=== PATIENT | female | born 1935 | race American Indian/Alaskan Native ===

== ENCOUNTER 2018-02-03 14:58 | Inpatient (IN) | payer MEDICARE ==
[2018-02-03] MEDS ORDERED: Sodium Chloride 0.9% 1,000 ML IV ONE (16:41)
--- NOTE | 2018-02-03 17:07 | C.PDOC ---
History Of Present Illness <Noelle Bustillos - Last Filed: 02/03/18 18:59> <Grupo Carmen - Last Filed: 02/03/18 21:08> 82-year-old female, PMHx includes Hypertension, Diabetes and Hypercholesterolemia, presents to the emergency department with complaints of recurring abdominal pain for "a long time." Patient notes pain worsened a few days ago, associated with nausea and back pain x3 days. Patient is also complaining of some chest tightness. She denies any symptoms, change in bowel habits, chest pain, vomiting, fever, chills, dizziness, or any other associated symptoms. No other complaints at this time. (Nolele Bustillos) History Per: Patient History/Exam Limitations: no limitations Current Symptoms Are (Timing): Still Present Severity: Moderate <Noelle Bustillos - Last Filed: 02/03/18 18:59> <Grupo Carmen - Last Filed: 02/03/18 21:08> Time Seen by Provider: 02/03/18 16:29 Chief Complaint (Nursing): Chest Pain Past Medical History Reviewed: Historical Data, Nursing Documentation, Vital Signs - Medical History PMH: HTN, Hypercholesterolemia Surgical History: Cholecystectomy Family History: States: No Known Family Hx - Social History Hx Alcohol Use: No Hx Substance Use: No - Immunization History Hx Tetanus Toxoid Vaccination: No Hx Influenza Vaccination: No Hx Pneumococcal Vaccination: No <Noelle Bustillos - Last Filed: 02/03/18 18:59> Vital Signs: Last Vital Signs Temp 98.3 F 02/03/18 19:20 Pulse 64 02/03/18 19:20 Resp 16 02/03/18 19:20 BP 163/79 H 02/03/18 19:20 Pulse Ox 98 02/03/18 19:20 Review Of Systems Constitutional: Negative for: Fever, Chills Cardiovascular: Negative for: Chest Pain, Palpitations, Light Headedness Gastrointestinal: Positive for: Nausea, Abdominal Pain. Negative for: Vomiting , Diarrhea Genitourinary: Negative for: Dysuria, Hematuria Musculoskeletal: Positive for: Back Pain Neurological: Negative for: Weakness, Numbness, Headache, Dizziness <BustillosNoelle Yuliet - Last Filed: 02/03/18 18:59> Physical Exam - Physical Exam Appears: Non-toxic, No Acute Distress, Other (morbidly obese) Skin: Normal Color, Warm, Dry, No Rash Head: Atraumatic, Normacephalic Eye(s): bilateral: Normal Inspection Nose: Normal Oral Mucosa: Moist Lips: Normal Appearing Neck: Normal ROM Chest: Symmetrical Cardiovascular: Rhythm Regular, No Murmur Respiratory: Normal Breath Sounds, No Accessory Muscle Use Gastrointestinal/Abdominal: Soft, No Guarding, No Rebound, Other (obese) Back: Other (right flank tenderness) Extremity: Normal ROM, No Pedal Edema, No Deformity, No Swelling Neurological/Psych: Oriented x3, Normal Speech <Noelle Bustillos - Last Filed: 02/03/18 18:59> ED Course And Treatment ECG: Interpreted By Me, Viewed By Me ECG Rhythm: Sinus Rhythm ECG Interpretation: No Acute Changes Interpretation Of ECG: NS at 69 bpm with LAD, incomplete LBBB and ST-T abnormality not acute. No priors available to review O2 Sat by Pulse Oximetry: 96 (RA) Pulse Ox Interpretation: Normal - CT Scan/US CT abd/pel Other Rad Studies (CT/US): Read By Radiologist, Radiology Report Reviewed CT/US Interpretation: Accession No. : [id number]. Patient Name / ID : BIJAN HINES / [id number]. Exam Date : 02/03/2018 17:36:12 ( Approved ). Study Comment : Sex / Age : F / 82Y. Creator : Maryam Hughes MD. Dictator : Maryam Hughes MD. Steel Pan Form Placing Supervisor : Electric Organ Checker : Maryam Hughes MD. Approver2 : Report Date : 02/03/2018 18:04:49. My Comment : . Date of service: 02/03/2018. PROCEDURE: CT Abdomen and Pelvis without intravenous contrast. HISTORY: RIGHT FLANK PAIN. COMPARISON: Comparison is made with 10/01/2012. TECHNIQUE: Axial and reformatted coronal and sagittal CT images of the abdomen and pelvis were obtained without IV or oral contrast administration.. Contrast dose: 0. Radiation dose: Total exam DLP = 1081.54 mGy-cm. This CT exam was performed using one or more of the following dose reduction techniques: Automated exposure control, adjustment of the mA and/or kV according to patient size, and/or use of iterative reconstruction technique. FINDINGS: LOWER THORAX: Focal airspace consolidation or mass noted at the right lower lobe measures 3.5 centimeter. The differential consideration includes pneumonia or neoplasm. Further assessment and follow-up is highly recommended. LIVER: Unremarkable. No gross lesion or ductal dilatation. GALLBLADDER AND BILE DUCTS: Status post cholecystectomy. PANCREAS: Unremarkable. No gross lesion or ductal dilatation. SPLEEN: Unremarkable. ADRENALS: Unremarkable. No mass. KIDNEYS AND URETERS: Unremarkable. No hydronephrosis. No solid mass. VASCULATURE: Unremarkable. No aortic aneurysm. BOWEL: There is midline ventral hernia again noted contains short segment of transverse colon without evidence of bowel obstruction. Colonic diverticulosis are again seen without evidence of diverticulitis. No evidence of small bowel obstruction. APPENDIX: There is no evidence of appendicitis. PERITONEUM: Unremarkable. No free fluid. No free air. LYMPH NODES: Unremarkable. No enlarged lymph nodes. BLADDER: Unremarkable. REPRODUCTIVE: The patient is likely status post hysterectomy. BONES: No acute fracture. OTHER FINDINGS: There is small amount of air in the urinary bladder. Correlate clinically for recent catheterization. The urinary bladder is noted at low position suggestive of cystocele. IMPRESSION: No evidence of nephrolithiasis or hydronephrosis. Again noted is midline incisional hernia contains short segment of the large bowel without evidence of bowel obstruction or incarceration. Colonic diverticulosis without evidence of diverticulitis. Mild urinary bladder wall thickening. Low position of the bladder suggestive of cystocele. <Noelle Bustillos - Last Filed: 02/03/18 18:59> - Laboratory Results Result Diagrams: 02/03/18 18:58 02/03/18 18:58 <Grupo Carmen - Last Filed: 02/03/18 21:08> Medical Decision Making <Noelle Bustillos - Last Filed: 02/03/18 18:59> <Grupo Carmen - Last Filed: 02/03/18 21:08> Medical Decision Making: Impression: flank pain, abdominal pain radiates to chest Plan: * CT Abd/Pel * Bloodwork * IVF, Toradol * Urine Culture * UA Progress: CT reviewed shows no evidence of nephrolithiasis or hydronephrosis. Again noted is midline incisional hernia contains short segment of the large bowel without evidence of bowel obstruction or incarceration. Colonic diverticulosis without evidence of diverticulitis. Mild urinary bladder wall thickening. Low position of the bladder suggestive of cystocele. See full report Patient has difficulty IV access. RN informed Dr Alcazar. Dr Alcazar achieved access 18g EJ. Labs sent 1900 Patient signed out to DR Carmen pending labs (Noelle Bustillos) Disposition - Disposition Disposition Time: 18:58 <Noelle Bustillos - Last Filed: 02/03/18 18:59> Discussed With .: Valarie Powell Comment: accepted the pt on her service and took over the care at 9:07 PM Doctor Will See Patient In The: Hospital Counseled Patient/Family Regarding: Studies Performed, Diagnosis - POA Present On Arrival: None <Grupo Carmen - Last Filed: 02/03/18 21:08> - Disposition Disposition: HOSPITALIZED Condition: FAIR - Clinical Impression Clinical Impression: Right flank pain, Chest discomfort, CHF (congestive heart failure) - Scribe Statement The provider has reviewed the documentation as recorded by the Scribe (Demond Sood) <Noelle Bustillos - Last Filed: 02/03/18 18:59> <Grupo Carmen - Last Filed: 02/03/18 21:08> - Scribe Statement All medical record entries made by the Scribe were at my direction and personally dictated by me. I have reviewed the chart and agree that the record accurately reflects my personal performance of the history, physical exam, medical decision making, and the department course for this patient. I have also personally directed, reviewed, and agree with the discharge instructions and disposition. (Noelle Bustillos) Physician Patient Turnover Patient Signed Over To: Grupo Carmen Handoff Comments: 19:00. Pending labs <Noelle Bustillos - Last Filed: 02/03/18 18:59> Decision To Admit <Noelle Bustillos - Last Filed: 02/03/18 18:59> - Pt Status Changed To: Hospital Disposition Of: Inpatient - Admit Certification Admit to Inpatient:: After my assessment, the patient will require hospitalization for at least two midnights. This is because of the severity of symptoms shown, intensity of services needed, and/or the medical risk in this patient being treated as an outpatient. - InPatient: Physician Admission Certification: I certify that this patient requires 2 or more midnights of care for the following reason:: After my assessment, the patient will require hospitalization for at least two midnights. This is because of the severity of symptoms shown, intensity of services needed, and/or the medical risk in this patient being treated as an outpatient. - . Bed Request Type: Telemetry Admitting Physician: Valarie Powell <Grupo Carmen - Last Filed: 02/03/18 21:08> - . Patient Diagnosis: Right flank pain, Chest discomfort, CHF (congestive heart failure)
[2018-02-03] MEDS ORDERED: Sodium Chloride 0.9% 1,000 ML ONE (17:19)
--- NOTE | 2018-02-03 18:06 | CT ---
Date of service: 02/03/2018 PROCEDURE: CT Abdomen and Pelvis without intravenous contrast HISTORY: RIGHT FLANK PAIN COMPARISON: Comparison is made with 10/01/2012 TECHNIQUE: Axial and reformatted coronal and sagittal CT images of the abdomen and pelvis were obtained without IV or oral contrast administration.. Contrast dose: 0 Radiation dose: Total exam DLP = 1081.54 mGy-cm. This CT exam was performed using one or more of the following dose reduction techniques: Automated exposure control, adjustment of the mA and/or kV according to patient size, and/or use of iterative reconstruction technique. FINDINGS: LOWER THORAX: Focal airspace consolidation or mass noted at the right lower lobe measures 3.5 centimeter. The differential consideration includes pneumonia or neoplasm. Further assessment and follow-up is highly recommended. LIVER: Unremarkable. No gross lesion or ductal dilatation. GALLBLADDER AND BILE DUCTS: Status post cholecystectomy PANCREAS: Unremarkable. No gross lesion or ductal dilatation. SPLEEN: Unremarkable. ADRENALS: Unremarkable. No mass. KIDNEYS AND URETERS: Unremarkable. No hydronephrosis. No solid mass. VASCULATURE: Unremarkable. No aortic aneurysm. BOWEL: There is midline ventral hernia again noted contains short segment of transverse colon without evidence of bowel obstruction. Colonic diverticulosis are again seen without evidence of diverticulitis. No evidence of small bowel obstruction. APPENDIX: There is no evidence of appendicitis. PERITONEUM: Unremarkable. No free fluid. No free air. LYMPH NODES: Unremarkable. No enlarged lymph nodes. BLADDER: Unremarkable. REPRODUCTIVE: The patient is likely status post hysterectomy. BONES: No acute fracture. OTHER FINDINGS: There is small amount of air in the urinary bladder. Correlate clinically for recent catheterization. The urinary bladder is noted at low position suggestive of cystocele. IMPRESSION: No evidence of nephrolithiasis or hydronephrosis. Again noted is midline incisional hernia contains short segment of the large bowel without evidence of bowel obstruction or incarceration. Colonic diverticulosis without evidence of diverticulitis. Mild urinary bladder wall thickening. Low position of the bladder suggestive of cystocele.
[2018-02-03 19:01] LABS: BASO # 0.1 K/uL (0.0-0.2); BASO % 1.4 % (0.0-2.0); EOS # 0.3 K/uL (0.0-0.7); EOS % 2.9 % (0.0-4.0); HEMOGLOBIN 9.9 g/dL (11.0-16.0); LYMPH # 1.4 K/uL (1.0-4.3); LYMPH % 15.3 % (20.0-40.0); MEAN CELL VOLUME 82.3 fL (81.0-99.0); MEAN CORPUSCULAR HEMOGLOBIN 26.6 pg (27.0-31.0); MEAN CORPUSCULAR HGB CONC 32.3 g/dL (33.0-37.0); MEAN PLATELET VOLUME 11.1 fL (7.2-11.7); MONO # 0.9 K/uL (0.0-0.8); MONO % 9.7 % (0.0-10.0); NEUT # 6.6 K/uL (1.8-7.0); NEUT % 70.7 % (50.0-75.0); NRBC % 0.1 % (0.0-2.0); RBC 3.73 Mil/uL (3.80-5.20); RED CELL DISTRIBUTION WIDTH 13.8 % (11.5-14.5); WHITE BLOOD COUNT 9.3 K/uL (4.8-10.8)
[2018-02-03 19:11] LABS: INR 1.1; PROTHROMBIN TIME 12.2 SECONDS (9.7-12.2)
[2018-02-03 19:14] LABS: ALBUMIN 3.4 g/dL (3.5-5.0); ALT/SGPT 18 U/L (9-52); AST/SGOT 11 U/L (14-36); BLOOD UREA NITROGEN 37 mg/dL (7-17); CALCIUM 8.7 mg/dl (8.6-10.4); GFR AFRICAN-AMERICAN 25; GFR NON-AFRICAN AMERICAN 20; LIPASE 173 U/L (23-300)
[2018-02-03 19:49] LABS: B-TYPE NATRIURETIC PEPTIDE 1750 pg/mL (0-900)
[2018-02-03 21:17] LABS: SQUAMOUS EPITHIAL 3 /hpf (0-5); URINE BACTERIA RARE (<OCC); URINE BILIRUBIN NEGATIVE (NEGATIVE); URINE BLOOD NEGATIVE (NEGATIVE); URINE CLARITY Hazy (Clear); URINE COLOR Yellow (YELLOW); URINE GLUCOSE (UA) NORMAL (Normal); URINE LEUKOCYTE ESTERASE 3+ Leu/uL (Negative); URINE PROTEIN 2+ mg/dL (NEGATIVE); URINE UROBILINOGEN NORMAL mg/dL (0.2-1.0)
[2018-02-03 21:52] VITALS: RESP 20
[2018-02-04 01:24] LABS: CK-MB 0.39 ng/mL (0.0-3.38)
[2018-02-04 06:20] LABS: HEMOGLOBIN 9.5 g/dL (11.0-16.0); MEAN CELL VOLUME 83.6 fL (81.0-99.0); MEAN CORPUSCULAR HGB CONC 32.3 g/dL (33.0-37.0); MEAN PLATELET VOLUME 11.9 fL (7.2-11.7); RBC 3.51 Mil/uL (3.80-5.20); RED CELL DISTRIBUTION WIDTH 13.9 % (11.5-14.5); WHITE BLOOD COUNT 7.2 K/uL (4.8-10.8)
[2018-02-04 06:52] LABS: CALCIUM 8.4 mg/dl (8.6-10.4)
[2018-02-04] MEDS: (Novolog) Insulin Aspart, Recombinant 100 u/ml 10 ml vial SC SCH ×4 (07:12→21:01)
--- NOTE | 2018-02-04 14:29 | CARD ---
APPROVED REPORT Date of service: 02/03/2018 EKG Measurement Heart [id number] <Conclusion> Normal sinus rhythm Left axis deviation Incomplete left bundle branch block Minimal voltage criteria for LVH, may be normal variant ST & T wave abnormality, consider inferior ischemia ST & T wave abnormality, consider anterolateral ischemia Abnormal ECG
--- NOTE | 2018-02-04 17:14 | CP.PCM.CON ---
History of Present Illness - History of Present Illness History of Present Illness: 82-year-old female, PMHx includes Hypertension, Diabetes and Hypercholesterolemia, presents to the emergency department with complaints of recurring abdominal pain for "a long time." Patient notes pain worsened a few days ago, associated with nausea and back pain x3 days. Patient is also complaining of some chest tightness. She denies any symptoms, change in bowel habits, chest pain, vomiting, fever, chills, dizziness, or any other associated symptoms. Review of Systems - Constitutional Constitutional: As Per HPI - EENT Eyes: As Per HPI Ears: As Per HPI - Breasts Breasts: As Per HPI - Gastrointestinal Gastrointestinal: As Per HPI - Genitourinary Genitourinary: As Per HPI Past Patient History - Past Medical History & Family History Past Medical History?: Yes - Past Social History Smoking Status: Former Smoker - CARDIAC Hx Hypercholesterolemia: Yes Hx Hypertension: Yes - NEUROLOGICAL Hx Neurological Disorder: No - HEENT Hx HEENT Problems: No - RENAL Hx Chronic Kidney Disease: No - ENDOCRINE/METABOLIC Hx Diabetes Mellitus Type 2: Yes - MUSCULOSKELETAL/RHEUMATOLOGICAL Hx Falls: Yes - GASTROINTESTINAL Hx Gastrointestinal Disorders: No - GENITOURINARY/GYNECOLOGICAL Hx Genitourinary Disorders: No - PSYCHIATRIC Hx Psychophysiologic Disorder: No Hx Substance Use: No - SURGICAL HISTORY Hx Cholecystectomy: Yes - ANESTHESIA Hx Anesthesia: Yes Hx Anesthesia Reactions: No Meds Allergies/Adverse Reactions: Allergies Allergy/AdvReac Type Severity Reaction Status Date / Time No Known Allergies Allergy Verified 02/03/18 15:24 - Medications Medications: Current Medications Enalapril Maleate (Vasotec) 10 mg PO DAILY [facility] Last Admin: 02/04/18 10:43 Dose: 10 mg Famotidine (Pepcid) 40 mg PO DAILY [facility] Last Admin: 02/04/18 10:42 Dose: 40 mg Furosemide (Lasix) 40 mg IVP Q12 [facility] Last Admin: 02/04/18 10:42 Dose: 40 mg Heparin Sodium (Porcine) (Heparin) 5,000 units SC Q12 [facility] Last Admin: 02/04/18 10:43 Dose: 5,000 units Insulin Aspart (Novolog) 0 unit SC ACHS [facility] PRN Reason: Protocol Last Admin: 02/04/18 12:33 Dose: Not Given Rosuvastatin Calcium (Crestor) 10 mg PO HS [facility] Sitagliptin Phosphate (Januvia) 50 mg PO DAILY [facility] Last Admin: 02/04/18 10:43 Dose: 50 mg Physical Exam - Head Exam Head Exam: NORMOCEPHALIC - Neck Exam Neck exam: Positive for: Normal Inspection - Respiratory Exam Respiratory Exam: NORMAL BREATHING PATTERN - Cardiovascular Exam Cardiovascular Exam: REGULAR RHYTHM, Systolic Murmur - Extremities Exam Extremities exam: Positive for: normal inspection - Neurological Exam Neurological exam: Alert, Oriented x3 Results - Vital Signs Recent Vital Signs: Last Vital Signs Temp 98 F 02/04/18 15:45 Pulse 59 L 02/04/18 15:45 Resp 20 02/04/18 15:45 BP 172/72 H 02/04/18 15:45 Pulse Ox 98 02/04/18 15:45 - Labs Result Diagrams: 02/04/18 06:13 02/04/18 06:13 Labs: Laboratory Results - last 24 hr 02/03/18 02/03/18 02/03/18 18:58 18:58 18:58 WBC 9.3 RBC 3.73 L Hgb 9.9 L Hct 30.7 L MCV 82.3 MCH 26.6 L MCHC 32.3 L RDW 13.8 Plt Count 188 MPV 11.1 Neut % (Auto) 70.7 Lymph % (Auto) 15.3 L Hernando % (Auto) 9.7 Eos % (Auto) 2.9 Baso % (Auto) 1.4 Neut # (Auto) 6.6 Lymph # (Auto) 1.4 Hernando # (Auto) 0.9 H Eos # (Auto) 0.3 Baso # (Auto) 0.1 PT 12.2 INR 1.1 APTT 29 Sodium 143 Potassium 4.4 Chloride 111 H Carbon Dioxide 19 L Anion Gap 17 BUN 37 H Creatinine 2.3 H Est GFR ( Amer) 25 Est GFR (Non-Af Amer) 20 POC Glucose (mg/dL) Random Glucose 148 H Calcium 8.7 Total Bilirubin 0.2 AST 11 L ALT 18 Alkaline Phosphatase 132 H Total Creatine Kinase CK-MB (Mass) Troponin I < 0.0120 NT-Pro-B Natriuret Pep 1750 H Total Protein 6.9 Albumin 3.4 L Globulin 3.5 Albumin/Globulin Ratio 1.0 Lipase 173 TSH 3rd Generation Urine Color Urine Clarity Urine pH Ur Specific Astor Urine Protein Urine Glucose (UA) Urine Ketones Urine Blood Urine Nitrate Urine Bilirubin Urine Urobilinogen Ur Leukocyte Esterase Urine WBC (Auto) Urine RBC (Auto) Ur Squamous Epith Cells Urine Bacteria 02/03/18 02/04/18 02/04/18 20:58 00:51 06:13 WBC 7.2 RBC 3.51 L Hgb 9.5 L Hct 29.4 L MCV 83.6 MCH 27.0 MCHC 32.3 L RDW 13.9 Plt Count 163 MPV 11.9 H Neut % (Auto) Lymph % (Auto) Hernando % (Auto) Eos % (Auto) Baso % (Auto) Neut # (Auto) Lymph # (Auto) Hernando # (Auto) Eos # (Auto) Baso # (Auto) PT INR APTT Sodium Potassium Chloride Carbon Dioxide Anion Gap BUN Creatinine Est GFR ( Amer) Est GFR (Non-Af Amer) POC Glucose (mg/dL) Random Glucose Calcium Total Bilirubin AST ALT Alkaline Phosphatase Total Creatine Kinase 39 CK-MB (Mass) 0.39 Troponin I < 0.0120 NT-Pro-B Natriuret Pep Total Protein Albumin Globulin Albumin/Globulin Ratio Lipase TSH 3rd Generation Urine Color Yellow Urine Clarity Hazy Urine pH 5.0 Ur Specific Astor 1.014 Urine Protein 2+ H Urine Glucose (UA) Normal Urine Ketones Negative Urine Blood Negative Urine Nitrate Positive H Urine Bilirubin Negative Urine Urobilinogen Normal Ur Leukocyte Esterase 3+ H Urine WBC (Auto) 405 H Urine RBC (Auto) 3 Ur Squamous Epith Cells 3 Urine Bacteria Rare 02/04/18 02/04/18 02/04/18 06:13 06:17 10:58 WBC RBC Hgb Hct MCV MCH MCHC RDW Plt Count MPV Neut % (Auto) Lymph % (Auto) Hernando % (Auto) Eos % (Auto) Baso % (Auto) Neut # (Auto) Lymph # (Auto) Hernando # (Auto) Eos # (Auto) Baso # (Auto) PT INR APTT Sodium 144 Potassium 4.4 Chloride 113 H Carbon Dioxide 19 L Anion Gap 16 BUN 38 H Creatinine 2.4 H Est GFR ( Amer) 23 Est GFR (Non-Af Amer) 19 POC Glucose (mg/dL) 130 H 163 H Random Glucose 126 H Calcium 8.4 L Total Bilirubin AST ALT Alkaline Phosphatase Total Creatine Kinase CK-MB (Mass) Troponin I NT-Pro-B Natriuret Pep Total Protein Albumin Globulin Albumin/Globulin Ratio Lipase TSH 3rd Generation 4.92 H Urine Color Urine Clarity Urine pH Ur Specific Astor Urine Protein Urine Glucose (UA) Urine Ketones Urine Blood Urine Nitrate Urine Bilirubin Urine Urobilinogen Ur Leukocyte Esterase Urine WBC (Auto) Urine RBC (Auto) Ur Squamous Epith Cells Urine Bacteria 02/04/18 16:18 WBC RBC Hgb Hct MCV MCH MCHC RDW Plt Count MPV Neut % (Auto) Lymph % (Auto) Hernando % (Auto) Eos % (Auto) Baso % (Auto) Neut # (Auto) Lymph # (Auto) Hernando # (Auto) Eos # (Auto) Baso # (Auto) PT INR APTT Sodium Potassium Chloride Carbon Dioxide Anion Gap BUN Creatinine Est GFR ( Amer) Est GFR (Non-Af Amer) POC Glucose (mg/dL) 174 H Random Glucose Calcium Total Bilirubin AST ALT Alkaline Phosphatase Total Creatine Kinase CK-MB (Mass) Troponin I NT-Pro-B Natriuret Pep Total Protein Albumin Globulin Albumin/Globulin Ratio Lipase TSH 3rd Generation Urine Color Urine Clarity Urine pH Ur Specific Astor Urine Protein Urine Glucose (UA) Urine Ketones Urine Blood Urine Nitrate Urine Bilirubin Urine Urobilinogen Ur Leukocyte Esterase Urine WBC (Auto) Urine RBC (Auto) Ur Squamous Epith Cells Urine Bacteria Assessment & Plan (1) CHF (congestive heart failure) Assessment and Plan: Diuretic and control BP. discussed with team. Echocardigram to assess LV systolic function. Status: Acute Priority: High (2) Chest discomfort Assessment and Plan: Diastolic dysfunction vs ischemia? Follow ACS protocol. Status: Acute (3) Hypertensive urgency Assessment and Plan: Start PO meds with Amlodipine 10 daily and control back pain. Discussed with team. If not control ICU evaluation. Status: Acute Priority: High
[2018-02-05] MEDS: Tmp-Smz 800 mg-160 mg DS Tab PO SCH ×2 (00:53→12:53)
--- NOTE | 2018-02-05 00:54 | CP.CCUPN ---
CCU Subjective - Physician Review Subjective (Free Text): 03/07/2018 Patient seen and examined, Events reviewed 82-year-old female with PMHx Hypertension, Diabetes and Hypercholesterolemia. Who presents to the emergency department with complaints of mid epigastric sharp abdominal pain, radiating tp the back ICU consult called for elevated BP (SBP 1901-200), Patient received 40 mg IV Lasix, 10 mg IV hydralazin and 10 mg norvasc Patient AAO X3, No focal sensory or motor deficits Comfortable and in no apparent distress. Denies SOB, chest tightness, dizziness, fever/chills, or palliations Afebrile, NSR on the monitor Code status: Full code 02/05/18 00:57 Repeat BP 174/75, she remains asymptomatic, comfortable, NAD Patient will receive her regular dose of 10 mg PO hydralazine now and recheck BP in one hour Patient Clinically stable, hemodynamically improved Will continue monitoring on the telemetry with frequent BP monitoring Critical Care Time Spent (in minutes): 25 CCU Objective - Vital Signs / Intake & Output Vital Signs (Last 4 hours): Vital Signs Temp Pulse Resp BP Pulse Ox 02/05/18 00:38 68 02/05/18 00:21 97.7 F 71 20 198/73 H 98 02/05/18 00:00 98.0 F 65 20 195/78 H 95 02/04/18 21:45 71 207/79 H 02/04/18 21:36 207/74 H Intake and Output (Last 8hrs): Intake & Output 02/04/18 02/04/18 02/05/18 14:59 22:59 06:59 Intake Total 500 Balance 500 Intake: Oral 500 Other: # Voids Urine, Voided 3 - Physical Exam Head: Positive for: Atraumatic, Normocephalic Pupils: Positive for: PERRL Extroacular Muscles: Positive for: EOMI Conjunctiva: Positive for: Normal. Negative for: Injected Mouth: Positive for: Moist Mucous Membranes Nose (Internal): Positive for: Normal Inspection Neck: Positive for: Normal Range of Motion, Trachea Midline. Negative for: Meningeal Signs, MIDLINE TENDERNESS, Paraspinal Tenderness, JVD, Lymphadenopathy , Bruit, Other Respiratory/Chest: Positive for: Clear to Auscultation, Good Air Exchange. Negative for: Respiratory Distress, Accessory Muscle Use, Wheezes, Rales, Rhonchi Cardiovascular: Positive for: Regular Rate and Rhythm, Normal S1, S2, Peripheal Pulses Present. Negative for: Murmurs, Tachycardic, Bradycardic Abdomen: Positive for: Normal Bowel Sounds. Negative for: Tenderness, Distention Back: Negative for: CVA Tenderness Upper Extremity: Positive for: Normal Inspection, Capillary Refill < 2s. Negative for: Edema Lower Extremity: Positive for: Normal Inspection, Capillary Refill < 2 s. Negative for: Edema, CALF TENDERNESS Neurological: Positive for: GCS=15, CN II-XII Intact, Speech Normal, Motor Func Grossly Intact, Normal Sensory Function - Medications Active Medications: Active Medications Generic Name Dose Route Start Last Admin Trade Name Freq PRN Reason Stop Dose Admin Amlodipine Besylate 10 mg 02/05/18 10:00 Norvasc PO DAILY [facility] Enalapril Maleate 20 mg 02/05/18 10:00 Vasotec PO DAILY [facility] Famotidine 40 mg 02/04/18 10:00 02/04/18 10:42 Pepcid PO 40 mg DAILY [facility] Administration Furosemide 40 mg 02/04/18 10:00 02/04/18 21:36 Lasix IVP 40 mg Q12 [facility] Administration Heparin Sodium (Porcine) 5,000 units 02/04/18 10:00 02/04/18 21:36 Heparin SC 5,000 units Q12 [facility] Administration Hydralazine HCl 10 mg 02/05/18 00:30 Apresoline PO BID [facility] Insulin Aspart 0 unit 02/04/18 07:30 02/04/18 21:01 Novolog SC Not Given ACHS [facility] Protocol Rosuvastatin Calcium 10 mg 02/04/18 22:00 02/04/18 21:39 Crestor PO 10 mg HS [facility] Administration Sitagliptin Phosphate 50 mg 02/04/18 10:00 02/04/18 10:43 Januvia PO 50 mg DAILY [facility] Administration Trimethoprim/Sulfamethoxazole 1 tab 02/05/18 00:30 Bactrim Ds Tab PO Q12H [facility] Protocol - Patient Studies Lab Studies: Microbiology Studies 02/03/18 20:58 Urine Culture - Preliminary Urine Gram Negative [facility] Studies 02/04/18 02/04/18 02/04/18 Range/Units 20:56 16:18 10:58 WBC (4.8-10.8) K/uL RBC (3.80-5.20) Mil/uL Hgb (11.0-16.0) g/dL Hct (34.0-47.0) % MCV (81.0-99.0) fL MCH (27.0-31.0) pg MCHC (33.0-37.0) g/dL RDW (11.5-14.5) % Plt Count (130-400) K/uL MPV (7.2-11.7) fL Sodium (132-148) mmol/L Potassium (3.6-5.2) mmol/L Chloride (98-107) mmol/L Carbon Dioxide (22-30) mmol/L Anion Gap (10-20) BUN (7-17) mg/dL Creatinine (0.7-1.2) mg/dL Est GFR ( Amer) Est GFR (Non-Af Amer) POC Glucose (mg/dL) 187 H 174 H 163 H (65-110) mg/dL Random Glucose (65-105) mg/dL Calcium (8.6-10.4) mg/dl Total Creatine Kinase (30-135) U/L CK-MB (Mass) (0.0-3.38) ng/mL Troponin I (0.00-0.120) ng/mL TSH 3rd Generation (0.46-4.68) mIU/L 02/04/18 02/04/18 02/04/18 Range/Units 06:17 06:13 06:13 WBC 7.2 (4.8-10.8) K/uL RBC 3.51 L (3.80-5.20) Mil/uL Hgb 9.5 L (11.0-16.0) g/dL Hct 29.4 L (34.0-47.0) % MCV 83.6 (81.0-99.0) fL MCH 27.0 (27.0-31.0) pg MCHC 32.3 L (33.0-37.0) g/dL RDW 13.9 (11.5-14.5) % Plt Count 163 (130-400) K/uL MPV 11.9 H (7.2-11.7) fL Sodium 144 (132-148) mmol/L Potassium 4.4 (3.6-5.2) mmol/L Chloride 113 H (98-107) mmol/L Carbon Dioxide 19 L (22-30) mmol/L Anion Gap 16 (10-20) BUN 38 H (7-17) mg/dL Creatinine 2.4 H (0.7-1.2) mg/dL Est GFR ( Amer) 23 Est GFR (Non-Af Amer) 19 POC Glucose (mg/dL) 130 H (65-110) mg/dL Random Glucose 126 H (65-105) mg/dL Calcium 8.4 L (8.6-10.4) mg/dl Total Creatine Kinase (30-135) U/L CK-MB (Mass) (0.0-3.38) ng/mL Troponin I (0.00-0.120) ng/mL TSH 3rd Generation 4.92 H (0.46-4.68) mIU/L 02/04/18 Range/Units 00:51 WBC (4.8-10.8) K/uL RBC (3.80-5.20) Mil/uL Hgb (11.0-16.0) g/dL Hct (34.0-47.0) % MCV (81.0-99.0) fL MCH (27.0-31.0) pg MCHC (33.0-37.0) g/dL RDW (11.5-14.5) % Plt Count (130-400) K/uL MPV (7.2-11.7) fL Sodium (132-148) mmol/L Potassium (3.6-5.2) mmol/L Chloride (98-107) mmol/L Carbon Dioxide (22-30) mmol/L Anion Gap (10-20) BUN (7-17) mg/dL Creatinine (0.7-1.2) mg/dL Est GFR ( Amer) Est GFR (Non-Af Amer) POC Glucose (mg/dL) (65-110) mg/dL Random Glucose (65-105) mg/dL Calcium (8.6-10.4) mg/dl Total Creatine Kinase 39 (30-135) U/L CK-MB (Mass) 0.39 (0.0-3.38) ng/mL Troponin I < 0.0120 (0.00-0.120) ng/mL TSH 3rd Generation (0.46-4.68) mIU/L Laboratory Results - last 24 hr 02/04/18 02/04/18 02/04/18 00:51 06:13 06:13 WBC 7.2 RBC 3.51 L Hgb 9.5 L Hct 29.4 L MCV 83.6 MCH 27.0 MCHC 32.3 L RDW 13.9 Plt Count 163 MPV 11.9 H Sodium 144 Potassium 4.4 Chloride 113 H Carbon Dioxide 19 L Anion Gap 16 BUN 38 H Creatinine 2.4 H Est GFR ( Amer) 23 Est GFR (Non-Af Amer) 19 POC Glucose (mg/dL) Random Glucose 126 H Calcium 8.4 L Total Creatine Kinase 39 CK-MB (Mass) 0.39 Troponin I < 0.0120 TSH 3rd Generation 4.92 H 02/04/18 02/04/18 02/04/18 06:17 10:58 16:18 WBC RBC Hgb Hct MCV MCH MCHC RDW Plt Count MPV Sodium Potassium Chloride Carbon Dioxide Anion Gap BUN Creatinine Est GFR ( Amer) Est GFR (Non-Af Amer) POC Glucose (mg/dL) 130 H 163 H 174 H Random Glucose Calcium Total Creatine Kinase CK-MB (Mass) Troponin I TSH 3rd Generation 02/04/18 20:56 WBC RBC Hgb Hct MCV MCH MCHC RDW Plt Count MPV Sodium Potassium Chloride Carbon Dioxide Anion Gap BUN Creatinine Est GFR ( Amer) Est GFR (Non-Af Amer) POC Glucose (mg/dL) 187 H Random Glucose Calcium Total Creatine Kinase CK-MB (Mass) Troponin I TSH 3rd Generation Fingerstick Blood Sugar Results: 187 Review of Systems - Cardiovascular Cardiovascular: absent: As Per HPI, Acrocyanosis, Chest Pain, Chest Pain at Rest , Chest Pain with Activity, Claudication, Diaphoresis, Dyspnea, Dyspnea on Exertion, Edema, Irregular Heart Rhythm, Pain Radiating to Arm/Neck/Jaw, Leg Edema, Leg Ulcers, Lightheadedness, Orthopnea, Palpitations, Paroxysmal Nocturnal Dyspnea, Pedal Edema, Radiating Pain, Rapid Heart Rate, Slow Heart Rate, Syncope, Other, UNREMARKABLE - Respiratory Respiratory: absent: As Per HPI, Cough, Dyspnea, Hemoptysis, Dyspnea on Exertion , Wheezing, Snoring, Stridor, Pain on Inspiration, Chest Congestion, Excessive Mucous Production, Change in Mucous Color, Pain with Coughing, Other, UNREMARKABLE Critical Care Progress Note - Extremities/Vascular Does the Patient have a Central Venous Catheter?: No Does the Patient need a Central Venous Catheter?: No Does the Patient have a Marquez Catheter?: No - Nutrition Nutrition: Nutrition Category Date Time Status Consistent Carbohydrate [DIET] Diets 02/04/18 Breakfast Active Assessment/Plan (1) Hypertensive urgency Current Visit: Yes Status: Acute Priority: High (2) CHF (congestive heart failure) Current Visit: Yes Status: Acute Priority: High
--- NOTE | 2018-02-05 06:43 | CP.PCM.CON ---
<Bernardo Macias - Last Filed: 02/05/18 09:31> History of Present Illness - History of Present Illness History of Present Illness: PGY-4 GI Fellow Initial Consult Note Mrs. Chase is a 82 yo BF with h/o DM2, HTN, HLD,CKD presenting with abominal pain. On 02/03, she presenting with complaints of worsening of her chronic abdominal pain. She described mid epigastric pain, sharp, 10/10 with radiation to her back with associated nausea but denied vomiting. She states her chronic pain is more in her RLQ ever since she has hernia surgery some 12 years ago. Pain is described as crampy, intermittent lasting seconds to minutes. She states that she her BMs are formed brown occuring every other day or so, but recently she states that it has been nearly 4 days since her last bowel movement. She denies and melena, hematochezia, weight loss or dysphagia. She states that she had a CSPY 3-4 years ago that she believes was normal. Denies ever having EGD before. Upon presentation she was found to have uncontrolled BP up to 200s/90s with elevated proBNP to 1750 for which diuresis and anti-HTN were started. UA was concerning for infection with TMP/SMX initiated. During my encounter she states her abd pain is much improved and nearly back to baseline. 12 point ROS negative other than stated above MHx: As above SurgHx: Hernia, CSPY ~4 years ago, results unknown. No EGD Meds: Simvastatin, sitagliptin FamHx: Denied Fam h/o gi/liver problems SocHx: Former smoker All: NKDA Past Patient History - Past Medical History & Family History Past Medical History?: Yes - Past Social History Smoking Status: Former Smoker - CARDIAC Hx Hypercholesterolemia: Yes Hx Hypertension: Yes - NEUROLOGICAL Hx Neurological Disorder: No - HEENT Hx HEENT Problems: No - RENAL Hx Chronic Kidney Disease: No - ENDOCRINE/METABOLIC Hx Diabetes Mellitus Type 2: Yes - MUSCULOSKELETAL/RHEUMATOLOGICAL Hx Falls: Yes - GASTROINTESTINAL Hx Gastrointestinal Disorders: No - GENITOURINARY/GYNECOLOGICAL Hx Genitourinary Disorders: No - PSYCHIATRIC Hx Psychophysiologic Disorder: No Hx Substance Use: No - SURGICAL HISTORY Hx Cholecystectomy: Yes - ANESTHESIA Hx Anesthesia: Yes Hx Anesthesia Reactions: No Meds Allergies/Adverse Reactions: Allergies Allergy/AdvReac Type Severity Reaction Status Date / Time No Known Allergies Allergy Verified 02/03/18 15:24 - Medications Medications: Current Medications Amlodipine Besylate (Norvasc) 10 mg PO DAILY [facility] Enalapril Maleate (Vasotec) 20 mg PO DAILY [facility] Famotidine (Pepcid) 20 mg PO DAILY [facility] Furosemide (Lasix) 40 mg IVP Q12 [facility] Last Admin: 02/04/18 21:36 Dose: 40 mg Heparin Sodium (Porcine) (Heparin) 5,000 units SC Q12 [facility] Last Admin: 02/04/18 21:36 Dose: 5,000 units Hydralazine HCl (Apresoline) 10 mg PO BID [facility] Last Admin: 02/05/18 00:53 Dose: 10 mg Insulin Aspart (Novolog) 0 unit SC ACHS [facility] PRN Reason: Protocol Last Admin: 02/04/18 21:01 Dose: Not Given Rosuvastatin Calcium (Crestor) 10 mg PO HS [facility] Last Admin: 02/04/18 21:39 Dose: 10 mg Sitagliptin Phosphate (Januvia) 50 mg PO DAILY [facility] Last Admin: 02/04/18 10:43 Dose: 50 mg Trimethoprim/Sulfamethoxazole (Bactrim Ds Tab) 1 tab PO Q12H [facility] PRN Reason: Protocol Last Admin: 02/05/18 00:53 Dose: 1 tab Physical Exam - Constitutional Appears: Well, Non-toxic, No Acute Distress, Chronically Ill, Other (Obese) - Head Exam Head Exam: ATRAUMATIC, NORMAL INSPECTION - Eye Exam Eye Exam: EOMI. absent: Conjunctival injection, Scleral icterus - ENT Exam ENT Exam: Mucous Membranes Moist, Normal External Ear Exam - Respiratory Exam Respiratory Exam: Clear to Auscultation Bilateral, NORMAL BREATHING PATTERN. absent: Accessory Muscle Use, Chest Wall Tenderness - Cardiovascular Exam Cardiovascular Exam: REGULAR RHYTHM, RRR. absent: Bradycardia, Tachycardia - GI/Abdominal Exam GI & Abdominal Exam: Normal Bowel Sounds, Soft, Tenderness (mildly in R half of abdomen w/o guarding.). absent: Bruit, Diminished Bowel Sounds, Distended, Firm , Guarding, Hernia, Hyperactive Bowel Sounds, Hypoactive Bowel Sounds, Mass, Pulsatile Mass, Rebound Additional comments: Obese abdomen limiting exam - Skin Skin Exam: Normal Color, Warm Results - Vital Signs Recent Vital Signs: Last Vital Signs Temp 97.7 F 02/05/18 00:30 Pulse 67 02/05/18 05:00 Resp 20 02/05/18 00:51 BP 148/55 L 02/05/18 05:00 Pulse Ox 98 02/05/18 00:30 - Labs Result Diagrams: 02/04/18 06:13 02/04/18 06:13 Labs: Laboratory Results - last 24 hr 02/04/18 02/04/18 02/04/18 06:13 10:58 16:18 Sodium 144 Potassium 4.4 Chloride 113 H Carbon Dioxide 19 L Anion Gap 16 BUN 38 H Creatinine 2.4 H Est GFR ( Amer) 23 Est GFR (Non-Af Amer) 19 POC Glucose (mg/dL) 163 H 174 H Random Glucose 126 H Calcium 8.4 L TSH 3rd Generation 4.92 H 02/04/18 02/05/18 20:56 06:06 Sodium Potassium Chloride Carbon Dioxide Anion Gap BUN Creatinine Est GFR ( Amer) Est GFR (Non-Af Amer) POC Glucose (mg/dL) 187 H 175 H Random Glucose Calcium TSH 3rd Generation Assessment & Plan - Assessment and Plan (Free Text) Assessment: 82 yo F with HTN, DM2, HLD presenting with worsening abd pain found to have increase BP and Cr. GI consulted for N/V/Diarrhea. # Abd Pain: Multifactorial in nature. Acutely, believe related to acute cystitis given dirty UA and GNRs growing with subsequent improvement on TMP/ SMX. Furthermore, symtoms improved with diuresis/BP control. Lastly, she has moderate stool burden on CT with recent constipation contributing. Chronic abd pain is not a major concern for her as has been stable for >10 years. Would ensure that she is regulary moving bowels and using stool softeners or miralax to ensure regular BMs given her abdominal wall hernia. Plan: - Recommend Miralax daily PRN - Agree with treating UTI and BP as you are - No plans for endoscopic evaluation at this time Pt seen and examined with Dr. Casper <eHnry Casper - Last Filed: 02/05/18 12:33> Meds - Medications Medications: Current Medications Amlodipine Besylate (Norvasc) 10 mg PO DAILY [facility] Last Admin: 02/05/18 10:45 Dose: 10 mg Enalapril Maleate (Vasotec) 20 mg PO DAILY [facility] Last Admin: 08/01/18 10:46 Dose: 20 mg Famotidine (Pepcid) 20 mg PO DAILY [facility] Last Admin: 02/05/18 10:45 Dose: 20 mg Furosemide (Lasix) 40 mg IVP Q12 [facility] Last Admin: 02/04/18 21:36 Dose: 40 mg Heparin Sodium (Porcine) (Heparin) 5,000 units SC Q12 [facility] Last Admin: 02/05/18 11:07 Dose: 5,000 units Hydralazine HCl (Apresoline) 10 mg PO BID [facility] Last Admin: 02/05/18 11:04 Dose: 10 mg Insulin Aspart (Novolog) 0 unit SC ACHS [facility] PRN Reason: Protocol Last Admin: 02/05/18 08:39 Dose: 1 units Polyethylene Glycol (Miralax) 17 gm PO DAILY [facility] Rosuvastatin Calcium (Crestor) 10 mg PO HS [facility] Last Admin: 02/04/18 21:39 Dose: 10 mg Sitagliptin Phosphate (Januvia) 50 mg PO DAILY [facility] Last Admin: 02/05/18 10:45 Dose: 50 mg Trimethoprim/Sulfamethoxazole (Bactrim Ds Tab) 1 tab PO Q12H [facility] PRN Reason: Protocol Last Admin: 02/05/18 00:53 Dose: 1 tab Results - Vital Signs Recent Vital Signs: Last Vital Signs Temp 97.7 F 02/05/18 07:00 Pulse 74 02/05/18 08:11 Resp 20 02/05/18 07:00 BP 158/91 H 02/05/18 10:46 Pulse Ox 99 02/05/18 07:00 - Labs Result Diagrams: 02/04/18 06:13 02/04/18 06:13 Labs: Laboratory Results - last 24 hr 02/04/18 02/04/18 02/05/18 16:18 20:56 06:06 POC Glucose (mg/dL) 174 H 187 H 175 H Attending/Attestation - Attestation I have personally seen and examined this patient.: Yes I have fully participated in the care of the patient.: Yes I have reviewed all pertinent clinical information: Yes Notes (Text): 02/05/18 12:28 I have seen and examined patient with GI fellow. Agree with above documentation with the following additions. In brief, this is an 82 year old female with history of DM, HTN, CKD who presents to hospital with complaint of abdominal pain which worsened yesterday. She endorses having chronic mild abdominal pain for the past year but yesterday she developed sharp 10/10 intensity pain in the RLQ which radiated to back. There was no associated nausea, vomiting, fever/chills, weight loss, rectal bleeding. She does report recent constipation, no bowel movement over the past 4 days. Since arrival to hospital, her abdominal pain has resolved, she is currently being treated for hypertensive urgency and UTI. She had a colonoscopy nearly 3 years ago which was normal as per patient. Additional physical examination: Abdomen: no palpable hepato/spelnomegaly Psych: mood, affect appropriate Neuro: AAO x 3, CN intact DM / HTN CKD Obesity (BMI 47) Abdominal pain - resolved Hypertensive urgency Cystitis, UTI - Diet as tolerated - Maintain bowel regimen to prevent constipation - Continue with antibiotic therapy for UTI - Urology consultation requested by primary medical team, follow up recommendations - No further planned GI intervention, will sign off case. Suggest additional outpatient follow up. Please reconsult as necessary, thank you.
[2018-02-05] MEDS: (Novolog) Insulin Aspart, Recombinant 100 u/ml 10 ml vial SC SCH ×3 (08:39→17:14)
--- NOTE | 2018-02-05 10:21 | HP ---
Copied To: Valarie Powell MD Attending MD: Valarie Powell MD The patient was seen and examined on 02/04/2018. CHIEF COMPLAINT: Abdominal pain, nausea, vomiting. HISTORY OF PRESENT ILLNESS: Ms. Sonia Chase is an 82-year-old female with past medical history of hypertension, diabetes mellitus, hypercholesterolemia, came to the emergency department, was complaining of recurrent abdominal pain for a long time. The patient noticed pain worsened few days ago associated with nausea and vomiting. The patient is also complaining of some chest tightness. Denies any symptoms, change in bowel habits, chest pain, vomiting, fever, chills, dizziness, or any other associated complaints. No other complaints at this time. When I saw the patient in her room, actually her pain is getting better. No nausea or vomiting at this moment. She was eating her dinner. PAST MEDICAL HISTORY: Hypertension, hypercholesterolemia, and cholecystectomy. FAMILY HISTORY: Father and mother, noncontributory. HABITS: No smoking. No drugs. No ethanol. ALLERGIES: THE PATIENT IS NOT ALLERGIC TO ANY MEDICATIONS. HOME MEDICATIONS: Reviewed by me. REVIEW OF SYSTEMS: The patient was seen and examined at the bedside, looking comfortable. No nausea, vomiting, diarrhea. No hematuria or hematochezia at that moment. No headache, no dizziness, no chest pain, no palpitation. PHYSICAL EXAMINATION: VITAL SIGNS: Temperature 98, pulse 71, blood pressure 207/79, respiratory rate 20. HEENT: Head: Normocephalic, atraumatic. Eyes: PERRLA. Extraocular muscles intact. Conjunctivae clear. Nose patent. Mucous membranes moist. NECK: Supple. No carotid bruits. No JVD or thyromegaly. CHEST: Bilaterally symmetrical. HEART: S1, S2 positive. LUNGS: Clear to auscultation. ABDOMEN: Soft. Bowel sounds present. No organomegaly. EXTREMITIES: No edema. No cyanosis. NEUROLOGIC: The patient is awake, alert, moving all four extremities. No focal deficits. LABORATORY DATA: White blood cell is 7.2, hemoglobin 9.5, hematocrit 29.4, platelets 163. Sodium 144, potassium 4.4, BUN 30, creatinine 2.4, glucose 130, calcium 8.4. ASSESSMENT AND PLAN: Ms. Sonia Chase is an 82-year-old lady with anemia, hyperchloremia, renal insufficiency, hyperglycemia, hypocalcemia, proteinuria, urinary tract infection. Seen by the chief executive or managing director, Dr. Celestine Hawley. CAT scan of the abdomen and pelvis done, reviewed by me. History of hypertension and hypercholesterolemia. No evidence of nephrolithiasis or hydronephrosis. Again, noted a middle incisional hernia containing short segment of the large bowel without evidence of bowel obstruction or incarceration. diverticulosis without evidence of diverticulitis. Mild urinary bladder wall thickening, low position of the bladder suggestive of cystocele. The patient is getting hydralazine, Crestor, heparin, and Januvia. GI and deep venous thrombosis prophylaxis. Repeat labs. We will follow up. Valarie Powell MD [id number]
[2018-02-05] MEDS: POLYETHYLENE GLYCOL 3350 17 GM/Dose PACKET PO SCH (11:15)
--- NOTE | 2018-02-05 14:59 | CP.PCM.CON ---
Past Patient History - Past Medical History & Family History Past Medical History?: Yes - Past Social History Smoking Status: Former Smoker - CARDIAC Hx Hypercholesterolemia: Yes Hx Hypertension: Yes - NEUROLOGICAL Hx Neurological Disorder: No - HEENT Hx HEENT Problems: No - RENAL Hx Chronic Kidney Disease: No - ENDOCRINE/METABOLIC Hx Diabetes Mellitus Type 2: Yes - MUSCULOSKELETAL/RHEUMATOLOGICAL Hx Falls: Yes - GASTROINTESTINAL Hx Gastrointestinal Disorders: No - GENITOURINARY/GYNECOLOGICAL Hx Genitourinary Disorders: No - PSYCHIATRIC Hx Psychophysiologic Disorder: No Hx Substance Use: No - SURGICAL HISTORY Hx Cholecystectomy: Yes - ANESTHESIA Hx Anesthesia: Yes Hx Anesthesia Reactions: No Meds Allergies/Adverse Reactions: Allergies Allergy/AdvReac Type Severity Reaction Status Date / Time No Known Allergies Allergy Verified 02/03/18 15:24 - Medications Medications: Current Medications Amlodipine Besylate (Norvasc) 10 mg PO DAILY [facility] Last Admin: 02/05/18 10:45 Dose: 10 mg Enalapril Maleate (Vasotec) 20 mg PO DAILY [facility] Last Admin: 02/05/18 10:46 Dose: 20 mg Famotidine (Pepcid) 20 mg PO DAILY [facility] Last Admin: 02/05/18 10:45 Dose: 20 mg Furosemide (Lasix) 40 mg IVP Q12 [facility] Last Admin: 02/04/18 21:36 Dose: 40 mg Heparin Sodium (Porcine) (Heparin) 5,000 units SC Q12 [facility] Last Admin: 02/05/18 11:07 Dose: 5,000 units Hydralazine HCl (Apresoline) 10 mg PO BID [facility] Last Admin: 02/05/18 11:04 Dose: 10 mg Piperacillin Sod/Tazobactam Sod (Zosyn 2.25 Gm Iv Premix) 2.25 gm in 50 mls @ 100 mls/hr IVPB Q8H [facility] Insulin Aspart (Novolog) 0 unit SC ACHS [facility] PRN Reason: Protocol Last Admin: 02/05/18 12:35 Dose: 1 units Polyethylene Glycol (Miralax) 17 gm PO DAILY [facility] Last Admin: 02/05/18 11:15 Dose: 17 gm Rosuvastatin Calcium (Crestor) 5 mg PO HS [facility] Sitagliptin Phosphate (Januvia) 25 mg PO DAILY [facility] Results - Vital Signs Recent Vital Signs: Last Vital Signs Temp 97.7 F 02/05/18 07:00 Pulse 80 02/05/18 13:33 Resp 20 02/05/18 07:00 BP 134/72 02/05/18 13:33 Pulse Ox 99 02/05/18 07:00 - Labs Result Diagrams: 02/04/18 06:13 02/04/18 06:13 Labs: Laboratory Results - last 24 hr 02/04/18 02/04/18 02/05/18 16:18 20:56 06:06 POC Glucose (mg/dL) 174 H 187 H 175 H Hemoglobin A1c 02/05/18 02/05/18 11:09 13:55 POC Glucose (mg/dL) 179 H Hemoglobin A1c 7.9 H Assessment & Plan - Assessment and Plan (Free Text) Assessment: IMP: UTI CHEST PAIN ABD PAIN FLANK PAIN\ FULL NOTE T'F - Date & Time Date: 02/05/18 Time: 14:58
[2018-02-05] MEDS ORDERED: Piperacill/Tazo 2.25gm in Dex 2.25 GM/50 ML BAG IVPB SCH ×2 (15:00→16:00)
[2018-02-05 15:04] LABS: % IRON SATURATION 24.9 (20-55)
[2018-02-05] MEDS: Piperacill/Tazo 2.25gm in Dex 2.25 GM/50 ML BAG IVPB SCH (17:14)
--- NOTE | 2018-02-05 18:43 | CP.PCM.PN ---
Subjective - Date & Time of Evaluation Date of Evaluation: 02/05/18 Time of Evaluation: 18:40 - Subjective Subjective: Feeling better bit still have some back pain. Objective - Vital Signs/Intake and Output Vital Signs (last 24 hours): Temp Pulse Resp BP Pulse Ox 97.6 F 65 20 159/63 H 100 02/05/18 15:41 02/05/18 16:00 02/05/18 15:41 02/05/18 15:41 02/05/18 15:41 Intake and Output: 02/05/18 02/05/18 06:59 18:59 Intake Total 500 500 Balance 500 500 - Medications Medications: Current Medications Amlodipine Besylate (Norvasc) 10 mg PO DAILY [facility] Last Admin: 02/05/18 10:45 Dose: 10 mg Enalapril Maleate (Vasotec) 20 mg PO DAILY [facility] Last Admin: 02/05/18 10:46 Dose: 20 mg Famotidine (Pepcid) 20 mg PO DAILY [facility] Last Admin: 02/05/18 10:45 Dose: 20 mg Furosemide (Lasix) 40 mg IVP Q12 [facility] Last Admin: 02/05/18 10:45 Dose: 40 mg Heparin Sodium (Porcine) (Heparin) 5,000 units SC Q12 [facility] Last Admin: 02/05/18 11:07 Dose: 5,000 units Hydralazine HCl (Apresoline) 10 mg PO BID [facility] Last Admin: 02/05/18 17:14 Dose: 10 mg Piperacillin Sod/Tazobactam Sod (Zosyn 2.25 Gm Iv Premix) 2.25 gm in 50 mls @ 100 mls/hr IVPB Q8H [facility] Last Admin: 02/05/18 17:14 Dose: 100 mls/hr Insulin Aspart (Novolog) 0 unit SC ACHS [facility] PRN Reason: Protocol Last Admin: 02/05/18 17:14 Dose: 2 units Polyethylene Glycol (Miralax) 17 gm PO DAILY [facility] Last Admin: 02/05/18 11:15 Dose: 17 gm Rosuvastatin Calcium (Crestor) 5 mg PO HS [facility] Sitagliptin Phosphate (Januvia) 25 mg PO DAILY [facility] - Labs Labs: 02/04/18 06:13 02/04/18 06:13 PT 12.2 SECONDS (9.7-12.2) 02/03/18 18:58 INR 1.1 02/03/18 18:58 APTT 29 SECONDS (21-34) 02/03/18 18:58 - Head Exam Head Exam: NORMOCEPHALIC - Neck Exam Neck Exam: Normal Inspection - Cardiovascular Exam Cardiovascular Exam: REGULAR RHYTHM - Neurological Exam Neurological Exam: Alert, Oriented x3 Assessment and Plan (1) CHF (congestive heart failure) Assessment & Plan: Improved. diastolic dysfunction. Fluid restriction with gentle diuresis. Status: Acute (2) Chest discomfort Assessment & Plan: Improved, Back pain may be contributing factor. Further cardiac work-up when pain is under control. Status: Acute (3) Hypertensive urgency Assessment & Plan: BP better control with current regimen. If needed add clonidine. Keep SBP 130- 150. Status: Acute
[2018-02-06] MEDS: Piperacill/Tazo 2.25gm in Dex 2.25 GM/50 ML BAG IVPB SCH ×3 (01:00→17:03)
--- NOTE | 2018-02-06 03:26 | PCM.FALL ---
Post Fall Progress Note - Post Fall Fall Date: 02/06/18 Fall Time: 03:14 Description of Fall: Patient reports that she woke up and was in a hurry to get to the bathroom, while using her cane but with unsteadiness. Patient broke the fall by landing on her knees. Patient was met in a kneeing position and was assisted back to her chair. Patient was AAOx3, responsive and could recall the incident. Patient is aware that she is a fall risk and she is to call for assistance at all times. - Post Fall Exam Vital Sign: Vital signs post fall: BP: 158/66 HR: 83 Temp: 97.9 RR: 18 O2: 99% RA Temp Pulse Resp BP Pulse Ox 98.1 F 69 20 154/60 H 95 02/06/18 00:00 02/06/18 00:00 02/06/18 00:00 02/06/18 00:00 02/06/18 00:00 Skull Exam: Negative for: Scalp wound, Scalp hematoma, Scalp depression, Ridge in skull Eye Exam: Positive for: Pupils equal, Pupils reactive Ear Exam: Negative for: Discharge Nose Exam: Negative for: Discharge Skin Exam: Negative for: Lacerations Mouth Exam: Negative for: Tongue bitten Neck Exam: Negative for: Tenderness, Weakness Spinal Exam: Negative for: Tenderness, Weakness Chest Exam: Negative for: Difficulty breathing, Tenderness in collar bones Abdomen Exam: Negative for: Tenderness Pelvic Exam: Negative for: Tenderness Arm Exam: Negative for: Deformity, Alteration in range of movement Leg Exam: Negative for: Deformity, Alteration in range of movement Impression/Plan: Patient is hemodynamically stable post-fall with no injury. - Given a bedside commonde -Encouraged to call for assistance
--- NOTE | 2018-02-06 05:07 | PN ---
Copied To: Valarie Powell MD Attending MD: Valarie Powell MD DATE: 02/05/2018 The patient is an 82-year-old female. SUBJECTIVE: The patient was seen in the bed, looking comfortable. According to her, abdominal pain and back pain are better. No hematuria or hematochezia. No swelling of the legs. No chest pain, no palpitation. No headache or dizziness. No fever. No chills. PHYSICAL EXAMINATION: VITAL SIGNS: Temperature 97.7, pulse 67, respirations 20, blood pressure 148/55. HEENT: Head, normocephalic and atraumatic. Eyes, PERRLA. Extraocular muscles intact. Conjunctivae clear. Nose is patent. Mucosal membranes are moist. NECK: Supple. No carotid bruits or thyromegaly. CHEST: Bilaterally symmetrical. HEART: S1 and S2 positive. LUNGS: Clear to auscultation. ABDOMEN: Soft. Bowel sounds present. No organomegaly. EXTREMITIES: No edema. No cyanosis. NEUROLOGICAL: The patient is awake, alert. Moving all four extremities. No focal deficits. LABORATORY DATA: White blood cells 7.3, hemoglobin 9.5, hematocrit 37.4, platelets 153. Sodium 144, potassium 4.4, BUN 38, creatinine 2.4, glucose 126. ASSESSMENT AND PLAN: Ms. Sonia Chase is an 82-year-old lady with anemia, hyperchloremia, renal insufficiency, hyperglycemia. She has history of hypertension, diabetes mellitus type 2, hypercholesterolemia. Came in with worsening abdominal pain, found to have increased blood pressure and creatinine. GI consult was called. Discussion done with Dr. Henry Casper. Abdominal pain looks like multifactorial in nature, believably related to acute cystitis given her dirty urinalysis and growing with subsequent improvement on Bactrim. Symptoms improved with diuresis after controlling blood pressure. Recommended using MiraLax for constipation. Agree with treating urinary tract infection and blood pressure need. No plans of endoscopic evaluation at this time as per Dr. Henry Casper. Seen by Dr. Osmani Rendon for cystitis and Dr. Sprague for chest pain. Continue present treatment. Repeat labs. We will follow up. Valarie Powell MD [facility] # [id number]
[2018-02-06] MEDS: (Novolog) Insulin Aspart, Recombinant 100 u/ml 10 ml vial SC SCH ×3 (08:15→12:25)
[2018-02-06] MEDS: POLYETHYLENE GLYCOL 3350 17 GM/Dose PACKET PO SCH (10:17)
--- NOTE | 2018-02-06 10:26 | CON ---
Copied To: Crista Rendon MD Attending MD: Crista Rendon MD DATE: 02/05/2018 REQUESTED BY: Valarie Powell MD REASON FOR CONSULTATION: Urinary tract infection. HISTORY OF PRESENT ILLNESS: The patient is an 82-year-old female with urinary tract infection. The patient is otherwise in fair health. The patient was admitted with abdominal pain and chest pain. The patient reports no history of urolithiasis. She reports a possible history of urinary tract infection decades ago. The patient reports that she voids with good urinary stream and good control. No hematuria. No dysuria. No increased urinary frequency. The patient has no incontinence. The patient has nocturia two times per night. The patient also had abdominal pain and flank pain. There is no history of heart attack or coronary artery disease. The patient does have history of hypertension and diabetes mellitus. The patient has been treated with antibiotic therapy according to the urine culture. The patient reports that she is feeling better since admission. There has been no nausea or vomiting. The patient reports normal bowel movements. She reports occasional constipation. She reports that she has not had bowel movement for the past 3 days while in the hospital. PAST SURGICAL HISTORY: Includes previous cholecystectomy. The patient has a history of labor and delivery x7. She has only two surviving children. Three of her children secondary to AIDS. PHYSICAL EXAMINATION: GENERAL: The patient is a well-developed, well-nourished obese female appearing her stated age. The patient is awake and alert. ABDOMEN: Soft, nontender, and nondistended. No masses or organomegaly. BACK: No CVA tenderness. LABORATORY DATA: Reviewed. Klebsiella UTI is noted. CAT scan on admission revealed no evidence of urinary tract obstruction or urolithiasis. IMPRESSION: An 82-year-old female with hypertension, diabetes, and obesity. The patient has urinary tract infection. The patient is currently responding well to the clinical course of antibiotic therapy. RECOMMENDATIONS AND PLAN: Continue antibiotic therapy. At discharge, switch to oral antibiotic therapy. No further urological instrumentation at this time. Outpatient followup is warranted. I reviewed the findings with the patient as well. Crista Rendon MD cc: Valarie Powell MD
--- NOTE | 2018-02-06 14:02 | CP.PCM.PN ---
Subjective - Date & Time of Evaluation Date of Evaluation: 02/06/18 Time of Evaluation: 13:59 - Subjective Subjective: Had fall last night. Events noted. ambulating now. No new symptoms. Objective - Vital Signs/Intake and Output Vital Signs (last 24 hours): Temp Pulse Resp BP Pulse Ox 97.9 F 74 20 157/74 H 100 02/06/18 08:25 02/06/18 08:25 02/06/18 08:25 02/06/18 10:19 02/06/18 08:25 - Medications Medications: Current Medications Amlodipine Besylate (Norvasc) 10 mg PO DAILY [facility] Last Admin: 02/06/18 10:18 Dose: 10 mg Enalapril Maleate (Vasotec) 20 mg PO DAILY [facility] Last Admin: 02/06/18 10:19 Dose: 20 mg Famotidine (Pepcid) 20 mg PO DAILY [facility] Last Admin: 02/06/18 10:18 Dose: 20 mg Furosemide (Lasix) 40 mg IVP Q12 [facility] Last Admin: 02/06/18 10:19 Dose: 40 mg Heparin Sodium (Porcine) (Heparin) 5,000 units SC Q12 [facility] Last Admin: 02/06/18 10:18 Dose: 5,000 units Hydralazine HCl (Apresoline) 10 mg PO BID [facility] Last Admin: 02/06/18 10:18 Dose: 10 mg Piperacillin Sod/Tazobactam Sod (Zosyn 2.25 Gm Iv Premix) 2.25 gm in 50 mls @ 100 mls/hr IVPB Q8H [facility] Last Admin: 02/06/18 10:00 Dose: 100 mls/hr Insulin Aspart (Novolog) 0 unit SC ACHS [facility] PRN Reason: Protocol Last Admin: 02/06/18 12:25 Dose: 1 units Polyethylene Glycol (Miralax) 17 gm PO DAILY [facility] Last Admin: 02/06/18 10:17 Dose: 17 gm Rosuvastatin Calcium (Crestor) 5 mg PO HS [facility] Last Admin: 02/05/18 21:24 Dose: 5 mg Sitagliptin Phosphate (Januvia) 25 mg PO DAILY [facility] Last Admin: 02/06/18 10:18 Dose: 25 mg - Labs Labs: 02/04/18 06:13 02/04/18 06:13 PT 12.2 SECONDS (9.7-12.2) 07/30/18 18:58 INR 1.1 02/03/18 18:58 APTT 29 SECONDS (21-34) 02/03/18 18:58 - Neck Exam Neck Exam: Normal Inspection - Respiratory Exam Respiratory Exam: NORMAL BREATHING PATTERN - Cardiovascular Exam Cardiovascular Exam: REGULAR RHYTHM, Murmur - Extremities Exam Extremities Exam: Normal Inspection - Neurological Exam Neurological Exam: Alert, Oriented x3 Assessment and Plan (1) CHF (congestive heart failure) Assessment & Plan: Improved, D/C lasix/ start HCTZ. Fluid restriction. Status: Acute (2) Chest discomfort Assessment & Plan: Improved. Status: Acute (3) Hypertensive urgency Assessment & Plan: BP better controlled now, If no other issues patti D/C home and follow-up as out patient. Status: Acute
[2018-02-06 14:11] LABS: BASO # 0.1 K/uL (0.0-0.2); BASO % 0.9 % (0.0-2.0); EOS # 0.4 K/uL (0.0-0.7); EOS % 4.4 % (0.0-4.0); HEMOGLOBIN 10.4 g/dL (11.0-16.0); LYMPH # 1.3 K/uL (1.0-4.3); LYMPH % 15.7 % (20.0-40.0); MEAN CELL VOLUME 83.3 fL (81.0-99.0); MEAN CORPUSCULAR HEMOGLOBIN 26.4 pg (27.0-31.0); MEAN CORPUSCULAR HGB CONC 31.7 g/dL (33.0-37.0); MEAN PLATELET VOLUME 11.7 fL (7.2-11.7); MONO # 0.5 K/uL (0.0-0.8); MONO % 5.9 % (0.0-10.0); NEUT # 5.8 K/uL (1.8-7.0); NEUT % 73.1 % (50.0-75.0); NRBC % 0.1 % (0.0-2.0); RBC 3.94 Mil/uL (3.80-5.20); RED CELL DISTRIBUTION WIDTH 14.3 % (11.5-14.5)
[2018-02-06 15:11] LABS: CALCIUM 8.2 mg/dl (8.6-10.4)
[2018-02-06 16:21] VITALS: BP 121/48; PULSE 68; TEMP 97.6; O2SAT 96
--- NOTE | 2018-02-06 16:36 | PCM.HF ---
Heart Failure Core Measure - Heart Failure Ejection Fraction: 40 % or Greater [place] Inhibitor Prescribed: No Contraindication/Reason for not providing: ARF Beta-Daren Prescribed: None Contraindication/Reason for not providing: D/C secondary to bradycardia Angiotensin II Receptor Daren Prescribed: No Contraindication/Reason for not providing: arf AnticoagulationTherapy for Atrial Fibrillation/Atrialflutter: No Contraindication/Reason for not providing: no hx of afib Aldosterone Antagonist Prescribed: No Contraindication/Reason for not providing: EF>45 Hydralazine Nitrate Prescribed: No Contraindication/Reason for not providing: ON CLONIDINE Implantable Cardioverter Defibrillator Therapy: No Contraindication/Reason for not providing: EF>45 Cardiac Resynchronization Therapy Prescribed: No Contraindication/Reason for not providing: EF>45 - Follow up Will be discharged to: Home Follow Up Date (must be within 7 days from discharge): 02/11/18 Follow Up Time: 09:00
--- NOTE | 2018-02-06 17:48 | CP.PCM.PN ---
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 collazo today, cleared from cardiology stand point for discharge home today and f/u out patient on Saturday ( requested pt to do blood work on Saturday and bring copy to Dr. COLLAZO OFFICE FOR F/U VIS T) lab reviewed and discussed with Dr. Collazo recommends to continue Norvasc and clonidine and hctz D/w Dr. Garcia stable for discharge if cleared by cardiology Discharge plan discussed with patient who understands and agrees with plan Objective - Vital Signs/Intake and Output Vital Signs (last 24 hours): Temp Pulse Resp BP Pulse Ox 97.6 F 68 20 121/48 L 96 02/06/18 16:00 02/06/18 16:00 02/06/18 16:00 02/06/18 16:00 02/06/18 16:00 Intake and Output: 02/06/18 02/06/18 06:59 18:59 Intake Total 800 Balance 800 - Medications Medications: Current Medications Amlodipine Besylate (Norvasc) 10 mg PO DAILY [facility] Last Admin: 02/06/18 10:18 Dose: 10 mg Enalapril Maleate (Vasotec) 20 mg PO DAILY [facility] Last Admin: 02/06/18 10:19 Dose: 20 mg Famotidine (Pepcid) 20 mg PO DAILY [facility] Last Admin: 02/06/18 10:18 Dose: 20 mg Furosemide (Lasix) 40 mg IVP Q12 [facility] Last Admin: 02/06/18 10:19 Dose: 40 mg Heparin Sodium (Porcine) (Heparin) 5,000 units SC Q12 [facility] Last Admin: 02/06/18 10:18 Dose: 5,000 units Hydralazine HCl (Apresoline) 10 mg PO BID [facility] Last Admin: 02/06/18 10:18 Dose: 10 mg Piperacillin Sod/Tazobactam Sod (Zosyn 2.25 Gm Iv Premix) 2.25 gm in 50 mls @ 100 mls/hr IVPB Q8H [facility] Last Admin: 02/06/18 17:03 Dose: Not Given Insulin Aspart (Novolog) 0 unit SC ACHS [facility] PRN Reason: Protocol Last Admin: 02/06/18 12:25 Dose: 1 units Polyethylene Glycol (Miralax) 17 gm PO DAILY [facility] Last Admin: 02/06/18 10:17 Dose: 17 gm Rosuvastatin Calcium (Crestor) 5 mg PO HS [facility] Last Admin: 02/05/18 21:24 Dose: 5 mg Sitagliptin Phosphate (Januvia) 25 mg PO DAILY [facility] Last Admin: 02/06/18 10:18 Dose: 25 mg - Labs Labs: 02/06/18 14:01 02/06/18 14:01 PT 12.2 SECONDS (9.7-12.2) 02/03/18 18:58 INR 1.1 02/03/18 18:58 APTT 29 SECONDS (21-34) 02/03/18 18:58
--- NOTE | 2018-02-06 22:51 | CARD ---
APPROVED REPORT Date of service: 02/05/2018 EXAM: Two-dimensional and M-mode echocardiogram with Doppler and color Doppler. Other Information Quality : GoodRhythm : INDICATION Congestive Heart Failure RISK FACTORS Hypertension 2D DIMENSIONS IVSd1.2 (0.7-1.1cm)Aortic Root (2D)2.8 (2.0-3.7cm) LVDd4.9 (3.9-5.9cm)PWd1.4 (0.7-1.1cm) LVDs2.3 (2.5-4.0cm)FS (%) 52.1 % LVEF (%)75.0 (>50%) M-Mode DIMENSIONS RVDd2.05 (2.1-3.2cm)Left Atrium (MM)4.61 (2.5-4.0cm) IVSd1.18 (0.7-1.1cm)Aortic Root2.84 (2.2-3.7cm) LVDd5.14 (4.0-5.6cm)Aortic Cusp Exc.1.69 (1.5-2.0cm) PWd1.25 (0.7-1.1cm)FS (%) 41 % LVDs3.02 (2.0-3.8cm)LVEF (%)72 (>50%) Mitral Valve MV E Sjuzrtpv26.8cm/sMV A Ultraavq077.6cm/sE/A ratio0.6 TDI E/Lateral E'0.0E/Medial E'0.0 Tricuspid Valve TR Peak [id number]/sTR Peak Gr.[id number] LEFT VENTRICLE The left ventricle is normal size. There is mild concentric left ventricular hypertrophy. Left ventricle systolic function is normal. The Ejection Fraction is >70%. There is normal LV segmental wall motion. Tissue Doppler imaging reveals abnormal left ventricular diastolic dysfunction. RIGHT VENTRICLE The right ventricle is normal size. There is normal right ventricular wall thickness. The right ventricular systolic function is normal. AORTIC VALVE The aortic valve is mildly thickened but opens well. No aortic regurgitation is present. There is no aortic valvular stenosis. There is no aortic valvular vegetation. MITRAL VALVE The mitral valve is normal in structure. There is no evidence of mitral valve prolapse. There is no mitral valve stenosis. Mitral regurgitation is mild. TRICUSPID VALVE The tricuspid valve is normal in structure. There is mild tricuspid regurgitation. Right ventricular systolic pressure is estimated at less than 30 mmHg. There is no pulmonary hypertension. PULMONIC VALVE The pulmonic valve is not well visualized. There is trace to mild pulmonic valvular regurgitation. GREAT VESSELS The aortic root is normal in size. PERICARDIAL EFFUSION There is no significant pericardial effusion. <Conclusion> Left ventricle systolic function is normal. The Ejection Fraction is >70%. Hypertensive heart disease. Diastolic dysfunction. No aortic regurgitation is present. Mitral regurgitation is mild. There is mild tricuspid regurgitation. There is no pulmonary hypertension. There is trace to mild pulmonic valvular regurgitation.
--- NOTE | 2018-02-07 23:19 | DS ---
date 02/06/18 Copied To: Valarie Powell MD Attending MD: Valarie Powell MD CHIEF COMPLAINT: Abdominal pain, nausea, vomiting. HISTORY OF PRESENT ILLNESS: Ms. Sonia Chase is an 82-year-old lady with past medical history of hypertension, diabetes mellitus, hypercholesterolemia, came to the emergency room complaining of recurrent abdominal pain for a long time. The patient noticed the pain worsened two days ago, associated with nausea and vomiting. The patient is also complaining of some chest tightness. Denies any symptoms. No change in the bowel. We admitted the patient and did CAT scan of abdomen and pelvis. Seen by Dr. Chandan Sprague, electric motor rebuilder; Dr. Crista Rendon, rule out cystitis; seen by Dr. Henry Casper due to abdominal pain. The patient improved, wanted to go home, and discharged home. Follow up with urologist, electric motor rebuilder, and primary care physician. PAST MEDICAL HISTORY: Hypertension, hypercholesterolemia, cholecystectomy. FAMILY HISTORY: Father and mother noncontributory. HABITS: No smoking. No drugs. No ethanol. ALLERGIES: THE PATIENT IS NOT ALLERGIC TO ANY MEDICATION. HOME MEDICATIONS: Reviewed by me. REVIEW OF SYSTEMS: The patient was seen and examined at bedside, looking comfortable. No nausea, vomiting, or diarrhea. No hematuria or hematochezia. No swelling of the leg. No chest pain. No palpitation. No headache. No dizziness. PHYSICAL EXAMINATION: VITAL SIGNS: Temperature 97.9, pulse 74, respirations 20, blood pressure 157/74, pulse oximetry 100. HEENT: Head normocephalic, atraumatic. Eyes, PERRLA. Extraocular muscles intact. Conjunctivae clear. Nose patent. NECK: Supple. No carotid bruits. No JVD or thyromegaly. CHEST: Bilaterally symmetrical. HEART: S1 and S2 positive. LUNGS: Clear to auscultation. ABDOMEN: Soft. Bowel sounds present. No organomegaly. EXTREMITIES: No edema. No cyanosis. NEUROLOGICAL: The patient is awake and alert. Moving all four extremities. No focal deficits. MEDICATIONS: Amlodipine, enalapril, Pepcid, Lasix, heparin, hydralazine, Zosyn, insulin, MiraLax, Crestor, Januvia. LABORATORY DATA: White blood cells 7.3, hemoglobin 9.5, hematocrit 29.4, platelets 163. Sodium 144, potassium 4.4, BUN 30, creatinine 2.4, glucose 126. ASSESSMENT AND PLAN: Ms. Sonia Chase is an 82-year-old lady with anemia, hyperchloremia, renal insufficiency, hyperglycemia, congestive heart failure, chest discomfort, and hypertensive urgency. The patient was given Lasix, fluid restriction, blood pressure got better. Roll Plugger cleared the patient for discharge. Dr. Crista Rendon also saw the patient for cystitis. Dr. Henry Casper saw the patient for abdominal pain. The patient was cleared by all consultants for discharge. Discharged by Cata Velarde, she wrote the prescription. Follow up with electric motor rebuilder, urologist, and primary care physician. The patient understood the discharge mechanism. Valarie Powell MD [facility]
--- NOTE | 2018-02-12 16:37 | PQF ---
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 Please document the type and acuity (in cludes probable or suspected) Such as: Type: -- Systolic -- Diastolic -- Combined -- Other, please specify Acuity: -- Acute -- Chronic -- Acute on chronic -- Other, please specify Also please document the underlying cause of the CHF (includes probable or suspected) The patient's Clinical Indicators include: 82 year old female patient with past Medical history of HTN, CHF , DM Hyperchplesterolemia came to the ER complaining of Abdominla pain for a long time. Calixto patient also complains of some chest tightness. Pro BNP on admission --1750 H Treated with Lasix IV 40 mg Query created by: Melita Read on 02/10/2018 1:06 PM Electronically signed by: Valarie Powell MD 02/12/2018 4:34 PM
--- NOTE | 2018-02-17 08:53 | PQF ---
PROVIDER RESPONSE TEXT: Acute UTI REVIEWER QUERY TEXT: Clarification of Clinical Diagnostic Findings Please clarify documentation or clinical relevance for the clinical / diagnostic findings or whether those are insignificant or unable to be further specified. --Acute UTI in the setting of Right Flank Pain ,abdominal pain and nausea with Positive U/A and posi tive Urine CS. --Other Expanation -- Unable to Determine The patient's Clinical Indicators include: Clinical Findings: Right Flank ain, Abdominal pain, asso. with nausea . U/A : U/A: Nitrites, LE= 3+, Wbc= 405, Bacteria : Rare Urine CS: Gm Negative Rods Treatment : U/A, Urine CS Risk Factor : Infection Query created by: Amie Sifuentes on 02/04/2018 5:57 PM Electronically signed by: Valarie Pwoell MD 02/17/2018 8:50 AM
== END 2018-02-06 17:50 | disposition home or self-care (01) | DRG 690 ==
LOC: C.ER 14:58 → C.9E 21:06 → C.5S 22:18
PROVIDERS: ADMIT Internal Medicine; ATTEND Internal Medicine
DX: N30.00 Acute cystitis without hematuria (principal); I13.0 Hypertensive heart and chronic kidney disease with heart failure and stage 1 through stage 4 chronic kidney disease, or unspecified chronic kidney disease; Z68.42 Body mass index [BMI] 45.0-49.9, adult; I16.0 Hypertensive urgency; D64.9 Anemia, unspecified; E11.22 Type 2 diabetes mellitus with diabetic chronic kidney disease; E11.65 Type 2 diabetes mellitus with hyperglycemia; E83.51 Hypocalcemia; E78.00 Pure hypercholesterolemia, unspecified; E66.9 Obesity, unspecified; I50.9 Heart failure, unspecified; K43.2 Incisional hernia without obstruction or gangrene; N18.9 Chronic kidney disease, unspecified; Z87.891 Personal history of nicotine dependence; Z91.81 History of falling; W18.30XA Fall on same level, unspecified, initial encounter

== ENCOUNTER 2018-04-21 18:57 | Emergency (ER) | payer MEDICARE ==
[2018-04-21 19:41] VITALS: TEMP 98.4
--- NOTE | 2018-04-21 19:53 | C.PDOC ---
History Of Present Illness Ms. Chase is a 83 year old female PMH CHF, HTN, HLD, DM presents with 1 day of stabbing right back pain radiating to the epigastrium. Denies activity out of the norm. Tried 2 Tylenol Extra Strength with no relief. Worse on positional changes. 8/10 lasting for seconds at a time, but return after <2 min reprieve. Admits to constant nausea, no vomiting. Last ate a sandwich at 3-4pm today. Started taking an OTC stool softener; now reporting 2 episodes of watery diarrhea after 3 days without BM. Normally ambulates with walker, unable to get up out of bed today without pain. <Daniela Darnell - Last Filed: 04/21/18 20:13> <Daniela Darnell - Last Filed: 04/21/18 20:13> <Grupo Carmen - Last Filed: 04/22/18 00:21> Time Seen by Provider: 04/21/18 19:52 Chief Complaint (Nursing): Abdominal Pain Past Medical History Vital Signs: Last Vital Signs Temp 98.4 F 04/21/18 19:31 Pulse 72 04/21/18 19:31 Resp 16 04/21/18 19:31 BP 137/74 04/21/18 19:31 Pulse Ox 98 04/21/18 19:53 Family History: States: Diabetes Denies: [place], CAD <Daniela Darnell - Last Filed: 04/21/18 20:13> Vital Signs: Last Vital Signs Temp 98.4 F 04/21/18 19:31 Pulse 72 04/21/18 19:31 Resp 16 04/21/18 19:31 BP 137/74 04/21/18 19:31 Pulse Ox 98 04/21/18 19:31 - Medical History PMH: Arthritis, HTN, Hypercholesterolemia Denies: Chronic Kidney Disease Surgical History: Cholecystectomy (over 10 yrs. ago) - Social History Hx Alcohol Use: No Hx Substance Use: No - Immunization History Hx Tetanus Toxoid Vaccination: No Hx Influenza Vaccination: No Hx Pneumococcal Vaccination: No <Grupo Carmen - Last Filed: 04/22/18 00:21> Review Of Systems Except As Marked, All Systems Reviewed And Found Negative. Constitutional: Positive for: Chills, Weakness, Malaise. Negative for: Fever, Sweats, Weight loss Eyes: Negative for: Vision Change, Conjunctivae Inflammation ENT: Negative for: Ear Pain, Ear Discharge, Nose Pain, Nose Discharge Cardiovascular: Negative for: Chest Pain, Palpitations, Orthopnea, Paroxysmal Noc. Dyspnea, Light Headedness Respiratory: Negative for: Cough, Shortness of Breath, Hemoptysis, SOB with Excertion, Pleuritic Pain, Wheezing Gastrointestinal: Positive for: Nausea, Abdominal Pain, Diarrhea. Negative for: Vomiting, Constipation, Melena, Hematochezia, Hematemesis Genitourinary: Negative for: Dysuria, Frequency, Incontinence, Hematuria Musculoskeletal: Negative for: Neck Pain, Shoulder Pain, Arm Pain, Back Pain Neurological: Negative for: Weakness, Numbness, Confusion, Seizures, Altered Mental Status, Headache, Dizziness Psych: Negative for: Anxiety, Depression <Daniela Darnell Y - Last Filed: 04/21/18 20:13> Physical Exam - Physical Exam Appears: Non-toxic, No Acute Distress Skin: Warm, Dry Head: Atraumatic, Normacephalic Eye(s): bilateral: Normal Inspection, PERRL, EOMI Oral Mucosa: Moist Throat: Normal Neck: Normal Cardiovascular: Rhythm Regular, Rhythm Irregular, Edema (bilateral LE pitting edema), No JVD Respiratory: Normal Breath Sounds, No Rales, No Rhonchi, No Wheezing Gastrointestinal/Abdominal: Bowel Sounds, Soft, Tenderness, No Distention, Guarding, No Rebound, No Ascites (TTP greatest in RUQ) Back: CVA Tenderness (bilateral) Extremity: Pedal Edema, No Calf Tenderness, No Capillary Refill Pulses: Left Radial: Normal, Right Radial: Normal, Left Dorsalis Pedis: Normal, Right Dorsalis Pedis: Normal DTR: Bicep (R): 2+, Bicep (L): 2+, Knee (R): 2+, Knee (L): 2+ Neurological/Psych: Oriented x3, Normal Speech, Normal Cognition, Normal Cranial Nerves, Normal Motor, Normal Sensation Pain Response: Withdraws With Pain <Daniela Darnell Y - Last Filed: 04/21/18 20:13> - Physical Exam Cardiovascular: Rhythm Regular, Edema Gastrointestinal/Abdominal: Soft, Tenderness, No Guarding Back: CVA Tenderness Extremity: Pedal Edema Extremity: Bilateral: Atraumatic, Normal ROM Pulses: Left Dorsalis Pedis: Normal, Right Dorsalis Pedis: Normal Gait: With Assistance <Grupo Carmen - Last Filed: 04/22/18 00:21> ED Course And Treatment - Laboratory Results Result Diagrams: 04/21/18 21:04 04/21/18 21:04 ECG: Interpreted By Me, Viewed By Me O2 Sat by Pulse Oximetry: 98 Pulse Ox Interpretation: Normal - Radiology CXR: Interpreted by Me, Viewed By Me CXR Interpretation: Yes: Cardiomegaly, Other (mild vasc congestion). No: Infiltrates, Fracture Reevaluation Time: 00:16 Reassessment Condition: Improved <Lily Carmenchris - Last Filed: 04/22/18 00:21> Medical Decision Making Medical Decision Making: CBC, CMP, lipase, BNP, coags CXR UA Zofran and Protonix given <Daniela Darnell - Last Filed: 04/21/18 20:13> Disposition <Daniela Darnell - Last Filed: 04/21/18 20:13> Counseled Patient/Family Regarding: Studies Performed, Diagnosis, Need For Followup, Rx Given - Disposition Disposition Time: 19:52 <Grupo Carmen - Last Filed: 04/22/18 00:21> - Disposition Referrals: Indigo Lima MD [Staff Provider] - Disposition: HOME/ ROUTINE Condition: FAIR Additional Instructions: Please return if symptoms recur, and follow up with dr lima regarding the ct findings Prescriptions: Metronidazole [Flagyl] 500 mg PO TID #21 tablet Polyethylene Glycol 3350 [Miralax] 17 gm PO DAILY #270 ml traMADol [Ultram] 50 mg PO TID PRN #15 tab PRN Reason: Pain, Severe (8-10) Instructions: Low Back Pain (DC), Acute Abdomen (Belly Pain), Adult (DC), Chronic Kidney Disease (DC) Forms: [employer] ([place]orran) - Clinical Impression Clinical Impression: Abdominal pain, Back pain, Renal insufficiency - PA / BODY DESIGNER / Resident Statement / has reviewed & agrees with the documentation as recorded. / has examined the patient and agrees with the treatment plan. <Daniela Darnell - Last Filed: 04/21/18 20:13>
[2018-04-21 21:08] LABS: BASO # 0.1 K/uL (0.0-0.2); EOS # 0.2 K/uL (0.0-0.7); EOS % 1.2 % (0.0-4.0); HEMOGLOBIN 9.9 g/dL (11.0-16.0); LYMPH # 1.4 K/uL (1.0-4.3); LYMPH % 10.8 % (20.0-40.0); MEAN CELL VOLUME 82.2 fL (81.0-99.0); MEAN CORPUSCULAR HEMOGLOBIN 26.1 pg (27.0-31.0); MEAN CORPUSCULAR HGB CONC 31.7 g/dL (33.0-37.0); MEAN PLATELET VOLUME 10.6 fL (7.2-11.7); MONO # 0.9 K/uL (0.0-0.8); MONO % 7.3 % (0.0-10.0); NEUT # 10.1 K/uL (1.8-7.0); NEUT % 79.7 % (50.0-75.0); RBC 3.81 Mil/uL (3.80-5.20); RED CELL DISTRIBUTION WIDTH 14.5 % (11.5-14.5); WHITE BLOOD COUNT 12.7 K/uL (4.8-10.8)
[2018-04-21 21:23] LABS: INR 1.2; PROTHROMBIN TIME 12.7 SECONDS (9.7-12.2)
[2018-04-21 21:27] LABS: ALB/GLOB RATIO 0.8 (1.0-2.1); ALBUMIN 3.6 g/dL (3.5-5.0); ALT/SGPT < 6 U/L (9-52); AST/SGOT 22 U/L (14-36); BLOOD UREA NITROGEN 59 mg/dL (7-17); CALCIUM 8.9 mg/dl (8.6-10.4); GFR NON-AFRICAN AMERICAN 15; LIPASE 164 U/L (23-300)
[2018-04-21] MEDS ORDERED: Pantoprazole 40 mg EC Tab PO STA (21:32)
[2018-04-21] MEDS ORDERED: Oxycodone/Acetaminophen 5/325 mg Tab PO STA (21:37)
[2018-04-21] MEDS ORDERED: Pantoprazole 40 mg EC Tab PO ONE (21:37)
[2018-04-21 21:38] LABS: B-TYPE NATRIURETIC PEPTIDE 991 pg/mL (0-900)
[2018-04-21] MEDS ORDERED: Oxycodone/Acetaminophen 5/325 mg Tab ONE (21:41)
[2018-04-22 00:12] VITALS: BP 132/59; PULSE 69; RESP 18
[2018-04-22 00:19] VITALS: O2SAT 98
--- NOTE | 2018-04-22 09:46 | RAD ---
Date of service: 04/21/2018 PROCEDURE: CHEST RADIOGRAPH, 1 VIEW HISTORY: Abdominal pain COMPARISON: None available. FINDINGS: LUNGS: Mild venous congestion. Patchy opacities in the right infrahilar region and left lung base. PLEURA: No pneumothorax or pleural fluid seen. CARDIOVASCULAR: Cardiomegaly. Calcification at the aortic knob. OSSEOUS STRUCTURES: No significant abnormalities. VISUALIZED UPPER ABDOMEN: Normal. OTHER FINDINGS: None. IMPRESSION: Mild venous congestion. Patchy opacities in the right infrahilar region and left lung base.
--- NOTE | 2018-04-22 11:51 | CT ---
Date of service: 04/21/2018 PROCEDURE: CT Abdomen and Pelvis without intravenous contrast HISTORY: ruq pain, back pain COMPARISON: 02/03/2018 TECHNIQUE: Without contrast.. Contrast dose: 0 Radiation dose: Total exam DLP = 1044.76 mGy-cm. This CT exam was performed using one or more of the following dose reduction techniques: Automated exposure control, adjustment of the mA and/or kV according to patient size, and/or use of iterative reconstruction technique. FINDINGS: LOWER THORAX: Right lower lobe opacity, partially consolidated and partially ground-glass density. This is unchanged in size grossly from 02/03/2018. It measures approximately 3.3 cm in greatest dimension. Suspicious for neoplasm. Rule out infection. Consider percutaneous biopsy. LIVER: Normal size, contour and attenuation. No mass. Punctate calcification in anterior right lobe consistent with calcified granuloma. No biliary dilatation. Smooth contour. GALLBLADDER AND BILE DUCTS: Status post cholecystectomy. PANCREAS: Unremarkable. No gross lesion or ductal dilatation. SPLEEN: Unremarkable. ADRENALS: Unremarkable. No mass. KIDNEYS AND URETERS: Unremarkable. No hydronephrosis. No solid mass. VASCULATURE: Unremarkable. No aortic aneurysm. BOWEL: Unremarkable. No obstruction. No gross mural thickening. APPENDIX: Unremarkable. Normal appendix. PERITONEUM: No ascites. Umbilical hernia containing a nonobstructed loop of transverse colon. Infraumbilical ventral hernia containing only mesenteric fat. No inguinal hernia. LYMPH NODES: Unremarkable. No enlarged lymph nodes. BLADDER: Poorly distended. Small amount of air within the urinary bladder. Correlate with any history of recent catheterization. REPRODUCTIVE: Status post hysterectomy BONES: Stable mild compression deformity of L4 vertebra. OTHER FINDINGS: None. IMPRESSION: Stable irregular right lower lobe mass suspicious for neoplasm. Consider further evaluation with CT examination of the chest. Two ventral hernias 1 of which contains nonobstructed transverse colon and the other only mesenteric fat. Additional minor findings as above. The preliminary findings for this examination were reported by [facility] at 10:51 p.m. on 04/21/2018.. There is concurrence of this report with the preliminary findings.
== END 2018-04-22 00:41 | disposition home or self-care (01) ==
LOC: C.ER 18:57
DX: M54.9 Dorsalgia, unspecified (principal); R10.11 Right upper quadrant pain; N28.9 Disorder of kidney and ureter, unspecified; E78.00 Pure hypercholesterolemia, unspecified; I50.9 Heart failure, unspecified; E78.5 Hyperlipidemia, unspecified; I10 Essential (primary) hypertension
CPT/HCPCS: 71045; 74176; 80053; 83690; 83880; 85025; 85610; 85730; 96374; 99285; J2270

== ENCOUNTER 2018-05-05 22:47 | Inpatient (IN) | payer MEDICARE ==
--- NOTE | 2018-05-06 00:04 | C.PDOC ---
History Of Present Illness 83 year old female presents to the ER with a complaint of right lower back pain located at the intercostal spaces that is positionally reproducible and digitally reproducible. Denies fall or trauma. Patient also reports having some abdominal bloating, she took a laxative without a satisfactory bowel movement. <David Alcazar - Last Filed: 05/06/18 00:38> History Per: Patient History/Exam Limitations: no limitations Onset/Duration Of Symptoms: Hrs Current Symptoms Are (Timing): Still Present Previous Symptoms: None Associated Symptoms: None Exacerbating Factor(s): Movement Recent travel outside of the [place]: No <David Alcazar - Last Filed: 05/06/18 00:38> <Grupo Carmen - Last Filed: 05/06/18 16:48> Time Seen by Provider: 05/05/18 23:12 Chief Complaint (Nursing): Back Pain Past Medical History Reviewed: Historical Data, Nursing Documentation, Vital Signs Vital Signs: Last Vital Signs Temp 98.4 F 05/05/18 22:52 Pulse 78 05/05/18 22:52 Resp 18 05/05/18 22:52 BP Pulse Ox 98 05/05/18 22:52 - Medical History PMH: Arthritis, HTN, Hypercholesterolemia Denies: Chronic Kidney Disease Surgical History: Cholecystectomy (over 10 yrs. ago) Family History: States: Diabetes - Social History Hx Alcohol Use: No Hx Substance Use: No - Immunization History Hx Tetanus Toxoid Vaccination: No Hx Influenza Vaccination: No Hx Pneumococcal Vaccination: No <David Alcazar - Last Filed: 05/06/18 00:38> Vital Signs: Last Vital Signs Temp 98.4 F 05/05/18 22:52 Pulse 72 05/06/18 03:16 Resp 18 05/06/18 03:16 BP 178/62 H 05/06/18 03:16 Pulse Ox 97 05/06/18 02:42 <Grupo Carmen - Last Filed: 05/06/18 16:48> Review Of Systems Constitutional: Negative for: Fever, Chills Cardiovascular: Negative for: Chest Pain, Palpitations Respiratory: Negative for: Cough, Shortness of Breath Gastrointestinal: Positive for: Other (Abdominal bloating). Negative for: Nausea, Vomiting Musculoskeletal: Positive for: Back Pain Neurological: Negative for: Weakness, Numbness <David Alcazar Last Filed: 05/06/18 00:38> Physical Exam - Physical Exam Appears: Non-toxic, No Acute Distress, Other (Morbidly obese) Skin: Normal Color, Warm, Dry Head: Atraumatic, Normacephalic Eye(s): bilateral: Normal Inspection Oral Mucosa: Moist Neck: Normal, Supple Chest: Symmetrical, No Tenderness Cardiovascular: Rhythm Regular Respiratory: Normal Breath Sounds, No Rales, No Rhonchi, No Wheezing Gastrointestinal/Abdominal: Soft, No Tenderness, No Distention, Other (Obese, globus) Back: No Vertebral Tenderness, No Paraspinal Tenderness, Other (Right lower back tenderness at intercostal spaces, no rash) Extremity: Normal ROM (x4) Neurological/Psych: Oriented x3, Normal Speech <OttonielTuanJonah Last Filed: 05/06/18 00:38> ED Course And Treatment ECG: Interpreted By Me, Viewed By Me ECG Rhythm: Sinus Rhythm, L BBB ECG Interpretation: No Changes From Prior (02/03/18) Interpretation Of ECG: T wave inversions in v4-v6 Rate From EC O2 Sat by Pulse Oximetry: 98 (Room air) Pulse Ox Interpretation: Normal Progress Note: EKG, blood work, urinalysis, and obstructive series ordered. Toradol administered. <OttonielJonah Last Filed: 05/06/18 00:38> - Laboratory Results Result Diagrams: 05/06/18 02:12 05/06/18 00:24 <Grupo Carmen - Last Filed: 05/06/18 16:48> Disposition Doctor Will See Patient In The: Office Counseled Patient/Family Regarding: Studies Performed, Diagnosis - Disposition Disposition Time: 23:00 <David Alcazar Barb Last Filed: 05/06/18 00:38> Discussed With : Toby Rich Comment: accepted the pt on his service and took over the care at 3:35 AM Counseled Patient/Family Regarding: Studies Performed, Diagnosis <Grupo Carmen - Last Filed: 05/06/18 16:48> - Disposition Disposition: HOSPITALIZED Condition: GOOD - Clinical Impression Clinical Impression: Abdominal pain, Ileus, Renal insufficiency - Scribe Statement The provider has reviewed the documentation as recorded by the Scribconstantin Olivo All medical record entries made by the Scribe were at my direction and personally dictated by me. I have reviewed the chart and agree that the record accurately reflects my personal performance of the history, physical exam, medical decision making, and the department course for this patient. I have also personally directed, reviewed, and agree with the discharge instructions and disposition. <David Alcazar E - Last Filed: 05/06/18 00:38> Physician Patient Turnover Patient Signed Over To: Grupo Carmen Handoff Comments: f/u workup and dispo accordingly. ddx: costochondritis R posterior ribs, constipation <David Alcazar - Last Filed: 05/06/18 00:38>
[2018-05-06 00:58] LABS: ALB/GLOB RATIO 0.9 (1.0-2.1); ALBUMIN 3.8 g/dL (3.5-5.0); ALT/SGPT < 6 U/L (9-52); AST/SGOT 19 U/L (14-36); BLOOD UREA NITROGEN 43 mg/dL (7-17); GFR NON-AFRICAN AMERICAN 15; LIPASE 249 U/L (23-300)
[2018-05-06] MEDS ORDERED: Oxycodone/Acetaminophen 5/325 mg Tab PO STA (02:14)
[2018-05-06 02:16] LABS: BASO # 0.2 K/uL (0.0-0.2); BASO % 1.2 % (0.0-2.0); EOS # 0.3 K/uL (0.0-0.7); EOS % 2.1 % (0.0-4.0); HEMOGLOBIN 10.4 g/dL (11.0-16.0); LYMPH % 15.1 % (20.0-40.0); MEAN CELL VOLUME 83.2 fL (81.0-99.0); MEAN CORPUSCULAR HGB CONC 31.3 g/dL (33.0-37.0); MEAN PLATELET VOLUME 10.5 fL (7.2-11.7); MONO # 1.1 K/uL (0.0-0.8); MONO % 8.1 % (0.0-10.0); NEUT # 9.8 K/uL (1.8-7.0); NEUT % 73.5 % (50.0-75.0); RBC 4.01 Mil/uL (3.80-5.20); RED CELL DISTRIBUTION WIDTH 14.7 % (11.5-14.5); WHITE BLOOD COUNT 13.3 K/uL (4.8-10.8)
[2018-05-06] MEDS ORDERED: Oxycodone/Acetaminophen 5/325 mg Tab ONE (02:19)
[2018-05-06] MEDS ORDERED: Ciprofloxacin 400mg/200ml D5W 400 MG/200 ML BAG IVPB STA (03:37)
[2018-05-06] MEDS ORDERED: Sodium Chloride 0.9% 1,000 ML ONE (03:38)
[2018-05-06] MEDS ORDERED: Sodium Chloride 0.9% 1,000 ML IV ONE (03:39)
[2018-05-06] MEDS ORDERED: Ciprofloxacin 400mg/200ml D5W 400 MG/200 ML BAG IVPB ONE (03:51)
[2018-05-06] MEDS: Ciprofloxacin 400mg/200ml D5W 400 MG/200 ML BAG IVPB SCH ×2 (04:50→16:52)
[2018-05-06] MEDS: metroNIDAZOLE IV 500 mg/100 ml 500 MG/100 ML BAG IVPB SCH ×4 (05:30→20:26)
--- NOTE | 2018-05-06 06:12 | CP.PCM.CON ---
<Maribel Thapa - Last Filed: 05/06/18 08:01> History of Present Illness - History of Present Illness History of Present Illness: Surgery progress note for Dr. Sandoval consulted for: ileus Pt is an 83f with PMH of HTN, HLD, DM, CKD and PSH of cholecystectomy and hysterectomy who presented ot the ER with recurrent right back and epigastric pain. Pt says her symptoms started 3 months ago, abdominal pain is intermittent, lasting a few minutes to many hours, but increasing in frequency and intensity. Patient describes abdominal discomfort as a pressure/heaviness, and back pain is a sharp spasm. Patient also complains of constipation started at the same time as the pain and has required stool softeners. last BM was 3 days ago, normal in color and consistency. Patient reports intermittent nausea but denies any vomiting, fevers, chills, diarrhea, melena, dysuria or any association with eating. Pt has a reducible abdominal hernia that has been stable for years, denies any pain from the hernia. PMH: HTN, HLD, DM, CKD PSH: cholecystectomy and hysterectomy ALL: NKDA Social: former smoker, denes ETOH or drugs Review of Systems - Review of Systems All systems: reviewed and no additional remarkable complaints except (as per HPI) Past Patient History - Infectious Disease Hx of Infectious Diseases: None - Past Medical History & Family History Past Medical History?: Yes - Past Social History Smoking Status: Former Smoker - CARDIAC Hx Cardiac Disorders: Yes Hx Hypercholesterolemia: Yes Hx Hypertension: Yes - PULMONARY Hx Respiratory Disorders: No - NEUROLOGICAL Hx Neurological Disorder: No - HEENT Hx HEENT Problems: No - RENAL Hx Chronic Kidney Disease: No - ENDOCRINE/METABOLIC Hx Endocrine Disorders: Yes Hx Diabetes Mellitus Type 2: Yes - HEMATOLOGICAL/ONCOLOGICAL Hx Blood Disorders: No - MUSCULOSKELETAL/RHEUMATOLOGICAL Hx Falls: Yes - GASTROINTESTINAL Hx Gastrointestinal Disorders: No - GENITOURINARY/GYNECOLOGICAL Hx Genitourinary Disorders: No - PSYCHIATRIC Hx Substance Use: No - SURGICAL HISTORY Hx Surgeries: Yes Hx Cholecystectomy: Yes (over 10 yrs. ago) - ANESTHESIA Hx Anesthesia: Yes Hx Anesthesia Reactions: No Meds Allergies/Adverse Reactions: Allergies Allergy/AdvReac Type Severity Reaction Status Date / Time No Known Allergies Allergy Verified 04/21/18 19:41 - Medications Medications: Current Medications Heparin Sodium (Porcine) (Heparin) 5,000 units SC Q8 REPLACED BY [facility] Home Med (Simvastatin [Simvastatin]) 40 mg PO DAILY REPLACED BY [facility] Metronidazole (Flagyl) 500 mg in 100 mls @ 100 mls/hr IVPB STAT [facility]; Protocol Sodium Chloride (Sodium Chloride 0.9%) 1,000 mls @ 100 mls/hr IV .Q10H ONE Stop: 05/06/18 13:38 Last Admin: 05/06/18 03:42 Dose: 100 mls/hr Dextrose/Sodium Chloride (Dextrose 5%/0.45% Ns 1000 Ml) 1,000 mls @ 70 mls/hr IV .[id number] [facility] Ciprofloxacin (Cipro 400mg/200ml Dsw) 400 mg in 200 mls @ 133 mls/hr IVPB Q12H [facility]; Protocol Metronidazole (Flagyl) 500 mg in 100 mls @ 100 mls/hr IVPB Q8H [facility]; Protocol Insulin Aspart (Novolog) 0 unit SC ACHS [facility]; Protocol Morphine Sulfate (Morphine) 1 mg IVP Q4 PRN PRN Reason: Pain, moderate (4-7) Physical Exam - Constitutional Appears: Well, Non-toxic, No Acute Distress - Head Exam Head Exam: ATRAUMATIC, NORMOCEPHALIC - Eye Exam Eye Exam: Normal appearance. absent: Conjunctival injection, Scleral icterus - ENT Exam ENT Exam: Mucous Membranes Moist, Normal Oropharynx - Respiratory Exam Respiratory Exam: NORMAL BREATHING PATTERN. absent: Accessory Muscle Use, Respiratory Distress - Cardiovascular Exam Cardiovascular Exam: RRR - GI/Abdominal Exam GI & Abdominal Exam: Hernia (large bowel contaning reducible ventral hernia, non-tender, no overlying skin changes), Soft, Tenderness (epigastrium). absent: Distended, Guarding, Rebound - Extremities Exam Extremities exam: Positive for: pedal pulses present. Negative for: calf tenderness, pedal edema - Back Exam Back exam: absent: CVA tenderness (L), CVA tenderness (R) Additional comments: right lateral thoracic ribs with point tenderness to palpation - Neurological Exam Neurological exam: Alert, Oriented x3 - Psychiatric Exam Psychiatric exam: Normal Affect, Normal Mood - Skin Skin Exam: Dry, Normal Color, Warm Results - Vital Signs Recent Vital Signs: Last Vital Signs Temp 98.7 F 05/06/18 04:14 Pulse 86 05/06/18 04:14 Resp 20 05/06/18 04:14 BP 181/62 H 05/06/18 04:14 Pulse Ox 97 05/06/18 04:14 - Labs Result Diagrams: 05/06/18 02:12 05/06/18 00:24 Labs: Laboratory Results - last 24 hr 05/05/18 05/06/18 05/06/18 22:58 00:24 02:12 WBC 13.3 H RBC 4.01 Hgb 10.4 L Hct 33.3 L MCV 83.2 MCH 26.0 L MCHC 31.3 L RDW 14.7 H Plt Count 245 MPV 10.5 Neut % (Auto) 73.5 Lymph % (Auto) 15.1 L Mil[place] % (Auto) 8.1 Eos % (Auto) 2.1 Baso % (Auto) 1.2 Neut # (Auto) 9.8 H Lymph # (Auto) 2.0 Milam # (Auto) 1.1 H Eos # (Auto) 0.3 Baso # (Auto) 0.2 Sodium 137 Potassium 5.0 Chloride 106 Carbon Dioxide 15 L Anion Gap 21 H BUN 43 H Creatinine 2.9 H Est GFR ( Amer) 19 Est GFR (Non-Af Amer) 15 POC Glucose (mg/dL) 212 H Random Glucose 226 H Calcium 9.0 Total Bilirubin 0.7 AST 19 ALT < 6 L Alkaline Phosphatase 197 H D Total Protein 8.3 Albumin 3.8 Globulin 4.5 H Albumin/Globulin Ratio 0.9 L Lipase 249 05/06/18 04:21 WBC RBC Hgb Hct MCV MCH MCHC RDW Plt Count MPV Neut % (Auto) Lymph % (Auto) Milam % (Auto) Eos % (Auto) Baso % (Auto) Neut # (Auto) Lymph # (Auto) Mil[place] # (Auto) Eos # (Auto) Baso # (Auto) Sodium Potassium Chloride Carbon Dioxide Anion Gap BUN Creatinine Est GFR ( Amer) Est GFR (Non-Af Amer) POC Glucose (mg/dL) 154 H Random Glucose Calcium Total Bilirubin AST ALT Alkaline Phosphatase Total Protein Albumin Globulin Albumin/Globulin Ratio Lipase - Imaging and Cardiology CT scan - abdomen Status: Image reviewed by me, Report reviewed by me Assessment & Plan - Assessment and Plan (Free Text) Assessment: 83F with epigastric abdominal pain, constipation, and reducible ventral hernia containing colon Plan: No surgical intervention indicated at this time: patient has constipation and reducible hernia, which may be contributing to symptoms but does not need emergent surgery. Ok to DC with outpatient follow up with Dr. Sandoval for elective hernia repair. Will need medical clearance F/U GI recs--May recommend colonoscopy if patient has not had one recently to evaluate for source of new onset constipation enemas and stool softeners for constipation Advance diet per GI recs encourage ambulation Discussed with Dr. Sandoval who agrees with above Maribel Thapa PGY2 <Rick Sandoval B - Last Filed: 05/11/18 17:41> Meds - Medications Medications: Current Medications Docusate Sodium (Colace) 100 mg PO TID REPLACED BY [facility] Last Admin: 05/11/18 14:26 Dose: 100 mg Hydralazine HCl (Apresoline) 25 mg PO Q8 REPLACED BY [facility] Last Admin: 05/11/18 14:26 Dose: 25 mg Dextrose/Sodium Chloride (Dextrose 5%/0.45% Ns 1000 Ml) 1,000 mls @ 40 mls/hr IV .Q24H REPLACED BY [facility] Last Admin: 05/11/18 17:22 Dose: Not Given Insulin Aspart (Novolog) 0 unit SC ACHS REPLACED BY [facility]; Protocol Last Admin: 05/11/18 12:34 Dose: 3 units Magnesium Hydroxide (Milk Of Magnesia) 30 ml PO DAILY REPLACED BY [facility] Last Admin: 05/11/18 10:51 Dose: 30 ml Morphine Sulfate (Morphine) 1 mg IVP Q4 PRN PRN Reason: Pain, moderate (4-7) Last Admin: 05/10/18 13:49 Dose: 1 mg Ondansetron HCl (Zofran Inj) 4 mg IVP Q6H PRN PRN Reason: nausea and vomiting Last Admin: 05/10/18 18:47 Dose: 4 mg Ondansetron HCl (Zofran Inj) 4 mg IVP DAILY@ONCE PRN PRN Reason: nausea Pantoprazole Sodium (Protonix Ec Tab) 20 mg PO DAILY REPLACED BY [facility] Last Admin: 05/11/18 10:51 Dose: 20 mg Rosuvastatin Calcium (Crestor) 10 mg PO HS REPLACED BY [facility] Last Admin: 05/10/18 21:43 Dose: 10 mg Results - Vital Signs Recent Vital Signs: Last Vital Signs Temp 98.9 F 05/11/18 16:16 Pulse 71 05/11/18 16:16 Resp 20 05/11/18 16:16 BP 180/64 H 05/11/18 16:16 Pulse Ox 100 05/11/18 16:16 - Labs Result Diagrams: 05/11/18 07:51 05/11/18 07:51 Labs: Laboratory Results - last 24 hr 05/10/18 05/10/18 05/11/18 16:36 21:33 02:23 WBC RBC Hgb Hct MCV MCH MCHC RDW Plt Count MPV Neut % (Auto) Lymph % (Auto) Milam % (Auto) Eos % (Auto) Baso % (Auto) Neut # (Auto) Lymph # (Auto) Milam # (Auto) Eos # (Auto) Baso # (Auto) Sodium Potassium Chloride Carbon Dioxide Anion Gap BUN Creatinine Est GFR ( Amer) Est GFR (Non-Af Amer) POC Glucose (mg/dL) 157 H 181 H 160 H Random Glucose Calcium 05/11/18 05/11/18 05/11/18 07:31 07:51 07:51 WBC 9.0 RBC 3.40 L Hgb 9.0 L Hct 28.0 L MCV 82.2 MCH 26.6 L MCHC 32.4 L RDW 14.3 Plt Count 215 MPV 10.3 Neut % (Auto) 65.9 Lymph % (Auto) 15.8 L Mil[place] % (Auto) 11.9 H Eos % (Auto) 5.3 H Baso % (Auto) 1.1 Neut # (Auto) 5.9 Lymph # (Auto) 1.4 Milam # (Auto) 1.1 H Eos # (Auto) 0.5 Baso # (Auto) 0.1 Sodium 132 Potassium 4.1 Chloride 104 Carbon Dioxide 19 L Anion Gap 14 BUN 24 H Creatinine 2.9 H Est GFR ( Amer) 19 Est GFR (Non-Af Amer) 15 POC Glucose (mg/dL) 144 H Random Glucose 155 H Calcium 8.3 L 05/11/18 05/11/18 11:51 16:29 WBC RBC Hgb Hct MCV MCH MCHC RDW Plt Count MPV Neut % (Auto) Lymph % (Auto) [place] % (Auto) Eos % (Auto) Baso % (Auto) Neut # (Auto) Lymph # (Auto) Mil[place] # (Auto) Eos # (Auto) Baso # (Auto) Sodium Potassium Chloride Carbon Dioxide Anion Gap BUN Creatinine Est GFR ( Amer) Est GFR (Non-Af Amer) POC Glucose (mg/dL) 288 H 216 H Random Glucose Calcium Attending/Attestation - Attestation I have personally seen and examined this patient.: Yes I have fully participated in the care of the patient.: Yes I have reviewed all pertinent clinical information: Yes Notes (Text): Pt was seen and examined at bedside Agree with above note and assessment Pt with upper abdominal pain and nausea Abdomen: Soft,tender in epigastric area, Incisional hernia present ,ND Labs and radiology reviewed Ass: UTI, Ileus due to Incisional hernia Plan: NPO, IVF, IV antibiotics GI consult C.w current mx Plan d.w pt in detail. Risk and Benefit explained in detail
[2018-05-06] MEDS: (Novolog) Insulin Aspart, Recombinant 100 u/ml 10 ml vial SC SCH ×4 (08:00→21:17)
[2018-05-06] MEDS ORDERED: Mineral Oil Enema 135 ml PR ONE (08:02)
--- NOTE | 2018-05-06 09:59 | CP.PCM.CON ---
History of Present Illness - History of Present Illness History of Present Illness: 83 yo AA female admitted with right sided back pain and left lower abdominal pain that have increased over past few days. Has been getting more constipated and reports no real stool in spite of stool softeners for three days. Has ventr al hernia but denies bleeding, N/V. No fever or chills. WBC-13k. CT done but not officially read shows no obstruction or mass to my review. Review of Systems - Cardiovascular Cardiovascular: absent: Chest Pain, Dyspnea - Respiratory Respiratory: absent: Cough, Hemoptysis - Gastrointestinal Gastrointestinal: As Per HPI, Bloating, Change in Bowel Habits, Constipation, Cramping. absent: Coffee Ground Emesis, Melena, Nausea, Vomiting Past Patient History - Infectious Disease Hx of Infectious Diseases: None - Past Medical History & Family History Past Medical History?: Yes - Past Social History Smoking Status: Former Smoker Alcohol: None Drugs: Denies - CARDIAC Hx Cardiac Disorders: Yes Hx Hypercholesterolemia: Yes Hx Hypertension: Yes - PULMONARY Hx Respiratory Disorders: No - NEUROLOGICAL Hx Neurological Disorder: No - HEENT Hx HEENT Problems: No - RENAL Hx Chronic Kidney Disease: No - ENDOCRINE/METABOLIC Hx Endocrine Disorders: Yes Hx Diabetes Mellitus Type 2: Yes - HEMATOLOGICAL/ONCOLOGICAL Hx Blood Disorders: No Hx Cirrhosis: No Hx Hepatitis A: No Hx Hepatitis B: No Hx Hepatitis C: No Hx Human Immunodeficiency Virus (HIV): No - MUSCULOSKELETAL/RHEUMATOLOGICAL Hx Falls: Yes - GASTROINTESTINAL Hx Gastrointestinal Disorders: No Hx Clostridium Difficile: No Hx Colitis: No Hx Constipation: Yes Hx Crohn's Disease: No Hx Diarrhea: No Hx Diverticulitis: No Hx Esophageal Varices: No Hx Fatty Liver Disease: No Hx Gall Bladder Disease: No Hx Gastritis: No Hx Gastroesophageal Reflux: No Hx Hemorrhoids: Yes Hx Ileostomy: No Hx Irritable Bowel: No Hx Liver Failure: No Hx Nausea: No Hx Pancreatitis: No HX Swallowing Problems: No Hx Ulcer: No Hx Vomiting: No - GENITOURINARY/GYNECOLOGICAL Hx Genitourinary Disorders: No - PSYCHIATRIC Hx Substance Use: No - SURGICAL HISTORY Hx Surgeries: Yes Hx Cholecystectomy: Yes (over 10 yrs. ago) - ANESTHESIA Hx Anesthesia: Yes Hx Anesthesia Reactions: No Meds Allergies/Adverse Reactions: Allergies Allergy/AdvReac Type Severity Reaction Status Date / Time No Known Allergies Allergy Verified 04/21/18 19:41 - Medications Medications: Current Medications Docusate Sodium (Colace) 100 mg PO TID [facility] Heparin Sodium (Porcine) (Heparin) 5,000 units SC Q8 [facility] Last Admin: 05/06/18 06:29 Dose: 5,000 units Metronidazole (Flagyl) 500 mg in 100 mls @ 100 mls/hr IVPB STAT [facility]; Protocol Sodium Chloride (Sodium Chloride 0.9%) 1,000 mls @ 100 mls/hr IV .Q10H ONE Stop: 05/06/18 13:38 Last Admin: 05/06/18 03:42 Dose: 100 mls/hr Dextrose/Sodium Chloride (Dextrose 5%/0.45% Ns 1000 Ml) 1,000 mls @ 70 mls/hr IV .[id number] [facility] Ciprofloxacin (Cipro 400mg/200ml Dsw) 400 mg in 200 mls @ 133 mls/hr IVPB Q12H [facility]; Protocol Last Admin: 05/06/18 04:50 Dose: Not Given Metronidazole (Flagyl) 500 mg in 100 mls @ 100 mls/hr IVPB Q8H [facility]; Protocol Last Admin: 05/06/18 05:30 Dose: 100 mls/hr Influenza Virus Vaccine (Fluzone Quad [id number]) 60 mcg IM .ONCE ONE Stop: 05/08/18 10:01 Insulin Aspart (Novolog) 0 unit SC ACHS [facility]; Protocol Last Admin: 05/06/18 08:00 Dose: 1 units Morphine Sulfate (Morphine) 1 mg IVP Q4 PRN PRN Reason: Pain, moderate (4-7) Rosuvastatin Calcium (Crestor) 10 mg PO HS [facility] Physical Exam - Constitutional Appears: No Acute Distress - Head Exam Head Exam: ATRAUMATIC, NORMOCEPHALIC - Eye Exam Eye Exam: EOMI, PERRL - Respiratory Exam Respiratory Exam: NORMAL BREATHING PATTERN - Cardiovascular Exam Cardiovascular Exam: REGULAR RHYTHM, +S1 - GI/Abdominal Exam GI & Abdominal Exam: Distended, Normal Bowel Sounds, Soft. absent: Tenderness Additional comments: midline hernia, reducible and non-tender. - Rectal Exam Rectal Exam: NORMAL INSPECTION - Extremities Exam Extremities exam: Positive for: normal inspection - Neurological Exam Neurological exam: Alert, Oriented x3 - Psychiatric Exam Psychiatric exam: Normal Affect, Normal Mood - Skin Skin Exam: Dry, Warm Results - Vital Signs Recent Vital Signs: Last Vital Signs Temp 98.4 F 10/30/18 07:50 Pulse 62 05/06/18 07:50 Resp 20 05/06/18 07:50 BP 170/73 H 05/06/18 07:50 Pulse Ox 97 05/06/18 07:50 - Labs Result Diagrams: 05/06/18 02:12 05/06/18 00:24 Labs: Laboratory Results - last 24 hr 05/05/18 05/06/18 05/06/18 22:58 00:24 02:12 WBC 13.3 H RBC 4.01 Hgb 10.4 L Hct 33.3 L MCV 83.2 MCH 26.0 L MCHC 31.3 L RDW 14.7 H Plt Count 245 MPV 10.5 Neut % (Auto) 73.5 Lymph % (Auto) 15.1 L [place] % (Auto) 8.1 Eos % (Auto) 2.1 Baso % (Auto) 1.2 Neut # (Auto) 9.8 H Lymph # (Auto) 2.0 [place] # (Auto) 1.1 H Eos # (Auto) 0.3 Baso # (Auto) 0.2 Sodium 137 Potassium 5.0 Chloride 106 Carbon Dioxide 15 L Anion Gap 21 H BUN 43 H Creatinine 2.9 H Est GFR ( Amer) 19 Est GFR (Non-Af Amer) 15 POC Glucose (mg/dL) 212 H Random Glucose 226 H Calcium 9.0 Total Bilirubin 0.7 AST 19 ALT < 6 L Alkaline Phosphatase 197 H D Total Protein 8.3 Albumin 3.8 Globulin 4.5 H Albumin/Globulin Ratio 0.9 L Lipase 249 05/06/18 05/06/18 04:21 07:08 WBC RBC Hgb Hct MCV MCH MCHC RDW Plt Count MPV Neut % (Auto) Lymph % (Auto) [place] % (Auto) Eos % (Auto) Baso % (Auto) Neut # (Auto) Lymph # (Auto) [place] # (Auto) Eos # (Auto) Baso # (Auto) Sodium Potassium Chloride Carbon Dioxide Anion Gap BUN Creatinine Est GFR ( Amer) Est GFR (Non-Af Amer) POC Glucose (mg/dL) 154 H 154 H Random Glucose Calcium Total Bilirubin AST ALT Alkaline Phosphatase Total Protein Albumin Globulin Albumin/Globulin Ratio Lipase - Imaging and Cardiology CT scan - abdomen Status: Image reviewed by me Assessment & Plan (1) Change in bowel habit Assessment and Plan: Patient with abdominal pain associated with worsening constipation and marked stool seen in colon on CT Scan. R/O obstruction, divertics, stricture, polyp, o occult cancer. Prep as tolerated for colonoscopy to be done in am Status: Acute (2) Constipation Assessment and Plan: as above Status: Acute (3) Abdominal pain of multiple sites Assessment and Plan: as above Status: Acute (4) Ventral hernia Status: Chronic
[2018-05-06 10:18] LABS: SQUAMOUS EPITHIAL 10 /hpf (0-5); URINE BACTERIA MANY (<OCC); URINE BILIRUBIN NEGATIVE (NEGATIVE); URINE BLOOD 1+ (NEGATIVE); URINE CLARITY Hazy (Clear); URINE COLOR Yellow (YELLOW); URINE GLUCOSE (UA) NORMAL (Normal); URINE LEUKOCYTE ESTERASE 3+ Leu/uL (Negative); URINE PROTEIN 2+ mg/dL (NEGATIVE); URINE UROBILINOGEN NORMAL mg/dL (0.2-1.0); WBC CLUMPS FEW /hpf
[2018-05-06] MEDS: Dextrose 5%/0.45% NS 1,000 ML IV SCH (13:35)
--- NOTE | 2018-05-06 15:17 | CT ---
PROCEDURE: CT Abdomen and Pelvis without Oral or IV contrast. HISTORY: abd pain COMPARISON: CT abdomen and pelvis without contrast performed 04/21/18 TECHNIQUE: Contiguous axial images of the abdomen and pelvis. No oral or IV contrast administered. Coronal and Sagittal reformats generated and reviewed. Radiation dose: Total exam DLP = 1108.17 mGy-cm. This CT exam was performed using one or more of the following dose reduction techniques: Automated exposure control, adjustment of the mA and/or kV according to patient size, and/or use of iterative reconstruction technique. FINDINGS: There is limited evaluation of the solid organs without the administration of IV contrast. Examination also limited by habitus, patient obliquity, and motion. LOWER THORAX: Re-identified right lower lobe opacity partially consolidated and partially ground-glass measuring approximately 3.3 cm in maximum dimension; suspicious for malignant neoplasm. LIVER: Unremarkable unenhanced appearance. GALLBLADDER AND BILE DUCTS: Cholecystectomy. PANCREAS: Fatty atrophy. SPLEEN: Unremarkable unenhanced appearance. ADRENALS: Unremarkable unenhanced appearance. KIDNEYS AND URETERS: Bilaterally atrophic. No hydronephrosis or obstructing renal calculus. BLADDER: Air seen within the urinary bladder. REPRODUCTIVE: Uterus is absent consistent with hysterectomy. APPENDIX: The appendix is not identified. No secondary signs of acute appendicitis. BOWEL: The stomach is nondistended. Lack of oral contrast limits evaluation for bowel pathology. The bowel loops appear within normal limits of caliber without evidence of intestinal obstruction. PERITONEUM: No significant free fluid. No definite free air. LYMPH NODES: No bulky lymphadenopathy identified. VASCULATURE: No aortic aneurysm. Dense atherosclerotic calcifications of the aorta. BONES: Extensive multilevel degenerative changes of the spine. Scoliosis. OTHER FINDINGS: Bowel containing umbilical hernia without evidence of obstruction. IMPRESSION: Limited study as above. Re-identified right lower lobe opacity partially consolidated and partially ground-glass measuring approximately 3.3 cm in maximum dimension; suspicious for malignant neoplasm. Bowel containing umbilical hernia without evidence of obstruction. Air seen within the urinary bladder. Correlate clinically for recent instrumentation as well as with urinalysis. Additional findings as above. Preliminary impression was provided by [facility]. The case was placed in PA review and discussed with Dr. Christianson on 05/06/18 at 3:10 p.m.
[2018-05-06] MEDS ORDERED: Bisacodyl 5mg EC Tab PO ONE (17:00)
[2018-05-06] MEDS ORDERED: Peg-Electrolyte Oral Soln 4L (Golytely) PO ONE (19:00)
[2018-05-07] MEDS: Dextrose 5%/0.45% NS 1,000 ML IV SCH ×3 (02:35→18:10)
[2018-05-07] MEDS: Ciprofloxacin 400mg/200ml D5W 400 MG/200 ML BAG IVPB SCH (03:15)
[2018-05-07] MEDS: metroNIDAZOLE IV 500 mg/100 ml 500 MG/100 ML BAG IVPB SCH ×5 (04:57→20:29)
[2018-05-07 07:14] LABS: BASO # 0.1 K/uL (0.0-0.2); BASO % 0.9 % (0.0-2.0); EOS # 0.3 K/uL (0.0-0.7); EOS % 2.5 % (0.0-4.0); HEMOGLOBIN 9.5 g/dL (11.0-16.0); LYMPH # 0.7 K/uL (1.0-4.3); LYMPH % 5.6 % (20.0-40.0); MEAN CELL VOLUME 81.8 fL (81.0-99.0); MEAN CORPUSCULAR HEMOGLOBIN 26.3 pg (27.0-31.0); MEAN CORPUSCULAR HGB CONC 32.2 g/dL (33.0-37.0); MEAN PLATELET VOLUME 10.6 fL (7.2-11.7); MONO # 0.9 K/uL (0.0-0.8); MONO % 7.5 % (0.0-10.0); NEUT # 10.1 K/uL (1.8-7.0); NEUT % 83.5 % (50.0-75.0); PLATELET COUNT 213 K/uL (130-400); RED CELL DISTRIBUTION WIDTH 14.3 % (11.5-14.5); WHITE BLOOD COUNT 12.1 K/uL (4.8-10.8)
[2018-05-07] MEDS: (Novolog) Insulin Aspart, Recombinant 100 u/ml 10 ml vial SC SCH ×4 (07:30→22:14)
[2018-05-07 07:44] LABS: ALB/GLOB RATIO 0.8 (1.0-2.1); CALCIUM 8.5 mg/dl (8.6-10.4)
--- NOTE | 2018-05-07 08:29 | HP ---
CHIEF COMPLAINT: Abdominal pain. HISTORY OF PRESENT ILLNESS: This is an 83-year-old -[place] female with history of type 2 diabetes, CKD, hypertension, hyperlipidemia, who was seen by her PMD. She is compliant with her diet, medication and followup. She has past surgical history of cholecystectomy and hysterectomy and she came in because of pain in the right back and epigastric area. According to the patient, her symptoms started 3 months ago. Abdominal pain is intermittent, lasting for a few minutes to many hours and increasing in frequency and intensity. She got to the point that she decided to come to the emergency room. According to the patient, discomfort is as a pressure, heaviness and back pain, is in the form of a spasm. The patient also complains of constipation, started at the same time of the pain and has required stool softener. Her last bowel movement was 3 days ago, normal in color and consistency. The patient has intermittent nausea, but she denies any vomiting, fever, chills, diarrhea, melena, dysuria, or any other dietary changes. According to the patient, she has multiple hernias on the anterior abdominal wall, which she knows about. She denies any speaking with GI that she knows. She denies any history of polyuria, polydipsia, or polyphagia. She denies any history of hematuria or pyuria. PAST MEDICAL HISTORY: Diabetes, hypertension, hyperlipemia, and CKD. PAST SURGICAL HISTORY: Cholecystectomy and hysterectomy. ALLERGIES: UNKNOWN ALLERGIES. SOCIAL HISTORY: Nonsmoker and non-ETOH user. CURRENT MEDICATIONS: Zocor, HydroDIURIL and Januvia. PHYSICAL EXAMINATION: GENERAL: The patient is an elderly female, in no acute distress. VITAL SIGNS: Blood pressure 197/66, pulse 79, respiratory rate 20, and temperature 98.4. SKIN: Senile turgor. No bruises. No purpura. No petechiae. HEENT: Atraumatic and normocephalic. Positive pallor. Negative jaundice. Extraocular movements are intact. NECK: Supple. No JVD. No lymph node. No thyromegaly. CHEST WALL: Bilateral symmetrical expansion. LUNGS: Clear. No rales. No rhonchi. CARDIOVASCULAR SYSTEM: S1 and S2 regular. There is S3 positive. ABDOMEN: There are multiple hernias on anterior abdominal wall. Nontender. Bowel sounds . RECTAL: No masses. No bleed. EXTREMITIES: +2 non-pitting edema. Peripheral pulses intact. CENTRAL NERVOUS SYSTEM: Awake, alert, and oriented x3. Cranial nerves II through XII are normal. Power 5/5 x4. Plantars are downgoing. ASSESSMENT: 1. Urinary tract infection. 2. Chronic kidney disease, not on hemodialysis. 3. Poorly controlled hypertension. 4. Paralytic ileus versus small bowel obstruction from hernias. 5. Anemia. PLAN: Monitor the patient. Orders as per order sheet. The patient will be followed up closely. Toby Rich MD
[2018-05-07] MEDS ORDERED: Propofol 10 mg/ml Inj (20 ML) ONE (08:39)
[2018-05-07] MEDS ORDERED: Lactated Ringer's 500 ML IV SCH (09:00)
--- NOTE | 2018-05-07 09:24 | CP.PCM.PN ---
Subjective - Date & Time of Evaluation Date of Evaluation: 05/07/18 Time of Evaluation: 09:23 - Subjective Subjective: Colonoscopy: No masses or obstruction. Scattered small diverticuli in the left colon Non bleeding internal hemorrhoids Rec/ Advance diet. Monitor for bleeding No further GI work up planned at present. Work up source of anemia ?iron deficient, B12, ACD, etc. Objective - Vital Signs/Intake and Output Vital Signs (last 24 hours): Temp Pulse Resp BP Pulse Ox 97.9 F 73 20 137/70 100 05/07/18 08:40 05/07/18 08:40 05/07/18 08:40 05/07/18 08:40 05/07/18 08:40 Intake and Output: 05/07/18 05/07/18 06:59 18:59 Intake Total 4560 120 Output Total 600 Balance 3960 120 - Medications Medications: Current Medications Docusate Sodium (Colace) 100 mg PO TID [facility] Last Admin: 05/06/18 18:26 Dose: 100 mg Heparin Sodium (Porcine) (Heparin) 5,000 units SC Q8 [facility] Last Admin: 05/06/18 13:40 Dose: 5,000 units Hydralazine HCl (Apresoline) 25 mg PO Q8 [facility] Last Admin: 05/07/18 07:52 Dose: 25 mg Metronidazole (Flagyl) 500 mg in 100 mls @ 100 mls/hr IVPB STAT [facility]; Protocol Dextrose/Sodium Chloride (Dextrose 5%/0.45% Ns 1000 Ml) 1,000 mls @ 70 mls/hr IV .[id number] [facility] Last Admin: 05/07/18 03:55 Dose: Not Given Ciprofloxacin (Cipro 400mg/200ml Dsw) 400 mg in 200 mls @ 133 mls/hr IVPB Q12H [facility]; Protocol Last Admin: 05/07/18 03:15 Dose: 133 mls/hr Metronidazole (Flagyl) 500 mg in 100 mls @ 100 mls/hr IVPB Q8H [facility]; Protocol Last Admin: 05/07/18 04:57 Dose: 100 mls/hr Lactated Ringer's (Lactated Ringer's 500ml) 500 mls @ 75 mls/hr IV .[id number] [facility] Influenza Virus Vaccine (Fluzone Quad [id number]) 60 mcg IM .ONCE ONE Stop: 05/08/18 10:01 Insulin Aspart (Novolog) 0 unit SC ACHS [facility]; Protocol Last Admin: 05/06/18 21:17 Dose: Not Given Morphine Sulfate (Morphine) 1 mg IVP Q4 PRN PRN Reason: Pain, moderate (4-7) Rosuvastatin Calcium (Crestor) 10 mg PO HS [facility] Last Admin: 05/06/18 22:19 Dose: 10 mg - Labs Labs: 05/07/18 07:10 05/07/18 07:10 Assessment and Plan (1) Change in bowel habit Status: Acute (2) Constipation Status: Acute (3) Abdominal pain of multiple sites Status: Acute (4) Ventral hernia Status: Chronic
[2018-05-07 09:25] LABS: ANISOCYTOSIS SLIGHT; BASOPHIL 4 % (0-2); EOSINOPHIL 2 % (0-4); HYPOCHROMIC SLIGHT; LYMPHOCYTE 4 % (20-40); MONOCYTE 5 % (0-10); NEUTROPHIL 85 % (50-75); PLATELET ESTIMATE NORMAL (NORMAL); POIKILOCYTOSIS SLIGHT; TOTAL CELLS COUNTED 100
[2018-05-07 09:26] LABS: LARGE PLATELETS PRESENT
--- NOTE | 2018-05-07 11:27 | CARD ---
APPROVED REPORT Date of service: 05/06/2018 EKG Measurement Heart [id number] <Conclusion> Normal sinus rhythm Left axis deviation Left ventricular hypertrophy with QRS widening T wave abnormality, consider anterolateral ischemia Abnormal ECG
[2018-05-07 11:58] LABS: IRON 31 ug/dL (37-170)
[2018-05-07 12:09] LABS: % IRON SATURATION 16 (20-55); TOTAL IRON BINDING CAPACITY 200 ug/dL (250-450)
[2018-05-07] MEDS ORDERED: HYDROmorphone 1 mg/ml ISec IVP STA (12:23)
--- NOTE | 2018-05-07 12:38 | RAD ---
Date of service: 05/07/2018 HISTORY: Ventral hernia COMPARISON: The FINDINGS: BOWEL: Normal. No obstruction. No free air. BONES: Multilevel degenerative spondylosis of the lower thoracic and lumbar spine with scoliotic deformities. OTHER FINDINGS: None. IMPRESSION: No evidence of acute mechanical bowel obstruction. No gross free intraperitoneal air
[2018-05-07 13:22] LABS: FOLATE 4.7 ng/mL
--- NOTE | 2018-05-07 16:25 | CP.PCM.CON ---
History of Present Illness - History of Present Illness History of Present Illness: Patient is a 83-year-old female with PMHx of DM2, CKD, HTN, HLD who came to the ED with pain in her back and epigastric area. Patient complains of back pain and abdominal pain. Pulmonology was consulted due to 3.3 cm mass suspicious for malignant neoplasm in right lower lobe seen on abdominal CT. Patient admits to cough without any sputum production that has been ongoing for 3 days, but denies any blood in sputum, shortness of breath, fevers, or chills. She states that she also feels weak as she had not eaten since Saturday. Abdomen CT 05/06 - Right lower lobe opacity partially consolidated and partially ground-glass measuring approximately 3.3 cm in maximum dimension; suspicious for malignant neoplasm. See report for full findings. Plan : order chest CT PMHx: DM2, HTN. HLD, CKD PSHx: cholecystectomy, hysterectomy Allergies: NKDA Social Hx: nonsmoker and non-alcohol user Review of Systems - Review of Systems All systems: reviewed and no additional remarkable complaints except (back pain) Past Patient History - Infectious Disease Hx of Infectious Diseases: None - Past Medical History & Family History Past Medical History?: Yes - Past Social History Smoking Status: Former Smoker Alcohol: None Drugs: Denies - CARDIAC Hx Cardiac Disorders: Yes Hx Hypercholesterolemia: Yes Hx Hypertension: Yes - PULMONARY Hx Respiratory Disorders: No - NEUROLOGICAL Hx Neurological Disorder: No - HEENT Hx HEENT Problems: No - RENAL Hx Chronic Kidney Disease: No - ENDOCRINE/METABOLIC Hx Diabetes Mellitus Type 2: Yes - HEMATOLOGICAL/ONCOLOGICAL Hx Blood Disorders: No Hx Cirrhosis: No Hx Hepatitis A: No Hx Hepatitis B: No Hx Hepatitis C: No Hx Human Immunodeficiency Virus (HIV): No - MUSCULOSKELETAL/RHEUMATOLOGICAL Hx Falls: Yes - GASTROINTESTINAL Hx Gastrointestinal Disorders: No Hx Clostridium Difficile: No Hx Colitis: No Hx Constipation: Yes Hx Crohn's Disease: No Hx Diarrhea: No Hx Diverticulitis: No Hx Esophageal Varices: No Hx Fatty Liver Disease: No Hx Gall Bladder Disease: No Hx Gastritis: No Hx Gastroesophageal Reflux: No Hx Hemorrhoids: Yes Hx Ileostomy: No Hx Irritable Bowel: No Hx Liver Failure: No Hx Nausea: No Hx Pancreatitis: No HX Swallowing Problems: No Hx Ulcer: No Hx Vomiting: No - GENITOURINARY/GYNECOLOGICAL Hx Genitourinary Disorders: No - PSYCHIATRIC Hx Substance Use: No - SURGICAL HISTORY Hx Surgeries: Yes Hx Cholecystectomy: Yes (over 10 yrs. ago) - ANESTHESIA Hx Anesthesia: Yes Hx Anesthesia Reactions: No Meds Allergies/Adverse Reactions: Allergies Allergy/AdvReac Type Severity Reaction Status Date / Time No Known Allergies Allergy Verified 04/21/18 19:41 - Medications Medications: Current Medications Docusate Sodium (Colace) 100 mg PO TID [facility] Last Admin: 05/07/18 14:32 Dose: 100 mg Heparin Sodium (Porcine) (Heparin) 5,000 units SC Q8 [facility] Last Admin: 05/06/18 13:40 Dose: 5,000 units Hydralazine HCl (Apresoline) 25 mg PO Q8 [facility] Last Admin: 05/07/18 14:32 Dose: 25 mg Dextrose/Sodium Chloride (Dextrose 5%/0.45% Ns 1000 Ml) 1,000 mls @ 70 mls/hr IV .[id number] [facility] Last Admin: 05/07/18 03:55 Dose: Not Given Metronidazole (Flagyl) 500 mg in 100 mls @ 100 mls/hr IVPB Q8H [facility]; Protocol Last Admin: 05/07/18 12:30 Dose: 100 mls/hr Ciprofloxacin (Cipro 400mg/200ml Dsw) 400 mg in 200 mls @ 133 mls/hr IVPB Q24H [facility]; Protocol Influenza Virus Vaccine (Fluzone Quad [id number]) 60 mcg IM .ONCE ONE Stop: 05/08/18 10:01 Insulin Aspart (Novolog) 0 unit SC ACHS [facility]; Protocol Last Admin: 05/07/18 12:05 Dose: Not Given Morphine Sulfate (Morphine) 1 mg IVP Q4 PRN PRN Reason: Pain, moderate (4-7) Last Admin: 05/07/18 10:42 Dose: 1 mg Rosuvastatin Calcium (Crestor) 10 mg PO HS [facility] Last Admin: 05/06/18 22:19 Dose: 10 mg Physical Exam - Head Exam Head Exam: ATRAUMATIC, NORMOCEPHALIC - ENT Exam ENT Exam: Mucous Membranes Moist - Neck Exam Neck exam: Positive for: Normal Inspection - Respiratory Exam Respiratory Exam: Decreased Breath Sounds - Cardiovascular Exam Cardiovascular Exam: REGULAR RHYTHM - GI/Abdominal Exam GI & Abdominal Exam: Normal Bowel Sounds, Soft Results - Vital Signs Recent Vital Signs: Last Vital Signs Temp 97.7 F 05/07/18 09:39 Pulse 67 05/07/18 12:53 Resp 16 05/07/18 09:39 BP 175/63 H 05/07/18 12:53 Pulse Ox 100 05/07/18 09:39 - Labs Result Diagrams: 05/07/18 07:10 05/07/18 07:10 Labs: Laboratory Results - last 24 hr 05/06/18 05/07/18 05/07/18 21:03 07:09 07:10 WBC 12.1 H RBC 3.60 L Hgb 9.5 L Hct 29.4 L MCV 81.8 MCH 26.3 L MCHC 32.2 L RDW 14.3 Plt Count 213 MPV 10.6 Neut % (Auto) 83.5 H Lymph % (Auto) 5.6 L [place] % (Auto) 7.5 Eos % (Auto) 2.5 Baso % (Auto) 0.9 Neut # (Auto) 10.1 H Lymph # (Auto) 0.7 L [place] # (Auto) 0.9 H Eos # (Auto) 0.3 Baso # (Auto) 0.1 Neutrophils % (Manual) 85 H Lymphocytes % (Manual) 4 L Monocytes % (Manual) 5 Eosinophils % (Manual) 2 Basophils % (Manual) 4 H Platelet Estimate Normal Large Platelets Present Hypochromasia (manual) Slight Poikilocytosis (manual Slight Anisocytosis (manual) Slight Macrocytosis (manual) Slight Sodium Potassium Chloride Carbon Dioxide Anion Gap BUN Creatinine Est GFR ( Amer) Est GFR (Non-Af Amer) POC Glucose (mg/dL) 181 H 187 H Random Glucose Calcium Iron TIBC % Saturation Ferritin Total Bilirubin AST ALT Alkaline Phosphatase Total Protein Albumin Globulin Albumin/Globulin Ratio Vitamin B12 Folate 05/07/18 05/07/18 05/07/18 07:10 11:32 11:32 WBC RBC Hgb Hct MCV MCH MCHC RDW Plt Count MPV Neut % (Auto) Lymph % (Auto) [place] % (Auto) Eos % (Auto) Baso % (Auto) Neut # (Auto) Lymph # (Auto) [place] # (Auto) Eos # (Auto) Baso # (Auto) Neutrophils % (Manual) Lymphocytes % (Manual) Monocytes % (Manual) Eosinophils % (Manual) Basophils % (Manual) Platelet Estimate Large Platelets Hypochromasia (manual) Poikilocytosis (manual Anisocytosis (manual) Macrocytosis (manual) Sodium 132 Potassium 4.0 Chloride 106 Carbon Dioxide 17 L Anion Gap 13 BUN 29 H Creatinine 2.2 H Est GFR ( Amer) 26 Est GFR (Non-Af Amer) 21 POC Glucose (mg/dL) Random Glucose 187 H Calcium 8.5 L Iron 31 L TIBC 200 L % Saturation 16 L Ferritin 229.0 Total Bilirubin 0.4 AST 14 D ALT 14 Alkaline Phosphatase 137 H D Total Protein 6.9 Albumin 3.0 L D Globulin 3.9 Albumin/Globulin Ratio 0.8 L Vitamin B12 664 Folate 4.7 05/07/18 12:02 WBC RBC Hgb Hct MCV MCH MCHC RDW Plt Count MPV Neut % (Auto) Lymph % (Auto) [place] % (Auto) Eos % (Auto) Baso % (Auto) Neut # (Auto) Lymph # (Auto) [place] # (Auto) Eos # (Auto) Baso # (Auto) Neutrophils % (Manual) Lymphocytes % (Manual) Monocytes % (Manual) Eosinophils % (Manual) Basophils % (Manual) Platelet Estimate Large Platelets Hypochromasia (manual) Poikilocytosis (manual Anisocytosis (manual) Macrocytosis (manual) Sodium Potassium Chloride Carbon Dioxide Anion Gap BUN Creatinine Est GFR ( Amer) Est GFR (Non-Af Amer) POC Glucose (mg/dL) 160 H Random Glucose Calcium Iron TIBC % Saturation Ferritin Total Bilirubin AST ALT Alkaline Phosphatase Total Protein Albumin Globulin Albumin/Globulin Ratio Vitamin B12 Folate Assessment & Plan (1) Mass of right lung Status: Acute Comment: CAT scan of the chest. Possible biopsy. Continue present treatment
--- NOTE | 2018-05-07 18:19 | CT ---
Date of service: 05/07/2018 PROCEDURE: CT Chest without contrast HISTORY: lung mass COMPARISON: Multiple CT scans of the chest and abdomen and pelvis dating back to 10/01/2012 TECHNIQUE: Contiguous axial images were obtained through the chest without intravenous contrast enhancement. Sagittal and coronal reconstructions were performed. Radiation dose: Total exam DLP = 872.5 mGy-cm. This CT exam was performed using one or more of the following dose reduction techniques: Automated exposure control, adjustment of the mA and/or kV according to patient size, and/or use of iterative reconstruction technique. FINDINGS: LUNGS: 3.3 cm right lower lobe part solid part ground-glass mass. Bibasilar scarring. No other nodule or mass or consolidation. Visualized airway clear MEDIASTINUM: Unremarkable thoracic aorta. No aneurysm. Normal sized heart. Coronary arterial and valvular calcifications. Main pulmonary artery unremarkable. No vascular congestion. No lymphadenopathy. Aortic atherosclerotic calcification and mural plaque present. PLEURA: No pleural fluid. No pneumothorax. BONES: No fracture. Spinal degenerative changes. No destructive lesion. UPPER ABDOMEN: Small hiatal hernia. Prior cholecystectomy with surgical clips in place. OTHER FINDINGS: None. IMPRESSION: 3.3 cm part solid part ground-glass right lower lobe mass. This has been present since September of 2012, but has increased in size since then. Neoplasm must be considered until proven otherwise. Histopathologic correlation can be obtained as clinically warranted. No lymphadenopathy or other pulmonary nodule, mass or consolidation.
--- NOTE | 2018-05-07 18:34 | CP.PCM.PN ---
<Orin York - Last Filed: 05/07/18 18:42> Subjective - Date & Time of Evaluation Date of Evaluation: 05/07/18 Time of Evaluation: 10:45 - Subjective Subjective: Patient examined at bedside. No acute events overnight. Patient reports that s/p colonoscopy she is is severe pain, back/abdominal, L>R. Patient denies chest pain, SOB, hematochezia, nausea Objective - Vital Signs/Intake and Output Vital Signs (last 24 hours): Temp Pulse Resp BP Pulse Ox 97.4 F L 58 L 20 180/65 H 95 05/07/18 17:04 05/07/18 17:04 05/07/18 17:04 05/07/18 17:04 05/07/18 17:04 Intake and Output: 05/07/18 05/07/18 06:59 18:59 Intake Total 4560 1070 Output Total 600 Balance 3960 1070 - Medications Medications: Current Medications Docusate Sodium (Colace) 100 mg PO TID [facility] Last Admin: 05/07/18 17:26 Dose: Not Given Heparin Sodium (Porcine) (Heparin) 5,000 units SC Q8 [facility] Last Admin: 05/06/18 13:40 Dose: 5,000 units Hydralazine HCl (Apresoline) 25 mg PO Q8 [facility] Last Admin: 05/07/18 14:32 Dose: 25 mg Dextrose/Sodium Chloride (Dextrose 5%/0.45% Ns 1000 Ml) 1,000 mls @ 70 mls/hr IV .[id number] [facility] Last Admin: 05/07/18 03:55 Dose: Not Given Metronidazole (Flagyl) 500 mg in 100 mls @ 100 mls/hr IVPB Q8H [facility]; Protocol Last Admin: 05/07/18 12:30 Dose: 100 mls/hr Ciprofloxacin (Cipro 400mg/200ml Dsw) 400 mg in 200 mls @ 133 mls/hr IVPB Q24H [facility]; Protocol Influenza Virus Vaccine (Fluzone Quad [id number]) 60 mcg IM .ONCE ONE Stop: 05/08/18 10:01 Insulin Aspart (Novolog) 0 unit SC ACHS [facility]; Protocol Last Admin: 05/07/18 16:29 Dose: 2 units Morphine Sulfate (Morphine) 1 mg IVP Q4 PRN PRN Reason: Pain, moderate (4-7) Last Admin: 05/07/18 10:42 Dose: 1 mg Rosuvastatin Calcium (Crestor) 10 mg PO HS [facility] Last Admin: 05/06/18 22:19 Dose: 10 mg - Labs Labs: 05/07/18 07:10 05/07/18 07:10 - Constitutional Appears: Non-toxic, No Acute Distress - Head Exam Head Exam: ATRAUMATIC, NORMAL INSPECTION, NORMOCEPHALIC - Eye Exam Eye Exam: EOMI, Normal appearance - ENT Exam ENT Exam: Mucous Membranes Moist, Normal Exam - Neck Exam Neck Exam: Normal Inspection - Respiratory Exam Respiratory Exam: Clear to Ausculation Bilateral, NORMAL BREATHING PATTERN - Cardiovascular Exam Cardiovascular Exam: REGULAR RHYTHM - GI/Abdominal Exam GI & Abdominal Exam: Soft, Tenderness (tender to palpation LUQ, left flank), Normal Bowel Sounds - Extremities Exam Extremities Exam: Normal Inspection, Pedal Edema. absent: Calf Tenderness - Back Exam Back Exam: NORMAL INSPECTION, tenderness (left flank) - Neurological Exam Neurological Exam: Alert, Awake - Psychiatric Exam Psychiatric exam: Normal Affect, Normal Mood - Skin Skin Exam: Dry, Intact, Normal Color, Warm Assessment and Plan - Assessment and Plan (Free Text) Assessment: 83 year old female admitted for evaluation of abdominal pain/ventral hernia Plan: -s/p colonoscopy -IVF -IV abx -pain medication PRN -medical management per primary -will continue to follow -plan for ventral hernia repair surgery 05/09 or 05/12 -patient needs medical pre-op medical clearance Discussed with Dr. Lori York, PGY-1 <Rick Sandoval B - Last Filed: 05/11/18 17:43> Objective - Vital Signs/Intake and Output Vital Signs (last 24 hours): Temp Pulse Resp BP Pulse Ox 98.9 F 71 20 180/64 H 100 05/11/18 16:16 05/11/18 16:16 05/11/18 16:16 05/11/18 16:16 05/11/18 16:16 Intake and Output: 05/11/18 05/11/18 06:59 18:59 Intake Total Output Total Balance - Medications Medications: Current Medications Docusate Sodium (Colace) 100 mg PO TID [facility] Last Admin: 05/11/18 14:26 Dose: 100 mg Hydralazine HCl (Apresoline) 25 mg PO Q8 [facility] Last Admin: 05/11/18 14:26 Dose: 25 mg Dextrose/Sodium Chloride (Dextrose 5%/0.45% Ns 1000 Ml) 1,000 mls @ 40 mls/hr IV .Q24H [facility] Last Admin: 05/11/18 17:22 Dose: Not Given Insulin Aspart (Novolog) 0 unit SC ACHS [facility]; Protocol Last Admin: 05/11/18 12:34 Dose: 3 units Magnesium Hydroxide (Milk Of Magnesia) 30 ml PO DAILY [facility] Last Admin: 05/11/18 10:51 Dose: 30 ml Morphine Sulfate (Morphine) 1 mg IVP Q4 PRN PRN Reason: Pain, moderate (4-7) Last Admin: 05/10/18 13:49 Dose: 1 mg Ondansetron HCl (Zofran Inj) 4 mg IVP Q6H PRN PRN Reason: nausea and vomiting Last Admin: 05/10/18 18:47 Dose: 4 mg Ondansetron HCl (Zofran Inj) 4 mg IVP DAILY@ONCE PRN PRN Reason: nausea Pantoprazole Sodium (Protonix Ec Tab) 20 mg PO DAILY [facility] Last Admin: 05/11/18 10:51 Dose: 20 mg Rosuvastatin Calcium (Crestor) 10 mg PO HS [facility] Last Admin: 05/10/18 21:43 Dose: 10 mg - Labs Labs: 05/11/18 07:51 05/11/18 07:51 Attending/Attestation - Attestation I have personally seen and examined this patient.: Yes I have fully participated in the care of the patient.: Yes I have reviewed all pertinent clinical information, including history, physical exam and plan: Yes Notes (Text): Pt was seen and examined at bedside Agree with above note and assessment Pt is improving clinically S/P Colonoscopy today Medical clearance for possible Incisional hernia Plan dmarino Rich in detail Plan norris pt in detail.
--- NOTE | 2018-05-07 21:34 | CP.PCM.PN ---
Subjective - Subjective Subjective: dictated Objective - Vital Signs/Intake and Output Vital Signs (last 24 hours): Temp Pulse Resp BP Pulse Ox 97.4 F L 58 L 20 180/65 H 95 05/07/18 17:04 05/07/18 17:04 05/07/18 17:04 05/07/18 17:04 05/07/18 17:04 Intake and Output: 05/07/18 05/08/18 18:59 06:59 Intake Total 1070 Balance 1070 - Medications Medications: Current Medications Docusate Sodium (Colace) 100 mg PO TID [facility] Last Admin: 05/07/18 17:26 Dose: Not Given Heparin Sodium (Porcine) (Heparin) 5,000 units SC Q8 [facility] Last Admin: 05/07/18 21:12 Dose: 5,000 units Hydralazine HCl (Apresoline) 50 mg PO Q8 [facility] Dextrose/Sodium Chloride (Dextrose 5%/0.45% Ns 1000 Ml) 1,000 mls @ 70 mls/hr IV .[id number] [facility] Last Admin: 05/07/18 18:10 Dose: Not Given Metronidazole (Flagyl) 500 mg in 100 mls @ 100 mls/hr IVPB Q8H [facility]; Protocol Last Admin: 05/07/18 20:29 Dose: 100 mls/hr Ciprofloxacin (Cipro 400mg/200ml Dsw) 400 mg in 200 mls @ 133 mls/hr IVPB Q24H [facility]; Protocol Influenza Virus Vaccine (Fluzone Quad [id number]) 60 mcg IM .ONCE ONE Stop: 05/08/18 10:01 Insulin Aspart (Novolog) 0 unit SC ACHS [facility]; Protocol Last Admin: 05/07/18 16:29 Dose: 2 units Morphine Sulfate (Morphine) 1 mg IVP Q4 PRN PRN Reason: Pain, moderate (4-7) Last Admin: 05/07/18 10:42 Dose: 1 mg Rosuvastatin Calcium (Crestor) 10 mg PO HS [facility] Last Admin: 05/07/18 21:12 Dose: 10 mg - Labs Labs: 05/07/18 07:10 05/07/18 07:10
--- NOTE | 2018-05-07 21:34 | CP.PCM.HP ---
Past Patient History - Infectious Disease Hx of Infectious Diseases: None - Past Medical History & Family History Past Medical History?: Yes - Past Social History Smoking Status: Former Smoker Alcohol: None Drugs: Denies - CARDIAC Hx Cardiac Disorders: Yes Hx Hypercholesterolemia: Yes Hx Hypertension: Yes - PULMONARY Hx Respiratory Disorders: No - NEUROLOGICAL Hx Neurological Disorder: No - HEENT Hx HEENT Problems: No - RENAL Hx Chronic Kidney Disease: No - ENDOCRINE/METABOLIC Hx Diabetes Mellitus Type 2: Yes - HEMATOLOGICAL/ONCOLOGICAL Hx Blood Disorders: No Hx Cirrhosis: No Hx Hepatitis A: No Hx Hepatitis B: No Hx Hepatitis C: No Hx Human Immunodeficiency Virus (HIV): No - MUSCULOSKELETAL/RHEUMATOLOGICAL Hx Falls: Yes - GASTROINTESTINAL Hx Gastrointestinal Disorders: No Hx Clostridium Difficile: No Hx Colitis: No Hx Constipation: Yes Hx Crohn's Disease: No Hx Diarrhea: No Hx Diverticulitis: No Hx Esophageal Varices: No Hx Fatty Liver Disease: No Hx Gall Bladder Disease: No Hx Gastritis: No Hx Gastroesophageal Reflux: No Hx Hemorrhoids: Yes Hx Ileostomy: No Hx Irritable Bowel: No Hx Liver Failure: No Hx Nausea: No Hx Pancreatitis: No HX Swallowing Problems: No Hx Ulcer: No Hx Vomiting: No - GENITOURINARY/GYNECOLOGICAL Hx Genitourinary Disorders: No - PSYCHIATRIC Hx Substance Use: No - SURGICAL HISTORY Hx Surgeries: Yes Hx Cholecystectomy: Yes (over 10 yrs. ago) - ANESTHESIA Hx Anesthesia: Yes Hx Anesthesia Reactions: No Meds Allergies/Adverse Reactions: Allergies Allergy/AdvReac Type Severity Reaction Status Date / Time No Known Allergies Allergy Verified 04/21/18 19:41 Results - Vital Signs Recent Vital Signs: Last Vital Signs Temp 97.4 F L 05/07/18 17:04 Pulse 58 L 05/07/18 17:04 Resp 20 05/07/18 17:04 BP 180/65 H 05/07/18 17:04 Pulse Ox 95 05/07/18 17:04 - Labs Result Diagrams: 05/07/18 07:10 05/07/18 07:10 Labs: Laboratory Results - last 24 hr 05/07/18 05/07/18 05/07/18 07:09 07:10 07:10 WBC 12.1 H RBC 3.60 L Hgb 9.5 L Hct 29.4 L MCV 81.8 MCH 26.3 L MCHC 32.2 L RDW 14.3 Plt Count 213 MPV 10.6 Neut % (Auto) 83.5 H Lymph % (Auto) 5.6 L [place] % (Auto) 7.5 Eos % (Auto) 2.5 Baso % (Auto) 0.9 Neut # (Auto) 10.1 H Lymph # (Auto) 0.7 L [place] # (Auto) 0.9 H Eos # (Auto) 0.3 Baso # (Auto) 0.1 Neutrophils % (Manual) 85 H Lymphocytes % (Manual) 4 L Monocytes % (Manual) 5 Eosinophils % (Manual) 2 Basophils % (Manual) 4 H Platelet Estimate Normal Large Platelets Present Hypochromasia (manual) Slight Poikilocytosis (manual Slight Anisocytosis (manual) Slight Macrocytosis (manual) Slight Sodium 132 Potassium 4.0 Chloride 106 Carbon Dioxide 17 L Anion Gap 13 BUN 29 H Creatinine 2.2 H Est GFR ( Amer) 26 Est GFR (Non-Af Amer) 21 POC Glucose (mg/dL) 187 H Random Glucose 187 H Calcium 8.5 L Iron TIBC % Saturation Ferritin Total Bilirubin 0.4 AST 14 D ALT 14 Alkaline Phosphatase 137 H D Total Protein 6.9 Albumin 3.0 L D Globulin 3.9 Albumin/Globulin Ratio 0.8 L Vitamin B12 Folate 05/07/18 05/07/18 05/07/18 11:32 11:32 12:02 WBC RBC Hgb Hct MCV MCH MCHC RDW Plt Count MPV Neut % (Auto) Lymph % (Auto) [place] % (Auto) Eos % (Auto) Baso % (Auto) Neut # (Auto) Lymph # (Auto) [place] # (Auto) Eos # (Auto) Baso # (Auto) Neutrophils % (Manual) Lymphocytes % (Manual) Monocytes % (Manual) Eosinophils % (Manual) Basophils % (Manual) Platelet Estimate Large Platelets Hypochromasia (manual) Poikilocytosis (manual Anisocytosis (manual) Macrocytosis (manual) Sodium Potassium Chloride Carbon Dioxide Anion Gap BUN Creatinine Est GFR ( Amer) Est GFR (Non-Af Amer) POC Glucose (mg/dL) 160 H Random Glucose Calcium Iron 31 L TIBC 200 L % Saturation 16 L Ferritin 229.0 Total Bilirubin AST ALT Alkaline Phosphatase Total Protein Albumin Globulin Albumin/Globulin Ratio Vitamin B12 664 Folate 4.7 05/07/18 05/07/18 16:22 21:11 WBC RBC Hgb Hct MCV MCH MCHC RDW Plt Count MPV Neut % (Auto) Lymph % (Auto) [place] % (Auto) Eos % (Auto) Baso % (Auto) Neut # (Auto) Lymph # (Auto) [place] # (Auto) Eos # (Auto) Baso # (Auto) Neutrophils % (Manual) Lymphocytes % (Manual) Monocytes % (Manual) Eosinophils % (Manual) Basophils % (Manual) Platelet Estimate Large Platelets Hypochromasia (manual) Poikilocytosis (manual Anisocytosis (manual) Macrocytosis (manual) Sodium Potassium Chloride Carbon Dioxide Anion Gap BUN Creatinine Est GFR ( Amer) Est GFR (Non-Af Amer) POC Glucose (mg/dL) 233 H 251 H Random Glucose Calcium Iron TIBC % Saturation Ferritin Total Bilirubin AST ALT Alkaline Phosphatase Total Protein Albumin Globulin Albumin/Globulin Ratio Vitamin B12 Folate
--- NOTE | 2018-05-07 23:22 | CP.PCM.CON ---
History of Present Illness - History of Present Illness History of Present Illness: Patient is a 83-year-old female with PMHx of DM2, CKD, HTN, HLD who came to the ED with pain in her back and epigastric area. Patient complains of back pain and abdominal pain. Pulmonology was consulted due to 3.3 cm mass suspicious for malignant neoplasm in right lower lobe seen on abdominal CT. Patient admits to cough without any sputum production that has been ongoing for 3 days, but denies any blood in sputum, shortness of breath, fevers, or chills. She states that she also feels weak as she had not eaten since Saturday. Abdomen CT 05/06 - Right lower lobe opacity partially consolidated and partially ground-glass measuring approximately 3.3 cm in maximum dimension; suspicious for malignant neoplasm. See report for full findings. Plan : order chest CT PMHx: DM2, HTN. HLD, CKD PSHx: cholecystectomy, hysterectomy Allergies: NKDA Social Hx: nonsmoker and non-alcohol user Review of Systems - Review of Systems All systems: reviewed and no additional remarkable complaints except (back pain) Physical Exam - Head Exam Head Exam: ATRAUMATIC, NORMOCEPHALIC - ENT Exam ENT Exam: Mucous Membranes Moist - Neck Exam Neck exam: Positive for: Normal Inspection - Respiratory Exam Respiratory Exam: Decreased Breath Sounds - Cardiovascular Exam Cardiovascular Exam: REGULAR RHYTHM - GI/Abdominal Exam GI & Abdominal Exam: Normal Bowel Sounds, Soft Assessment & Plan (1) Mass of right lung Status: Acute Comment: CAT scan of the chest. Possible biopsy. Continue present treatment Pre Op cardiac work up Check stress test and ECHO Past Patient History - Infectious Disease Hx of Infectious Diseases: None - Past Medical History & Family History Past Medical History?: Yes - Past Social History Smoking Status: Former Smoker Alcohol: None Drugs: Denies - CARDIAC Hx Cardiac Disorders: Yes Hx Hypercholesterolemia: Yes Hx Hypertension: Yes - PULMONARY Hx Respiratory Disorders: No - NEUROLOGICAL Hx Neurological Disorder: No - HEENT Hx HEENT Problems: No - RENAL Hx Chronic Kidney Disease: No - ENDOCRINE/METABOLIC Hx Diabetes Mellitus Type 2: Yes - HEMATOLOGICAL/ONCOLOGICAL Hx Blood Disorders: No Hx Cirrhosis: No Hx Hepatitis A: No Hx Hepatitis B: No Hx Hepatitis C: No Hx Human Immunodeficiency Virus (HIV): No - MUSCULOSKELETAL/RHEUMATOLOGICAL Hx Falls: Yes - GASTROINTESTINAL Hx Gastrointestinal Disorders: No Hx Clostridium Difficile: No Hx Colitis: No Hx Constipation: Yes Hx Crohn's Disease: No Hx Diarrhea: No Hx Diverticulitis: No Hx Esophageal Varices: No Hx Fatty Liver Disease: No Hx Gall Bladder Disease: No Hx Gastritis: No Hx Gastroesophageal Reflux: No Hx Hemorrhoids: Yes Hx Ileostomy: No Hx Irritable Bowel: No Hx Liver Failure: No Hx Nausea: No Hx Pancreatitis: No HX Swallowing Problems: No Hx Ulcer: No Hx Vomiting: No - GENITOURINARY/GYNECOLOGICAL Hx Genitourinary Disorders: No - PSYCHIATRIC Hx Substance Use: No - SURGICAL HISTORY Hx Surgeries: Yes Hx Cholecystectomy: Yes (over 10 yrs. ago) - ANESTHESIA Hx Anesthesia: Yes Hx Anesthesia Reactions: No Meds Allergies/Adverse Reactions: Allergies Allergy/AdvReac Type Severity Reaction Status Date / Time No Known Allergies Allergy Verified 04/21/18 19:41 - Medications Medications: Current Medications Docusate Sodium (Colace) 100 mg PO TID [facility] Last Admin: 05/07/18 17:26 Dose: Not Given Heparin Sodium (Porcine) (Heparin) 5,000 units SC Q8 [facility] Last Admin: 05/07/18 21:12 Dose: 5,000 units Hydralazine HCl (Apresoline) 50 mg PO Q8 [facility] Last Admin: 05/07/18 22:23 Dose: 50 mg Dextrose/Sodium Chloride (Dextrose 5%/0.45% Ns 1000 Ml) 1,000 mls @ 70 mls/hr IV .[id number] [facility] Last Admin: 05/07/18 18:10 Dose: Not Given Metronidazole (Flagyl) 500 mg in 100 mls @ 100 mls/hr IVPB Q8H [facility]; Protocol Last Admin: 05/07/18 20:29 Dose: 100 mls/hr Ciprofloxacin (Cipro 400mg/200ml Dsw) 400 mg in 200 mls @ 133 mls/hr IVPB Q24H [facility]; Protocol Influenza Virus Vaccine (Fluzone Quad [id number]) 60 mcg IM .ONCE ONE Stop: 05/08/18 10:01 Insulin Aspart (Novolog) 0 unit SC ACHS [facility]; Protocol Last Admin: 05/07/18 22:14 Dose: Not Given Morphine Sulfate (Morphine) 1 mg IVP Q4 PRN PRN Reason: Pain, moderate (4-7) Last Admin: 05/07/18 10:42 Dose: 1 mg Ondansetron HCl (Zofran Inj) 4 mg IVP Q6H PRN PRN Reason: nausea and vomiting Last Admin: 05/07/18 22:19 Dose: 4 mg Rosuvastatin Calcium (Crestor) 10 mg PO HS [facility] Last Admin: 05/07/18 21:12 Dose: 10 mg Results - Vital Signs Recent Vital Signs: Last Vital Signs Temp 97.4 F L 05/07/18 17:04 Pulse 58 L 05/07/18 17:04 Resp 20 05/07/18 17:04 BP 180/65 H 05/07/18 17:04 Pulse Ox 95 05/07/18 17:04 - Labs Result Diagrams: 05/07/18 07:10 05/07/18 07:10 Labs: Laboratory Results - last 24 hr 05/07/18 05/07/18 05/07/18 07:09 07:10 07:10 WBC 12.1 H RBC 3.60 L Hgb 9.5 L Hct 29.4 L MCV 81.8 MCH 26.3 L MCHC 32.2 L RDW 14.3 Plt Count 213 MPV 10.6 Neut % (Auto) 83.5 H Lymph % (Auto) 5.6 L [place] % (Auto) 7.5 Eos % (Auto) 2.5 Baso % (Auto) 0.9 Neut # (Auto) 10.1 H Lymph # (Auto) 0.7 L [place] # (Auto) 0.9 H Eos # (Auto) 0.3 Baso # (Auto) 0.1 Neutrophils % (Manual) 85 H Lymphocytes % (Manual) 4 L Monocytes % (Manual) 5 Eosinophils % (Manual) 2 Basophils % (Manual) 4 H Platelet Estimate Normal Large Platelets Present Hypochromasia (manual) Slight Poikilocytosis (manual Slight Anisocytosis (manual) Slight Macrocytosis (manual) Slight Sodium 132 Potassium 4.0 Chloride 106 Carbon Dioxide 17 L Anion Gap 13 BUN 29 H Creatinine 2.2 H Est GFR ( Amer) 26 Est GFR (Non-Af Amer) 21 POC Glucose (mg/dL) 187 H Random Glucose 187 H Calcium 8.5 L Iron TIBC % Saturation Ferritin Total Bilirubin 0.4 AST 14 D ALT 14 Alkaline Phosphatase 137 H D Total Protein 6.9 Albumin 3.0 L D Globulin 3.9 Albumin/Globulin Ratio 0.8 L Vitamin B12 Folate 05/07/18 05/07/18 05/07/18 11:32 11:32 12:02 WBC RBC Hgb Hct MCV MCH MCHC RDW Plt Count MPV Neut % (Auto) Lymph % (Auto) [place] % (Auto) Eos % (Auto) Baso % (Auto) Neut # (Auto) Lymph # (Auto) [place] # (Auto) Eos # (Auto) Baso # (Auto) Neutrophils % (Manual) Lymphocytes % (Manual) Monocytes % (Manual) Eosinophils % (Manual) Basophils % (Manual) Platelet Estimate Large Platelets Hypochromasia (manual) Poikilocytosis (manual Anisocytosis (manual) Macrocytosis (manual) Sodium Potassium Chloride Carbon Dioxide Anion Gap BUN Creatinine Est GFR ( Amer) Est GFR (Non-Af Amer) POC Glucose (mg/dL) 160 H Random Glucose Calcium Iron 31 L TIBC 200 L % Saturation 16 L Ferritin 229.0 Total Bilirubin AST ALT Alkaline Phosphatase Total Protein Albumin Globulin Albumin/Globulin Ratio Vitamin B12 664 Folate 4.7 05/07/18 05/07/18 16:22 21:11 WBC RBC Hgb Hct MCV MCH MCHC RDW Plt Count MPV Neut % (Auto) Lymph % (Auto) [place] % (Auto) Eos % (Auto) Baso % (Auto) Neut # (Auto) Lymph # (Auto) [place] # (Auto) Eos # (Auto) Baso # (Auto) Neutrophils % (Manual) Lymphocytes % (Manual) Monocytes % (Manual) Eosinophils % (Manual) Basophils % (Manual) Platelet Estimate Large Platelets Hypochromasia (manual) Poikilocytosis (manual Anisocytosis (manual) Macrocytosis (manual) Sodium Potassium Chloride Carbon Dioxide Anion Gap BUN Creatinine Est GFR ( Amer) Est GFR (Non-Af Amer) POC Glucose (mg/dL) 233 H 251 H Random Glucose Calcium Iron TIBC % Saturation Ferritin Total Bilirubin AST ALT Alkaline Phosphatase Total Protein Albumin Globulin Albumin/Globulin Ratio Vitamin B12 Folate
--- NOTE | 2018-05-08 02:41 | PN ---
DATE: 05/07/2018 SUBJECTIVE: The patient, Sonia Chase, is status post colonoscopy. The patient is moving bowels. She is afebrile. Blood pressure is high. BUN and creatinine remain stable. PHYSICAL EXAMINATION: VITAL SIGNS: Blood pressure 180/65, pulse 58, respiratory rate 20, and temperature 99.4. LUNGS: Clear. No rales or rhonchi. CARDIOVASCULAR SYSTEM: S1, S2 plus S4 positive. ABDOMEN: Soft. ASSESSMENT: 1. Intestinal obstruction, resolved. Status post colonoscopy. 2. Chronic kidney disease. 3. Hypertension. 4. Urinary tract infection. PLAN: Pending cultures. Continue antibiotics. Blood pressure control. Monitor patient. Toby Rich MD
[2018-05-08] MEDS: Ciprofloxacin 400mg/200ml D5W 400 MG/200 ML BAG IVPB SCH (03:21)
[2018-05-08] MEDS: Dextrose 5%/0.45% NS 1,000 ML IV SCH ×3 (04:34→21:55)
[2018-05-08] MEDS: metroNIDAZOLE IV 500 mg/100 ml 500 MG/100 ML BAG IVPB SCH ×3 (04:37→19:14)
[2018-05-08 07:33] LABS: BASO # 0.1 K/uL (0.0-0.2); BASO % 0.7 % (0.0-2.0); EOS # 0.4 K/uL (0.0-0.7); HEMOGLOBIN 9.4 g/dL (11.0-16.0); LYMPH # 1.1 K/uL (1.0-4.3); LYMPH % 8.9 % (20.0-40.0); MEAN CELL VOLUME 81.3 fL (81.0-99.0); MEAN CORPUSCULAR HEMOGLOBIN 26.1 pg (27.0-31.0); MEAN CORPUSCULAR HGB CONC 32.1 g/dL (33.0-37.0); MEAN PLATELET VOLUME 10.5 fL (7.2-11.7); MONO # 0.9 K/uL (0.0-0.8); MONO % 7.4 % (0.0-10.0); NEUT # 9.7 K/uL (1.8-7.0); NRBC % 0.1 % (0.0-2.0); PLATELET COUNT 218 K/uL (130-400); WHITE BLOOD COUNT 12.1 K/uL (4.8-10.8)
[2018-05-08] MEDS: (Novolog) Insulin Aspart, Recombinant 100 u/ml 10 ml vial SC SCH ×4 (08:25→21:56)
[2018-05-08 08:39] LABS: ALB/GLOB RATIO 0.8 (1.0-2.1); CALCIUM 8.4 mg/dl (8.6-10.4)
[2018-05-08 08:49] LABS: BANDS 1 % (0-2); EOSINOPHIL 4 % (0-4); LYMPHOCYTE 8 % (20-40); MONOCYTE 7 % (0-10); NEUTROPHIL 80 % (50-75); PLATELET ESTIMATE NORMAL (NORMAL); TOTAL CELLS COUNTED 100
[2018-05-08 08:50] LABS: HYPOCHROMIC SLIGHT; POIKILOCYTOSIS SLIGHT
[2018-05-08] MEDS ORDERED: Influenza Vaccine 60 MCG/0.5 ML SYR (3 yr & up) IM ONE (10:00)
--- NOTE | 2018-05-08 10:13 | CP.PCM.PN ---
<Jolynn Reese - Last Filed: 05/08/18 10:10> Subjective - Date & Time of Evaluation Date of Evaluation: 05/08/18 Time of Evaluation: 07:00 - Subjective Subjective: Surgery: Dr. Sandoval Pt seen and examined. No acute overnight events. Pt states she feels better this morning. She denies abdominal pain at this time and states she's tolerating her diet. Denies N/V, F/C. Objective - Vital Signs/Intake and Output Vital Signs (last 24 hours): Temp Pulse Resp BP Pulse Ox 98 F 75 20 149/68 97 05/08/18 07:00 05/08/18 07:00 05/08/18 07:00 05/08/18 07:00 05/08/18 07:00 Intake and Output: 05/08/18 05/08/18 06:59 18:59 Intake Total 850 Output Total 1000 Balance -150 - Medications Medications: Current Medications Docusate Sodium (Colace) 100 mg PO TID [facility] Last Admin: 05/07/18 17:26 Dose: Not Given Heparin Sodium (Porcine) (Heparin) 5,000 units SC Q8 [facility] Last Admin: 05/08/18 05:42 Dose: 5,000 units Hydralazine HCl (Apresoline) 50 mg PO Q8 [facility] Last Admin: 05/08/18 05:47 Dose: 50 mg Dextrose/Sodium Chloride (Dextrose 5%/0.45% Ns 1000 Ml) 1,000 mls @ 70 mls/hr IV .[id number] [facility] Last Admin: 05/08/18 09:06 Dose: Not Given Metronidazole (Flagyl) 500 mg in 100 mls @ 100 mls/hr IVPB Q8H [facility]; Protocol Last Admin: 05/08/18 04:37 Dose: 100 mls/hr Ciprofloxacin (Cipro 400mg/200ml Dsw) 400 mg in 200 mls @ 133 mls/hr IVPB Q24H [facility]; Protocol Last Admin: 05/08/18 03:21 Dose: 133 mls/hr Insulin Aspart (Novolog) 0 unit SC ACHS [facility]; Protocol Last Admin: 05/08/18 08:25 Dose: 1 units Morphine Sulfate (Morphine) 1 mg IVP Q4 PRN PRN Reason: Pain, moderate (4-7) Last Admin: 05/07/18 10:42 Dose: 1 mg Ondansetron HCl (Zofran Inj) 4 mg IVP Q6H PRN PRN Reason: nausea and vomiting Last Admin: 05/08/18 05:46 Dose: 4 mg Pantoprazole Sodium (Protonix Inj) 40 mg IVP DAILY [facility] Rosuvastatin Calcium (Crestor) 10 mg PO HS [facility] Last Admin: 05/07/18 21:12 Dose: 10 mg - Labs Labs: 05/08/18 07:28 05/08/18 07:28 - Constitutional Appears: Well, No Acute Distress - Head Exam Head Exam: ATRAUMATIC, NORMOCEPHALIC - Eye Exam Eye Exam: Normal appearance - ENT Exam ENT Exam: Mucous Membranes Moist - Respiratory Exam Respiratory Exam: NORMAL BREATHING PATTERN - Cardiovascular Exam Cardiovascular Exam: RRR - GI/Abdominal Exam GI & Abdominal Exam: Soft, Tenderness (to deep palpation over hernia). absent: Distended, Guarding, Rebound - Neurological Exam Neurological Exam: Alert, Awake, Oriented x3 - Skin Skin Exam: Dry, Warm Assessment and Plan - Assessment and Plan (Free Text) Assessment: 83F with ventral hernia Plan: - plan for OR for hernia repair pending discussion with pulm regarding RLL lung mass as seen on CT - further work up with biopsy needed, however can be done post-op - cont current management in the meantime - d/w Dr. Lori Reese <Rick Sandoval B - Last Filed: 05/11/18 17:44> Objective - Vital Signs/Intake and Output Vital Signs (last 24 hours): Temp Pulse Resp BP Pulse Ox 98.9 F 71 20 180/64 H 100 05/11/18 16:16 05/11/18 16:16 05/11/18 16:16 05/11/18 16:16 05/11/18 16:16 Intake and Output: 05/11/18 05/11/18 06:59 18:59 Intake Total Output Total Balance - Medications Medications: Current Medications Docusate Sodium (Colace) 100 mg PO TID [facility] Last Admin: 05/11/18 14:26 Dose: 100 mg Hydralazine HCl (Apresoline) 25 mg PO Q8 [facility] Last Admin: 05/11/18 14:26 Dose: 25 mg Dextrose/Sodium Chloride (Dextrose 5%/0.45% Ns 1000 Ml) 1,000 mls @ 40 mls/hr IV .Q24H [facility] Last Admin: 05/11/18 17:22 Dose: Not Given Insulin Aspart (Novolog) 0 unit SC ACHS [facility]; Protocol Last Admin: 05/11/18 12:34 Dose: 3 units Magnesium Hydroxide (Milk Of Magnesia) 30 ml PO DAILY [facility] Last Admin: 05/11/18 10:51 Dose: 30 ml Morphine Sulfate (Morphine) 1 mg IVP Q4 PRN PRN Reason: Pain, moderate (4-7) Last Admin: 05/10/18 13:49 Dose: 1 mg Ondansetron HCl (Zofran Inj) 4 mg IVP Q6H PRN PRN Reason: nausea and vomiting Last Admin: 05/10/18 18:47 Dose: 4 mg Ondansetron HCl (Zofran Inj) 4 mg IVP DAILY@ONCE PRN PRN Reason: nausea Pantoprazole Sodium (Protonix Ec Tab) 20 mg PO DAILY [facility] Last Admin: 05/11/18 10:51 Dose: 20 mg Rosuvastatin Calcium (Crestor) 10 mg PO HS [facility] Last Admin: 05/10/18 21:43 Dose: 10 mg - Labs Labs: 05/11/18 07:51 05/11/18 07:51 Attending/Attestation - Attestation I have personally seen and examined this patient.: Yes I have fully participated in the care of the patient.: Yes I have reviewed all pertinent clinical information, including history, physical exam and plan: Yes Notes (Text): Pt was seen and examined at bedside Agree with above note and assessment Pt is stable clinically Echo and Stress test tomorrow c.w current mx Possible OR on Saturday Plan d.w pt in detail.
--- NOTE | 2018-05-08 10:19 | CP.PCM.PN ---
Subjective - Date & Time of Evaluation Date of Evaluation: 05/08/18 Time of Evaluation: 10:16 - Subjective Subjective: No pain, N/V or bleeding Iron studies show low saturation but elevated ferritin.. B12, folate WNL Objective - Vital Signs/Intake and Output Vital Signs (last 24 hours): Temp Pulse Resp BP Pulse Ox 98 F 75 20 149/68 97 05/08/18 07:00 05/08/18 07:00 05/08/18 07:00 05/08/18 07:00 05/08/18 07:00 Intake and Output: 05/08/18 05/08/18 06:59 18:59 Intake Total 850 Output Total 1000 Balance -150 - Medications Medications: Current Medications Docusate Sodium (Colace) 100 mg PO TID [facility] Last Admin: 05/07/18 17:26 Dose: Not Given Heparin Sodium (Porcine) (Heparin) 5,000 units SC Q8 [facility] Last Admin: 05/08/18 05:42 Dose: 5,000 units Hydralazine HCl (Apresoline) 50 mg PO Q8 [facility] Last Admin: 05/08/18 05:47 Dose: 50 mg Dextrose/Sodium Chloride (Dextrose 5%/0.45% Ns 1000 Ml) 1,000 mls @ 70 mls/hr IV .[id number] [facility] Last Admin: 05/08/18 09:06 Dose: Not Given Metronidazole (Flagyl) 500 mg in 100 mls @ 100 mls/hr IVPB Q8H [facility]; Protocol Last Admin: 05/08/18 04:37 Dose: 100 mls/hr Ciprofloxacin (Cipro 400mg/200ml Dsw) 400 mg in 200 mls @ 133 mls/hr IVPB Q24H [facility]; Protocol Last Admin: 05/08/18 03:21 Dose: 133 mls/hr Insulin Aspart (Novolog) 0 unit SC ACHS [facility]; Protocol Last Admin: 05/08/18 08:25 Dose: 1 units Morphine Sulfate (Morphine) 1 mg IVP Q4 PRN PRN Reason: Pain, moderate (4-7) Last Admin: 05/07/18 10:42 Dose: 1 mg Ondansetron HCl (Zofran Inj) 4 mg IVP Q6H PRN PRN Reason: nausea and vomiting Last Admin: 05/08/18 05:46 Dose: 4 mg Pantoprazole Sodium (Protonix Inj) 40 mg IVP DAILY [facility] Rosuvastatin Calcium (Crestor) 10 mg PO HS [facility] Last Admin: 05/07/18 21:12 Dose: 10 mg - Labs Labs: 05/08/18 07:28 05/08/18 07:28 - Constitutional Appears: No Acute Distress - Head Exam Head Exam: ATRAUMATIC, NORMOCEPHALIC - Respiratory Exam Respiratory Exam: NORMAL BREATHING PATTERN - Cardiovascular Exam Cardiovascular Exam: REGULAR RHYTHM, +S1 - GI/Abdominal Exam GI & Abdominal Exam: Soft, Normal Bowel Sounds. absent: Distended, Tenderness, Mass, Rebound Assessment and Plan (1) Change in bowel habit Assessment & Plan: No mass or obstruciton. Diverticular disease seen but not severe. Continue high fiber and Colace as needed. Ambulation Iron studies suggestive of early iron deficiency. No further work up at this time Out patient follow up as needed. Recall as needed Thank you. Status: Acute (2) Constipation Status: Acute (3) Abdominal pain of multiple sites Status: Acute (4) Ventral hernia Status: Chronic
--- NOTE | 2018-05-08 11:41 | PCM.IRP ---
History of Present Illness - History of Present Illness History of Present Illness: IR consulted for right lung mass biopsy. CT reviewed and there is a area of ground glass opacity with more focal area of consolidation. Air bronchograms are present. This may represent a pneumonia. Recommend repeat CT scan following antibiotic treatment. Will proceed with biopsy as an outpatient if consolidation persists. Objective - Vital Signs/Intake and Output Vital Signs (last 24 hours): Vital Signs - 24 hr 05/07/18 05/07/18 05/08/18 12:53 17:04 00:00 Temperature 97.4 F L 97.8 F Pulse Rate 67 58 L 75 Respiratory 20 20 Rate Blood Pressure 175/63 H 180/65 H 180/70 H O2 Sat by Pulse 95 98 Oximetry 05/08/18 05/08/18 05:45 07:00 Temperature 97.8 F 98 F Pulse Rate 73 75 Respiratory 20 20 Rate Blood Pressure 153/66 H 149/68 O2 Sat by Pulse 98 97 Oximetry Intake and Output (last 12 hours): Intake & Output 05/07/18 05/08/18 05/08/18 18:59 06:59 18:59 Intake Total 1070 850 Output Total 1000 Balance 1070 -150 Intake: IV 220 Intake, IV Amount 590 700 Left External Jugular 590 700 Oral 260 150 Output: Urine 600 Urine, Voided 600 Emesis 400 Other: # Voids Urine, Voided 2 2 # Bowel Movements 0 0 - Medications Medications: Current Medications Docusate Sodium (Colace) 100 mg PO TID [facility] Last Admin: 05/08/18 11:28 Dose: Not Given Heparin Sodium (Porcine) (Heparin) 5,000 units SC Q8 [facility] Last Admin: 05/08/18 05:42 Dose: 5,000 units Hydralazine HCl (Apresoline) 50 mg PO Q8 [facility] Last Admin: 05/08/18 05:47 Dose: 50 mg Dextrose/Sodium Chloride (Dextrose 5%/0.45% Ns 1000 Ml) 1,000 mls @ 70 mls/hr IV .[id number] [facility] Last Admin: 05/08/18 09:06 Dose: Not Given Metronidazole (Flagyl) 500 mg in 100 mls @ 100 mls/hr IVPB Q8H [facility]; Protocol Last Admin: 05/08/18 04:37 Dose: 100 mls/hr Ciprofloxacin (Cipro 400mg/200ml Dsw) 400 mg in 200 mls @ 133 mls/hr IVPB Q24H [facility]; Protocol Last Admin: 05/08/18 03:21 Dose: 133 mls/hr Insulin Aspart (Novolog) 0 unit SC ACHS [facility]; Protocol Last Admin: 05/08/18 08:25 Dose: 1 units Morphine Sulfate (Morphine) 1 mg IVP Q4 PRN PRN Reason: Pain, moderate (4-7) Last Admin: 05/07/18 10:42 Dose: 1 mg Ondansetron HCl (Zofran Inj) 4 mg IVP Q6H PRN PRN Reason: nausea and vomiting Last Admin: 05/08/18 05:46 Dose: 4 mg Pantoprazole Sodium (Protonix Inj) 40 mg IVP DAILY [facility] Last Admin: 05/08/18 11:00 Dose: Not Given Rosuvastatin Calcium (Crestor) 10 mg PO HS [facility] Last Admin: 05/07/18 21:12 Dose: 10 mg - Labs Labs (last 24 hours): Laboratory Results - last 24 hr 05/07/18 05/07/18 05/07/18 11:32 11:32 12:02 WBC RBC Hgb Hct MCV MCH MCHC RDW Plt Count MPV Neut % (Auto) Lymph % (Auto) Snyder % (Auto) Eos % (Auto) Baso % (Auto) Neut # (Auto) Lymph # (Auto) Snyder # (Auto) Eos # (Auto) Baso # (Auto) Neutrophils % (Manual) Band Neutrophils % Lymphocytes % (Manual) Monocytes % (Manual) Eosinophils % (Manual) Platelet Estimate Hypochromasia (manual) Poikilocytosis (manual Sodium Potassium Chloride Carbon Dioxide Anion Gap BUN Creatinine Est GFR ( Amer) Est GFR (Non-Af Amer) POC Glucose (mg/dL) 160 H Random Glucose Calcium Phosphorus Magnesium Iron 31 L TIBC 200 L % Saturation 16 L Ferritin 229.0 Total Bilirubin AST ALT Alkaline Phosphatase Total Protein Albumin Globulin Albumin/Globulin Ratio Vitamin B12 664 Folate 4.7 05/07/18 05/07/18 05/08/18 16:22 21:11 07:25 WBC RBC Hgb Hct MCV MCH MCHC RDW Plt Count MPV Neut % (Auto) Lymph % (Auto) Snyder % (Auto) Eos % (Auto) Baso % (Auto) Neut # (Auto) Lymph # (Auto) Snyder # (Auto) Eos # (Auto) Baso # (Auto) Neutrophils % (Manual) Band Neutrophils % Lymphocytes % (Manual) Monocytes % (Manual) Eosinophils % (Manual) Platelet Estimate Hypochromasia (manual) Poikilocytosis (manual Sodium Potassium Chloride Carbon Dioxide Anion Gap BUN Creatinine Est GFR ( Amer) Est GFR (Non-Af Amer) POC Glucose (mg/dL) 233 H 251 H 164 H Random Glucose Calcium Phosphorus Magnesium Iron TIBC % Saturation Ferritin Total Bilirubin AST ALT Alkaline Phosphatase Total Protein Albumin Globulin Albumin/Globulin Ratio Vitamin B12 Folate 05/08/18 05/08/18 07:28 07:28 WBC 12.1 H RBC 3.60 L Hgb 9.4 L Hct 29.3 L MCV 81.3 MCH 26.1 L MCHC 32.1 L RDW 14.0 Plt Count 218 MPV 10.5 Neut % (Auto) 80.0 H Lymph % (Auto) 8.9 L Snyder % (Auto) 7.4 Eos % (Auto) 3.0 Baso % (Auto) 0.7 Neut # (Auto) 9.7 H Lymph # (Auto) 1.1 Snyder # (Auto) 0.9 H Eos # (Auto) 0.4 Baso # (Auto) 0.1 Neutrophils % (Manual) 80 H Band Neutrophils % 1 Lymphocytes % (Manual) 8 L Monocytes % (Manual) 7 Eosinophils % (Manual) 4 Platelet Estimate Normal Hypochromasia (manual) Slight Poikilocytosis (manual Slight Sodium 132 Potassium 3.6 Chloride 106 Carbon Dioxide 19 L Anion Gap 11 BUN 24 H Creatinine 2.3 H Est GFR ( Amer) 24 Est GFR (Non-Af Amer) 20 POC Glucose (mg/dL) Random Glucose 171 H Calcium 8.4 L Phosphorus 3.2 Magnesium 1.6 Iron TIBC % Saturation Ferritin Total Bilirubin 0.3 AST 10 L D ALT 14 Alkaline Phosphatase 122 Total Protein 6.7 Albumin 3.0 L Globulin 3.8 Albumin/Globulin Ratio 0.8 L Vitamin B12 Folate
--- NOTE | 2018-05-08 16:27 | CP.PCM.PN ---
Subjective - Date & Time of Evaluation Date of Evaluation: 05/08/18 Time of Evaluation: 09:20 - Subjective Subjective: Patient seen and examined at bedside. Patient states that her pain has improved a lot from yesterday, but she is feeling like "it is coming back." Patient denies any shortness of breath, cough, blood in sputum, fevers, or chills. Patient informed of her CT chest results, and plan of getting a biopsy of the mass was discussed, which patient agreed to. Objective - Vital Signs/Intake and Output Vital Signs (last 24 hours): Temp Pulse Resp BP Pulse Ox 98.2 F 77 20 138/68 99 05/08/18 16:00 05/08/18 16:00 05/08/18 16:00 05/08/18 16:00 05/08/18 16:00 Intake and Output: 05/08/18 05/08/18 06:59 18:59 Intake Total 850 710 Output Total 1000 Balance -150 710 - Medications Medications: Current Medications Docusate Sodium (Colace) 100 mg PO TID [facility] Last Admin: 05/08/18 13:53 Dose: 100 mg Heparin Sodium (Porcine) (Heparin) 5,000 units SC Q8 [facility] Last Admin: 05/08/18 13:53 Dose: 5,000 units Hydralazine HCl (Apresoline) 50 mg PO Q8 [facility] Last Admin: 05/08/18 13:53 Dose: 50 mg Dextrose/Sodium Chloride (Dextrose 5%/0.45% Ns 1000 Ml) 1,000 mls @ 70 mls/hr IV .[id number] [facility] Last Admin: 05/08/18 09:06 Dose: Not Given Metronidazole (Flagyl) 500 mg in 100 mls @ 100 mls/hr IVPB Q8H [facility]; Protocol Last Admin: 05/08/18 12:25 Dose: 100 mls/hr Ciprofloxacin (Cipro 400mg/200ml Dsw) 400 mg in 200 mls @ 133 mls/hr IVPB Q24H [facility]; Protocol Last Admin: 05/08/18 03:21 Dose: 133 mls/hr Insulin Aspart (Novolog) 0 unit SC ACHS [facility]; Protocol Last Admin: 05/08/18 12:37 Dose: Not Given Morphine Sulfate (Morphine) 1 mg IVP Q4 PRN PRN Reason: Pain, moderate (4-7) Last Admin: 05/07/18 10:42 Dose: 1 mg Ondansetron HCl (Zofran Inj) 4 mg IVP Q6H PRN PRN Reason: nausea and vomiting Last Admin: 05/08/18 05:46 Dose: 4 mg Pantoprazole Sodium (Protonix Inj) 40 mg IVP DAILY [facility] Last Admin: 05/08/18 12:24 Dose: 40 mg Rosuvastatin Calcium (Crestor) 10 mg PO HS [facility] Last Admin: 05/07/18 21:12 Dose: 10 mg - Labs Labs: 05/08/18 07:28 05/08/18 07:28 - Head Exam Head Exam: ATRAUMATIC, NORMOCEPHALIC - ENT Exam ENT Exam: Mucous Membranes Moist - Neck Exam Neck Exam: Normal Inspection - Respiratory Exam Respiratory Exam: Clear to Ausculation Bilateral - Cardiovascular Exam Cardiovascular Exam: REGULAR RHYTHM - GI/Abdominal Exam GI & Abdominal Exam: Soft Assessment and Plan (1) Mass of right lung Assessment & Plan: case discussed with interventional radiology and we'll consider biopsy as outpatient Course of antibiotics Status: Acute
--- NOTE | 2018-05-08 22:05 | CP.PCM.PN ---
Subjective - Date & Time of Evaluation Date of Evaluation: 05/08/18 Time of Evaluation: 11:20 - Subjective Subjective: Patient seen and evaluated Denies chest pain and dyspnea PMHx: DM2, HTN. HLD, CKD PSHx: cholecystectomy, hysterectomy Allergies: NKDA Social Hx: nonsmoker and non-alcohol user Review of Systems - Review of Systems All systems: reviewed and no additional remarkable complaints except (back pain) Physical Exam - Head Exam Head Exam: ATRAUMATIC, NORMOCEPHALIC - ENT Exam ENT Exam: Mucous Membranes Moist - Neck Exam Neck exam: Positive for: Normal Inspection - Respiratory Exam Respiratory Exam: Decreased Breath Sounds - Cardiovascular Exam Cardiovascular Exam: REGULAR RHYTHM - GI/Abdominal Exam GI & Abdominal Exam: Normal Bowel Sounds, Soft Assessment & Plan (1) Mass of right lung Status: Acute Comment: CAT scan of the chest. Possible biopsy. Continue present treatment Pre Op cardiac work up Check stress test and ECHO Objective - Vital Signs/Intake and Output Vital Signs (last 24 hours): Temp Pulse Resp BP Pulse Ox 98.2 F 77 20 138/68 99 05/08/18 16:00 05/08/18 16:00 05/08/18 16:00 05/08/18 16:00 05/08/18 16:00 Intake and Output: 05/08/18 05/09/18 18:59 06:59 Intake Total 710 Balance 710 - Medications Medications: Current Medications Docusate Sodium (Colace) 100 mg PO TID [facility] Last Admin: 05/08/18 17:35 Dose: 100 mg Heparin Sodium (Porcine) (Heparin) 5,000 units SC Q8 [facility] Last Admin: 05/08/18 21:23 Dose: Not Given Hydralazine HCl (Apresoline) 50 mg PO Q8 [facility] Last Admin: 05/08/18 21:22 Dose: 50 mg Dextrose/Sodium Chloride (Dextrose 5%/0.45% Ns 1000 Ml) 1,000 mls @ 70 mls/hr IV .[id number] [facility] Last Admin: 05/08/18 21:55 Dose: Not Given Metronidazole (Flagyl) 500 mg in 100 mls @ 100 mls/hr IVPB Q8H [facility]; Protocol Last Admin: 05/08/18 19:14 Dose: 100 mls/hr Ciprofloxacin (Cipro 400mg/200ml Dsw) 400 mg in 200 mls @ 133 mls/hr IVPB Q24H [facility]; Protocol Last Admin: 05/08/18 03:21 Dose: 133 mls/hr Insulin Aspart (Novolog) 0 unit SC ACHS [facility]; Protocol Last Admin: 05/08/18 21:56 Dose: Not Given Morphine Sulfate (Morphine) 1 mg IVP Q4 PRN PRN Reason: Pain, moderate (4-7) Last Admin: 05/08/18 21:23 Dose: 1 mg Ondansetron HCl (Zofran Inj) 4 mg IVP Q6H PRN PRN Reason: nausea and vomiting Last Admin: 05/08/18 05:46 Dose: 4 mg Pantoprazole Sodium (Protonix Inj) 40 mg IVP DAILY [facility] Last Admin: 05/08/18 12:24 Dose: 40 mg Rosuvastatin Calcium (Crestor) 10 mg PO HS [facility] Last Admin: 05/08/18 21:22 Dose: 10 mg - Labs Labs: 05/08/18 07:28 05/08/18 07:28
--- NOTE | 2018-05-08 22:11 | CP.PCM.PN ---
Subjective - Subjective Subjective: dictated Objective - Vital Signs/Intake and Output Vital Signs (last 24 hours): Temp Pulse Resp BP Pulse Ox 98.2 F 77 20 138/68 99 05/08/18 16:00 05/08/18 16:00 05/08/18 16:00 05/08/18 16:00 05/08/18 16:00 Intake and Output: 05/08/18 05/09/18 18:59 06:59 Intake Total 710 Balance 710 - Medications Medications: Current Medications Docusate Sodium (Colace) 100 mg PO TID [facility] Last Admin: 05/08/18 17:35 Dose: 100 mg Heparin Sodium (Porcine) (Heparin) 5,000 units SC Q8 [facility] Last Admin: 05/08/18 21:23 Dose: Not Given Hydralazine HCl (Apresoline) 50 mg PO Q8 [facility] Last Admin: 05/08/18 21:22 Dose: 50 mg Dextrose/Sodium Chloride (Dextrose 5%/0.45% Ns 1000 Ml) 1,000 mls @ 70 mls/hr IV .[id number] [facility] Last Admin: 05/08/18 21:55 Dose: Not Given Metronidazole (Flagyl) 500 mg in 100 mls @ 100 mls/hr IVPB Q8H [facility]; Protocol Last Admin: 05/08/18 19:14 Dose: 100 mls/hr Ciprofloxacin (Cipro 400mg/200ml Dsw) 400 mg in 200 mls @ 133 mls/hr IVPB Q24H [facility]; Protocol Last Admin: 05/08/18 03:21 Dose: 133 mls/hr Insulin Aspart (Novolog) 0 unit SC ACHS [facility]; Protocol Last Admin: 05/08/18 21:56 Dose: Not Given Morphine Sulfate (Morphine) 1 mg IVP Q4 PRN PRN Reason: Pain, moderate (4-7) Last Admin: 05/08/18 21:23 Dose: 1 mg Ondansetron HCl (Zofran Inj) 4 mg IVP Q6H PRN PRN Reason: nausea and vomiting Last Admin: 05/08/18 05:46 Dose: 4 mg Pantoprazole Sodium (Protonix Inj) 40 mg IVP DAILY [facility] Last Admin: 05/08/18 12:24 Dose: 40 mg Rosuvastatin Calcium (Crestor) 10 mg PO HS [facility] Last Admin: 05/08/18 21:22 Dose: 10 mg - Labs Labs: 05/08/18 07:28 05/08/18 07:28
--- NOTE | 2018-05-09 01:22 | PN ---
DATE: 05/08/2018 SUBJECTIVE: The patient, Salvatore, is for biopsy of the lung mass. In the meantime, the patient's abdominal pain and swelling have been resolved. The patient is feeling better. She is not short of breath. No nausea or vomiting. Seen by Cardiology. PHYSICAL EXAMINATION: VITAL SIGNS: Blood pressure 138/68, pulse 77, respiratory rate 20, and temperature 98.2. LUNGS: Clear. CARDIOVASCULAR SYSTEM: S1 and S2 are regular. ABDOMEN: Soft. Nontender. Bowel sounds are positive. ASSESSMENT: 1. Status post intestinal obstruction, resolved. 2. Urinary tract infection, on antibiotics. 3. Lung mass, pending biopsy. 4. Hypertension. 5. Chronic kidney disease. PLAN: Biopsy of the mass. Monitor the patient. Toby Rich MD
[2018-05-09] MEDS: metroNIDAZOLE IV 500 mg/100 ml 500 MG/100 ML BAG IVPB SCH (03:04)
[2018-05-09] MEDS: Ciprofloxacin 400mg/200ml D5W 400 MG/200 ML BAG IVPB SCH (04:21)
[2018-05-09 06:52] LABS: BASO # 0.1 K/uL (0.0-0.2); BASO % 1.2 % (0.0-2.0); EOS # 0.5 K/uL (0.0-0.7); EOS % 4.6 % (0.0-4.0); HEMOGLOBIN 8.7 g/dL (11.0-16.0); LYMPH # 1.3 K/uL (1.0-4.3); LYMPH % 13.1 % (20.0-40.0); MEAN CELL VOLUME 81.2 fL (81.0-99.0); MEAN CORPUSCULAR HEMOGLOBIN 26.4 pg (27.0-31.0); MEAN CORPUSCULAR HGB CONC 32.5 g/dL (33.0-37.0); MEAN PLATELET VOLUME 10.6 fL (7.2-11.7); MONO % 10.1 % (0.0-10.0); NEUT # 7.1 K/uL (1.8-7.0); NRBC % 0.1 % (0.0-2.0); RBC 3.3 Mil/uL (3.80-5.20); RED CELL DISTRIBUTION WIDTH 14.2 % (11.5-14.5)
[2018-05-09 07:01] LABS: ALB/GLOB RATIO 0.8 (1.0-2.1); ALBUMIN 2.7 g/dL (3.5-5.0); CALCIUM 7.8 mg/dl (8.6-10.4)
[2018-05-09] MEDS ORDERED: Caffeine Citrated **INJ** 20 MG/ML IV ONE (08:03)
[2018-05-09] MEDS: (Novolog) Insulin Aspart, Recombinant 100 u/ml 10 ml vial SC SCH ×4 (08:05→21:17)
--- NOTE | 2018-05-09 12:04 | CP.PCM.PN ---
<Jolynn Reese - Last Filed: 05/09/18 12:14> Subjective - Date & Time of Evaluation Date of Evaluation: 05/09/18 Time of Evaluation: 11:57 - Subjective Subjective: Surgery: Dr. Sandoval Pt seen and examined. No acute overnight events. States she feels ok and denies abdominal pain at this time. Pt is tolerating her diet, denies fevers/chills. Objective - Vital Signs/Intake and Output Vital Signs (last 24 hours): Temp Pulse Resp BP Pulse Ox 98.2 F 80 20 113/55 L 98 05/09/18 00:06 05/09/18 00:06 05/09/18 00:06 05/09/18 00:06 05/09/18 00:06 Intake and Output: 05/09/18 05/09/18 06:59 18:59 Intake Total 7810 Balance 7810 - Medications Medications: Current Medications Docusate Sodium (Colace) 100 mg PO TID [facility] Last Admin: 05/09/18 10:30 Dose: 100 mg Heparin Sodium (Porcine) (Heparin) 5,000 units SC Q8 [facility] Last Admin: 05/09/18 06:26 Dose: 5,000 units Hydralazine HCl (Apresoline) 50 mg PO Q8 [facility] Last Admin: 05/09/18 06:12 Dose: 50 mg Dextrose/Sodium Chloride (Dextrose 5%/0.45% Ns 1000 Ml) 1,000 mls @ 70 mls/hr IV .[id number] [facility] Last Admin: 05/08/18 21:55 Dose: Not Given Ciprofloxacin (Cipro 400mg/200ml Dsw) 400 mg in 200 mls @ 133 mls/hr IVPB Q24H [facility]; Protocol Last Admin: 05/09/18 04:21 Dose: 133 mls/hr Insulin Aspart (Novolog) 0 unit SC ACHS [facility]; Protocol Last Admin: 05/08/18 21:56 Dose: Not Given Morphine Sulfate (Morphine) 1 mg IVP Q4 PRN PRN Reason: Pain, moderate (4-7) Last Admin: 05/08/18 21:23 Dose: 1 mg Ondansetron HCl (Zofran Inj) 4 mg IVP Q6H PRN PRN Reason: nausea and vomiting Last Admin: 05/08/18 05:46 Dose: 4 mg Ondansetron HCl (Zofran Inj) 4 mg IVP DAILY@ONCE PRN PRN Reason: nausea Pantoprazole Sodium (Protonix Inj) 40 mg IVP DAILY [facility] Last Admin: 05/09/18 10:30 Dose: 40 mg Rosuvastatin Calcium (Crestor) 10 mg PO HS [facility] Last Admin: 05/08/18 21:22 Dose: 10 mg - Labs Labs: 05/09/18 06:30 05/09/18 06:30 - Constitutional Appears: Well, No Acute Distress - Head Exam Head Exam: ATRAUMATIC, NORMOCEPHALIC - Eye Exam Eye Exam: Normal appearance - ENT Exam ENT Exam: Mucous Membranes Moist - Respiratory Exam Respiratory Exam: NORMAL BREATHING PATTERN - Cardiovascular Exam Cardiovascular Exam: RRR - GI/Abdominal Exam GI & Abdominal Exam: Soft. absent: Distended, Guarding, Tenderness, Rebound - Neurological Exam Neurological Exam: Alert, Awake, Oriented x3 - Skin Skin Exam: Dry, Warm Assessment and Plan - Assessment and Plan (Free Text) Assessment: 83F with ventral hernia Plan: - f/u cardio recs post stress test - plan for OR saturday for ventral hernia repair - optimize for OR - d/w Dr. Lori Reese <Rick Sandoval - Last Filed: 05/11/18 17:45> Objective - Vital Signs/Intake and Output Vital Signs (last 24 hours): Temp Pulse Resp BP Pulse Ox 98.9 F 71 20 180/64 H 100 05/11/18 16:16 05/11/18 16:16 05/11/18 16:16 05/11/18 16:16 05/11/18 16:16 Intake and Output: 05/11/18 05/11/18 06:59 18:59 Intake Total Output Total Balance - Medications Medications: Current Medications Docusate Sodium (Colace) 100 mg PO TID [facility] Last Admin: 05/11/18 14:26 Dose: 100 mg Hydralazine HCl (Apresoline) 25 mg PO Q8 [facility] Last Admin: 05/11/18 14:26 Dose: 25 mg Dextrose/Sodium Chloride (Dextrose 5%/0.45% Ns 1000 Ml) 1,000 mls @ 40 mls/hr IV .Q24H [facility] Last Admin: 05/11/18 17:22 Dose: Not Given Insulin Aspart (Novolog) 0 unit SC ACHS [facility]; Protocol Last Admin: 05/11/18 12:34 Dose: 3 units Magnesium Hydroxide (Milk Of Magnesia) 30 ml PO DAILY [facility] Last Admin: 05/11/18 10:51 Dose: 30 ml Morphine Sulfate (Morphine) 1 mg IVP Q4 PRN PRN Reason: Pain, moderate (4-7) Last Admin: 05/10/18 13:49 Dose: 1 mg Ondansetron HCl (Zofran Inj) 4 mg IVP Q6H PRN PRN Reason: nausea and vomiting Last Admin: 05/10/18 18:47 Dose: 4 mg Ondansetron HCl (Zofran Inj) 4 mg IVP DAILY@ONCE PRN PRN Reason: nausea Pantoprazole Sodium (Protonix Ec Tab) 20 mg PO DAILY [facility] Last Admin: 05/11/18 10:51 Dose: 20 mg Rosuvastatin Calcium (Crestor) 10 mg PO HS [facility] Last Admin: 05/10/18 21:43 Dose: 10 mg - Labs Labs: 05/11/18 07:51 05/11/18 07:51 Attending/Attestation - Attestation I have personally seen and examined this patient.: Yes I have fully participated in the care of the patient.: Yes I have reviewed all pertinent clinical information, including history, physical exam and plan: Yes Notes (Text): Pt was seen and examined at bedside Agree with above note and assessment Pt is scheduled for echo and stress test IV antibiotics Awaiting cardiology clearance c.w current mx Plan d.w pt in detail. Risk and Benefit explained in detail
[2018-05-09] MEDS: Dextrose 5%/0.45% NS 1,000 ML IV SCH ×2 (13:18→18:14)
--- NOTE | 2018-05-09 20:02 | CP.PCM.PN ---
Subjective - Subjective Subjective: dictated Objective - Vital Signs/Intake and Output Vital Signs (last 24 hours): Temp Pulse Resp BP Pulse Ox 97.5 F L 77 20 100/52 L 100 05/09/18 15:15 05/09/18 15:15 05/09/18 15:15 05/09/18 15:15 05/09/18 15:15 Intake and Output: 05/09/18 05/10/18 18:59 06:59 Intake Total 500 Balance 500 - Medications Medications: Current Medications Docusate Sodium (Colace) 100 mg PO TID [facility] Last Admin: 05/09/18 18:06 Dose: 100 mg Heparin Sodium (Porcine) (Heparin) 5,000 units SC Q8 [facility] Last Admin: 05/09/18 14:43 Dose: 5,000 units Hydralazine HCl (Apresoline) 25 mg PO Q8 [facility] Ciprofloxacin (Cipro 400mg/200ml Dsw) 400 mg in 200 mls @ 133 mls/hr IVPB Q24H [facility]; Protocol Last Admin: 05/09/18 04:21 Dose: 133 mls/hr Dextrose/Sodium Chloride (Dextrose 5%/0.45% Ns 1000 Ml) 1,000 mls @ 40 mls/hr IV .Q24H [facility] Last Admin: 05/09/18 18:14 Dose: 40 mls/hr Insulin Aspart (Novolog) 0 unit SC ACHS [facility]; Protocol Last Admin: 05/09/18 17:07 Dose: 2 units Morphine Sulfate (Morphine) 1 mg IVP Q4 PRN PRN Reason: Pain, moderate (4-7) Last Admin: 05/08/18 21:23 Dose: 1 mg Ondansetron HCl (Zofran Inj) 4 mg IVP Q6H PRN PRN Reason: nausea and vomiting Last Admin: 05/08/18 05:46 Dose: 4 mg Ondansetron HCl (Zofran Inj) 4 mg IVP DAILY@ONCE PRN PRN Reason: nausea Pantoprazole Sodium (Protonix Ec Tab) 20 mg PO DAILY [facility] Rosuvastatin Calcium (Crestor) 10 mg PO HS [facility] Last Admin: 05/08/18 21:22 Dose: 10 mg - Labs Labs: 05/09/18 06:30 05/09/18 06:30
--- NOTE | 2018-05-09 20:34 | CP.PCM.PN ---
Subjective - Date & Time of Evaluation Date of Evaluation: 05/09/18 Time of Evaluation: 18:00 - Subjective Subjective: Patient seen and evaluated Denies chest pain and dyspnea PMHx: DM2, HTN. HLD, CKD PSHx: cholecystectomy, hysterectomy Allergies: NKDA Social Hx: nonsmoker and non-alcohol user Review of Systems - Review of Systems All systems: reviewed and no additional remarkable complaints except (back pain) Physical Exam - Head Exam Head Exam: ATRAUMATIC, NORMOCEPHALIC - ENT Exam ENT Exam: Mucous Membranes Moist - Neck Exam Neck exam: Positive for: Normal Inspection - Respiratory Exam Respiratory Exam: Decreased Breath Sounds - Cardiovascular Exam Cardiovascular Exam: REGULAR RHYTHM - GI/Abdominal Exam GI & Abdominal Exam: Normal Bowel Sounds, Soft Assessment & Plan (1) Mass of right lung Status: Acute Comment: CAT scan of the chest. Possible biopsy. Continue present treatment Pre Op cardiac work up ECHO: Normal EF, No critical valve issues Stress test: Negative for stress induced ischemia How ever due to multiple comorbid conditions like age (83), DM2, HTN, Obesity, Hyperlipidemia and CKD this patient assessed as moderate to high risk for Cardiovascular events for abdominal surgery under general anaesthesia. If the benefit outweighs the risk please proceed with the surgery. Avoid fluid over load. Will follow Thank you Objective - Vital Signs/Intake and Output Vital Signs (last 24 hours): Temp Pulse Resp BP Pulse Ox 97.5 F L 77 20 100/52 L 100 05/09/18 15:15 05/09/18 15:15 05/09/18 15:15 05/09/18 15:15 05/09/18 15:15 Intake and Output: 05/09/18 05/10/18 18:59 06:59 Intake Total 500 Balance 500 - Medications Medications: Current Medications Docusate Sodium (Colace) 100 mg PO TID [facility] Last Admin: 05/09/18 18:06 Dose: 100 mg Heparin Sodium (Porcine) (Heparin) 5,000 units SC Q8 [facility] Last Admin: 05/09/18 14:43 Dose: 5,000 units Hydralazine HCl (Apresoline) 25 mg PO Q8 [facility] Ciprofloxacin (Cipro 400mg/200ml Dsw) 400 mg in 200 mls @ 133 mls/hr IVPB Q24H [facility]; Protocol Last Admin: 05/09/18 04:21 Dose: 133 mls/hr Dextrose/Sodium Chloride (Dextrose 5%/0.45% Ns 1000 Ml) 1,000 mls @ 40 mls/hr IV .Q24H [facility] Last Admin: 05/09/18 18:14 Dose: 40 mls/hr Insulin Aspart (Novolog) 0 unit SC [facility]; Protocol Last Admin: 05/09/18 17:07 Dose: 2 units Morphine Sulfate (Morphine) 1 mg IVP Q4 PRN PRN Reason: Pain, moderate (4-7) Last Admin: 05/08/18 21:23 Dose: 1 mg Ondansetron HCl (Zofran Inj) 4 mg IVP Q6H PRN PRN Reason: nausea and vomiting Last Admin: 05/08/18 05:46 Dose: 4 mg Ondansetron HCl (Zofran Inj) 4 mg IVP DAILY@ONCE PRN PRN Reason: nausea Pantoprazole Sodium (Protonix Ec Tab) 20 mg PO DAILY [facility] Rosuvastatin Calcium (Crestor) 10 mg PO [facility] Last Admin: 05/08/18 21:22 Dose: 10 mg - Labs Labs: 05/09/18 06:30 05/09/18 06:30
--- NOTE | 2018-05-09 21:15 | CARD ---
APPROVED REPORT Date of service: 05/09/2018 Protocol: PHARMACOLOGICAL STRESS Test Type: LEXISCAN Test Indications: PRE OP Medications: LIST SCAN, ONDANSETRON 4MG GIVEN FOR NAUSEA Medical History: PRE OP Target HR: 136 bpm Resting ECG: abnormal Resting Heart Rate: 75 bpm Resting Blood Pressure: 120/60mmHg submaximum (85%): 116 bpm TEST SUMMARY [id number]. INFUSIONDOSE 100:[id number]/.0. [id number]. PROCEDURE Pharmacologic stress testing was performed using 0.4mg per 5ml of regadenoson given intravenously over 7-10 seconds. Reversal agent aminophyline [id number] mg, given intravenously for Nausea. POST EXERCISE Reason for Termination: Protocol Completed Target HR: No Max HR: 78 bpm 78% of Maximum Predicted HR: 136 bpm Exercise duration: 00:30 min:sec, 0 Stage Exercise capacity: 1.0METs Max Blood Pressure: 172/60mmHg Blood Pressure response to exercise: normal resting BP - appropriate response Heart Rate response to exercise: appropriate Chest Pain: No, none Angina index: 0 Arrhythmia: No, none ST Change: No, none Deviation: 0 mm INTERPRETATION Stress EKG Conclusion: NUCLEAR IMAGES TO [facility] EXAM: Myocardial Perfusion REST/STRESS Imaging Protocol The imaging protocol used to acquire images was Rest Tc-99m/stress Tc-99m 2 days Rest Spect myocardial perfusion imaging was performed in supine position 45 minutes following the injection of 32.9 mCi of Tc-99 Myoview. Gated Stress Spect was performed 45 minutes after intravenous 32.6 mCi Tc-99 Myoview injection. The images were gated to evaluate regional wall motion and calculate ventricular ejection fraction.Images were reconstructed using backfilter projection method in short horizontal and verticle long axis. Spect slices were generated. RESTING DATA EDV88.57qeNI1.50L/min1/3 Pk. Filling Rate1.39EDV/sec LV Time to Pk. Filling Jvpo484.09msec ESV20.00mlMyocardial Xlzi358.00gLV Time to Pk. Ejection Fvvb803.25msec Pk. Fill Rate2.29EDV/secAv. Heart Rate67.00bpm EF77.00%Pk. Emptying Rate4.48ESV/sec STRESS DATA EDV95.94luUP8.20L/min ESV24.00mlMyocardial Cqdo851.00g Pk. Fill Rate2.69EDV/sec EF75.00%Pk. Emptying Rate4.65ESV/sec 1/3 Pk. Filling Rate1.69EDV/secRegional WT score at stress:0.00 LV Time to Pk. Filling Rate:246.56msecRegional WM score at stress:0.00 LV Time to Pk. Ejection Rate:125.83msecSummed WT score at stress:7.00 Av. Heart Rate72.00bpmSummed WM score at stress:0.00 LV Perf. Quant 17 Seg. SSS4.00 17 Seg. SRS0.00 17 Seg. SDS4.00 Stress Defect Extent (% LAD)0.00Rest Defect Extent (% LAD)0.00Rev. Defect Extent (% LAD)0.00 Stress Defect Extent (% LCX)16.30Rest Defect Extent (% LCX)0.00Rev. Defect Extent (% LCX)16.30 Stress Defect Extent (% RCA)0.00Rest Defect Extent (% RCA)0.00Rev. Defect Extent (% RCA)0.00 Stress Defect Extent (% POLLO)2.80Rest Defect Extent (% POLLO)0.00Rev. Defect Extent (% POLLO)2.80 Other Information Quality:Good IMPRESSION Normal Myocardial Perfusion exercise stress study Left Ventricle LV Function:Left ventricle systolic function is normal. The Ejection Fraction is >55%. Conclusion 1. No stress induced ischemia. Normal EF. Breast attenuation artifact
--- NOTE | 2018-05-10 02:29 | PN ---
DATE: 05/09/2018 SUBJECTIVE: The patient is feeling better. She is for lung biopsy. She is afebrile. Blood pressure is down. She is feeling better. She is feeling stronger. Her urinary symptoms are improving. She is on antibiotics. Cultures are pending. PHYSICAL EXAMINATION: VITAL SIGNS: Blood pressure is 100/52, pulse 77, respiratory rate 20, temperature 97.5. LUNGS: Clear. CARDIOVASCULAR SYSTEM: S1 and S2 are regular. ABDOMEN: Positive multiple hernia. ASSESSMENT: 1. Urinary tract infection, rule out septicemia. 2. Lung mass, rule out lung cancer. 3. Hypertension. 4. Chronic kidney disease. PLAN: Continue antibiotics. Lung biopsy. Pulmonary followup. Toby Rich MD
[2018-05-10] MEDS: Ciprofloxacin 400mg/200ml D5W 400 MG/200 ML BAG IVPB SCH (05:09)
[2018-05-10] MEDS: (Novolog) Insulin Aspart, Recombinant 100 u/ml 10 ml vial SC SCH ×4 (08:30→22:00)
[2018-05-10] MEDS: Pantoprazole 20 mg EC Tab PO SCH (10:30)
--- NOTE | 2018-05-10 14:48 | CP.PCM.PN ---
Subjective - Date & Time of Evaluation Date of Evaluation: 05/10/18 Time of Evaluation: 13:00 - Subjective Subjective: patient seen and examined Complaining of back pain Denies cough, denies shortss of breath Being treated with antibiotics for Possible lung infiltrate possible surgery for ventral hernia repair on Saturday Lung biopsy as outpatient Objective - Vital Signs/Intake and Output Vital Signs (last 24 hours): Temp Pulse Resp BP Pulse Ox 98.8 F 73 20 144/56 L 100 05/10/18 07:00 05/10/18 07:00 05/10/18 07:00 05/10/18 07:00 05/10/18 07:00 Intake and Output: 05/10/18 05/10/18 06:59 18:59 Intake Total 520 Balance 520 - Medications Medications: Current Medications Docusate Sodium (Colace) 100 mg PO TID [facility] Last Admin: 05/10/18 13:48 Dose: 100 mg Heparin Sodium (Porcine) (Heparin) 5,000 units SC Q8 [facility] Last Admin: 05/10/18 13:49 Dose: 5,000 units Hydralazine HCl (Apresoline) 25 mg PO Q8 [facility] Last Admin: 05/10/18 13:48 Dose: 25 mg Dextrose/Sodium Chloride (Dextrose 5%/0.45% Ns 1000 Ml) 1,000 mls @ 40 mls/hr IV .Q24H [facility] Last Admin: 05/09/18 18:14 Dose: 40 mls/hr Insulin Aspart (Novolog) 0 unit SC ACHS [facility]; Protocol Last Admin: 05/10/18 12:15 Dose: 2 units Morphine Sulfate (Morphine) 1 mg IVP Q4 PRN PRN Reason: Pain, moderate (4-7) Last Admin: 05/10/18 13:49 Dose: 1 mg Ondansetron HCl (Zofran Inj) 4 mg IVP Q6H PRN PRN Reason: nausea and vomiting Last Admin: 05/10/18 12:26 Dose: 4 mg Ondansetron HCl (Zofran Inj) 4 mg IVP DAILY@ONCE PRN PRN Reason: nausea Pantoprazole Sodium (Protonix Ec Tab) 20 mg PO DAILY [facility] Last Admin: 05/10/18 10:30 Dose: 20 mg Rosuvastatin Calcium (Crestor) 10 mg PO HS [facility] Last Admin: 05/09/18 21:31 Dose: 10 mg - Labs Labs: 05/09/18 06:30 05/09/18 06:30 Assessment and Plan (1) Mass of right lung Status: Acute
[2018-05-10] MEDS: Dextrose 5%/0.45% NS 1,000 ML IV SCH (17:04)
[2018-05-10] MEDS: Magnesium Hydroxide Susp 30 ml UD PO SCH (17:29)
--- NOTE | 2018-05-10 22:22 | CP.PCM.PN ---
Subjective - Date & Time of Evaluation Date of Evaluation: 05/10/18 Time of Evaluation: 16:20 - Subjective Subjective: Patient seen and evaluated Denies chest pain and dyspnea PMHx: DM2, HTN. HLD, CKD PSHx: cholecystectomy, hysterectomy Allergies: NKDA Social Hx: nonsmoker and non-alcohol user Review of Systems - Review of Systems All systems: reviewed and no additional remarkable complaints except (back pain) Physical Exam - Head Exam Head Exam: ATRAUMATIC, NORMOCEPHALIC - ENT Exam ENT Exam: Mucous Membranes Moist - Neck Exam Neck exam: Positive for: Normal Inspection - Respiratory Exam Respiratory Exam: Decreased Breath Sounds - Cardiovascular Exam Cardiovascular Exam: REGULAR RHYTHM - GI/Abdominal Exam GI & Abdominal Exam: Normal Bowel Sounds, Soft Assessment & Plan (1) Mass of right lung Status: Acute Comment: CAT scan of the chest. Possible biopsy. Continue present treatment Pre Op cardiac work up ECHO: Normal EF, No critical valve issues Stress test: Negative for stress induced ischemia How ever due to multiple comorbid conditions like age (83), DM2, HTN, Obesity, Hyperlipidemia and CKD this patient assessed as moderate to high risk for Cardiovascular events for abdominal surgery under general anaesthesia. If the benefit outweighs the risk please proceed with the surgery. Avoid fluid over load. Will follow Thank you Objective - Vital Signs/Intake and Output Vital Signs (last 24 hours): Temp Pulse Resp BP Pulse Ox 97.7 F 68 20 166/73 H 99 05/10/18 16:14 05/10/18 16:14 05/10/18 16:14 05/10/18 16:14 05/10/18 16:14 Intake and Output: 05/10/18 05/11/18 18:59 05:59 Intake Total 680 520 Output Total 100 Balance 580 520 - Medications Medications: Current Medications Docusate Sodium (Colace) 100 mg PO TID [facility] Last Admin: 05/10/18 17:29 Dose: 100 mg Hydralazine HCl (Apresoline) 25 mg PO Q8 [facility] Last Admin: 05/10/18 21:43 Dose: 25 mg Dextrose/Sodium Chloride (Dextrose 5%/0.45% Ns 1000 Ml) 1,000 mls @ 40 mls/hr IV .Q24H [facility] Last Admin: 05/10/18 17:04 Dose: Not Given Insulin Aspart (Novolog) [address] [facility]; Protocol Last Admin: 05/10/18 17:30 Dose: 1 units Magnesium Hydroxide (Milk Of Magnesia) 30 ml PO DAILY [facility] Last Admin: 05/10/18 17:29 Dose: 30 ml Morphine Sulfate (Morphine) 1 mg IVP Q4 PRN PRN Reason: Pain, moderate (4-7) Last Admin: 05/10/18 13:49 Dose: 1 mg Ondansetron HCl (Zofran Inj) 4 mg IVP Q6H PRN PRN Reason: nausea and vomiting Last Admin: 05/10/18 18:47 Dose: 4 mg Ondansetron HCl (Zofran Inj) 4 mg IVP DAILY@ONCE PRN PRN Reason: nausea Pantoprazole Sodium (Protonix Ec Tab) 20 mg PO DAILY [facility] Last Admin: 05/10/18 10:30 Dose: 20 mg Rosuvastatin Calcium (Crestor) 10 mg PO HS [facility] Last Admin: 05/10/18 21:43 Dose: 10 mg - Labs Labs: 05/09/18 06:30 05/09/18 06:30
[2018-05-11] MEDS: (Novolog) Insulin Aspart, Recombinant 100 u/ml 10 ml vial SC SCH ×4 (07:49→22:07)
[2018-05-11 08:00] LABS: BASO # 0.1 K/uL (0.0-0.2); BASO % 1.1 % (0.0-2.0); EOS # 0.5 K/uL (0.0-0.7); EOS % 5.3 % (0.0-4.0); LYMPH # 1.4 K/uL (1.0-4.3); LYMPH % 15.8 % (20.0-40.0); MEAN CELL VOLUME 82.2 fL (81.0-99.0); MEAN CORPUSCULAR HEMOGLOBIN 26.6 pg (27.0-31.0); MEAN CORPUSCULAR HGB CONC 32.4 g/dL (33.0-37.0); MEAN PLATELET VOLUME 10.3 fL (7.2-11.7); MONO # 1.1 K/uL (0.0-0.8); MONO % 11.9 % (0.0-10.0); NEUT # 5.9 K/uL (1.8-7.0); NEUT % 65.9 % (50.0-75.0); RBC 3.4 Mil/uL (3.80-5.20); RED CELL DISTRIBUTION WIDTH 14.3 % (11.5-14.5)
[2018-05-11 08:24] LABS: CALCIUM 8.3 mg/dl (8.6-10.4)
--- NOTE | 2018-05-11 08:57 | CP.PCM.PN ---
<Ashley Crawford - Last Filed: 05/11/18 09:06> Subjective - Date & Time of Evaluation Date of Evaluation: 05/11/18 Time of Evaluation: 07:00 - Subjective Subjective: GENERAL SURGERY PROGRESS NOTE FOR DR. SANDOVAL Patient seen and examined at bedside. She reports that she hasn't had a BM since Saturday. She is on Colace and Milk of Magnesia was added yesterday. She is passing flatus. Per nursing notes, patient vomited twice yesterday. Patient denies abdominal pain. Objective - Vital Signs/Intake and Output Vital Signs (last 24 hours): Temp Pulse Resp BP Pulse Ox 97.6 F 72 20 145/63 98 05/11/18 00:12 05/11/18 06:00 05/11/18 06:00 05/11/18 06:00 05/11/18 06:00 Intake and Output: 05/11/18 05/11/18 06:59 18:59 Intake Total Output Total Balance - Medications Medications: Current Medications Docusate Sodium (Colace) 100 mg PO TID [facility] Last Admin: 05/10/18 17:29 Dose: 100 mg Hydralazine HCl (Apresoline) 25 mg PO Q8 [facility] Last Admin: 05/11/18 06:02 Dose: 25 mg Dextrose/Sodium Chloride (Dextrose 5%/0.45% Ns 1000 Ml) 1,000 mls @ 40 mls/hr IV .Q24H [facility] Last Admin: 05/10/18 17:04 Dose: Not Given Insulin Aspart (Novolog) 0 unit SC ACHS [facility]; Protocol Last Admin: 05/11/18 07:49 Dose: Not Given Magnesium Hydroxide (Milk Of Magnesia) 30 ml PO DAILY [facility] Last Admin: 05/10/18 17:29 Dose: 30 ml Morphine Sulfate (Morphine) 1 mg IVP Q4 PRN PRN Reason: Pain, moderate (4-7) Last Admin: 05/10/18 13:49 Dose: 1 mg Ondansetron HCl (Zofran Inj) 4 mg IVP Q6H PRN PRN Reason: nausea and vomiting Last Admin: 05/10/18 18:47 Dose: 4 mg Ondansetron HCl (Zofran Inj) 4 mg IVP DAILY@ONCE PRN PRN Reason: nausea Pantoprazole Sodium (Protonix Ec Tab) 20 mg PO DAILY [facility] Last Admin: 05/10/18 10:30 Dose: 20 mg Rosuvastatin Calcium (Crestor) 10 mg PO HS [facility] Last Admin: 05/10/18 21:43 Dose: 10 mg - Labs Labs: 05/11/18 07:51 05/11/18 07:51 - Constitutional Appears: Non-toxic, No Acute Distress - Head Exam Head Exam: ATRAUMATIC, NORMAL INSPECTION - Eye Exam Eye Exam: EOMI, Normal appearance - Respiratory Exam Respiratory Exam: NORMAL BREATHING PATTERN. absent: Respiratory Distress - Cardiovascular Exam Cardiovascular Exam: +S1, +S2 - GI/Abdominal Exam GI & Abdominal Exam: Soft, Hernia. absent: Distended, Firm, Guarding, Rigid, Tenderness, Rebound - Neurological Exam Neurological Exam: Alert, Awake, Oriented x3 - Psychiatric Exam Psychiatric exam: Normal Affect, Normal Mood Assessment and Plan - Assessment and Plan (Free Text) Assessment: 83yo F with ventral hernia - ECHO & stress test were normal - Per cardiology: due to multiple comorbid conditions like age (83), DM2, HTN, Obesity, Hyperlipidemia and CKD, patient has moderate to high risk for Cardiovascular events for abdominal surgery. If the benefit outweighs the risk please proceed with the surgery. Avoid fluid overload. - Plan for OR tomorrow for ventral hernia repair - NPO past midnight - Discussed plan with Dr. Lori Crawford PGY-4 <Rick Sandoval - Last Filed: 05/11/18 17:48> Objective - Vital Signs/Intake and Output Vital Signs (last 24 hours): Temp Pulse Resp BP Pulse Ox 98.9 F 71 20 180/64 H 100 05/11/18 16:16 05/11/18 16:16 05/11/18 16:16 05/11/18 16:16 05/11/18 16:16 Intake and Output: 05/11/18 05/11/18 06:59 18:59 Intake Total Output Total Balance - Medications Medications: Current Medications Docusate Sodium (Colace) 100 mg PO TID [facility] Last Admin: 05/11/18 14:26 Dose: 100 mg Hydralazine HCl (Apresoline) 25 mg PO Q8 [facility] Last Admin: 05/11/18 14:26 Dose: 25 mg Dextrose/Sodium Chloride (Dextrose 5%/0.45% Ns 1000 Ml) 1,000 mls @ 40 mls/hr IV .Q24H [facility] Last Admin: 05/11/18 17:22 Dose: Not Given Insulin Aspart (Novolog) 0 unit SC ACHS [facility]; Protocol Last Admin: 05/11/18 12:34 Dose: 3 units Magnesium Hydroxide (Milk Of Magnesia) 30 ml PO DAILY [facility] Last Admin: 05/11/18 10:51 Dose: 30 ml Morphine Sulfate (Morphine) 1 mg IVP Q4 PRN PRN Reason: Pain, moderate (4-7) Last Admin: 05/10/18 13:49 Dose: 1 mg Ondansetron HCl (Zofran Inj) 4 mg IVP Q6H PRN PRN Reason: nausea and vomiting Last Admin: 05/10/18 18:47 Dose: 4 mg Ondansetron HCl (Zofran Inj) 4 mg IVP DAILY@ONCE PRN PRN Reason: nausea Pantoprazole Sodium (Protonix Ec Tab) 20 mg PO DAILY [facility] Last Admin: 05/11/18 10:51 Dose: 20 mg Rosuvastatin Calcium (Crestor) 10 mg PO HS [facility] Last Admin: 05/10/18 21:43 Dose: 10 mg - Labs Labs: 05/11/18 07:51 05/11/18 07:51 Attending/Attestation - Attestation I have fully participated in the care of the patient.: Yes I have reviewed all pertinent clinical information, including history, physical exam and plan: Yes Notes (Text): Pt is cleared by disbursing officer Fleet enema Consent NPO, IVF OR for Lap/Robotics Incisional hernia repair with mesh Plan d.w pt in detail.
[2018-05-11] MEDS: Pantoprazole 20 mg EC Tab PO SCH (10:51)
[2018-05-11] MEDS: Magnesium Hydroxide Susp 30 ml UD PO SCH (10:51)
--- NOTE | 2018-05-11 11:31 | CP.PCM.PN ---
Subjective - Date & Time of Evaluation Date of Evaluation: 05/11/18 Time of Evaluation: 11:29 - Subjective Subjective: Pulmonary Follow up, Covering Dr Huynh The patient was Seen/interviewed and examined by me at the bedside, Medical records reviewed and Management issues were discussed and formulated with the house staff. Events reviewed Awake, oriented Comfortable, in no acute distress Denies shortness of breath or cough or chest pain No BM but passing flatus Pt NPO past midnight for ventral hernia repair tomorrow Afebrile Abdomen CT 05/06 - Right lower lobe opacity partially consolidated and partially ground-glass measuring approximately 3.3 cm in maximum dimension; suspicious for malignant neoplasm. See report for full findings. Objective - Vital Signs/Intake and Output Vital Signs (last 24 hours): Temp Pulse Resp BP Pulse Ox 98.3 F 75 20 145/53 L 99 05/11/18 08:00 05/11/18 08:00 05/11/18 08:00 05/11/18 08:00 05/11/18 08:00 Intake and Output: 05/11/18 05/11/18 06:59 18:59 Intake Total Output Total Balance - Medications Medications: Current Medications Docusate Sodium (Colace) 100 mg PO TID [facility] Last Admin: 05/11/18 10:51 Dose: 100 mg Hydralazine HCl (Apresoline) 25 mg PO Q8 [facility] Last Admin: 05/11/18 06:02 Dose: 25 mg Dextrose/Sodium Chloride (Dextrose 5%/0.45% Ns 1000 Ml) 1,000 mls @ 40 mls/hr IV .Q24H [facility] Last Admin: 05/10/18 17:04 Dose: Not Given Insulin Aspart (Novolog) 0 unit SC ACHS [facility]; Protocol Last Admin: 05/11/18 07:49 Dose: Not Given Magnesium Hydroxide (Milk Of Magnesia) 30 ml PO DAILY [facility] Last Admin: 05/11/18 10:51 Dose: 30 ml Morphine Sulfate (Morphine) 1 mg IVP Q4 PRN PRN Reason: Pain, moderate (4-7) Last Admin: 05/10/18 13:49 Dose: 1 mg Ondansetron HCl (Zofran Inj) 4 mg IVP Q6H PRN PRN Reason: nausea and vomiting Last Admin: 05/10/18 18:47 Dose: 4 mg Ondansetron HCl (Zofran Inj) 4 mg IVP DAILY@ONCE PRN PRN Reason: nausea Pantoprazole Sodium (Protonix Ec Tab) 20 mg PO DAILY [facility] Last Admin: 05/11/18 10:51 Dose: 20 mg Rosuvastatin Calcium (Crestor) 10 mg PO HS [facility] Last Admin: 05/10/18 21:43 Dose: 10 mg - Labs Labs: 05/11/18 07:51 05/11/18 07:51 Assessment and Plan - Assessment and Plan (Free Text) Assessment: Assessment & Plan: Mass of right lung Renal insufficiency Ventral hernia Being treated with antibiotics for Possible lung infiltrate Patient is hemodynamically stable, no cardiopulmonary complains Scheduled for surgery for ventral hernia repair tomorrow Lung biopsy as outpatient DVT prophylaxis Perioperative incentive spirometry, early mobilization, and pain control.
--- NOTE | 2018-05-11 11:40 | CP.PCM.PN ---
Subjective - Date & Time of Evaluation Date of Evaluation: 05/11/18 Time of Evaluation: 11:37 - Subjective Subjective: Covering Dr Magana CC: vomiting Post prandial nausea/vomiting yesterday. Feels better today, tolerated lunch Some gagging sensation when eating Large ventral hernia, surgery planned for tomorrow Objective - Vital Signs/Intake and Output Vital Signs (last 24 hours): Temp Pulse Resp BP Pulse Ox 98.3 F 75 20 145/53 L 99 05/11/18 08:00 05/11/18 08:00 05/11/18 08:00 05/11/18 08:00 05/11/18 08:00 Intake and Output: 05/11/18 05/11/18 06:59 18:59 Intake Total Output Total Balance - Medications Medications: Current Medications Docusate Sodium (Colace) 100 mg PO TID [facility] Last Admin: 05/11/18 10:51 Dose: 100 mg Hydralazine HCl (Apresoline) 25 mg PO Q8 [facility] Last Admin: 05/11/18 06:02 Dose: 25 mg Dextrose/Sodium Chloride (Dextrose 5%/0.45% Ns 1000 Ml) 1,000 mls @ 40 mls/hr IV .Q24H [facility] Last Admin: 05/10/18 17:04 Dose: Not Given Insulin Aspart (Novolog) 0 unit SC [facility]; Protocol Last Admin: 05/11/18 07:49 Dose: Not Given Magnesium Hydroxide (Milk Of Magnesia) 30 ml PO DAILY [facility] Last Admin: 05/11/18 10:51 Dose: 30 ml Morphine Sulfate (Morphine) 1 mg IVP Q4 PRN PRN Reason: Pain, moderate (4-7) Last Admin: 05/10/18 13:49 Dose: 1 mg Ondansetron HCl (Zofran Inj) 4 mg IVP Q6H PRN PRN Reason: nausea and vomiting Last Admin: 05/10/18 18:47 Dose: 4 mg Ondansetron HCl (Zofran Inj) 4 mg IVP DAILY@ONCE PRN PRN Reason: nausea Pantoprazole Sodium (Protonix Ec Tab) 20 mg PO DAILY [facility] Last Admin: 05/11/18 10:51 Dose: 20 mg Rosuvastatin Calcium (Crestor) 10 mg PO HS [facility] Last Admin: 05/10/18 21:43 Dose: 10 mg - Labs Labs: 05/11/18 07:51 05/11/18 07:51 - Constitutional Appears: Well, No Acute Distress - Respiratory Exam Respiratory Exam: NORMAL BREATHING PATTERN - Cardiovascular Exam Cardiovascular Exam: REGULAR RHYTHM - GI/Abdominal Exam GI & Abdominal Exam: Soft, Tenderness ([place] nontender ventral hernia), Mass Assessment and Plan (1) Renal insufficiency Status: Acute (2) Ventral hernia Assessment & Plan: surgery planned tomorrow Status: Chronic (3) Vomiting Assessment & Plan: zofran PRN Monitor Status: Acute
[2018-05-11] MEDS ORDERED: POLYETHYLENE GLYCOL 3350 17 GM/Dose PACKET PO ONE (13:38)
[2018-05-11] MEDS: Dextrose 5%/0.45% NS 1,000 ML IV SCH (17:22)
--- NOTE | 2018-05-11 20:46 | CP.PCM.PN ---
Subjective - Date & Time of Evaluation Date of Evaluation: 05/11/18 Time of Evaluation: 16:10 - Subjective Subjective: Patient with no cardiac events Objective - Vital Signs/Intake and Output Vital Signs (last 24 hours): Temp Pulse Resp BP Pulse Ox 98.9 F 71 20 180/64 H 100 05/11/18 16:16 05/11/18 16:16 05/11/18 16:16 05/11/18 16:16 05/11/18 16:16 - Medications Medications: Current Medications Docusate Sodium (Colace) 100 mg PO TID [facility] Last Admin: 05/11/18 18:12 Dose: 100 mg Hydralazine HCl (Apresoline) 25 mg PO Q8 [facility] Last Admin: 05/11/18 14:26 Dose: 25 mg Dextrose/Sodium Chloride (Dextrose 5%/0.45% Ns 1000 Ml) 1,000 mls @ 40 mls/hr IV .Q24H [facility] Last Admin: 05/11/18 17:22 Dose: Not Given Insulin Aspart (Novolog) 0 unit SC [facility]; Protocol Last Admin: 05/11/18 18:12 Dose: 2 units Magnesium Hydroxide (Milk Of Magnesia) 30 ml PO DAILY [facility] Last Admin: 05/11/18 10:51 Dose: 30 ml Morphine Sulfate (Morphine) 1 mg IVP Q4 PRN PRN Reason: Pain, moderate (4-7) Last Admin: 05/10/18 13:49 Dose: 1 mg Ondansetron HCl (Zofran Inj) 4 mg IVP Q6H PRN PRN Reason: nausea and vomiting Last Admin: 05/10/18 18:47 Dose: 4 mg Ondansetron HCl (Zofran Inj) 4 mg IVP DAILY@ONCE PRN PRN Reason: nausea Pantoprazole Sodium (Protonix Ec Tab) 20 mg PO DAILY [facility] Last Admin: 05/11/18 10:51 Dose: 20 mg Rosuvastatin Calcium (Crestor) 10 mg PO HS [facility] Last Admin: 05/10/18 21:43 Dose: 10 mg - Labs Labs: 05/11/18 07:51 05/11/18 07:51
--- NOTE | 2018-05-11 21:17 | CP.PCM.PN ---
Subjective - Date & Time of Evaluation Date of Evaluation: 05/10/18 - Subjective Subjective: less abdominal pain, or saturday, no fever Objective - Vital Signs/Intake and Output Vital Signs (last 24 hours): Temp Pulse Resp BP Pulse Ox 98.9 F 71 20 180/64 H 100 05/11/18 16:16 05/11/18 16:16 05/11/18 16:16 05/11/18 16:16 05/11/18 16:16 - Medications Medications: Current Medications Docusate Sodium (Colace) 100 mg PO TID [facility] Last Admin: 05/11/18 18:12 Dose: 100 mg Gabapentin (Neurontin) 100 mg PO TID [facility] Hydralazine HCl (Apresoline) 25 mg PO Q8 [facility] Last Admin: 05/11/18 14:26 Dose: 25 mg Dextrose/Sodium Chloride (Dextrose 5%/0.45% Ns 1000 Ml) 1,000 mls @ 40 mls/hr IV .Q24H [facility] Last Admin: 05/11/18 17:22 Dose: Not Given Insulin Aspart (Novolog) 0 unit SC ACHS [facility]; Protocol Last Admin: 05/11/18 18:12 Dose: 2 units Magnesium Hydroxide (Milk Of Magnesia) 30 ml PO DAILY [facility] Last Admin: 05/11/18 10:51 Dose: 30 ml Morphine Sulfate (Morphine) 1 mg IVP Q4 PRN PRN Reason: Pain, moderate (4-7) Last Admin: 05/10/18 13:49 Dose: 1 mg Ondansetron HCl (Zofran Inj) 4 mg IVP Q6H PRN PRN Reason: nausea and vomiting Last Admin: 05/10/18 18:47 Dose: 4 mg Ondansetron HCl (Zofran Inj) 4 mg IVP DAILY@ONCE PRN PRN Reason: nausea Pantoprazole Sodium (Protonix Ec Tab) 20 mg PO DAILY [facility] Last Admin: 05/11/18 10:51 Dose: 20 mg Rosuvastatin Calcium (Crestor) 10 mg PO HS [facility] Last Admin: 05/10/18 21:43 Dose: 10 mg Sitagliptin Phosphate (Januvia) 25 mg PO DAILY [facility] - Labs Labs: 05/11/18 07:51 05/11/18 07:51 - Constitutional Appears: Non-toxic, No Acute Distress, Chronically Ill - Head Exam Head Exam: ATRAUMATIC, NORMAL INSPECTION, NORMOCEPHALIC - Eye Exam Eye Exam: EOMI, Normal appearance, PERRL Pupil Exam: NORMAL ACCOMODATION - ENT Exam ENT Exam: Mucous Membranes Moist, Normal Exam, Normal Oropharynx - Neck Exam Neck Exam: Normal Inspection - Respiratory Exam Respiratory Exam: Clear to Ausculation Bilateral, NORMAL BREATHING PATTERN - Cardiovascular Exam Cardiovascular Exam: Gallop, REGULAR RHYTHM, +S1, +S2 - GI/Abdominal Exam GI & Abdominal Exam: Distended, Soft, Normal Bowel Sounds - Rectal Exam Rectal Exam: NORMAL INSPECTION - Neurological Exam Neurological Exam: Alert, Awake, CN II-XII Intact Neuro motor strength exam: Left Upper Extremity: 5, Right Upper Extremity: 5, Left Lower Extremity: 5, Right Lower Extremity: 5 - Psychiatric Exam Psychiatric exam: Normal Mood - Skin Skin Exam: Dry, Intact Assessment and Plan (1) Abdominal pain of multiple sites Status: Acute (2) Renal insufficiency Status: Chronic (3) CHF (congestive heart failure) Status: Chronic (4) Hypertensive urgency Status: Acute
--- NOTE | 2018-05-11 21:17 | CP.PCM.PN ---
Subjective - Subjective Subjective: dictated Objective - Vital Signs/Intake and Output Vital Signs (last 24 hours): Temp Pulse Resp BP Pulse Ox 98.9 F 71 20 180/64 H 100 05/11/18 16:16 05/11/18 16:16 05/11/18 16:16 05/11/18 16:16 05/11/18 16:16 - Medications Medications: Current Medications Docusate Sodium (Colace) 100 mg PO TID [facility] Last Admin: 05/11/18 18:12 Dose: 100 mg Gabapentin (Neurontin) 100 mg PO TID [facility] Hydralazine HCl (Apresoline) 25 mg PO Q8 [facility] Last Admin: 05/11/18 14:26 Dose: 25 mg Dextrose/Sodium Chloride (Dextrose 5%/0.45% Ns 1000 Ml) 1,000 mls @ 40 mls/hr IV .Q24H [facility] Last Admin: 05/11/18 17:22 Dose: Not Given Insulin Aspart (Novolog) 0 unit SC ACHS [facility]; Protocol Last Admin: 05/11/18 18:12 Dose: 2 units Magnesium Hydroxide (Milk Of Magnesia) 30 ml PO DAILY [facility] Last Admin: 05/11/18 10:51 Dose: 30 ml Morphine Sulfate (Morphine) 1 mg IVP Q4 PRN PRN Reason: Pain, moderate (4-7) Last Admin: 05/10/18 13:49 Dose: 1 mg Ondansetron HCl (Zofran Inj) 4 mg IVP Q6H PRN PRN Reason: nausea and vomiting Last Admin: 05/10/18 18:47 Dose: 4 mg Ondansetron HCl (Zofran Inj) 4 mg IVP DAILY@ONCE PRN PRN Reason: nausea Pantoprazole Sodium (Protonix Ec Tab) 20 mg PO DAILY [facility] Last Admin: 05/11/18 10:51 Dose: 20 mg Rosuvastatin Calcium (Crestor) 10 mg PO HS [facility] Last Admin: 05/10/18 21:43 Dose: 10 mg Sitagliptin Phosphate (Januvia) 25 mg PO DAILY [facility] - Labs Labs: 05/11/18 07:51 05/11/18 07:51 Assessment and Plan (1) Abdominal pain of multiple sites Status: Acute (2) Renal insufficiency Status: Chronic (3) CHF (congestive heart failure) Status: Chronic (4) Hypertensive urgency Status: Acute
--- NOTE | 2018-05-12 02:11 | PN ---
DATE: 05/11/2018 SUBJECTIVE: The patient, Sonia Chase, is for OR. She is medically stable for OR. No fever. No chills. No nausea or vomiting. PHYSICAL EXAMINATION: VITAL SIGNS: Blood pressure 102/64, pulse 71, respiratory rate 20, and temperature 98.9. LUNGS: Bilaterally clear. CARDIOVASCULAR SYSTEM: S1 and S2 plus S4 positive. ABDOMEN: Soft with multiple hernias. ASSESSMENT: 1. Incisional hernias. 2. Chronic kidney disease. 3. Diabetes. 4. Hypertension. PLAN: OR in the a.m. Monitor the patient. Toby Rich MD
[2018-05-12 07:36] LABS: HEMOGLOBIN 8.9 g/dL (11.0-16.0); MEAN CELL VOLUME 81.9 fL (81.0-99.0); MEAN CORPUSCULAR HGB CONC 31.7 g/dL (33.0-37.0); MEAN PLATELET VOLUME 10.6 fL (7.2-11.7); RBC 3.42 Mil/uL (3.80-5.20); RED CELL DISTRIBUTION WIDTH 14.6 % (11.5-14.5); WHITE BLOOD COUNT 11.9 K/uL (4.8-10.8)
[2018-05-12 07:49] LABS: INR 1.1; PROTHROMBIN TIME 12.2 SECONDS (9.7-12.2)
[2018-05-12] MEDS: (Novolog) Insulin Aspart, Recombinant 100 u/ml 10 ml vial SC SCH ×4 (08:22→21:59)
[2018-05-12 08:47] LABS: ALB/GLOB RATIO 0.8 (1.0-2.1); ALBUMIN 2.7 g/dL (3.5-5.0); CALCIUM 8.2 mg/dl (8.6-10.4)
[2018-05-12] MEDS: Magnesium Hydroxide Susp 30 ml UD PO SCH (09:38)
[2018-05-12] MEDS: Pantoprazole 20 mg EC Tab PO SCH (09:38)
--- NOTE | 2018-05-12 11:14 | CP.PCM.PN ---
Subjective - Date & Time of Evaluation Date of Evaluation: 05/12/18 Time of Evaluation: 11:11 - Subjective Subjective: Events of weekend noted and discussed with Dr Mathur No N/V. Plan for hernia repair. Objective - Vital Signs/Intake and Output Vital Signs (last 24 hours): Temp Pulse Resp BP Pulse Ox 98.7 F 81 20 166/63 H 98 05/12/18 08:06 05/12/18 08:06 05/12/18 08:06 05/12/18 08:06 05/12/18 08:06 Intake and Output: 05/12/18 05/12/18 06:59 18:59 Intake Total 890 Output Total 1050 Balance -160 - Medications Medications: Current Medications Docusate Sodium (Colace) 100 mg PO TID [facility] Last Admin: 05/12/18 09:37 Dose: Not Given Gabapentin (Neurontin) 100 mg PO TID [facility] Last Admin: 05/12/18 09:38 Dose: Not Given Hydralazine HCl (Apresoline) 25 mg PO Q8 [facility] Last Admin: 05/12/18 06:30 Dose: 25 mg Dextrose/Sodium Chloride (Dextrose 5%/0.45% Ns 1000 Ml) 1,000 mls @ 40 mls/hr IV .Q24H [facility] Last Admin: 05/11/18 17:22 Dose: Not Given [facility] (Novolog) [facility]; Protocol Last Admin: 05/12/18 08:22 Dose: Not Given Magnesium Hydroxide (Milk Of Magnesia) 30 ml PO DAILY [facility] Last Admin: 05/12/18 09:38 Dose: Not Given Ondansetron HCl (Zofran Inj) 4 mg IVP Q6H PRN PRN Reason: nausea and vomiting Last Admin: 05/10/18 18:47 Dose: 4 mg Ondansetron HCl (Zofran Inj) 4 mg IVP DAILY@ONCE PRN PRN Reason: nausea Pantoprazole Sodium (Protonix Ec Tab) 20 mg PO DAILY [facility] Last Admin: 05/12/18 09:38 Dose: Not Given Rosuvastatin Calcium (Crestor) 10 mg PO HS [facility] Last Admin: 05/11/18 22:06 Dose: 10 mg Sitagliptin Phosphate (Januvia) 25 mg PO DAILY [facility] - Labs Labs: 05/12/18 07:28 05/12/18 07:28 PT 12.2 SECONDS (9.7-12.2) 05/12/18 07:28 INR 1.1 05/12/18 07:28 APTT 27 SECONDS (21-34) 05/12/18 07:28 - Constitutional Appears: No Acute Distress - Head Exam Head Exam: ATRAUMATIC, NORMOCEPHALIC - Eye Exam Eye Exam: EOMI Pupil Exam: NORMAL ACCOMODATION - Respiratory Exam Respiratory Exam: NORMAL BREATHING PATTERN - Cardiovascular Exam Cardiovascular Exam: REGULAR RHYTHM - GI/Abdominal Exam GI & Abdominal Exam: Soft, Hernia, Normal Bowel Sounds. absent: Tenderness, Rebound Assessment and Plan (1) Change in bowel habit Status: Resolved (2) Constipation Status: Chronic (3) Abdominal pain of multiple sites Status: Acute (4) Ventral hernia Status: Chronic (5) Nausea & vomiting Assessment & Plan: Nausea and Vomiting noted appears to be self limited. ?related to hernia and intermittent obstrution. Surgical management planned. Continue supportive care. Status: Acute
[2018-05-12] MEDS ORDERED: ceFAZolin IV 1 gm in Dextrose 2 GM/100 ML BAG IVPB ONE (14:03)
[2018-05-12] MEDS ORDERED: Midazolam 2 MG/2 ML VIAL ONE (14:15)
[2018-05-12] MEDS ORDERED: Propofol 10 mg/ml Inj (20 ML) ONE (14:15)
[2018-05-12] MEDS: Bupivacaine 0.25% 20 ML INJ IJ ONE ×2 (15:03→15:46)
[2018-05-12] MEDS: Lidocaine/Epinephrine 1% 1:100000 10 ML IJ ONE ×2 (15:03→15:13)
[2018-05-12] MEDS ORDERED: Neostigmine Methylsulfate 3mg/3ml Syringe IV ONE (16:10)
[2018-05-12] MEDS ORDERED: HYDROmorphone 0.5 mg/0.5 ml ISec IVP PRN (16:43)
[2018-05-12] MEDS ORDERED: Sodium Chloride 0.9% 1,000 ML IV SCH (16:45)
--- NOTE | 2018-05-12 16:48 | PCM.SURG1 ---
Surgeon's Initial Post Op Note - Surgeon's Notes Surgeon: Dr. Sandoval It Quality Analyst: Dr. Gregory PGY3 Type of Anesthesia: General Endo Anesthesia Administered By: Dr. Serrato Pre-Operative Diagnosis: Ventral Hernia Operative Findings: See operative dictation Post-Operative Diagnosis: Ventral hernia Operation Performed: Ventral Hernia repair and extensive adhesiolysis, Tap block Specimen/Specimens Removed: Hernia Fat Estimated Blood Loss: EBL {In ML}: 5 Blood Products Given: N/A Drains Used: No Drains Post-Op Condition: Good Date of Surgery/Procedure: 05/12/18 Time of Surgery/Procedure: 16:48
--- NOTE | 2018-05-12 17:00 | CP.PCM.PN ---
Subjective - Date & Time of Evaluation Date of Evaluation: 05/12/18 Time of Evaluation: 08:00 - Subjective Subjective: Patient seen and examined at bedside, lying down comfortably. Afebrile and in no acute distress. Complains of occasional cough with clear phlegm. Denies shortness of breath, cough, fever. Surgery today for ventral hernia repair. Lung biopsy to follow as outpatient. Objective - Vital Signs/Intake and Output Vital Signs (last 24 hours): Temp Pulse Resp BP Pulse Ox 98.9 F 81 20 155/69 H 98 05/12/18 12:46 05/12/18 12:46 05/12/18 12:46 05/12/18 12:46 05/12/18 12:46 Intake and Output: 05/12/18 05/12/18 06:59 18:59 Intake Total 890 1200 Output Total 1050 200 Balance -160 1000 - Medications Medications: Current Medications Acetaminophen (Tylenol 325mg Tab) 650 mg PO Q6 PRN PRN Reason: Pain, moderate (4-7) Docusate Sodium (Colace) 100 mg PO TID [facility] Last Admin: 05/12/18 13:29 Dose: Not Given Gabapentin (Neurontin) 100 mg PO TID [facility] Last Admin: 05/12/18 09:38 Dose: Not Given Hydralazine HCl (Apresoline) 25 mg PO Q8 [facility] Last Admin: 05/12/18 13:29 Dose: Not Given Hydromorphone HCl (Dilaudid) 0.5 mg IVP Q4H PRN PRN Reason: Pain, moderate (4-7) Hydromorphone HCl (Dilaudid) 0.5 mg IVP Q5M PRN PRN Reason: Pain, moderate (4-7) Dextrose/Sodium Chloride (Dextrose 5%/0.45% Ns 1000 Ml) 1,000 mls @ 40 mls/hr IV .Q24H [facility] Last Admin: 05/11/18 17:22 Dose: Not Given Sodium Chloride (Sodium Chloride 0.9%) 1,000 mls @ 75 mls/hr IV .[id number] [facility] Insulin Aspart (Novolog) 0 unit SC ACHS [facility]; Protocol Last Admin: 05/12/18 13:02 Dose: Not Given Magnesium Hydroxide (Milk Of Magnesia) 30 ml PO DAILY [facility] Last Admin: 05/12/18 09:38 Dose: Not Given Ondansetron HCl (Zofran Inj) 4 mg IVP Q6H PRN PRN Reason: nausea and vomiting Last Admin: 05/10/18 18:47 Dose: 4 mg Ondansetron HCl (Zofran Inj) 4 mg IVP DAILY@ONCE PRN PRN Reason: nausea Ondansetron HCl (Zofran Inj) 4 mg IVP ONCE PRN PRN Reason: Nausea/Vomiting Stop: 05/12/18 18:46 Pantoprazole Sodium (Protonix Ec Tab) 20 mg PO DAILY [facility] Last Admin: 05/12/18 09:38 Dose: Not Given Rosuvastatin Calcium (Crestor) 10 mg PO HS [facility] Last Admin: 05/11/18 22:06 Dose: 10 mg Sitagliptin Phosphate (Januvia) 25 mg PO DAILY [facility] Last Admin: 05/12/18 13:02 Dose: Not Given - Labs Labs: 05/12/18 07:28 05/12/18 07:28 PT 12.2 SECONDS (9.7-12.2) 05/12/18 07:28 INR 1.1 05/12/18 07:28 APTT 27 SECONDS (21-34) 05/12/18 07:28 Assessment and Plan (1) Mass of right lung Status: Acute
[2018-05-12] MEDS: HYDROmorphone 0.5 mg/0.5 ml ISec IVP PRN ×2 (17:05→17:35)
--- NOTE | 2018-05-12 18:13 | PQF ---
PROVIDER RESPONSE TEXT: Ckd 5 REVIEWER QUERY TEXT: Kidney Disease, Chronic CKD Stage Chronic Kidney Disease (CKD) is documented in the Medical Record. Please specify the disease stage ( includes probable or suspected) Such as: -- Chronic kidney disease Stage 1 -- Chronic kidney disease Stage 2 -- Chronic kidney disease Stage 3 -- Chronic kidney disease Stage 4 -- Chronic kidney disease Stage 5 -- Chronic kidney disease Stage 5, requiring dialysis -- End Stage Renal Disease -- Other, please specify Stages are defined by the [employer] as follows: CKD Stage I GFR >= 90 ml / min per 1.73 m2 and persistent albuminuria CKD Stage 2 GFR between 60 and 89 with persistent albuminuria CKD Stage 3 GFR between 30 and 59 CKD Stage 4 GFR between 15 and 29 CKD Stage 5 GFR between <15 or End Stage Renal Disease The patient's Clinical Indicators include: Patient with diagnosis of CKD unspecified. Please consider document the stage of CKD GFR Afric-Amer: 19 GFR [id number]: 15 Query created by: Chava Ruiz on 05/12/2018 12:18 PM Electronically signed by: Toby Rich MD 05/12/2018 6:10 PM
[2018-05-12] MEDS: Dextrose 5%/0.45% NS 1,000 ML IV SCH (19:10)
--- NOTE | 2018-05-12 22:53 | CP.PCM.PN ---
Subjective - Date & Time of Evaluation Date of Evaluation: 05/12/18 Time of Evaluation: 16:20 - Subjective Subjective: Patient seen and evaluated No cardiac events noted Objective - Vital Signs/Intake and Output Vital Signs (last 24 hours): Temp Pulse Resp BP Pulse Ox 97.5 F L 71 20 162/71 H 100 05/12/18 21:56 05/12/18 21:56 05/12/18 21:56 05/12/18 21:56 05/12/18 21:56 Intake and Output: 05/12/18 05/13/18 18:59 06:59 Intake Total 1350 Output Total 200 Balance 1150 - Medications Medications: Current Medications Acetaminophen (Tylenol 325mg Tab) 650 mg PO Q6 PRN PRN Reason: Pain, moderate (4-7) Docusate Sodium (Colace) 100 mg PO TID [facility] Last Admin: 05/12/18 19:11 Dose: 100 mg Gabapentin (Neurontin) 100 mg PO TID [facility] Last Admin: 05/12/18 19:11 Dose: 100 mg Hydralazine HCl (Apresoline) 50 mg PO Q8 [facility] Last Admin: 05/12/18 21:58 Dose: 50 mg Hydromorphone HCl (Dilaudid) 0.5 mg IVP Q4H PRN PRN Reason: Pain, moderate (4-7) Hydromorphone HCl (Dilaudid) 0.5 mg IVP Q5M PRN PRN Reason: Pain, moderate (4-7) Last Admin: 05/12/18 17:35 Dose: 0.5 mg Dextrose/Sodium Chloride (Dextrose 5%/0.45% Ns 1000 Ml) 1,000 mls @ 40 mls/hr IV .Q24H [facility] Last Admin: 05/12/18 19:10 Dose: Not Given Sodium Chloride (Sodium Chloride 0.9%) 1,000 mls @ 75 mls/hr IV .[id number] [facility] Last Admin: 05/12/18 18:00 Dose: 0 mls Insulin Aspart (Novolog) 0 unit SC ACHS [facility]; Protocol Last Admin: 05/12/18 21:59 Dose: Not Given Magnesium Hydroxide (Milk Of Magnesia) 30 ml PO DAILY [facility] Last Admin: 05/12/18 09:38 Dose: Not Given Ondansetron HCl (Zofran Inj) 4 mg IVP Q6H PRN PRN Reason: nausea and vomiting Last Admin: 05/12/18 19:58 Dose: 4 mg Ondansetron HCl (Zofran Inj) 4 mg IVP DAILY@ONCE PRN PRN Reason: nausea Pantoprazole Sodium (Protonix Ec Tab) 20 mg PO DAILY [facility] Last Admin: 05/12/18 09:38 Dose: Not Given Rosuvastatin Calcium (Crestor) 10 mg PO HS [facility] Last Admin: 05/12/18 21:58 Dose: 10 mg Sitagliptin Phosphate (Januvia) 25 mg PO DAILY [facility] Last Admin: 05/12/18 13:02 Dose: Not Given - Labs Labs: 05/12/18 07:28 05/12/18 07:28 PT 12.2 SECONDS (9.7-12.2) 05/12/18 07:28 INR 1.1 05/12/18 07:28 APTT 27 SECONDS (21-34) 05/12/18 07:28
--- NOTE | 2018-05-12 23:51 | CP.PCM.PN ---
Subjective - Subjective Subjective: dictated Objective - Vital Signs/Intake and Output Vital Signs (last 24 hours): Temp Pulse Resp BP Pulse Ox 97.5 F L 71 20 162/71 H 100 05/12/18 21:56 05/12/18 21:56 05/12/18 21:56 05/12/18 21:56 05/12/18 21:56 Intake and Output: 05/12/18 05/13/18 18:59 06:59 Intake Total 1350 Output Total 200 Balance 1150 - Medications Medications: Current Medications Acetaminophen (Tylenol 325mg Tab) 650 mg PO Q6 PRN PRN Reason: Pain, moderate (4-7) Docusate Sodium (Colace) 100 mg PO TID [facility] Last Admin: 05/12/18 19:11 Dose: 100 mg Gabapentin (Neurontin) 100 mg PO TID [facility] Last Admin: 05/12/18 19:11 Dose: 100 mg Hydralazine HCl (Apresoline) 50 mg PO Q8 [facility] Last Admin: 05/12/18 21:58 Dose: 50 mg Hydromorphone HCl (Dilaudid) 0.5 mg IVP Q4H PRN PRN Reason: Pain, moderate (4-7) Hydromorphone HCl (Dilaudid) 0.5 mg IVP Q5M PRN PRN Reason: Pain, moderate (4-7) Last Admin: 05/12/18 17:35 Dose: 0.5 mg Dextrose/Sodium Chloride (Dextrose 5%/0.45% Ns 1000 Ml) 1,000 mls @ 40 mls/hr IV .Q24H [facility] Last Admin: 05/12/18 19:10 Dose: Not Given Sodium Chloride (Sodium Chloride 0.9%) 1,000 mls @ 75 mls/hr IV .[id number] [facility] Last Admin: 05/12/18 18:00 Dose: 0 mls Insulin Aspart (Novolog) 0 unit SC [facility]; Protocol Last Admin: 05/12/18 21:59 Dose: Not Given Magnesium Hydroxide (Milk Of Magnesia) 30 ml PO DAILY [facility] Last Admin: 05/12/18 09:38 Dose: Not Given Ondansetron HCl (Zofran Inj) 4 mg IVP Q6H PRN PRN Reason: nausea and vomiting Last Admin: 05/12/18 19:58 Dose: 4 mg Ondansetron HCl (Zofran Inj) 4 mg IVP DAILY@ONCE PRN PRN Reason: nausea Pantoprazole Sodium (Protonix Ec Tab) 20 mg PO DAILY [facility] Last Admin: 05/12/18 09:38 Dose: Not Given Rosuvastatin Calcium (Crestor) 10 mg PO HS [facility] Last Admin: 05/12/18 21:58 Dose: 10 mg Sitagliptin Phosphate (Januvia) 25 mg PO DAILY [facility] Last Admin: 05/12/18 13:02 Dose: Not Given - Labs Labs: 05/12/18 07:28 05/12/18 07:28 PT 12.2 SECONDS (9.7-12.2) 05/12/18 07:28 INR 1.1 05/12/18 07:28 APTT 27 SECONDS (21-34) 05/12/18 07:28 Assessment and Plan (1) Abdominal pain of multiple sites Status: Acute (2) Renal insufficiency Status: Chronic (3) CHF (congestive heart failure) Status: Chronic (4) Hypertensive urgency Status: Acute
--- NOTE | 2018-05-13 05:26 | PN ---
DATE: 05/12/2018 SUBJECTIVE: The patient underwent OR, and postoperatively she is in the recovery unit. She has postop pain. Case discussed with general surgeon. No fever. No chills. No chest pain. No shortness of breath. PHYSICAL EXAMINATION: VITAL SIGNS: Blood pressure 162/71, pulse 71, respiratory rate 20, and temperature 97.5. LUNGS: Clear. No rales, no rhonchi. CARDIOVASCULAR SYSTEM: S1 and S2, regular. ABDOMEN: Postop bowel sounds . ASSESSMENT: 1. Large ventral hernia. 2. Congestive heart failure. 3. Chronic kidney disease. 4. Hypertension. 5. Urinary tract infection. 6. . PLAN: Continue current medication. Postop clear, telemetry floor. Monitor the patient. Toby Rich MD
[2018-05-13 07:21] LABS: BASO # 0.1 K/uL (0.0-0.2); BASO % 0.8 % (0.0-2.0); EOS # 0.3 K/uL (0.0-0.7); EOS % 2.1 % (0.0-4.0); HEMOGLOBIN 9.2 g/dL (11.0-16.0); LYMPH # 1.4 K/uL (1.0-4.3); LYMPH % 10.1 % (20.0-40.0); MEAN CELL VOLUME 82.1 fL (81.0-99.0); MEAN CORPUSCULAR HEMOGLOBIN 26.1 pg (27.0-31.0); MEAN CORPUSCULAR HGB CONC 31.8 g/dL (33.0-37.0); MEAN PLATELET VOLUME 10.2 fL (7.2-11.7); MONO # 1.3 K/uL (0.0-0.8); MONO % 9.6 % (0.0-10.0); NEUT # 10.6 K/uL (1.8-7.0); NEUT % 77.4 % (50.0-75.0); NRBC % 0.1 % (0.0-2.0); RBC 3.53 Mil/uL (3.80-5.20); RED CELL DISTRIBUTION WIDTH 14.4 % (11.5-14.5); WHITE BLOOD COUNT 13.7 K/uL (4.8-10.8)
[2018-05-13 08:08] LABS: CALCIUM 8.4 mg/dl (8.6-10.4)
[2018-05-13] MEDS: (Novolog) Insulin Aspart, Recombinant 100 u/ml 10 ml vial SC SCH ×4 (08:15→22:02)
--- NOTE | 2018-05-13 10:17 | CP.PCM.PN ---
Subjective - Date & Time of Evaluation Date of Evaluation: 05/13/18 Time of Evaluation: 10:15 - Subjective Subjective: Incisional pain, no bowel movement or vomiting Objective - Vital Signs/Intake and Output Vital Signs (last 24 hours): Temp Pulse Resp BP Pulse Ox 98.4 F 77 20 116/59 L 96 05/13/18 08:27 05/13/18 08:27 05/13/18 08:27 05/13/18 08:27 05/13/18 08:27 Intake and Output: 05/13/18 05/13/18 06:59 18:59 Intake Total 600 Balance 600 - Medications Medications: Current Medications Acetaminophen (Tylenol 325mg Tab) 650 mg PO Q6 PRN PRN Reason: Pain, moderate (4-7) Docusate Sodium (Colace) 100 mg PO TID [facility] Last Admin: 05/12/18 19:11 Dose: 100 mg Gabapentin (Neurontin) 100 mg PO TID [facility] Last Admin: 05/12/18 19:11 Dose: 100 mg Hydralazine HCl (Apresoline) 50 mg PO Q8 [facility] Last Admin: 05/13/18 05:24 Dose: 50 mg Hydromorphone HCl (Dilaudid) 0.5 mg IVP Q4H PRN PRN Reason: Pain, moderate (4-7) Hydromorphone HCl (Dilaudid) 0.5 mg IVP Q5M PRN PRN Reason: Pain, moderate (4-7) Last Admin: 05/12/18 17:35 Dose: 0.5 mg Dextrose/Sodium Chloride (Dextrose 5%/0.45% Ns 1000 Ml) 1,000 mls @ 40 mls/hr IV .Q24H [facility] Last Admin: 05/12/18 19:10 Dose: Not Given Sodium Chloride (Sodium Chloride 0.9%) 1,000 mls @ 75 mls/hr IV .[id number] [facility] Last Admin: 05/12/18 18:00 Dose: 0 mls Insulin Aspart (Novolog) 0 unit SC ACHS [facility]; Protocol Last Admin: 05/13/18 08:15 Dose: Not Given Magnesium Hydroxide (Milk Of Magnesia) 30 ml PO DAILY [facility] Last Admin: 05/12/18 09:38 Dose: Not Given Ondansetron HCl (Zofran Inj) 4 mg IVP Q6H PRN PRN Reason: nausea and vomiting Last Admin: 05/12/18 19:58 Dose: 4 mg Ondansetron HCl (Zofran Inj) 4 mg IVP DAILY@ONCE PRN PRN Reason: nausea Pantoprazole Sodium (Protonix Ec Tab) 20 mg PO DAILY [facility] Last Admin: 05/12/18 09:38 Dose: Not Given Rosuvastatin Calcium (Crestor) 10 mg PO HS [facility] Last Admin: 05/12/18 21:58 Dose: 10 mg Sitagliptin Phosphate (Januvia) 25 mg PO DAILY [facility] Last Admin: 05/12/18 13:02 Dose: Not Given Sodium Phosphate (Fleet Enema) 135 ml [place] ONCE ONE Stop: 05/13/18 09:39 - Labs Labs: 05/13/18 07:12 05/13/18 07:12 PT 12.2 SECONDS (9.7-12.2) 05/12/18 07:28 INR 1.1 05/12/18 07:28 APTT 27 SECONDS (21-34) 05/12/18 07:28 - Constitutional Appears: No Acute Distress - Head Exam Head Exam: ATRAUMATIC, NORMOCEPHALIC - Respiratory Exam Respiratory Exam: NORMAL BREATHING PATTERN - Cardiovascular Exam Cardiovascular Exam: REGULAR RHYTHM - GI/Abdominal Exam GI & Abdominal Exam: Soft, Tenderness, Diminished Bowel Sounds Additional comments: dressing intact and tender around surgical sites - Extremities Exam Extremities Exam: Normal Inspection Assessment and Plan (1) Change in bowel habit Status: Resolved (2) Constipation Status: Chronic (3) Abdominal pain of multiple sites Status: Acute (4) Ventral hernia Assessment & Plan: POD #1 for repair of ventral hernia. Post op ileus noted. Post op care per surgical team. Status: Chronic (5) Nausea & vomiting Status: Resolved
--- NOTE | 2018-05-13 10:34 | CP.PCM.PN ---
<Jarett Gregory - Last Filed: 05/13/18 10:31> Subjective - Date & Time of Evaluation Date of Evaluation: 05/13/18 Time of Evaluation: 10:31 - Subjective Subjective: General Surgery Progress Note for Dr. Sandoval This 83F was seen and examined this AM at bedside. No acute events happened overnight. She reports lawanda epain but overall she reports that she is feeling alot better. She still complains about being. She denies any chest pain or SOB. Objective - Vital Signs/Intake and Output Vital Signs (last 24 hours): Temp Pulse Resp BP Pulse Ox 98.4 F 77 20 116/59 L 96 05/13/18 08:27 05/13/18 08:27 05/13/18 08:27 05/13/18 08:27 05/13/18 08:27 Intake and Output: 05/13/18 05/13/18 06:59 18:59 Intake Total 600 Balance 600 - Medications Medications: Current Medications Acetaminophen (Tylenol 325mg Tab) 650 mg PO Q6 PRN PRN Reason: Pain, moderate (4-7) Docusate Sodium (Colace) 100 mg PO TID [facility] Last Admin: 05/12/18 19:11 Dose: 100 mg Gabapentin (Neurontin) 100 mg PO TID [facility] Last Admin: 05/12/18 19:11 Dose: 100 mg Hydralazine HCl (Apresoline) 50 mg PO Q8 [facility] Last Admin: 05/13/18 05:24 Dose: 50 mg Hydromorphone HCl (Dilaudid) 0.5 mg IVP Q4H PRN PRN Reason: Pain, moderate (4-7) Hydromorphone HCl (Dilaudid) 0.5 mg IVP Q5M PRN PRN Reason: Pain, moderate (4-7) Last Admin: 05/12/18 17:35 Dose: 0.5 mg Dextrose/Sodium Chloride (Dextrose 5%/0.45% Ns 1000 Ml) 1,000 mls @ 40 mls/hr IV .Q24H [facility] Last Admin: 05/12/18 19:10 Dose: Not Given Sodium Chloride (Sodium Chloride 0.9%) 1,000 mls @ 75 mls/hr IV .[id number] [facility] Last Admin: 05/12/18 18:00 Dose: 0 mls Insulin Aspart (Novolog) 0 unit SC ACHS [facility]; Protocol Last Admin: 05/13/18 08:15 Dose: Not Given Magnesium Hydroxide (Milk Of Magnesia) 30 ml PO DAILY [facility] Last Admin: 05/12/18 09:38 Dose: Not Given Ondansetron HCl (Zofran Inj) 4 mg IVP Q6H PRN PRN Reason: nausea and vomiting Last Admin: 05/12/18 19:58 Dose: 4 mg Ondansetron HCl (Zofran Inj) 4 mg IVP DAILY@ONCE PRN PRN Reason: nausea Pantoprazole Sodium (Protonix Ec Tab) 20 mg PO DAILY [facility] Last Admin: 05/12/18 09:38 Dose: Not Given Rosuvastatin Calcium (Crestor) 10 mg PO [facility] Last Admin: 05/12/18 21:58 Dose: 10 mg Sitagliptin Phosphate (Januvia) 25 mg PO DAILY [facility] Last Admin: 05/12/18 13:02 Dose: Not Given Sodium Phosphate (Fleet Enema) 135 ml [place] ONCE ONE Stop: 05/13/18 10:31 - Labs Labs: 05/13/18 07:12 05/13/18 07:12 PT 12.2 SECONDS (9.7-12.2) 05/12/18 07:28 INR 1.1 05/12/18 07:28 APTT 27 SECONDS (21-34) 05/12/18 07:28 - Constitutional Appears: Non-toxic, No Acute Distress - Head Exam Head Exam: ATRAUMATIC, NORMOCEPHALIC - Eye Exam Eye Exam: EOMI - ENT Exam ENT Exam: Mucous Membranes Moist - Respiratory Exam Respiratory Exam: NORMAL BREATHING PATTERN - Cardiovascular Exam Cardiovascular Exam: +S1, +S2 - GI/Abdominal Exam GI & Abdominal Exam: Soft. absent: Rigid, Tenderness Additional comments: Dressings clean dry and intact non tender - Neurological Exam Neurological Exam: Alert, Awake - Psychiatric Exam Psychiatric exam: Normal Affect, Normal Mood - Skin Skin Exam: Dry, Intact Assessment and Plan - Assessment and Plan (Free Text) Assessment: 83F with incarcerated ventral hernia POD#1 s/p robotic ventral hernia repair with mesh Plan: Regular Diet PO pain control DVT PPX with HSQ Physical therapy eval Incentive spirometer D/C Jimmy D/W Dr. Lori Gregory PGY3 <Rick Sandoval B - Last Filed: 05/17/18 15:23> Objective - Vital Signs/Intake and Output Vital Signs (last 24 hours): Temp Pulse Resp BP Pulse Ox 98.2 F 60 20 152/78 H 100 05/17/18 07:15 05/17/18 07:15 05/17/18 07:15 05/17/18 10:26 05/17/18 07:15 Intake and Output: 05/17/18 05/17/18 06:59 18:59 Intake Total 2200 Output Total 300 100 Balance 1900 -100 - Medications Medications: Current Medications Ergocalciferol (Drisdol 50,000 Intl Units Cap) 1 cap PO Q7D [facility] Last Admin: 05/17/18 13:59 Dose: 1 cap Gabapentin (Neurontin) 100 mg PO TID [facility] Last Admin: 05/17/18 13:56 Dose: 100 mg Guaifenesin (Robitussin) 200 mg PO Q4H PRN PRN Reason: Cough and congestion Heparin Sodium (Porcine) (Heparin) 5,000 units SC Q8 [facility] Last Admin: 05/17/18 13:59 Dose: 5,000 units Hydralazine HCl (Apresoline) 50 mg PO Q8 [facility] Last Admin: 05/17/18 06:25 Dose: 50 mg Ferric Sodium Gluconate Complex 125 mg/ Sodium Chloride 110 mls @ 110 mls/hr IVPB DAILY [facility] Stop: 05/23/18 12:01 Last Admin: 05/17/18 13:00 Dose: 110 mls/hr Sodium Chloride (Sodium Chloride 0.9%) 1,000 mls @ 30 mls/hr IV .Q24H [facility] Insulin Aspart (Novolog) 0 unit SC ACHS [facility]; Protocol Last Admin: 05/17/18 12:58 Dose: 1 units Lactulose (Enulose) 20 gm PO BID PRN PRN Reason: Constipation Metoprolol Tartrate (Lopressor) 25 mg PO BID [facility] Last Admin: 05/17/18 10:26 Dose: 25 mg Ondansetron HCl (Zofran Inj) 4 mg IVP Q6H PRN PRN Reason: nausea and vomiting Last Admin: 05/15/18 00:02 Dose: 4 mg Ondansetron HCl (Zofran Inj) 4 mg IVP DAILY@ONCE PRN PRN Reason: nausea Pantoprazole Sodium (Protonix Ec Tab) 20 mg PO DAILY [facility] Last Admin: 05/17/18 10:26 Dose: 20 mg Rosuvastatin Calcium (Crestor) 10 mg PO HS [facility] Last Admin: 05/16/18 23:02 Dose: 10 mg Senna/Docusate Sodium (Senokot S 50 Mg-8.6 Mg) 1 tab PO DAILY [facility] Last Admin: 05/17/18 10:25 Dose: 1 tab Sitagliptin Phosphate (Januvia) 25 mg PO DAILY [facility] Last Admin: 05/17/18 10:25 Dose: 25 mg Sodium Bicarbonate (Sodium Bicarbonate Tab) 1,300 mg PO TID [facility] Last Admin: 05/17/18 10:27 Dose: 1,300 mg Vitamin B Complex/Vit C/Folic Acid (Nephro-Naman) 1 tab PO 0800 [facility] Last Admin: 05/17/18 10:25 Dose: 1 tab - Labs Labs: 05/16/18 12:14 05/16/18 12:14 PT 12.2 SECONDS (9.7-12.2) 05/12/18 07:28 INR 1.1 05/12/18 07:28 APTT 27 SECONDS (21-34) 05/12/18 07:28 Attending/Attestation - Attestation I have personally seen and examined this patient.: Yes I have fully participated in the care of the patient.: Yes I have reviewed all pertinent clinical information, including history, physical exam and plan: Yes Notes (Text): Pt was seen and examined at bedside Agree with above note and assessment Pt is improving clinically DVT prophylaxis OOB to Chair c.w IV antibiotics Start liquid diet Plan d.w pt in detail Risk and benefit explained in detail.
[2018-05-13] MEDS: Pantoprazole 20 mg EC Tab PO SCH (11:04)
[2018-05-13] MEDS: Magnesium Hydroxide Susp 30 ml UD PO SCH (11:05)
[2018-05-13] MEDS: Oxycodone/Acetaminophen 5/325 mg Tab PO PRN (12:05)
--- NOTE | 2018-05-13 15:51 | CP.PCM.PN ---
Subjective - Date & Time of Evaluation Date of Evaluation: 05/13/18 Time of Evaluation: 10:20 - Subjective Subjective: Patient seen and examined, daughter at bedside. Patient states that she is feeling much better today, and her pain has decreased from yesterday. Patient s/p hernia repair yesterday. Patient afebrile and not in acute distress. Denies shortness of breath, wheezing, abdominal pain, fevers, or chills. Admits to mild cough with small clear phlegm production. Objective - Vital Signs/Intake and Output Vital Signs (last 24 hours): Temp Pulse Resp BP Pulse Ox 98.4 F 72 20 132/64 96 05/13/18 08:27 05/13/18 13:49 05/13/18 08:27 05/13/18 13:49 05/13/18 08:27 Intake and Output: 05/13/18 05/13/18 06:59 18:59 Intake Total 600 Balance 600 - Medications Medications: Current Medications Docusate Sodium (Colace) 100 mg PO TID [facility] Last Admin: 05/13/18 13:50 Dose: 100 mg Gabapentin (Neurontin) 100 mg PO TID [facility] Last Admin: 05/13/18 13:50 Dose: 100 mg Heparin Sodium (Porcine) (Heparin) 5,000 units SC Q8 [facility] Last Admin: 05/13/18 13:53 Dose: 5,000 units Hydralazine HCl (Apresoline) 50 mg PO Q8 [facility] Last Admin: 05/13/18 13:50 Dose: 50 mg Hydromorphone HCl (Dilaudid) 0.5 mg IVP Q5M PRN PRN Reason: Pain, moderate (4-7) Last Admin: 05/12/18 17:35 Dose: 0.5 mg Dextrose/Sodium Chloride (Dextrose 5%/0.45% Ns 1000 Ml) 1,000 mls @ 40 mls/hr IV .Q24H [facility] Last Admin: 05/12/18 19:10 Dose: Not Given Sodium Chloride (Sodium Chloride 0.9%) 1,000 mls @ 75 mls/hr IV .[id number] [facility] Last Admin: 05/12/18 18:00 Dose: 0 mls Insulin Aspart (Novolog) 0 unit SC ACHS [facility]; Protocol Last Admin: 05/13/18 12:07 Dose: 2 units Magnesium Hydroxide (Milk Of Magnesia) 30 ml PO DAILY [facility] Last Admin: 05/13/18 11:05 Dose: 30 ml Ondansetron HCl (Zofran Inj) 4 mg IVP Q6H PRN PRN Reason: nausea and vomiting Last Admin: 05/12/18 19:58 Dose: 4 mg Ondansetron HCl (Zofran Inj) 4 mg IVP DAILY@ONCE PRN PRN Reason: nausea Oxycodone/Acetaminophen (Percocet 5/325 Mg Tab) 1 tab PO Q4H PRN PRN Reason: Pain, moderate (4-7) Stop: 05/16/18 10:40 Last Admin: 05/13/18 12:05 Dose: 1 tab Pantoprazole Sodium (Protonix Ec Tab) 20 mg PO DAILY [facility] Last Admin: 05/13/18 11:04 Dose: 20 mg Rosuvastatin Calcium (Crestor) 10 mg PO HS [facility] Last Admin: 05/12/18 21:58 Dose: 10 mg Sitagliptin Phosphate (Januvia) 25 mg PO DAILY [facility] Last Admin: 05/13/18 11:05 Dose: 25 mg - Labs Labs: 05/13/18 07:12 05/13/18 07:12 PT 12.2 SECONDS (9.7-12.2) 05/12/18 07:28 INR 1.1 05/12/18 07:28 APTT 27 SECONDS (21-34) 05/12/18 07:28 Assessment and Plan (1) Mass of right lung Status: Acute
--- NOTE | 2018-05-13 18:33 | OP ---
PROCEDURE DATE: 05/12/2018 PREOPERATIVE DIAGNOSES: 1. Incarcerated incisional hernia. 2. Possible extensive postoperative adhesion. 3. Morbid obesity. PROCEDURES DONE: 1. Laparoscopic extensive lysis of adhesion and enterolysis. 2. Robotic incisional hernia repair with mesh. 3. Laparoscopic bilateral TAP block placement. SURGEON: Rick Sandoval MD ASSISTANTS: UZAIR Paul and Jarett Gregory DO, PGY-3 resident. ANESTHESIA: General endotracheal tube anesthesia. ESTIMATED BLOOD LOSS: Around 10 mL. DRAINS: None. PATHOLOGY: The hernia sac and content was sent for the pathology. COMPLICATIONS: None. INTRAOPERATIVE FINDINGS: The patient had incarcerated incisional hernia containing omentum, and the patient also had extensive postoperative adhesion in the upper part of the abdomen, and extensive lysis of adhesion was done. Approximately 30 to 40 minute extra time was spent for the enterolysis and lysis of adhesion. DESCRIPTION OF PROCEDURE: On intraoperative steps, this is an 83-year-old female who was diagnosed with incarcerated incisional hernia, and the patient was consented for laparoscopic-assisted robotic incisional hernia repair with mesh, brought to the OR and placed supine on the operating table after induction of the anesthesia. The abdomen was prepped and draped in the usual sterile fashion. The right upper quadrant incision was made using the Visiport technique. Peritoneal cavity was entered. Another three 8-mm port was placed in the left upper quadrant, left lower quadrant and left flank. Robot was brought in. Camera arm as well as arm one and two were docked. At first, laparoscopic enterolysis as well as lysis of adhesion was done before docking the robot and after that again lysis of adhesion as well as enterolysis was done with the robotic instrument. The specimen was sent off the table for the pathology. The defect was closed with a #1 Prolene V-Loc suture in two layers and a 9 cm circular mesh was implanted. After proper implantation of the mesh, the laparoscopic bilateral TAP block was given. A 30:30 mL of Marcaine was injected in the transverse abdominal muscle plane block bilaterally. Before implantation of the mesh, the robot was undocked and after TAP block pneumo was deflated. All the port sites were closed in two layers, subcu with 2-0 Vicryl, skin with 4-0 Monocryl, and dry sterile dressing was applied. The specimen was sent off the table for the pathology. Count of instrument and gauze was correct. There was no apparent complication. The patient was extubated in the OR and sent to the postanesthesia care unit in stable condition. Rick Sandoval MD MTDD
[2018-05-13] MEDS: Dextrose 5%/0.45% NS 1,000 ML IV SCH (19:47)
[2018-05-13] MEDS ORDERED: Sodium Chloride 0.9% 1,000 ML IV ONE (20:49)
[2018-05-13 21:59] VITALS: RESP 20
[2018-05-13] MEDS: Sodium Chloride 0.9% 1,000 ML IV SCH (22:06)
[2018-05-14] MEDS ORDERED: Sodium Chloride 0.9% 500 ML IV ONE (05:51)
--- NOTE | 2018-05-14 06:26 | CP.PCM.PN ---
Subjective - Date & Time of Evaluation Date of Evaluation: 05/13/18 - Subjective Subjective: dictated Objective - Vital Signs/Intake and Output Vital Signs (last 24 hours): Temp Pulse Resp BP Pulse Ox 98.0 F 70 20 168/80 H 97 05/14/18 04:00 05/14/18 04:02 05/14/18 04:00 05/14/18 04:00 05/14/18 04:00 Intake and Output: 05/13/18 05/14/18 18:59 06:59 Intake Total 1820 Output Total 175 Balance 1645 - Medications Medications: Current Medications Docusate Sodium (Colace) 100 mg PO TID [facility] Last Admin: 05/13/18 17:59 Dose: 100 mg Gabapentin (Neurontin) 100 mg PO TID [facility] Last Admin: 05/13/18 17:59 Dose: 100 mg Heparin Sodium (Porcine) (Heparin) 5,000 units SC Q8 [facility] Last Admin: 05/14/18 05:19 Dose: 5,000 units Hydralazine HCl (Apresoline) 50 mg PO Q8 [facility] Last Admin: 05/14/18 05:18 Dose: 50 mg Hydromorphone HCl (Dilaudid) 0.5 mg IVP Q5M PRN PRN Reason: Pain, moderate (4-7) Last Admin: 05/12/18 17:35 Dose: 0.5 mg Sodium Chloride (Sodium Chloride 0.9%) 1,000 mls @ 100 mls/hr IV .Q10H [facility] Last Admin: 05/13/18 22:06 Dose: 100 mls/hr Insulin Aspart (Novolog) 0 unit SC [facility]; Protocol Last Admin: 05/13/18 22:02 Dose: Not Given Magnesium Hydroxide (Milk Of Magnesia) 30 ml PO DAILY [facility] Last Admin: 05/13/18 11:05 Dose: 30 ml Ondansetron HCl (Zofran Inj) 4 mg IVP Q6H PRN PRN Reason: nausea and vomiting Last Admin: 05/12/18 19:58 Dose: 4 mg Ondansetron HCl (Zofran Inj) 4 mg IVP DAILY@ONCE PRN PRN Reason: nausea Oxycodone/Acetaminophen (Percocet 5/325 Mg Tab) 1 tab PO Q4H PRN PRN Reason: Pain, moderate (4-7) Stop: 05/16/18 10:40 Last Admin: 05/13/18 12:05 Dose: 1 tab Pantoprazole Sodium (Protonix Ec Tab) 20 mg PO DAILY [facility] Last Admin: 05/13/18 11:04 Dose: 20 mg Rosuvastatin Calcium (Crestor) 10 mg PO HS [facility] Last Admin: 05/13/18 22:00 Dose: 10 mg Sitagliptin Phosphate (Januvia) 25 mg PO DAILY [facility] Last Admin: 05/13/18 11:05 Dose: 25 mg - Labs Labs: 05/13/18 07:12 05/13/18 07:12 PT 12.2 SECONDS (9.7-12.2) 05/12/18 07:28 INR 1.1 05/12/18 07:28 APTT 27 SECONDS (21-34) 05/12/18 07:28 Assessment and Plan (1) Abdominal pain of multiple sites Status: Acute (2) Renal insufficiency Status: Chronic (3) CHF (congestive heart failure) Status: Chronic (4) Hypertensive urgency Status: Acute
[2018-05-14] MEDS: (Novolog) Insulin Aspart, Recombinant 100 u/ml 10 ml vial SC SCH ×4 (07:23→22:11)
[2018-05-14] MEDS: Sodium Chloride 0.9% 1,000 ML IV SCH ×3 (08:49→18:00)
[2018-05-14] MEDS: Magnesium Hydroxide Susp 30 ml UD PO SCH (09:25)
[2018-05-14] MEDS: Pantoprazole 20 mg EC Tab PO SCH (09:25)
--- NOTE | 2018-05-14 10:04 | CP.PCM.PN ---
Subjective - Date & Time of Evaluation Date of Evaluation: 05/14/18 Time of Evaluation: 10:01 - Subjective Subjective: Patient currently having bowel movement, tolerating diet and decreased incisional pain Objective - Vital Signs/Intake and Output Vital Signs (last 24 hours): Temp Pulse Resp BP Pulse Ox 97.9 F 78 20 128/68 99 05/14/18 08:24 05/14/18 08:24 05/14/18 08:24 05/14/18 08:24 05/14/18 08:24 Intake and Output: 05/14/18 05/14/18 06:59 18:59 Intake Total 3240 Output Total 375 Balance 2865 - Medications Medications: Current Medications Docusate Sodium (Colace) 100 mg PO TID [facility] Last Admin: 05/14/18 09:25 Dose: 100 mg Gabapentin (Neurontin) 100 mg PO TID [facility] Last Admin: 05/14/18 09:25 Dose: 100 mg Heparin Sodium (Porcine) (Heparin) 5,000 units SC Q8 [facility] Last Admin: 05/14/18 05:19 Dose: 5,000 units Hydralazine HCl (Apresoline) 50 mg PO Q8 [facility] Last Admin: 05/14/18 05:18 Dose: 50 mg Hydromorphone HCl (Dilaudid) 0.5 mg IVP Q5M PRN PRN Reason: Pain, moderate (4-7) Last Admin: 05/12/18 17:35 Dose: 0.5 mg Sodium Chloride (Sodium Chloride 0.9%) 1,000 mls @ 100 mls/hr IV .Q10H [facility] Last Admin: 05/13/18 22:06 Dose: 100 mls/hr [facility]ulin [facility] ([facility]olog) [facility]; [facility] Last Admin: 05/14/18 07:23 Dose: Not Given Magnesium Hydroxide (Milk Of Magnesia) 30 ml PO DAILY [facility] Last Admin: 05/14/18 09:25 Dose: 30 ml Ondansetron HCl (Zofran Inj) 4 mg IVP Q6H PRN PRN Reason: nausea and vomiting Last Admin: 05/12/18 19:58 Dose: 4 mg Ondansetron HCl (Zofran Inj) 4 mg IVP DAILY@ONCE PRN PRN Reason: nausea Oxycodone/Acetaminophen (Percocet 5/325 Mg Tab) 1 tab PO Q4H PRN PRN Reason: Pain, moderate (4-7) Stop: 05/16/18 10:40 Last Admin: 05/13/18 12:05 Dose: 1 tab Pantoprazole Sodium (Protonix Ec Tab) 20 mg PO DAILY [facility] Last Admin: 05/14/18 09:25 Dose: 20 mg Rosuvastatin Calcium (Crestor) 10 mg PO HS [facility] Last Admin: 05/13/18 22:00 Dose: 10 mg Sitagliptin Phosphate (Januvia) 25 mg PO DAILY [facility] Last Admin: 05/14/18 09:25 Dose: 25 mg - Labs Labs: 05/13/18 07:12 05/13/18 07:12 PT 12.2 SECONDS (9.7-12.2) 05/12/18 07:28 INR 1.1 05/12/18 07:28 APTT 27 SECONDS (21-34) 05/12/18 07:28 - Constitutional Appears: No Acute Distress - Head Exam Head Exam: ATRAUMATIC, NORMOCEPHALIC - Respiratory Exam Respiratory Exam: NORMAL BREATHING PATTERN - Cardiovascular Exam Cardiovascular Exam: REGULAR RHYTHM - GI/Abdominal Exam GI & Abdominal Exam: Soft, Tenderness, Hypoactive Bowel Sounds. absent: Mass, Rebound Additional comments: incision clean and dry - Extremities Exam Extremities Exam: Normal Inspection Assessment and Plan (1) Change in bowel habit Status: Resolved (2) Constipation Status: Chronic (3) Abdominal pain of multiple sites Status: Acute (4) Ventral hernia Assessment & Plan: Post op Day #2. Doing well. Advance diet Post op care per surgical team. No further GI work up at this time. Recall as needed. Out patient follow up prn. Thank you. Status: Chronic (5) Nausea & vomiting Status: Resolved
--- NOTE | 2018-05-14 11:21 | CP.PCM.PN ---
Subjective - Date & Time of Evaluation Date of Evaluation: 05/13/18 Time of Evaluation: 20:30 - Subjective Subjective: Patient seen and evaluated feels better Physical examination - Constitutional Appears: Non-toxic, No Acute Distress - Head Exam Head Exam: ATRAUMATIC, NORMOCEPHALIC - Eye Exam Eye Exam: EOMI - ENT Exam ENT Exam: Mucous Membranes Moist - Respiratory Exam Respiratory Exam: NORMAL BREATHING PATTERN - Cardiovascular Exam Cardiovascular Exam: +S1, +S2 - GI/Abdominal Exam GI & Abdominal Exam: Soft. absent: Rigid, Tenderness Additional comments: Dressings clean dry and intact non tender - Neurological Exam Neurological Exam: Alert, Awake - Psychiatric Exam Psychiatric exam: Normal Affect, Normal Mood - Skin Skin Exam: Dry, Intact Assessment and Plan - Assessment and Plan (Free Text) Assessment: 83F with incarcerated ventral hernia POD#1 s/p robotic ventral hernia repair with mesh No cardiac events noted Hemodynamically stable Plan: Regular Diet PO pain control DVT PPX with HSQ Physical therapy eval Incentive spirometer Objective - Vital Signs/Intake and Output Vital Signs (last 24 hours): Temp Pulse Resp BP Pulse Ox 97.9 F 78 20 128/68 99 05/14/18 08:24 05/14/18 08:24 05/14/18 08:24 05/14/18 08:24 05/14/18 08:24 Intake and Output: 05/14/18 05/14/18 06:59 18:59 Intake Total 3240 Output Total 375 Balance 2865 - Medications Medications: Current Medications Docusate Sodium (Colace) 100 mg PO TID [facility] Last Admin: 05/14/18 09:25 Dose: 100 mg Gabapentin (Neurontin) 100 mg PO TID [facility] Last Admin: 05/14/18 09:25 Dose: 100 mg Heparin Sodium (Porcine) (Heparin) 5,000 units SC Q8 [facility] Last Admin: 05/14/18 05:19 Dose: 5,000 units Hydralazine HCl (Apresoline) 50 mg PO Q8 [facility] Last Admin: 05/14/18 05:18 Dose: 50 mg Hydromorphone HCl (Dilaudid) 0.5 mg IVP Q5M PRN PRN Reason: Pain, moderate (4-7) Last Admin: 05/12/18 17:35 Dose: 0.5 mg Sodium Chloride (Sodium Chloride 0.9%) 1,000 mls @ 100 mls/hr IV .Q10H [facility] Last Admin: 05/13/18 22:06 Dose: 100 mls/hr Insulin Aspart (Novolog) 0 unit SC ACHS [facility]; Protocol Last Admin: 05/14/18 07:23 Dose: Not Given Magnesium Hydroxide (Milk Of Magnesia) 30 ml PO DAILY [facility] Last Admin: 05/14/18 09:25 Dose: 30 ml Ondansetron HCl (Zofran Inj) 4 mg IVP Q6H PRN PRN Reason: nausea and vomiting Last Admin: 05/12/18 19:58 Dose: 4 mg Ondansetron HCl (Zofran Inj) 4 mg IVP DAILY@ONCE PRN PRN Reason: nausea Oxycodone/Acetaminophen (Percocet 5/325 Mg Tab) 1 tab PO Q4H PRN PRN Reason: Pain, moderate (4-7) Stop: 05/16/18 10:40 Last Admin: 05/13/18 12:05 Dose: 1 tab Pantoprazole Sodium (Protonix Ec Tab) 20 mg PO DAILY [facility] Last Admin: 05/14/18 09:25 Dose: 20 mg Rosuvastatin Calcium (Crestor) 10 mg PO HS [facility] Last Admin: 05/13/18 22:00 Dose: 10 mg Sitagliptin Phosphate (Januvia) 25 mg PO DAILY [facility] Last Admin: 05/14/18 09:25 Dose: 25 mg - Labs Labs: 05/13/18 07:12 05/13/18 07:12 PT 12.2 SECONDS (9.7-12.2) 05/12/18 07:28 INR 1.1 05/12/18 07:28 APTT 27 SECONDS (21-34) 05/12/18 07:28
--- NOTE | 2018-05-14 12:10 | PN ---
DATE: 05/14/2018 SUBJECTIVE: The patient is postop day #1. She is awake, alert. She has postop pain. No shortness of breath. No chest pain. Being seen by Cardiology. PHYSICAL EXAMINATION: VITAL SIGNS: Blood pressure 168/80, pulse 74, respiratory rate 20, temperature 98. LUNGS: Bilateral scattered rales. CVS: S1, S2 plus S4 positive. ABDOMEN: Soft, nontender. Bowel sounds are positive. ASSESSMENT: 1. Large ventral hernia status post repair. 2. Chronic kidney disease, not on hemodialysis. 3. Uncontrolled hypertension. 4. Type 2 diabetes, on medications. PLAN: Postop care. Monitor the patient. Physical therapy. Rehab. Toby Rich MD
[2018-05-14] MEDS: Oxycodone/Acetaminophen 5/325 mg Tab PO PRN ×2 (12:31→16:31)
--- NOTE | 2018-05-14 16:36 | CP.PCM.PN ---
<Ashley Crawford - Last Filed: 05/14/18 16:38> Subjective - Date & Time of Evaluation Date of Evaluation: 05/14/18 Time of Evaluation: 09:35 - Subjective Subjective: GENERAL SURGERY PROGRESS NOTE FOR DR. ROTHMAN Patient seen and examined at bedside. Overnight, pt had Marquez placed for decreased urine output. Given 1L bolus and IV fluids increased to NS@100. She states that she felt a little dizzy and has decreased appetite. She had some nausea but no vomiting. She had a BM yesterday. Objective - Vital Signs/Intake and Output Vital Signs (last 24 hours): Temp Pulse Resp BP Pulse Ox 98.0 F 78 20 148/77 99 05/14/18 15:22 05/14/18 15:22 05/14/18 15:22 05/14/18 15:22 05/14/18 15:22 Intake and Output: 05/14/18 05/14/18 06:59 18:59 Intake Total 3240 1200 Output Total 375 200 Balance 2865 1000 - Medications Medications: Current Medications Docusate Sodium (Colace) 100 mg PO TID [facility] Last Admin: 05/14/18 13:36 Dose: 100 mg Gabapentin (Neurontin) 100 mg PO TID [facility] Last Admin: 05/14/18 13:36 Dose: 100 mg Heparin Sodium (Porcine) (Heparin) 5,000 units SC Q8 [facility] Last Admin: 05/14/18 13:36 Dose: 5,000 units Hydralazine HCl (Apresoline) 50 mg PO Q8 [facility] Last Admin: 05/14/18 13:36 Dose: 50 mg Hydromorphone HCl (Dilaudid) 0.5 mg IVP Q5M PRN PRN Reason: Pain, moderate (4-7) Last Admin: 05/12/18 17:35 Dose: 0.5 mg Sodium Chloride (Sodium Chloride 0.9%) 1,000 mls @ 100 mls/hr IV .Q10H [facility] Last Admin: 05/14/18 08:49 Dose: Not Given Insulin Aspart (Novolog) 0 unit SC [facility]; Protocol Last Admin: 05/14/18 12:30 Dose: 1 units Magnesium Hydroxide (Milk Of Magnesia) 30 ml PO DAILY [facility] Last Admin: 05/14/18 09:25 Dose: 30 ml Ondansetron HCl (Zofran Inj) 4 mg IVP Q6H PRN PRN Reason: nausea and vomiting Last Admin: 05/12/18 19:58 Dose: 4 mg Ondansetron HCl (Zofran Inj) 4 mg IVP DAILY@ONCE PRN PRN Reason: nausea Oxycodone/Acetaminophen (Percocet 5/325 Mg Tab) 1 tab PO Q4H PRN PRN Reason: Pain, moderate (4-7) Stop: 05/16/18 10:40 Last Admin: 05/14/18 12:31 Dose: 1 tab Pantoprazole Sodium (Protonix Ec Tab) 20 mg PO DAILY [facility] Last Admin: 05/14/18 09:25 Dose: 20 mg Rosuvastatin Calcium (Crestor) 10 mg PO HS [facility] Last Admin: 05/13/18 22:00 Dose: 10 mg Sitagliptin Phosphate (Januvia) 25 mg PO DAILY [facility] Last Admin: 05/14/18 09:25 Dose: 25 mg - Labs Labs: 05/13/18 07:12 05/13/18 07:12 PT 12.2 SECONDS (9.7-12.2) 05/12/18 07:28 INR 1.1 05/12/18 07:28 APTT 27 SECONDS (21-34) 05/12/18 07:28 Assessment and Plan - Assessment and Plan (Free Text) Assessment: 83yo F with PMHx of CKD, HTN, DM who had robotic ventral hernia repair POD#2 - Urine output improved s/p bolus & IVF @100 but still decreased (25cc/hr over past shift). Pt w/ hx of CKD, recommend renal consult - PT re-ordered post op - Encourage ambulation and IS - No further surgical intervention necessary - Avoid heavy lifting for 4 weeks - Leave dressings on for 5 days post op. After that, may remove top dressings. Leave white steri strips in place, they will fall off on their own over time. - May shower after dressings removed but do not take a bath - Follow up with Dr. Rothman in his office in 1-2 weeks. Call to make ap pointment - Discussed plan with Dr. Lori Crawford PGY-4 <Rick Rothman - Last Filed: 05/17/18 15:24> Objective - Vital Signs/Intake and Output Vital Signs (last 24 hours): Temp Pulse Resp BP Pulse Ox 98.2 F 60 20 152/78 H 100 05/17/18 07:15 05/17/18 07:15 05/17/18 07:15 05/17/18 10:26 05/17/18 07:15 Intake and Output: 05/17/18 05/17/18 06:59 18:59 Intake Total 2200 Output Total 300 100 Balance 1900 -100 - Medications Medications: Current Medications Ergocalciferol (Drisdol 50,000 Intl Units Cap) 1 cap PO Q7D [facility] Last Admin: 05/17/18 13:59 Dose: 1 cap Gabapentin (Neurontin) 100 mg PO TID [facility] Last Admin: 05/17/18 13:56 Dose: 100 mg Guaifenesin (Robitussin) 200 mg PO Q4H PRN PRN Reason: Cough and congestion Heparin Sodium (Porcine) (Heparin) 5,000 units SC Q8 [facility] Last Admin: 05/17/18 13:59 Dose: 5,000 units Hydralazine HCl (Apresoline) 50 mg PO Q8 [facility] Last Admin: 05/17/18 06:25 Dose: 50 mg Ferric Sodium Gluconate Complex 125 mg/ Sodium Chloride 110 mls @ 110 mls/hr IVPB DAILY [facility] Stop: 05/23/18 12:01 Last Admin: 05/17/18 13:00 Dose: 110 mls/hr Sodium Chloride (Sodium Chloride 0.9%) 1,000 mls @ 30 mls/hr IV .Q24H [facility] Insulin Aspart (Novolog) 0 unit SC ACHS [facility]; Protocol Last Admin: 05/17/18 12:58 Dose: 1 units Lactulose (Enulose) 20 gm PO BID PRN PRN Reason: Constipation Metoprolol Tartrate (Lopressor) 25 mg PO BID [facility] Last Admin: 05/17/18 10:26 Dose: 25 mg Ondansetron HCl (Zofran Inj) 4 mg IVP Q6H PRN PRN Reason: nausea and vomiting Last Admin: 05/15/18 00:02 Dose: 4 mg Ondansetron HCl (Zofran Inj) 4 mg IVP DAILY@ONCE PRN PRN Reason: nausea Pantoprazole Sodium (Protonix Ec Tab) 20 mg PO DAILY [facility] Last Admin: 05/17/18 10:26 Dose: 20 mg Rosuvastatin Calcium (Crestor) 10 mg PO HS [facility] Last Admin: 05/16/18 23:02 Dose: 10 mg Senna/Docusate Sodium (Senokot S 50 Mg-8.6 Mg) 1 tab PO DAILY [facility] Last Admin: 05/17/18 10:25 Dose: 1 tab Sitagliptin Phosphate (Januvia) 25 mg PO DAILY [facility] Last Admin: 05/17/18 10:25 Dose: 25 mg Sodium Bicarbonate (Sodium Bicarbonate Tab) 1,300 mg PO TID [facility] Last Admin: 05/17/18 10:27 Dose: 1,300 mg Vitamin B Complex/Vit C/Folic Acid (Nephro-Naman) 1 tab PO 0800 [facility] Last Admin: 05/17/18 10:25 Dose: 1 tab - Labs Labs: 05/16/18 12:14 05/16/18 12:14 PT 12.2 SECONDS (9.7-12.2) 05/12/18 07:28 INR 1.1 05/12/18 07:28 APTT 27 SECONDS (21-34) 05/12/18 07:28 Attending/Attestation - Attestation I have personally seen and examined this patient.: Yes I have fully participated in the care of the patient.: Yes I have reviewed all pertinent clinical information, including history, physical exam and plan: Yes Notes (Text): Pt was seen and examined at bedside Agree with above note and assessment Pt is stable clinically Advanced diet as tolerated cmarino hernandez mx DC Plan Plan d.w pt in detail Risk and benefit explained in detail.
[2018-05-14 16:55] LABS: BASO # 0.1 K/uL (0.0-0.2); BASO % 0.9 % (0.0-2.0); EOS # 0.3 K/uL (0.0-0.7); EOS % 2.1 % (0.0-4.0); LYMPH # 0.9 K/uL (1.0-4.3); LYMPH % 6.5 % (20.0-40.0); MEAN CELL VOLUME 81.4 fL (81.0-99.0); MEAN CORPUSCULAR HEMOGLOBIN 25.7 pg (27.0-31.0); MEAN CORPUSCULAR HGB CONC 31.6 g/dL (33.0-37.0); MEAN PLATELET VOLUME 10.7 fL (7.2-11.7); MONO # 1.3 K/uL (0.0-0.8); MONO % 9.4 % (0.0-10.0); NEUT # 11.4 K/uL (1.8-7.0); NEUT % 81.1 % (50.0-75.0); NRBC % 0.1 % (0.0-2.0); PLATELET COUNT 204 K/uL (130-400); RBC 3.51 Mil/uL (3.80-5.20); RED CELL DISTRIBUTION WIDTH 14.5 % (11.5-14.5)
[2018-05-14 18:40] LABS: HYPOCHROMIC SLIGHT; LARGE PLATELETS PRESENT; LYMPHOCYTE 6 % (20-40); MICROCYTOSIS SLIGHT; MONOCYTE 3 % (0-10); NEUTROPHIL 91 % (50-75); PLATELET ESTIMATE NORMAL (NORMAL); TOTAL CELLS COUNTED 100
--- NOTE | 2018-05-14 21:16 | CP.PCM.PN ---
Subjective - Subjective Subjective: dictated Objective - Vital Signs/Intake and Output Vital Signs (last 24 hours): Temp Pulse Resp BP Pulse Ox 98.0 F 78 20 148/77 99 05/14/18 15:22 05/14/18 15:22 05/14/18 15:22 05/14/18 15:22 05/14/18 15:22 Intake and Output: 05/14/18 05/15/18 18:59 06:59 Intake Total 1200 Output Total 200 Balance 1000 - Medications Medications: Current Medications Docusate Sodium (Colace) 100 mg PO TID [facility] Last Admin: 05/14/18 18:13 Dose: 100 mg Gabapentin (Neurontin) 100 mg PO TID [facility] Last Admin: 05/14/18 18:13 Dose: 100 mg Heparin Sodium (Porcine) (Heparin) 5,000 units SC Q8 [facility] Last Admin: 05/14/18 13:36 Dose: 5,000 units Hydralazine HCl (Apresoline) 50 mg PO Q8 [facility] Last Admin: 05/14/18 13:36 Dose: 50 mg Sodium Chloride (Sodium Chloride 0.9%) 1,000 mls @ 100 mls/hr IV .Q10H [facility] Last Admin: 05/14/18 16:34 Dose: 100 mls/hr Insulin Aspart (Novolog) 0 unit SC ACHS [facility]; Protocol Last Admin: 05/14/18 18:14 Dose: 1 units Magnesium Hydroxide (Milk Of Magnesia) 30 ml PO DAILY [facility] Last Admin: 05/14/18 09:25 Dose: 30 ml Ondansetron HCl (Zofran Inj) 4 mg IVP Q6H PRN PRN Reason: nausea and vomiting Last Admin: 05/12/18 19:58 Dose: 4 mg Ondansetron HCl (Zofran Inj) 4 mg IVP DAILY@ONCE PRN PRN Reason: nausea Oxycodone/Acetaminophen (Percocet 5/325 Mg Tab) 1 tab PO Q4H PRN PRN Reason: Pain, moderate (4-7) Stop: 05/16/18 10:40 Last Admin: 05/14/18 16:31 Dose: 1 tab Pantoprazole Sodium (Protonix Ec Tab) 20 mg PO DAILY [facility] Last Admin: 05/14/18 09:25 Dose: 20 mg Rosuvastatin Calcium (Crestor) 10 mg PO HS [facility] Last Admin: 05/13/18 22:00 Dose: 10 mg Sitagliptin Phosphate (Januvia) 25 mg PO DAILY [facility] Last Admin: 05/14/18 09:25 Dose: 25 mg - Labs Labs: 05/14/18 16:50 05/14/18 16:50 PT 12.2 SECONDS (9.7-12.2) 05/12/18 07:28 INR 1.1 05/12/18 07:28 APTT 27 SECONDS (21-34) 05/12/18 07:28 Assessment and Plan (1) Abdominal pain of multiple sites Status: Acute (2) Renal insufficiency Status: Chronic (3) CHF (congestive heart failure) Status: Chronic (4) Hypertensive urgency Status: Acute
--- NOTE | 2018-05-14 23:57 | CP.PCM.PN ---
Subjective - Date & Time of Evaluation Date of Evaluation: 05/14/18 Time of Evaluation: 16:20 - Subjective Subjective: Patient seen and examined at bedside. Denies chest pain and dyspnea Physical Examination HEEN: NC/AT CVA: S1 and S2 regular RS: CTA b/l Abd: BS + EXT: No edema Assessment and Plan - Assessment and Plan (Free Text) Assessment: 83yo F with PMHx of CKD, HTN, DM who had robotic ventral hernia repair POD#2 - Urine output improved s/p bolus & IVF @100 but still decreased (25cc/hr over past shift). Pt w/ hx of CKD, recommend renal consult - PT re-ordered post op - Encourage ambulation and IS - No further surgical intervention necessary - Avoid heavy lifting for 4 weeks - Leave dressings on for 5 days post op. After that, may remove top dressings. Leave white steri strips in place, they will fall off on their own over time. - May shower after dressings removed but do not take a bath - Vital Signs/Intake and Output Vital Signs (last 24 hours): Temp Pulse Resp BP Pulse Ox 98.0 F 78 20 148/77 99 05/14/18 15:22 05/14/18 15:22 05/14/18 15:22 05/14/18 15:22 05/14/18 15:22 Intake and Output: 05/14/18 05/14/18 06:59 18:59 Intake Total 3240 1200 Output Total 375 200 Balance 2865 1000 - Medications Medications: Current Medications Docusate Sodium (Colace) 100 mg PO TID [facility] Last Admin: 05/14/18 13:36 Dose: 100 mg Gabapentin (Neurontin) 100 mg PO TID [facility] Last Admin: 05/14/18 13:36 Dose: 100 mg Heparin Sodium (Porcine) (Heparin) 5,000 units SC Q8 [facility] Last Admin: 05/14/18 13:36 Dose: 5,000 units Hydralazine HCl (Apresoline) 50 mg PO Q8 [facility] Last Admin: 05/14/18 13:36 Dose: 50 mg Hydromorphone HCl (Dilaudid) 0.5 mg IVP Q5M PRN PRN Reason: Pain, moderate (4-7) Last Admin: 05/12/18 17:35 Dose: 0.5 mg Sodium Chloride (Sodium Chloride 0.9%) 1,000 mls @ 100 mls/hr IV .Q10H [facility] Last Admin: 05/14/18 08:49 Dose: Not Given Insulin Aspart (Novolog) 0 unit SC ACHS [facility]; Protocol Last Admin: 05/14/18 12:30 Dose: 1 units Magnesium Hydroxide (Milk Of Magnesia) 30 ml PO DAILY [facility] Last Admin: 05/14/18 09:25 Dose: 30 ml Ondansetron HCl (Zofran Inj) 4 mg IVP Q6H PRN PRN Reason: nausea and vomiting Last Admin: 05/12/18 19:58 Dose: 4 mg Ondansetron HCl (Zofran Inj) 4 mg IVP DAILY@ONCE PRN PRN Reason: nausea Oxycodone/Acetaminophen (Percocet 5/325 Mg Tab) 1 tab PO Q4H PRN PRN Reason: Pain, moderate (4-7) Stop: 05/16/18 10:40 Last Admin: 05/14/18 12:31 Dose: 1 tab Pantoprazole Sodium (Protonix Ec Tab) 20 mg PO DAILY [facility] Last Admin: 05/14/18 09:25 Dose: 20 mg Rosuvastatin Calcium (Crestor) 10 mg PO HS [facility] Last Admin: 05/13/18 22:00 Dose: 10 mg Sitagliptin Phosphate (Januvia) 25 mg PO DAILY [facility] Last Admin: 05/14/18 09:25 Dose: 25 mg - Labs Labs: 05/13/18 07:12 05/13/18 07:12 PT 12.2 SECONDS (9.7-12.2) 05/12/18 07:28 INR 1.1 05/12/18 07:28 APTT 27 SECONDS (21-34) 05/12/18 07:28 Objective - Vital Signs/Intake and Output Vital Signs (last 24 hours): Temp Pulse Resp BP Pulse Ox 98.5 F 85 20 172/75 H 100 05/14/18 22:09 05/14/18 22:09 05/14/18 22:09 05/14/18 22:09 05/14/18 22:09 Intake and Output: 05/14/18 05/15/18 18:59 06:59 Intake Total 1200 Output Total 200 Balance 1000 - Medications Medications: Current Medications Docusate Sodium (Colace) 100 mg PO TID [facility] Last Admin: 05/14/18 18:13 Dose: 100 mg Gabapentin (Neurontin) 100 mg PO TID [facility] Last Admin: 05/14/18 18:13 Dose: 100 mg Heparin Sodium (Porcine) (Heparin) 5,000 units SC Q8 [facility] Last Admin: 05/14/18 22:11 Dose: 5,000 units Hydralazine HCl (Apresoline) 50 mg PO Q8 [facility] Last Admin: 05/14/18 22:10 Dose: 50 mg Sodium Chloride (Sodium Chloride 0.9%) 1,000 mls @ 100 mls/hr IV .Q10H [facility] Last Admin: 05/14/18 18:00 Dose: Not Given Insulin Aspart (Novolog) 0 unit SC ACHS [facility]; Protocol Last Admin: 05/14/18 22:11 Dose: Not Given Magnesium Hydroxide (Milk Of Magnesia) 30 ml PO DAILY [facility] Last Admin: 05/14/18 09:25 Dose: 30 ml Ondansetron HCl (Zofran Inj) 4 mg IVP Q6H PRN PRN Reason: nausea and vomiting Last Admin: 05/12/18 19:58 Dose: 4 mg Ondansetron HCl (Zofran Inj) 4 mg IVP DAILY@ONCE PRN PRN Reason: nausea Oxycodone/Acetaminophen (Percocet 5/325 Mg Tab) 1 tab PO Q4H PRN PRN Reason: Pain, moderate (4-7) Stop: 05/16/18 10:40 Last Admin: 05/14/18 16:31 Dose: 1 tab Pantoprazole Sodium (Protonix Ec Tab) 20 mg PO DAILY [facility] Last Admin: 05/14/18 09:25 Dose: 20 mg Rosuvastatin Calcium (Crestor) 10 mg PO HS [facility] Last Admin: 05/14/18 22:10 Dose: 10 mg Sitagliptin Phosphate (Januvia) 25 mg PO DAILY [facility] Last Admin: 05/14/18 09:25 Dose: 25 mg - Labs Labs: 05/14/18 16:50 05/14/18 16:50 PT 12.2 SECONDS (9.7-12.2) 05/12/18 07:28 INR 1.1 05/12/18 07:28 APTT 27 SECONDS (21-34) 05/12/18 07:28
[2018-05-15] MEDS: Sodium Chloride 0.9% 1,000 ML IV SCH ×2 (02:09→15:30)
--- NOTE | 2018-05-15 03:13 | PN ---
DATE: 05/14/2018 SUBJECTIVE: The patient, Salvatore, has slightly decreased urine output. The patient is afebrile. No shortness of breath. No chest pain. She is eating partially. No fever. No chills. Status post surgery. PHYSICAL EXAMINATION: VITAL SIGNS: Blood pressure 172/75, pulse 85, respiratory rate 20, and temperature 98.5. LUNGS: Clear. No rales. No rhonchi. CARDIOVASCULAR SYSTEM: S1 and S2, plus S4 positive. ABDOMEN: Postop bowel sounds are normal, active, and present. ASSESSMENT: 1. Ventral hernia, status post repair. 2. Urinary tract infection. 3. Type 2 diabetes. 4. Chronic kidney disease. 5. Hypertension. PLAN: We will monitor the patient's urine output. We will continue IV fluids as 100 mL/hr. We will repeat the labs, and if needed, nephrology consult. In the meantime, monitor the patient. Toby Rich MD
[2018-05-15] MEDS: (Novolog) Insulin Aspart, Recombinant 100 u/ml 10 ml vial SC SCH ×4 (07:45→22:33)
[2018-05-15 08:17] LABS: BASO # 0.1 K/uL (0.0-0.2); BASO % 0.8 % (0.0-2.0); EOS # 0.3 K/uL (0.0-0.7); EOS % 2.7 % (0.0-4.0); HEMOGLOBIN 8.8 g/dL (11.0-16.0); LYMPH # 1.1 K/uL (1.0-4.3); LYMPH % 8.5 % (20.0-40.0); MEAN CELL VOLUME 82.5 fL (81.0-99.0); MEAN CORPUSCULAR HEMOGLOBIN 26.4 pg (27.0-31.0); MEAN PLATELET VOLUME 10.5 fL (7.2-11.7); MONO # 1.1 K/uL (0.0-0.8); MONO % 8.4 % (0.0-10.0); NEUT # 10.1 K/uL (1.8-7.0); NEUT % 79.6 % (50.0-75.0); PLATELET COUNT 190 K/uL (130-400); RBC 3.33 Mil/uL (3.80-5.20); RED CELL DISTRIBUTION WIDTH 14.4 % (11.5-14.5); WHITE BLOOD COUNT 12.7 K/uL (4.8-10.8)
[2018-05-15 08:45] LABS: CALCIUM 8.3 mg/dl (8.6-10.4)
[2018-05-15] MEDS: Pantoprazole 20 mg EC Tab PO SCH (09:07)
[2018-05-15] MEDS: Oxycodone/Acetaminophen 5/325 mg Tab PO PRN (09:07)
[2018-05-15] MEDS: Magnesium Hydroxide Susp 30 ml UD PO SCH (10:00)
[2018-05-15 11:17] LABS: EOSINOPHIL 1 % (0-4); LYMPHOCYTE 8 % (20-40); MONOCYTE 3 % (0-10); NEUTROPHIL 88 % (50-75); TOTAL CELLS COUNTED 100
[2018-05-15 11:18] LABS: HYPOCHROMIC SLIGHT; PLATELET ESTIMATE NORMAL (NORMAL); POLYCHROMIC SLIGHT
--- NOTE | 2018-05-15 17:07 | CP.PCM.CON ---
History of Present Illness - History of Present Illness History of Present Illness: Nephrology Consultation Note: Assessment: Stable decreased UOP ? due to HEYDI/pre-renal versus card catheter related issues Diabetic chronic Kidney Disease (E11.22) Hypertensive Chronic Kidney Disease (I12.9) Chronic Kidney Disease (N18.4) Stage 4 with ? mg proteinuria (R80.9) with b/l atrophic kidneys likely due to DM/HTN/age related nephrosclerosis Anemia (D64.9) morbid obesity, mild hyperkalemia and metabolic acidosis hyponatremia with RLL mass ventral hernia s/p repair Plan No acute need for renal replacement therapy at this time. Hypertension control with meds as ordered. Maintain hemodynamics stable. Avoid hypotension. Patient not on ACEI/ARB due to advanced CKD and K on higher side. continue with hydralazine. added lopressor. Monitor Input/Output, daily weights and renal function with basic metabolic panel will give IV iron and start nephrovite daily. defer use of LOUISE considering RLL lung mass. PRBC as needed started sodium bicarb 1300 mg bid continue with IVF asked RN to flush and/or reposition card. if UOP remains low with stable cr, then will probably better d/c card to r/o card related mechanical issues consider to avoid magnesium based laxatives as can lead to hypermagnesemia in CKD. also to avoid Fleet enema pulmonary following for RLL mass Check urine analysis, spot protein/creatinine, albumin/creatinine ratio, uric acid, urine Na/Cr/Osmol Check for 25-OH vitamin D, iPTH, phosphorus level. Dose meds/antibiotics for reduced GFR. Avoid fleets enema/magnesium based laxatives. Avoid nephrotoxins/NSAIDs/ iodinated contrast (unless needed emergently) Glycemic control Further work up/management as per primary team Thanks for allowing me to participate in care of your patient. Will follow patient with you. Please call if any Qs. had d/w team Dr Saturnino Askew Office: [phone] Chief Complaint; abdomen surgery Reason for consult: CKD and decreased UOP HPI: Pt is a 83 F with hx of diabetes Mellitus ( years), hypertension (years) CKD 4 with baseline cr 2.4 morbid obesity anemia and RLL mass presented with complaints of abdomen pain and underwent ventral hernia repair Denies OTC/herbal meds or NSAIDs No recent iodinated contrast exposure. No obvious episodes of low BP. renal consult for CKD management. also noted to have decreased UOP> has card. pt aware about ckd x 1 year ROS: Cardiovascular: No chest pain. Pulmonary: No shortness of breath Gastrointestinal: denies abdominal pain No nausea. No vomiting. Genitourinary: No pain while urinating. Denies blood in urine. All other negative except as mentioned in HPI Physical Examination: General Appearance: Comfortable, in no acute respiratory distress, co-operative . obese Vitals reviewed and noted as below Head; Atraumatic, normocephalic ENT: no ulcers no thrush. Tongue is midline. Oropharynx: no rash or ulcers. EYES: Pupils are equal, round and reactive to light accommodation. Eye muscles and extraocular movement intact. Sclera is anicteric. Neck; supple no lymphadenopathy, no thyromegaly or bruit Lungs: Normal respiratory rate/effort. Breath sounds bilateral equal and clear Heart: Normal rate. s1s2 normal. No rub or gallop. Extremities: 1+ edema. No varicose veins Neurological: Patient is alert, awake and oriented to person, place and time. No focal deficit. Strength bilateral appropriate and equal Skin: Warm and dry. Normal turgor. No rash. Palpitation: Normal elasticity for age Abdomen: Abdomen is soft. Bowel sounds +. There is no abdominal tenderness, no guarding/rigidity no organomegaly. has binder + exam limited Psych: normal insight and normal affect/mood MSK: no joint tenderness or swelling. Digits and nails normal, no deformity : kidney or bladder not palpable Labs/imaging reviewed. Past medical history, past surgical history, family history, social history, allergy reviewed and noted as below Family hx: no hx of CKD. Rest non-contributory Past Patient History - Infectious Disease Hx of Infectious Diseases: None - Past Medical History & Family History Past Medical History?: Yes - Past Social History Smoking Status: Former Smoker Alcohol: None Drugs: Denies - CARDIAC Hx Cardiac Disorders: Yes Hx Hypercholesterolemia: Yes Hx Hypertension: Yes - PULMONARY Hx Respiratory Disorders: No - NEUROLOGICAL Hx Neurological Disorder: No - HEENT Hx HEENT Problems: No - RENAL Hx Chronic Kidney Disease: No - ENDOCRINE/METABOLIC Hx Diabetes Mellitus Type 2: Yes - HEMATOLOGICAL/ONCOLOGICAL Hx Blood Disorders: No Hx Cirrhosis: No Hx Hepatitis A: No Hx Hepatitis B: No Hx Hepatitis C: No Hx Human Immunodeficiency Virus (HIV): No - MUSCULOSKELETAL/RHEUMATOLOGICAL Hx Falls: Yes - GASTROINTESTINAL Hx Gastrointestinal Disorders: No Hx Clostridium Difficile: No Hx Colitis: No Hx Constipation: Yes Hx Crohn's Disease: No Hx Diarrhea: No Hx Diverticulitis: No Hx Esophageal Varices: No Hx Fatty Liver Disease: No Hx Gall Bladder Disease: No Hx Gastritis: No Hx Gastroesophageal Reflux: No Hx Hemorrhoids: Yes Hx Ileostomy: No Hx Irritable Bowel: No Hx Liver Failure: No Hx Nausea: No Hx Pancreatitis: No HX Swallowing Problems: No Hx Ulcer: No Hx Vomiting: No - GENITOURINARY/GYNECOLOGICAL Hx Genitourinary Disorders: No - PSYCHIATRIC Hx Substance Use: No - SURGICAL HISTORY Hx Surgeries: Yes Hx Cholecystectomy: Yes (over 10 yrs. ago) - ANESTHESIA Hx Anesthesia: Yes Hx Anesthesia Reactions: No Meds Allergies/Adverse Reactions: Allergies Allergy/AdvReac Type Severity Reaction Status Date / Time No Known Allergies Allergy Verified 04/21/18 19:41 - Medications Medications: Current Medications Docusate Sodium (Colace) 100 mg PO TID [facility] Last Admin: 05/15/18 14:09 Dose: 100 mg Ferric Sodium Gluconate Complex (Ferrlecit) 125 mg IVPB DAILY [facility] Stop: 05/23/18 16:16 Gabapentin (Neurontin) 100 mg PO TID [facility] Last Admin: 05/15/18 14:08 Dose: 100 mg Heparin Sodium (Porcine) (Heparin) 5,000 units SC Q8 [facility] Last Admin: 05/15/18 14:09 Dose: 5,000 units Hydralazine HCl (Apresoline) 50 mg PO Q8 [facility] Last Admin: 05/15/18 14:08 Dose: 50 mg Sodium Chloride (Sodium Chloride 0.9%) 1,000 mls @ 100 mls/hr IV .Q10H [facility] Last Admin: 05/15/18 15:30 Dose: 100 mls/hr Insulin Aspart (Novolog) 0 unit SC [facility]; Protocol Last Admin: 05/15/18 12:00 Dose: Not Given Magnesium Hydroxide (Milk Of Magnesia) 30 ml PO DAILY [facility] Last Admin: 05/15/18 10:00 Dose: 30 ml Ondansetron HCl (Zofran Inj) 4 mg IVP Q6H PRN PRN Reason: nausea and vomiting Last Admin: 05/15/18 00:02 Dose: 4 mg Ondansetron HCl (Zofran Inj) 4 mg IVP DAILY@ONCE PRN PRN Reason: nausea Oxycodone/Acetaminophen (Percocet 5/325 Mg Tab) 1 tab PO Q4H PRN PRN Reason: Pain, moderate (4-7) Stop: 05/16/18 10:40 Last Admin: 05/15/18 09:07 Dose: 1 tab Pantoprazole Sodium (Protonix Ec Tab) 20 mg PO DAILY [facility] Last Admin: 05/15/18 09:07 Dose: 20 mg Rosuvastatin Calcium (Crestor) 10 mg PO HS [facility] Last Admin: 05/14/18 22:10 Dose: 10 mg Sitagliptin Phosphate (Januvia) 25 mg PO DAILY [facility] Last Admin: 05/15/18 09:07 Dose: 25 mg Sodium Bicarbonate (Sodium Bicarbonate Tab) 1,300 mg PO BID [facility] Results - Vital Signs Recent Vital Signs: Last Vital Signs Temp 97.8 F 05/15/18 12:00 Pulse 84 05/15/18 12:00 Resp 20 05/15/18 12:00 BP 149/70 05/15/18 12:00 Pulse Ox 99 05/15/18 12:00 - Labs Result Diagrams: 05/15/18 08:06 05/15/18 08:06 Labs: Laboratory Results - last 24 hr 05/14/18 05/14/18 05/14/18 16:50 16:50 16:58 WBC 14.0 H RBC 3.51 L Hgb 9.0 L Hct 28.5 L MCV 81.4 MCH 25.7 L MCHC 31.6 L RDW 14.5 Plt Count 204 MPV 10.7 Neut % (Auto) 81.1 H Lymph % (Auto) 6.5 L [place] % (Auto) 9.4 Eos % (Auto) 2.1 Baso % (Auto) 0.9 Neut # (Auto) 11.4 H Lymph # (Auto) 0.9 L [place] # (Auto) 1.3 H Eos # (Auto) 0.3 Baso # (Auto) 0.1 Neutrophils % (Manual) 91 H Lymphocytes % (Manual) 6 L Monocytes % (Manual) 3 Eosinophils % (Manual) Platelet Estimate Normal Large Platelets Present Polychromasia Hypochromasia (manual) Slight Microcytosis (manual) Slight Sodium 128 L Potassium 5.2 Chloride 101 Carbon Dioxide 17 L Anion Gap 15 BUN 26 H Creatinine 2.5 H Est GFR ( Amer) 22 Est GFR (Non-Af Amer) 18 POC Glucose (mg/dL) 169 H Random Glucose 181 H Calcium 8.0 L 05/14/18 05/15/18 05/15/18 21:38 06:41 08:06 WBC 12.7 H RBC 3.33 L Hgb 8.8 L Hct 27.5 L MCV 82.5 MCH 26.4 L MCHC 32.0 L RDW 14.4 Plt Count 190 MPV 10.5 Neut % (Auto) 79.6 H Lymph % (Auto) 8.5 L [place] % (Auto) 8.4 Eos % (Auto) 2.7 Baso % (Auto) 0.8 Neut # (Auto) 10.1 H Lymph # (Auto) 1.1 [place] # (Auto) 1.1 H Eos # (Auto) 0.3 Baso # (Auto) 0.1 Neutrophils % (Manual) 88 H Lymphocytes % (Manual) 8 L Monocytes % (Manual) 3 Eosinophils % (Manual) 1 Platelet Estimate Normal Large Platelets Polychromasia Slight Hypochromasia (manual) Slight Microcytosis (manual) Sodium Potassium Chloride Carbon Dioxide Anion Gap BUN Creatinine Est GFR ( Amer) Est GFR (Non-Af Amer) POC Glucose (mg/dL) 135 H 123 H Random Glucose Calcium 05/15/18 05/15/18 05/15/18 08:06 11:28 16:50 WBC RBC Hgb Hct MCV MCH MCHC RDW Plt Count MPV Neut % (Auto) Lymph % (Auto) [place] % (Auto) Eos % (Auto) Baso % (Auto) Neut # (Auto) Lymph # (Auto) [place] # (Auto) Eos # (Auto) Baso # (Auto) Neutrophils % (Manual) Lymphocytes % (Manual) Monocytes % (Manual) Eosinophils % (Manual) Platelet Estimate Large Platelets Polychromasia Hypochromasia (manual) Microcytosis (manual) Sodium 130 L Potassium 5.3 H Chloride 104 Carbon Dioxide 18 L Anion Gap 12 BUN 26 H Creatinine 2.4 H Est GFR ( Amer) 23 Est GFR (Non-Af Amer) 19 POC Glucose (mg/dL) 163 H 167 H Random Glucose 141 H Calcium 8.3 L
--- NOTE | 2018-05-15 17:32 | CP.PCM.PN ---
Subjective - Date & Time of Evaluation Date of Evaluation: 05/15/18 Time of Evaluation: 09:45 - Subjective Subjective: Patient seen and examined at bedside, sitting comfortably. Afebrile and in no acute distress. S/p hernia repair. States SOB is improving; has occasional cough with white phlegm. Denies chest pain, wheezing, fever. PT will assist with walking around. Objective - Vital Signs/Intake and Output Vital Signs (last 24 hours): Temp Pulse Resp BP Pulse Ox 98.0 F 74 20 165/71 H 98 05/15/18 15:14 05/15/18 15:14 05/15/18 15:14 05/15/18 15:14 05/15/18 15:14 Intake and Output: 05/15/18 05/15/18 06:59 18:59 Intake Total 1750 Output Total 400 Balance 1350 - Medications Medications: Current Medications Docusate Sodium (Colace) 100 mg PO TID [facility] Last Admin: 05/15/18 14:09 Dose: 100 mg Ferric Sodium Gluconate Complex (Ferrlecit) 125 mg IVPB DAILY [facility] Stop: 05/23/18 16:16 Gabapentin (Neurontin) 100 mg PO TID [facility] Last Admin: 05/15/18 14:08 Dose: 100 mg Heparin Sodium (Porcine) (Heparin) 5,000 units SC Q8 [facility] Last Admin: 05/15/18 14:09 Dose: 5,000 units Hydralazine HCl (Apresoline) 50 mg PO Q8 [facility] Last Admin: 05/15/18 14:08 Dose: 50 mg Sodium Chloride (Sodium Chloride 0.9%) 1,000 mls @ 100 mls/hr IV .Q10H [facility] Last Admin: 05/15/18 15:30 Dose: 100 mls/hr Insulin Aspart (Novolog) 0 unit SC ACHS [facility]; Protocol Last Admin: 05/15/18 12:00 Dose: Not Given Magnesium Hydroxide (Milk Of Magnesia) 30 ml PO DAILY [facility] Last Admin: 05/15/18 10:00 Dose: 30 ml Metoprolol Tartrate (Lopressor) 25 mg PO BID [facility] Ondansetron HCl (Zofran Inj) 4 mg IVP Q6H PRN PRN Reason: nausea and vomiting Last Admin: 05/15/18 00:02 Dose: 4 mg Ondansetron HCl (Zofran Inj) 4 mg IVP DAILY@ONCE PRN PRN Reason: nausea Oxycodone/Acetaminophen (Percocet 5/325 Mg Tab) 1 tab PO Q4H PRN PRN Reason: Pain, moderate (4-7) Stop: 05/16/18 10:40 Last Admin: 05/15/18 09:07 Dose: 1 tab Pantoprazole Sodium (Protonix Ec Tab) 20 mg PO DAILY [facility] Last Admin: 05/15/18 09:07 Dose: 20 mg Rosuvastatin Calcium (Crestor) 10 mg PO HS [facility] Last Admin: 05/14/18 22:10 Dose: 10 mg Sitagliptin Phosphate (Januvia) 25 mg PO DAILY [facility] Last Admin: 05/15/18 09:07 Dose: 25 mg Sodium Bicarbonate (Sodium Bicarbonate Tab) 1,300 mg PO BID [facility] Vitamin B Complex/Vit C/Folic Acid (Nephro-Naman) 1 tab PO 0800 [facility] - Labs Labs: 05/15/18 08:06 05/15/18 08:06 PT 12.2 SECONDS (9.7-12.2) 05/12/18 07:28 INR 1.1 05/12/18 07:28 APTT 27 SECONDS (21-34) 05/12/18 07:28 Assessment and Plan (1) Mass of right lung Status: Acute
[2018-05-15] MEDS: Ferric Sodium Gluconat Complex 62.5 mg/5 ml Vial IVPB SCH ×2 (18:00→19:04)
[2018-05-15] MEDS ORDERED: Ferric Sodium Gluconat Complex 125 MG in Sodium Chloride 0.9% 100 ML IVPB SCH (19:00)
[2018-05-16] MEDS: Sodium Chloride 0.9% 1,000 ML IV SCH ×2 (03:45→20:50)
--- NOTE | 2018-05-16 04:36 | PN ---
DATE: 05/15/2018 SUBJECTIVE: The patient has decreased urine output. She is stable. She is afebrile. She is not short of breath. She is on IV fluids. PHYSICAL EXAMINATION: VITAL SIGNS: BP 156/75, pulse 68, respiratory rate 20, temperature 98.3. LUNGS: Bilateral scattered rales. CARDIOVASCULAR SYSTEM: S1, S2 regular. ABDOMEN: Soft. ASSESSMENT: 1. Decreased urine output postop, possible dehydration, could be fluid retention, could be congestive heart failure, but clinically her lungs are clear. 2. Chronic kidney disease. 3. Diabetes. 4. Hypertension. 5. Ventral hernia repair. PLAN: Continue current medications. Monitor the patient. Toby Rich MD
--- NOTE | 2018-05-16 07:29 | CP.PCM.PN ---
Subjective - Date & Time of Evaluation Date of Evaluation: 05/15/18 Time of Evaluation: 19:15 - Subjective Subjective: Patient seen and examined at bedside, sitting comfortably. Afebrile and in no acute distress. S/p hernia repair. States SOB is improving; has occasional cough with white phlegm. Denies chest pain, wheezing, fever. PT will assist with walking around. Physical examination Assessment and Plan (1) Mass of right lung Status: Acute Objective - Vital Signs/Intake and Output Vital Signs (last 24 hours): Temp Pulse Resp BP Pulse Ox 98.6 F 76 20 149/74 98 05/16/18 04:20 05/16/18 06:03 05/16/18 06:03 05/16/18 06:03 05/16/18 06:03 Intake and Output: 05/16/18 05/16/18 06:59 18:59 Intake Total 950 Output Total 300 Balance 650 - Medications Medications: Current Medications Docusate Sodium (Colace) 100 mg PO TID [facility] Last Admin: 05/15/18 18:39 Dose: 100 mg Ferric Sodium Gluconate Complex (Ferrlecit) 125 mg IVPB DAILY [facility] Stop: 05/23/18 16:16 Last Admin: 05/15/18 19:04 Dose: Not Given Gabapentin (Neurontin) 100 mg PO TID [facility] Last Admin: 05/15/18 18:39 Dose: 100 mg Heparin Sodium (Porcine) (Heparin) 5,000 units SC Q8 [facility] Last Admin: 05/16/18 06:05 Dose: 5,000 units Hydralazine HCl (Apresoline) 50 mg PO Q8 [facility] Last Admin: 05/16/18 06:05 Dose: 50 mg Sodium Chloride (Sodium Chloride 0.9%) 1,000 mls @ 100 mls/hr IV .Q10H [facility] Last Admin: 05/16/18 03:45 Dose: 100 mls/hr Ferric Sodium Gluconate Complex 125 mg/ Sodium Chloride 110 mls @ 110 mls/hr IVPB Q24H [facility] Stop: 05/23/18 19:01 Last Admin: 05/15/18 19:01 Dose: 110 mls/hr Insulin Aspart (Novolog) 0 unit SC ACHS [facility]; Protocol Last Admin: 05/15/18 22:33 Dose: Not Given Magnesium Hydroxide (Milk Of Magnesia) 30 ml PO DAILY [facility] Last Admin: 05/15/18 10:00 Dose: 30 ml Metoprolol Tartrate (Lopressor) 25 mg PO BID [facility] Last Admin: 05/15/18 18:38 Dose: 25 mg Ondansetron HCl (Zofran Inj) 4 mg IVP Q6H PRN PRN Reason: nausea and vomiting Last Admin: 05/15/18 00:02 Dose: 4 mg Ondansetron HCl (Zofran Inj) 4 mg IVP DAILY@ONCE PRN PRN Reason: nausea Oxycodone/Acetaminophen (Percocet 5/325 Mg Tab) 1 tab PO Q4H PRN PRN Reason: Pain, moderate (4-7) Stop: 05/16/18 10:40 Last Admin: 05/15/18 09:07 Dose: 1 tab Pantoprazole Sodium (Protonix Ec Tab) 20 mg PO DAILY [facility] Last Admin: 05/15/18 09:07 Dose: 20 mg Rosuvastatin Calcium (Crestor) 10 mg PO HS [facility] Last Admin: 05/15/18 22:32 Dose: 10 mg Sitagliptin Phosphate (Januvia) 25 mg PO DAILY [facility] Last Admin: 05/15/18 09:07 Dose: 25 mg Sodium Bicarbonate (Sodium Bicarbonate Tab) 1,300 mg PO BID [facility] Last Admin: 05/15/18 20:00 Dose: 1,300 mg Vitamin B Complex/Vit C/Folic Acid (Nephro-Naman) 1 tab PO 0800 [facility] - Labs Labs: 05/15/18 08:06 05/15/18 08:06 PT 12.2 SECONDS (9.7-12.2) 05/12/18 07:28 INR 1.1 05/12/18 07:28 APTT 27 SECONDS (21-34) 05/12/18 07:28
[2018-05-16] MEDS: (Novolog) Insulin Aspart, Recombinant 100 u/ml 10 ml vial SC SCH ×4 (08:19→22:39)
[2018-05-16] MEDS: Pantoprazole 20 mg EC Tab PO SCH (09:48)
[2018-05-16] MEDS: Magnesium Hydroxide Susp 30 ml UD PO SCH (09:49)
[2018-05-16] MEDS: Ferric Sodium Gluconat Complex 125 MG in Sodium Chloride 0.9% 100 ML IVPB SCH (11:26)
[2018-05-16 12:32] LABS: BASO # 0.1 K/uL (0.0-0.2); BASO % 0.6 % (0.0-2.0); EOS # 0.3 K/uL (0.0-0.7); EOS % 2.4 % (0.0-4.0); HEMOGLOBIN 9.3 g/dL (11.0-16.0); LYMPH # 0.6 K/uL (1.0-4.3); LYMPH % 4.7 % (20.0-40.0); MEAN CELL VOLUME 82.8 fL (81.0-99.0); MEAN CORPUSCULAR HEMOGLOBIN 26.3 pg (27.0-31.0); MEAN CORPUSCULAR HGB CONC 31.8 g/dL (33.0-37.0); MEAN PLATELET VOLUME 11.1 fL (7.2-11.7); MONO % 7.3 % (0.0-10.0); NEUT # 11.6 K/uL (1.8-7.0); NRBC % 0.1 % (0.0-2.0); PLATELET COUNT 236 K/uL (130-400); RBC 3.54 Mil/uL (3.80-5.20); WHITE BLOOD COUNT 13.7 K/uL (4.8-10.8)
[2018-05-16 13:03] LABS: ALB/GLOB RATIO 0.8 (1.0-2.1); ALBUMIN 2.9 g/dL (3.5-5.0); CALCIUM 8.3 mg/dl (8.6-10.4); URIC ACID 7.8 mg/dL (2.2-7.5)
--- NOTE | 2018-05-16 13:12 | CP.PCM.PN ---
Subjective - Date & Time of Evaluation Date of Evaluation: 05/16/18 Time of Evaluation: 13:11 - Subjective Subjective: Nephrology Consultation Note: Assessment: Stable decreased UOP ? due to HEYDI/pre-renal versus card catheter related issues Diabetic chronic Kidney Disease (E11.22) Hypertensive Chronic Kidney Disease (I12.9) Chronic Kidney Disease (N18.4) Stage 4 with ? mg proteinuria (R80.9) with b/l atrophic kidneys likely due to DM/HTN/age related nephrosclerosis Anemia (D64.9) morbid obesity, mild hyperkalemia and metabolic acidosis hyponatremia with RLL mass ventral hernia s/p repair Plan No acute need for renal replacement therapy at this time. Hypertension control with meds as ordered. Maintain hemodynamics stable. Avoid hypotension. Patient not on ACEI/ARB due to advanced CKD and K on higher side. continue with hydralazine. added lopressor. Monitor Input/Output, daily weights and renal function with basic metabolic panel will give IV iron and start nephrovite daily. defer use of LOUISE considering RLL lung mass. PRBC as needed started sodium bicarb 1300 mg tid continue with IVF consider to avoid magnesium based laxatives as can lead to hypermagnesemia in CKD. also to avoid Fleet enema pulmonary following for RLL mass Low K and Na diet Check urine analysis, spot protein/creatinine, albumin/creatinine ratio, uric acid, urine Na/Cr/Osmol Check for 25-OH vitamin D, iPTH, phosphorus level. Dose meds/antibiotics for reduced GFR. Avoid fleets enema/magnesium based laxatives. Avoid nephrotoxins/NSAIDs/ iodinated contrast (unless needed emergently) Glycemic control Further work up/management as per primary team Thanks for allowing me to participate in care of your patient. Will follow patient with you. Please call if any Qs. had d/w team Dr Saturnino Askew Office: [phone] Chief Complaint; abdomen surgery Reason for consult: CKD and decreased UOP HPI: Pt is a 83 F with hx of diabetes Mellitus ( years), hypertension (years) CKD 4 with baseline cr 2.4 morbid obesity anemia and RLL mass presented with complaints of abdomen pain and underwent ventral hernia repair Denies OTC/herbal meds or NSAIDs No recent iodinated contrast exposure. No obvious episodes of low BP. renal consult for CKD management. also noted to have decreased UOP> has card. pt aware about ckd x 1 year ROS: Cardiovascular: No chest pain. Pulmonary: No shortness of breath Gastrointestinal: c/o abdominal pain No nausea. No vomiting. had BM Genitourinary: No pain while urinating. Denies blood in urine. reports decreased UOP All other negative except as mentioned in HPI Physical Examination: General Appearance: Comfortable, in no acute respiratory distress, co-operative . obese Vitals reviewed and noted as below Head; Atraumatic, normocephalic ENT: no ulcers no thrush. Tongue is midline. Oropharynx: no rash or ulcers. EYES: Pupils are equal, round and reactive to light accommodation. Eye muscles and extraocular movement intact. Sclera is anicteric. Neck; supple no lymphadenopathy, no thyromegaly or bruit Lungs: Normal respiratory rate/effort. Breath sounds bilateral equal and clear Heart: Normal rate. s1s2 normal. No rub or gallop. Extremities: 1+ edema. No varicose veins Neurological: Patient is alert, awake and oriented to person, place and time. No focal deficit. Strength bilateral appropriate and equal Skin: Warm and dry. Normal turgor. No rash. Palpitation: Normal elasticity for age Abdomen: Abdomen is soft. Bowel sounds +. There is no abdominal tenderness, no guarding/rigidity no organomegaly. has binder + exam limited Psych: normal insight and normal affect/mood MSK: no joint tenderness or swelling. Digits and nails normal, no deformity : kidney or bladder not palpable Labs/imaging reviewed. Past medical history, past surgical history, family history, social history, allergy reviewed and noted as below Family hx: no hx of CKD. Rest non-contributory Objective - Vital Signs/Intake and Output Vital Signs (last 24 hours): Temp Pulse Resp BP Pulse Ox 98.3 F 66 20 135/80 97 05/16/18 09:14 05/16/18 09:14 05/16/18 09:14 05/16/18 09:48 05/16/18 09:14 Intake and Output: 05/16/18 05/16/18 06:59 18:59 Intake Total 1750 Output Total 300 Balance 1450 - Medications Medications: Current Medications Gabapentin (Neurontin) 100 mg PO TID [facility] Last Admin: 11/09/18 09:49 Dose: 100 mg Heparin Sodium (Porcine) (Heparin) 5,000 units SC Q8 [facility] Last Admin: 05/16/18 06:05 Dose: 5,000 units Hydralazine HCl (Apresoline) 50 mg PO Q8 [facility] Last Admin: 05/16/18 06:05 Dose: 50 mg Sodium Chloride (Sodium Chloride 0.9%) 1,000 mls @ 100 mls/hr IV .Q10H [facility] Last Admin: 05/16/18 03:45 Dose: 100 mls/hr Ferric Sodium Gluconate Complex 125 mg/ Sodium Chloride 110 mls @ 110 mls/hr IVPB DAILY [facility] Stop: 05/23/18 12:01 Last Admin: 05/16/18 11:26 Dose: 110 mls/hr Insulin Aspart (Novolog) 0 unit SC ACHS [facility]; Protocol Last Admin: 05/16/18 08:19 Dose: Not Given Magnesium Hydroxide (Milk Of Magnesia) 30 ml PO DAILY [facility] Last Admin: 05/16/18 09:49 Dose: 30 ml Metoprolol Tartrate (Lopressor) 25 mg PO BID [facility] Last Admin: 05/16/18 09:48 Dose: 25 mg Ondansetron HCl (Zofran Inj) 4 mg IVP Q6H PRN PRN Reason: nausea and vomiting Last Admin: 05/15/18 00:02 Dose: 4 mg Ondansetron HCl (Zofran Inj) 4 mg IVP DAILY@ONCE PRN PRN Reason: nausea Pantoprazole Sodium (Protonix Ec Tab) 20 mg PO DAILY [facility] Last Admin: 05/16/18 09:48 Dose: 20 mg Rosuvastatin Calcium (Crestor) 10 mg PO HS [facility] Last Admin: 05/15/18 22:32 Dose: 10 mg Senna/Docusate Sodium (Senokot S 50 Mg-8.6 Mg) 1 tab PO DAILY [facility] Sitagliptin Phosphate (Januvia) 25 mg PO DAILY [facility] Last Admin: 05/16/18 09:48 Dose: 25 mg Sodium Bicarbonate (Sodium Bicarbonate Tab) 1,300 mg PO BID [facility] Last Admin: 05/16/18 09:48 Dose: 1,300 mg Vitamin B Complex/Vit C/Folic Acid (Nephro-Naman) 1 tab PO 0800 [facility] - Labs Labs: 05/16/18 12:14 05/16/18 12:14 PT 12.2 SECONDS (9.7-12.2) 05/12/18 07:28 INR 1.1 05/12/18 07:28 APTT 27 SECONDS (21-34) 05/12/18 07:28
[2018-05-16 13:21] LABS: EOSINOPHIL 4 % (0-4); LYMPHOCYTE 6 % (20-40); MONOCYTE 5 % (0-10); NEUTROPHIL 85 % (50-75); PLATELET ESTIMATE NORMAL (NORMAL); TOTAL CELLS COUNTED 100
[2018-05-16 13:22] LABS: ANISOCYTOSIS SLIGHT; HYPOCHROMIC SLIGHT; POIKILOCYTOSIS SLIGHT
[2018-05-16 13:23] LABS: GIANT PLATELETS PRESENT; LARGE PLATELETS PRESENT
[2018-05-16] MEDS: Docusate-Senna 50 mg-8.6 mg Tab PO SCH (15:49)
[2018-05-16] MEDS: Multivitamin Vitamin B Complex (Nephro-Vite) Tab PO SCH (15:49)
--- NOTE | 2018-05-16 21:55 | CP.PCM.PN ---
Subjective - Subjective Subjective: dictated Objective - Vital Signs/Intake and Output Vital Signs (last 24 hours): Temp Pulse Resp BP Pulse Ox 98.1 F 60 20 135/80 98 05/16/18 15:08 05/16/18 15:08 05/16/18 15:08 05/16/18 18:30 05/16/18 15:08 - Medications Medications: Current Medications Gabapentin (Neurontin) 100 mg PO TID [facility] Last Admin: 05/16/18 18:29 Dose: 100 mg Heparin Sodium (Porcine) (Heparin) 5,000 units SC Q8 [facility] Last Admin: 05/16/18 14:35 Dose: 5,000 units Hydralazine HCl (Apresoline) 50 mg PO Q8 [facility] Last Admin: 05/16/18 14:35 Dose: 50 mg Sodium Chloride (Sodium Chloride 0.9%) 1,000 mls @ 100 mls/hr IV .Q10H [facility] Last Admin: 05/16/18 03:45 Dose: 100 mls/hr Ferric Sodium Gluconate Complex 125 mg/ Sodium Chloride 110 mls @ 110 mls/hr IVPB DAILY [facility] Stop: 05/23/18 12:01 Last Admin: 05/16/18 11:26 Dose: 110 mls/hr Insulin Aspart (Novolog) 0 unit SC ACHS [facility]; Protocol Last Admin: 05/16/18 18:29 Dose: 1 units Lactulose (Enulose) 20 gm PO BID PRN PRN Reason: Constipation Metoprolol Tartrate (Lopressor) 25 mg PO BID [facility] Last Admin: 05/16/18 18:30 Dose: 25 mg Ondansetron HCl (Zofran Inj) 4 mg IVP Q6H PRN PRN Reason: nausea and vomiting Last Admin: 05/15/18 00:02 Dose: 4 mg Ondansetron HCl (Zofran Inj) 4 mg IVP DAILY@ONCE PRN PRN Reason: nausea Pantoprazole Sodium (Protonix Ec Tab) 20 mg PO DAILY [facility] Last Admin: 05/16/18 09:48 Dose: 20 mg Rosuvastatin Calcium (Crestor) 10 mg PO HS [facility] Last Admin: 05/15/18 22:32 Dose: 10 mg Senna/Docusate Sodium (Senokot S 50 Mg-8.6 Mg) 1 tab PO DAILY [facility] Last Admin: 05/16/18 15:49 Dose: 1 tab Sitagliptin Phosphate (Januvia) 25 mg PO DAILY [facility] Last Admin: 05/16/18 09:48 Dose: 25 mg Sodium Bicarbonate (Sodium Bicarbonate Tab) 1,300 mg PO TID [facility] Last Admin: 05/16/18 14:35 Dose: 1,300 mg Vitamin B Complex/Vit C/Folic Acid (Nephro-Naman) 1 tab PO 0800 [facility] Last Admin: 05/16/18 15:49 Dose: Not Given - Labs Labs: 05/16/18 12:14 05/16/18 12:14 PT 12.2 SECONDS (9.7-12.2) 05/12/18 07:28 INR 1.1 05/12/18 07:28 APTT 27 SECONDS (21-34) 05/12/18 07:28 Assessment and Plan (1) Abdominal pain of multiple sites Status: Acute (2) Renal insufficiency Status: Chronic (3) CHF (congestive heart failure) Status: Chronic (4) Hypertensive urgency Status: Acute
--- NOTE | 2018-05-17 03:29 | PN ---
DATE: 05/16/2018 SUBJECTIVE: Salvatore is for renal ultrasound. She is feeling better. She has decreased urine output. She is seen by Renal. No chest pain. No nausea or vomiting. No shortness of breath. PHYSICAL EXAMINATION: VITAL SIGNS: Blood pressure 157/71, pulse 60, respiratory rate 20, and temperature 98.1. LUNGS: Clear. No crackles. CARDIOVASCULAR SYSTEM: S1 and S2 regular. No heave. No thrill. ABDOMEN: Soft and nontender. Bowel sounds are positive. CENTRAL NERVOUS SYSTEM: Awake, alert and oriented x3. ASSESSMENT: 1. Ventral hernia, status post repair. 2. Chronic kidney disease. 3. Hypertension. 4. Urinary tract infection. PLAN: Continue antibiotics. Blood sugar monitoring. Toby Rich MD
[2018-05-17] MEDS: Sodium Chloride 0.9% 1,000 ML IV SCH (06:22)
[2018-05-17] MEDS: (Novolog) Insulin Aspart, Recombinant 100 u/ml 10 ml vial SC SCH ×4 (08:14→22:45)
--- NOTE | 2018-05-17 09:25 | CP.PCM.PN ---
Subjective - Date & Time of Evaluation Date of Evaluation: 05/16/18 Time of Evaluation: 16:20 - Subjective Subjective: Patient seen and examined at bedside. Denies chest pain and dyspnea Physical Examination HEEN: NC/AT CVA: S1 and S2 regular RS: CTA b/l Abd: BS + EXT: No edema Assessment and Plan - Assessment and Plan (Free Text) Assessment: 83yo F with PMHx of CKD, HTN, DM who had robotic ventral hernia repair POD#3 Cardiac point of view patient is stable Objective - Vital Signs/Intake and Output Vital Signs (last 24 hours): Temp Pulse Resp BP Pulse Ox 98.2 F 60 20 127/74 100 05/17/18 07:15 05/17/18 07:15 05/17/18 07:15 05/17/18 07:15 05/17/18 07:15 Intake and Output: 05/17/18 05/17/18 06:59 18:59 Intake Total 2200 Output Total 300 Balance 1900 - Medications Medications: Current Medications Gabapentin (Neurontin) 100 mg PO TID [facility] Last Admin: 05/16/18 18:29 Dose: 100 mg Heparin Sodium (Porcine) (Heparin) 5,000 units SC Q8 [facility] Last Admin: 05/17/18 06:22 Dose: 5,000 units Hydralazine HCl (Apresoline) 50 mg PO Q8 [facility] Last Admin: 05/17/18 06:25 Dose: 50 mg Sodium Chloride (Sodium Chloride 0.9%) 1,000 mls @ 100 mls/hr IV .Q10H [facility] Last Admin: 05/17/18 06:22 Dose: 100 mls/hr Ferric Sodium Gluconate Complex 125 mg/ Sodium Chloride 110 mls @ 110 mls/hr IVPB DAILY [facility] Stop: 05/23/18 12:01 Last Admin: 05/16/18 11:26 Dose: 110 mls/hr Insulin Aspart (Novolog) 0 unit SC ACHS [facility]; Protocol Last Admin: 05/17/18 08:14 Dose: Not Given Lactulose (Enulose) 20 gm PO BID PRN PRN Reason: Constipation Metoprolol Tartrate (Lopressor) 25 mg PO BID [facility] Last Admin: 05/16/18 18:30 Dose: 25 mg Ondansetron HCl (Zofran Inj) 4 mg IVP Q6H PRN PRN Reason: nausea and vomiting Last Admin: 05/15/18 00:02 Dose: 4 mg Ondansetron HCl (Zofran Inj) 4 mg IVP DAILY@ONCE PRN PRN Reason: nausea Pantoprazole Sodium (Protonix Ec Tab) 20 mg PO DAILY [facility] Last Admin: 05/16/18 09:48 Dose: 20 mg Rosuvastatin Calcium (Crestor) 10 mg PO HS [facility] Last Admin: 05/16/18 23:02 Dose: 10 mg Senna/Docusate Sodium (Senokot S 50 Mg-8.6 Mg) 1 tab PO DAILY [facility] Last Admin: 05/16/18 15:49 Dose: 1 tab Sitagliptin Phosphate (Januvia) 25 mg PO DAILY [facility] Last Admin: 05/16/18 09:48 Dose: 25 mg Sodium Bicarbonate (Sodium Bicarbonate Tab) 1,300 mg PO TID [facility] Last Admin: 05/16/18 18:28 Dose: 1,300 mg Vitamin B Complex/Vit C/Folic Acid (Nephro-Naman) 1 tab PO 0800 [facility] Last Admin: 05/16/18 15:49 Dose: Not Given - Labs Labs: 05/16/18 12:14 05/16/18 12:14 PT 12.2 SECONDS (9.7-12.2) 05/12/18 07:28 INR 1.1 05/12/18 07:28 APTT 27 SECONDS (21-34) 05/12/18 07:28
[2018-05-17] MEDS ORDERED: Ergocalciferol 50,000 Intl Units Cap PO SCH (09:45)
[2018-05-17] MEDS: Docusate-Senna 50 mg-8.6 mg Tab PO SCH (10:25)
[2018-05-17] MEDS: Multivitamin Vitamin B Complex (Nephro-Vite) Tab PO SCH (10:25)
[2018-05-17] MEDS: Pantoprazole 20 mg EC Tab PO SCH (10:26)
[2018-05-17] MEDS: Ferric Sodium Gluconat Complex 125 MG in Sodium Chloride 0.9% 100 ML IVPB SCH (13:00)
[2018-05-17] MEDS ORDERED: guaiFENesin 200 mg/10 ml Syrup UD PO PRN (14:02)
--- NOTE | 2018-05-17 14:30 | CP.PCM.PN ---
Subjective - Date & Time of Evaluation Date of Evaluation: 05/17/18 Time of Evaluation: 14:29 - Subjective Subjective: Nephrology Consultation Note: Assessment: Stable decreased UOP ? due to HEYDI/pre-renal versus card catheter related issues Diabetic chronic Kidney Disease (E11.22) Hypertensive Chronic Kidney Disease (I12.9) Chronic Kidney Disease (N18.4) Stage 4 with ? mg proteinuria (R80.9) with b/l atrophic kidneys likely due to DM/HTN/age related nephrosclerosis Anemia (D64.9) morbid obesity, mild hyperkalemia and metabolic acidosis hyponatremia with RLL mass ventral hernia s/p repair Plan No acute need for renal replacement therapy at this time. Hypertension control with meds as ordered. Maintain hemodynamics stable. Avoid hypotension. Patient not on ACEI/ARB due to advanced CKD and K on higher side. continue with hydralazine. added lopressor. Monitor Input/Output, daily weights and renal function with basic metabolic panel will give IV iron and start nephrovite daily. defer use of LOUISE considering RLL lung mass. PRBC as needed started sodium bicarb 1300 mg tid lowered IVF . trial of lasix 40 mg IVp once today consider to avoid magnesium based laxatives as can lead to hypermagnesemia in CKD. also to avoid Fleet enema pulmonary following for RLL mass Low K and Na diet Check urine analysis, spot protein/creatinine, albumin/creatinine ratio, uric acid, urine Na/Cr/Osmol Check for 25-OH vitamin D, iPTH, phosphorus level. Dose meds/antibiotics for reduced GFR. Avoid fleets enema/magnesium based laxatives. Avoid nephrotoxins/NSAIDs/ iodinated contrast (unless needed emergently) Glycemic control Further work up/management as per primary team Thanks for allowing me to participate in care of your patient. Will follow patient with you. Please call if any Qs. had d/w team Dr Saturnino Askew Office: [phone] Chief Complaint; abdomen surgery Reason for consult: CKD and decreased UOP HPI: Pt is a 83 F with hx of diabetes Mellitus ( years), hypertension (years) CKD 4 with baseline cr 2.4 morbid obesity anemia and RLL mass presented with complaints of abdomen pain and underwent ventral hernia repair Denies OTC/herbal meds or NSAIDs No recent iodinated contrast exposure. No obvious episodes of low BP. renal consult for CKD management. also noted to have decreased UOP> has card. pt aware about ckd x 1 year ROS: c/o cough Cardiovascular: No chest pain. Pulmonary: No shortness of breath Gastrointestinal: no abdominal pain No nausea. No vomiting. had BM Genitourinary: No pain while urinating. Denies blood in urine. reports decreased UOP All other negative except as mentioned in HPI Physical Examination: General Appearance: Comfortable, in no acute respiratory distress, co-operative . obese Vitals reviewed and noted as below Head; Atraumatic, normocephalic ENT: no ulcers no thrush. Tongue is midline. Oropharynx: no rash or ulcers. EYES: Pupils are equal, round and reactive to light accommodation. Eye muscles and extraocular movement intact. Sclera is anicteric. Neck; supple no lymphadenopathy, no thyromegaly or bruit Lungs: Normal respiratory rate/effort. Breath sounds bilateral equal and clear Heart: Normal rate. s1s2 normal. No rub or gallop. Extremities: 2+ edema. No varicose veins Neurological: Patient is alert, awake and oriented to person, place and time. No focal deficit. Strength bilateral appropriate and equal Skin: Warm and dry. Normal turgor. No rash. Palpitation: Normal elasticity for age Abdomen: Abdomen is soft. Bowel sounds +. There is no abdominal tenderness, no guarding/rigidity no organomegaly. has binder + exam limited Psych: normal insight and normal affect/mood MSK: no joint tenderness or swelling. Digits and nails normal, no deformity : kidney or bladder not palpable Labs/imaging reviewed. Past medical history, past surgical history, family history, social history, allergy reviewed and noted as below Family hx: no hx of CKD. Rest non-contributory Objective - Vital Signs/Intake and Output Vital Signs (last 24 hours): Temp Pulse Resp BP Pulse Ox 98.2 F 60 20 152/78 H 100 05/17/18 07:15 05/17/18 07:15 05/17/18 07:15 05/17/18 10:26 05/17/18 07:15 Intake and Output: 05/17/18 05/17/18 06:59 18:59 Intake Total 2200 Output Total 300 Balance 1900 - Medications Medications: Current Medications Ergocalciferol (Drisdol 50,000 Intl Units Cap) 1 cap PO Q7D [facility] Last Admin: 05/17/18 13:59 Dose: 1 cap Furosemide (Lasix) 40 mg IVP STAT [facility] Stop: 05/17/18 14:30 Gabapentin (Neurontin) 100 mg PO TID [facility] Last Admin: 05/17/18 13:56 Dose: 100 mg Guaifenesin (Robitussin) 200 mg PO Q4H PRN PRN Reason: Cough and congestion Heparin Sodium (Porcine) (Heparin) 5,000 units SC Q8 [facility] Last Admin: 05/17/18 13:59 Dose: 5,000 units Hydralazine HCl (Apresoline) 50 mg PO Q8 [facility] Last Admin: 05/17/18 06:25 Dose: 50 mg Ferric Sodium Gluconate Complex 125 mg/ Sodium Chloride 110 mls @ 110 mls/hr IVPB DAILY [facility] Stop: 05/23/18 12:01 Last Admin: 05/17/18 13:00 Dose: 110 mls/hr Sodium Chloride (Sodium Chloride 0.9%) 1,000 mls @ 30 mls/hr IV .Q24H [facility] Insulin Aspart (Novolog) 0 unit SC ACHS [facility]; Protocol Last Admin: 05/17/18 12:58 Dose: 1 units Lactulose (Enulose) 20 gm PO BID PRN PRN Reason: Constipation Metoprolol Tartrate (Lopressor) 25 mg PO BID [facility] Last Admin: 05/17/18 10:26 Dose: 25 mg Ondansetron HCl (Zofran Inj) 4 mg IVP Q6H PRN PRN Reason: nausea and vomiting Last Admin: 05/15/18 00:02 Dose: 4 mg Ondansetron HCl (Zofran Inj) 4 mg IVP DAILY@ONCE PRN PRN Reason: nausea Pantoprazole Sodium (Protonix Ec Tab) 20 mg PO DAILY [facility] Last Admin: 05/17/18 10:26 Dose: 20 mg Rosuvastatin Calcium (Crestor) 10 mg PO HS [facility] Last Admin: 05/16/18 23:02 Dose: 10 mg Senna/Docusate Sodium (Senokot S 50 Mg-8.6 Mg) 1 tab PO DAILY [facility] Last Admin: 05/17/18 10:25 Dose: 1 tab Sitagliptin Phosphate (Januvia) 25 mg PO DAILY [facility] Last Admin: 05/17/18 10:25 Dose: 25 mg Sodium Bicarbonate (Sodium Bicarbonate Tab) 1,300 mg PO TID [facility] Last Admin: 05/17/18 10:27 Dose: 1,300 mg Vitamin B Complex/Vit C/Folic Acid (Nephro-Naman) 1 tab PO 0800 [facility] Last Admin: 05/17/18 10:25 Dose: 1 tab - Labs Labs: 05/16/18 12:14 05/16/18 12:14 PT 12.2 SECONDS (9.7-12.2) 05/12/18 07:28 INR 1.1 05/12/18 07:28 APTT 27 SECONDS (21-34) 05/12/18 07:28
[2018-05-17] MEDS ORDERED: Sodium Chloride 0.9% 1,000 ML IV SCH (14:45)
--- NOTE | 2018-05-17 17:01 | US ---
Date of service: 05/16/2018 PROCEDURE: Ultrasound of the Kidneys HISTORY: HEYDI COMPARISON: Correlation made with prior CT scan of the abdomen pelvis 04 21 2018. TECHNIQUE: Sonogram of the kidneys. FINDINGS: RIGHT KIDNEY: Measures: 9.5 x 5.2 x 4.9 cm. Right kidney is echogenic in appearance; rule out underlying medical renal disease No stone, solid mass lesion or hydronephrosis visualized. LEFT KIDNEY: Measures: 10.7 x 6.4 x 5.5 cm. Left kidney is somewhat echogenic in appearance; rule out underlying medical renal disease. No stone, solid mass lesion or hydronephrosis visualized. OTHER FINDINGS: None. IMPRESSION: Unremarkable renal sonogram.
--- NOTE | 2018-05-17 17:02 | US ---
Date of service: 05/16/2018 PROCEDURE: Ultrasound of the Bladder HISTORY: Reduced urine output COMPARISON: None available. TECHNIQUE: Sonographic evaluation of the bladder was performed. FINDINGS: Unremarkable without wall thickening or intraluminal debris. No calculus or gross mass lesion. No free fluid in pelvis. Right renal jet visualized however the left ureteral jet not visualized on this exam Prevoid Volume: 382 cc cc.. Patient unable to void. IMPRESSION: Prevoid residual calculated at 380 2 cc. Patient unable to void.
--- NOTE | 2018-05-17 19:23 | CP.PCM.PN ---
Subjective - Subjective Subjective: dictated Objective - Vital Signs/Intake and Output Vital Signs (last 24 hours): Temp Pulse Resp BP Pulse Ox 97.9 F 56 L 20 148/76 98 05/17/18 15:10 05/17/18 15:10 05/17/18 15:10 05/17/18 18:20 05/17/18 15:10 Intake and Output: 05/17/18 05/18/18 18:59 06:59 Output Total 100 Balance -100 - Medications Medications: Current Medications Ergocalciferol (Drisdol 50,000 Intl Units Cap) 1 cap PO Q7D [facility] Last Admin: 05/17/18 13:59 Dose: 1 cap Gabapentin (Neurontin) 100 mg PO TID [facility] Last Admin: 05/17/18 18:21 Dose: 100 mg Guaifenesin (Robitussin) 200 mg PO Q4H PRN PRN Reason: Cough and congestion Heparin Sodium (Porcine) (Heparin) 5,000 units SC Q8 [facility] Last Admin: 05/17/18 13:59 Dose: 5,000 units Hydralazine HCl (Apresoline) 50 mg PO Q8 [facility] Last Admin: 05/17/18 06:25 Dose: 50 mg Ferric Sodium Gluconate Complex 125 mg/ Sodium Chloride 110 mls @ 110 mls/hr IVPB DAILY [facility] Stop: 05/23/18 12:01 Last Admin: 05/17/18 13:00 Dose: 110 mls/hr Sodium Chloride (Sodium Chloride 0.9%) 1,000 mls @ 30 mls/hr IV .Q24H [facility] Insulin Aspart (Novolog) 0 unit SC ACHS [facility]; Protocol Last Admin: 05/17/18 17:15 Dose: 1 units Lactulose (Enulose) 20 gm PO BID PRN PRN Reason: Constipation Metoprolol Tartrate (Lopressor) 25 mg PO BID [facility] Last Admin: 05/17/18 18:20 Dose: 25 mg Ondansetron HCl (Zofran Inj) 4 mg IVP Q6H PRN PRN Reason: nausea and vomiting Last Admin: 05/15/18 00:02 Dose: 4 mg Ondansetron HCl (Zofran Inj) 4 mg IVP DAILY@ONCE PRN PRN Reason: nausea Pantoprazole Sodium (Protonix Ec Tab) 20 mg PO DAILY [facility] Last Admin: 05/17/18 10:26 Dose: 20 mg Rosuvastatin Calcium (Crestor) 10 mg PO HS [facility] Last Admin: 05/16/18 23:02 Dose: 10 mg Senna/Docusate Sodium (Senokot S 50 Mg-8.6 Mg) 1 tab PO DAILY [facility] Last Admin: 05/17/18 10:25 Dose: 1 tab Sitagliptin Phosphate (Januvia) 25 mg PO DAILY [facility] Last Admin: 05/17/18 10:25 Dose: 25 mg Sodium Bicarbonate (Sodium Bicarbonate Tab) 1,300 mg PO TID [facility] Last Admin: 05/17/18 18:22 Dose: 1,300 mg Vitamin B Complex/Vit C/Folic Acid (Nephro-Naman) 1 tab PO 0800 [facility] Last Admin: 05/17/18 10:25 Dose: 1 tab - Labs Labs: 05/16/18 12:14 05/16/18 12:14 PT 12.2 SECONDS (9.7-12.2) 05/12/18 07:28 INR 1.1 05/12/18 07:28 APTT 27 SECONDS (21-34) 05/12/18 07:28 Assessment and Plan (1) Abdominal pain of multiple sites Status: Acute (2) Renal insufficiency Status: Chronic (3) CHF (congestive heart failure) Status: Chronic (4) Hypertensive urgency Status: Acute
--- NOTE | 2018-05-17 19:23 | CP.PCM.PN ---
Subjective - Subjective Subjective: dictated Objective - Vital Signs/Intake and Output Vital Signs (last 24 hours): Temp Pulse Resp BP Pulse Ox 97.9 F 56 L 20 148/76 98 05/17/18 15:10 05/17/18 15:10 05/17/18 15:10 05/17/18 18:20 05/17/18 15:10 Intake and Output: 05/17/18 05/18/18 18:59 06:59 Output Total 100 Balance -100 - Medications Medications: Current Medications Ergocalciferol (Drisdol 50,000 Intl Units Cap) 1 cap PO Q7D [facility] Last Admin: 05/17/18 13:59 Dose: 1 cap Gabapentin (Neurontin) 100 mg PO TID [facility] Last Admin: 05/17/18 18:21 Dose: 100 mg Guaifenesin (Robitussin) 200 mg PO Q4H PRN PRN Reason: Cough and congestion Heparin Sodium (Porcine) (Heparin) 5,000 units SC Q8 [facility] Last Admin: 05/17/18 13:59 Dose: 5,000 units Hydralazine HCl (Apresoline) 50 mg PO Q8 [facility] Last Admin: 05/17/18 06:25 Dose: 50 mg Ferric Sodium Gluconate Complex 125 mg/ Sodium Chloride 110 mls @ 110 mls/hr IVPB DAILY [facility] Stop: 05/23/18 12:01 Last Admin: 05/17/18 13:00 Dose: 110 mls/hr Sodium Chloride (Sodium Chloride 0.9%) 1,000 mls @ 30 mls/hr IV .Q24H [facility] Insulin Aspart (Novolog) 0 unit SC ACHS [facility]; Protocol Last Admin: 05/17/18 17:15 Dose: 1 units Lactulose (Enulose) 20 gm PO BID PRN PRN Reason: Constipation Metoprolol Tartrate (Lopressor) 25 mg PO BID [facility] Last Admin: 05/17/18 18:20 Dose: 25 mg Ondansetron HCl (Zofran Inj) 4 mg IVP Q6H PRN PRN Reason: nausea and vomiting Last Admin: 05/15/18 00:02 Dose: 4 mg Ondansetron HCl (Zofran Inj) 4 mg IVP DAILY@ONCE PRN PRN Reason: nausea Pantoprazole Sodium (Protonix Ec Tab) 20 mg PO DAILY [facility] Last Admin: 05/17/18 10:26 Dose: 20 mg Rosuvastatin Calcium (Crestor) 10 mg PO HS [facility] Last Admin: 05/16/18 23:02 Dose: 10 mg Senna/Docusate Sodium (Senokot S 50 Mg-8.6 Mg) 1 tab PO DAILY [facility] Last Admin: 05/17/18 10:25 Dose: 1 tab Sitagliptin Phosphate (Januvia) 25 mg PO DAILY [facility] Last Admin: 05/17/18 10:25 Dose: 25 mg Sodium Bicarbonate (Sodium Bicarbonate Tab) 1,300 mg PO TID [facility] Last Admin: 05/17/18 18:22 Dose: 1,300 mg Vitamin B Complex/Vit C/Folic Acid (Nephro-Naman) 1 tab PO 0800 [facility] Last Admin: 05/17/18 10:25 Dose: 1 tab - Labs Labs: 05/16/18 12:14 05/16/18 12:14 PT 12.2 SECONDS (9.7-12.2) 05/12/18 07:28 INR 1.1 05/12/18 07:28 APTT 27 SECONDS (21-34) 05/12/18 07:28 Assessment and Plan (1) Abdominal pain of multiple sites Status: Acute (2) Renal insufficiency Status: Chronic (3) CHF (congestive heart failure) Status: Chronic (4) Hypertensive urgency Status: Acute
--- NOTE | 2018-05-18 04:07 | PN ---
DATE: 05/17/2018 SUBJECTIVE: Mrs. Sonia Chase has decreased urine output, but she is stable. She is coughing. She denies any chest pain, wheezing. No nausea or vomiting. She is on dialysis. She is status post renal ultrasound. PHYSICAL EXAMINATION: VITAL SIGNS: BP 162/63, pulse 58, respiratory rate 20, and temperature 97.9. LUNGS: Clear. CARDIOVASCULAR SYSTEM: S1, S2 regular. ABDOMEN: Soft. ASSESSMENT: 1. Urinary tract infection, resolved. 2. Large ventral hernia, status post repair. 3. Chronic kidney disease. 4. Hypertension. PLAN: Medical management. Monitor the patient. Toby Rich MD
[2018-05-18] MEDS: (Novolog) Insulin Aspart, Recombinant 100 u/ml 10 ml vial SC SCH ×4 (06:34→23:00)
[2018-05-18] MEDS ORDERED: Albuterol-Ipratrop 3 mg / 0.5 (3 ml) UD INH STA (07:19)
[2018-05-18] MEDS ORDERED: Ferric Sodium Gluconat Complex 62.5 mg/5 ml Vial ONE (09:11)
[2018-05-18] MEDS: Docusate-Senna 50 mg-8.6 mg Tab PO SCH (09:23)
[2018-05-18] MEDS: Multivitamin Vitamin B Complex (Nephro-Vite) Tab PO SCH (09:23)
[2018-05-18] MEDS: Pantoprazole 20 mg EC Tab PO SCH (09:23)
[2018-05-18 09:44] LABS: HEMOGLOBIN 8.2 g/dL (11.0-16.0); MEAN CELL VOLUME 82.4 fL (81.0-99.0); MEAN CORPUSCULAR HGB CONC 31.6 g/dL (33.0-37.0); MEAN PLATELET VOLUME 10.5 fL (7.2-11.7); RBC 3.16 Mil/uL (3.80-5.20); RED CELL DISTRIBUTION WIDTH 14.7 % (11.5-14.5); WHITE BLOOD COUNT 12.2 K/uL (4.8-10.8)
[2018-05-18] MEDS: Ferric Sodium Gluconat Complex 125 MG in Sodium Chloride 0.9% 100 ML IVPB SCH (10:07)
[2018-05-18] MEDS ORDERED: Dextrose 50% SYRINGE Inj (50 ml) IV STA (10:51)
[2018-05-18] MEDS ORDERED: Sodium Bicarbonate (8.4%) 50 Meq Syringe IVP ONE (11:00)
[2018-05-18] MEDS ORDERED: (Novolin R) Insulin Human Regular 100 units/ml vial IVP ONE (11:00)
--- NOTE | 2018-05-18 12:39 | CP.PCM.PN ---
Subjective - Date & Time of Evaluation Date of Evaluation: 05/18/18 Time of Evaluation: 12:37 - Subjective Subjective: Nephrology Consultation Note: Assessment: Stable decreased UOP ? due to HEYDI/pre-renal versus card catheter related issues Diabetic chronic Kidney Disease (E11.22) Hypertensive Chronic Kidney Disease (I12.9) Chronic Kidney Disease (N18.4) Stage 4 with ? mg proteinuria (R80.9) with b/l atrophic kidneys likely due to DM/HTN/age related nephrosclerosis Anemia (D64.9) morbid obesity, mild hyperkalemia and metabolic acidosis hyponatremia with RLL mass ventral hernia s/p repair Plan gave a dose of IV bicarb, D50 and insulin for hyperkalemia. stop IVF . started lasix 40 mg IVP once a day. check CXR. No acute need for renal replacement therapy at this time. Hypertension control with meds as ordered. Maintain hemodynamics stable. Avoid hypotension. Patient not on ACEI/ARB due to advanced CKD and K on higher side. continue with hydralazine. added lopressor. Monitor Input/Output, daily weights and renal function with basic metabolic panel will give IV iron and start nephrovite daily. defer use of LOUISE considering RLL lung mass. PRBC as needed started sodium bicarb 1300 mg tid consider to avoid magnesium based laxatives as can lead to hypermagnesemia in CKD. also to avoid Fleet enema pulmonary following for RLL mass Low K and Na diet Check urine analysis, spot protein/creatinine, albumin/creatinine ratio, uric acid, urine Na/Cr/Osmol Check for 25-OH vitamin D, iPTH, phosphorus level. Dose meds/antibiotics for reduced GFR. Avoid fleets enema/magnesium based laxatives. Avoid nephrotoxins/NSAIDs/ iodinated contrast (unless needed emergently) Glycemic control Further work up/management as per primary team Thanks for allowing me to participate in care of your patient. Will follow patient with you. Please call if any Qs. had d/w team Dr Saturnino Askew Office: [phone] Chief Complaint; abdomen surgery Reason for consult: CKD and decreased UOP HPI: Pt is a 83 F with hx of diabetes Mellitus ( years), hypertension (years) CKD 4 with baseline cr 2.4 morbid obesity anemia and RLL mass presented with complaints of abdomen pain and underwent ventral hernia repair Denies OTC/herbal meds or NSAIDs No recent iodinated contrast exposure. No obvious episodes of low BP. renal consult for CKD management. also noted to have decreased UOP> has card. pt aware about ckd x 1 year ROS: c/o cough Cardiovascular: No chest pain. Pulmonary: c/o shortness of breath Gastrointestinal: c/o abdominal pain No nausea. No vomiting. had BM Genitourinary: No pain while urinating. Denies blood in urine. reports decreased UOP All other negative except as mentioned in HPI Physical Examination: General Appearance: Comfortable, in no acute respiratory distress, co-operative . obese Vitals reviewed and noted as below Head; Atraumatic, normocephalic ENT: no ulcers no thrush. Tongue is midline. Oropharynx: no rash or ulcers. EYES: Pupils are equal, round and reactive to light accommodation. Eye muscles and extraocular movement intact. Sclera is anicteric. Neck; supple no lymphadenopathy, no thyromegaly or bruit Lungs: Increased respiratory rate/effort. Breath sounds bilateral equal and clear Heart: Normal rate. s1s2 normal. No rub or gallop. Extremities: 2+ edema. No varicose veins Neurological: Patient is alert, awake and oriented to person, place and time. No focal deficit. Strength bilateral appropriate and equal Skin: Warm and dry. Normal turgor. No rash. Palpitation: Normal elasticity for age Abdomen: Abdomen is soft. Bowel sounds +. There is no abdominal tenderness, no guarding/rigidity no organomegaly. has binder + exam limited Psych: normal insight and normal affect/mood MSK: no joint tenderness or swelling. Digits and nails normal, no deformity : kidney or bladder not palpable Labs/imaging reviewed. Past medical history, past surgical history, family history, social history, allergy reviewed and noted as below Family hx: no hx of CKD. Rest non-contributory Objective - Vital Signs/Intake and Output Vital Signs (last 24 hours): Temp Pulse Resp BP Pulse Ox 97.7 F 64 20 166/64 H 99 05/18/18 07:59 05/18/18 07:59 05/18/18 07:59 05/18/18 12:18 05/18/18 07:59 - Medications Medications: Current Medications Ergocalciferol (Drisdol 50,000 Intl Units Cap) 1 cap PO Q7D [facility] Last Admin: 05/17/18 13:59 Dose: 1 cap Furosemide (Lasix) 40 mg IVP DAILY [facility] Last Admin: 05/18/18 12:18 Dose: 40 mg Gabapentin (Neurontin) 100 mg PO TID [facility] Last Admin: 05/18/18 09:23 Dose: 100 mg Guaifenesin (Robitussin) 200 mg PO Q4H PRN PRN Reason: Cough and congestion Heparin Sodium (Porcine) (Heparin) 5,000 units SC Q8 [facility] Last Admin: 05/18/18 06:30 Dose: 5,000 units Hydralazine HCl (Apresoline) 100 mg PO TID [facility] Ferric Sodium Gluconate Complex 125 mg/ Sodium Chloride 110 mls @ 110 mls/hr IVPB DAILY [facility] Stop: 05/23/18 12:01 Last Admin: 05/18/18 10:07 Dose: 110 mls/hr Insulin Aspart (Novolog) 0 unit SC ACHS [facility]; Protocol Last Admin: 05/18/18 06:34 Dose: Not Given Lactulose (Enulose) 20 gm PO BID PRN PRN Reason: Constipation Metoprolol Tartrate (Lopressor) 25 mg PO BID [facility] Last Admin: 05/18/18 09:22 Dose: 25 mg Ondansetron HCl (Zofran Inj) 4 mg IVP Q6H PRN PRN Reason: nausea and vomiting Last Admin: 05/18/18 06:05 Dose: 4 mg Ondansetron HCl (Zofran Inj) 4 mg IVP DAILY@ONCE PRN PRN Reason: nausea Last Admin: 05/18/18 09:24 Dose: 4 mg Pantoprazole Sodium (Protonix Ec Tab) 20 mg PO DAILY [facility] Last Admin: 05/18/18 09:23 Dose: 20 mg Rosuvastatin Calcium (Crestor) 10 mg PO HS [facility] Last Admin: 05/17/18 22:52 Dose: 10 mg Senna/Docusate Sodium (Senokot S 50 Mg-8.6 Mg) 1 tab PO DAILY [facility] Last Admin: 05/18/18 09:23 Dose: 1 tab Sitagliptin Phosphate (Januvia) 25 mg PO DAILY [facility] Last Admin: 05/18/18 09:22 Dose: 25 mg Sodium Bicarbonate (Sodium Bicarbonate Tab) 1,300 mg PO TID [facility] Last Admin: 05/18/18 09:23 Dose: 1,300 mg Vitamin B Complex/Vit C/Folic Acid (Nephro-Naman) 1 tab PO 0800 [facility] Last Admin: 05/18/18 09:23 Dose: 1 tab - Labs Labs: 05/18/18 09:33 05/18/18 09:33 PT 12.2 SECONDS (9.7-12.2) 05/12/18 07:28 INR 1.1 05/12/18 07:28 APTT 27 SECONDS (21-34) 05/12/18 07:28
--- NOTE | 2018-05-18 13:29 | RAD ---
Date of service: 05/18/2018 HISTORY: Dyspnea. COMPARISON: No comparison made with chest radiograph 04/21/2018 FINDINGS: LUNGS: Poor inspiration with low lung volumes, crowded bronchovascular markings and mild bibasilar atelectasis right greater than left. Developing lower lobe infiltrates could be excluded with follow-up radiographs. Right paratracheal density felt to represent ectatic great vessels PLEURA: No significant pleural effusion identified, no pneumothorax apparent. CARDIOVASCULAR: Mild aortic atherosclerotic calcification present. Heart remains enlarged. No pulmonary vascular congestion. OSSEOUS STRUCTURES: No significant abnormalities. VISUALIZED UPPER ABDOMEN: Normal. OTHER FINDINGS: None. IMPRESSION: Poor inspiration with low lung volumes, crowded bronchovascular markings and mild bibasilar atelectasis right greater than left. Developing lower lobe infiltrates could be excluded with follow-up radiographs
--- NOTE | 2018-05-18 15:52 | RAD ---
Date of service: 05/18/2018 HISTORY: nausea, r/o ileus/SBO COMPARISON: Comparison made with abdominal radiographs 05/07/[address] scan of the abdomen pelvis 05/06/2018. Note the examination is limited by motion artifact FINDINGS: BOWEL: Stomach appears distended with air. Several of minimally distended loops of small bowel are also present possibly representing ileus. Cholecystectomy clips again noted BONES: Normal. OTHER FINDINGS: None. IMPRESSION: Limited motion degraded study. Findings suggest ileus.
--- NOTE | 2018-05-18 18:10 | CP.PCM.PN ---
Subjective - Date & Time of Evaluation Date of Evaluation: 05/18/18 Time of Evaluation: 07:50 - Subjective Subjective: General surgery progress note for Dr. Sandoval Pt seen and examined at bedside this AM. Pt had an episode of nausea and vomiting yesterday shortly after eating lunch but then was able to eat dinner with no issue. Patient states that she does not remember the last BM she has but denies passing gas. Patient rerports more nausea but no vomiting this AM after breakfast. Patient has several large BM's after administration of pericolace this AM and is feeling improved. Objective - Vital Signs/Intake and Output Vital Signs (last 24 hours): Temp Pulse Resp BP Pulse Ox 97.4 F L 63 20 136/64 100 05/18/18 15:00 05/18/18 15:00 05/18/18 15:00 05/18/18 15:00 05/18/18 15:00 - Medications Medications: Current Medications Ergocalciferol (Drisdol 50,000 Intl Units Cap) 1 cap PO Q7D [facility] Last Admin: 05/17/18 13:59 Dose: 1 cap Furosemide (Lasix) 40 mg IVP DAILY [facility] Last Admin: 05/18/18 12:18 Dose: 40 mg Gabapentin (Neurontin) 100 mg PO TID [facility] Last Admin: 05/18/18 14:27 Dose: 100 mg Guaifenesin (Robitussin) 200 mg PO Q4H PRN PRN Reason: Cough and congestion Hydralazine HCl (Apresoline) 100 mg PO TID [facility] Last Admin: 05/18/18 14:27 Dose: 100 mg Ferric Sodium Gluconate Complex 125 mg/ Sodium Chloride 110 mls @ 110 mls/hr IVPB DAILY [facility] Stop: 05/23/18 12:01 Last Admin: 05/18/18 10:07 Dose: 110 mls/hr Insulin Aspart (Novolog) 0 unit SC ACHS [facility]; Protocol Last Admin: 05/18/18 17:14 Dose: Not Given Lactulose (Enulose) 20 gm PO BID PRN PRN Reason: Constipation Metoprolol Tartrate (Lopressor) 25 mg PO BID [facility] Last Admin: 05/18/18 09:22 Dose: 25 mg Ondansetron HCl (Zofran Inj) 4 mg IVP Q6H PRN PRN Reason: nausea and vomiting Last Admin: 05/18/18 14:25 Dose: 4 mg Ondansetron HCl (Zofran Inj) 4 mg IVP DAILY@ONCE PRN PRN Reason: nausea Last Admin: 05/18/18 09:24 Dose: 4 mg Pantoprazole Sodium (Protonix Ec Tab) 20 mg PO DAILY [facility] Last Admin: 05/18/18 09:23 Dose: 20 mg Rosuvastatin Calcium (Crestor) 10 mg PO HS [facility] Last Admin: 05/17/18 22:52 Dose: 10 mg Senna/Docusate Sodium (Senokot S 50 Mg-8.6 Mg) 1 tab PO DAILY [facility] Last Admin: 05/18/18 09:23 Dose: 1 tab Sitagliptin Phosphate (Januvia) 25 mg PO DAILY [facility] Last Admin: 05/18/18 09:22 Dose: 25 mg Sodium Bicarbonate (Sodium Bicarbonate Tab) 1,300 mg PO TID [facility] Last Admin: 05/18/18 14:27 Dose: 1,300 mg Vitamin B Complex/Vit C/Folic Acid (Nephro-Naman) 1 tab PO 0800 [facility] Last Admin: 05/18/18 09:23 Dose: 1 tab - Labs Labs: 05/18/18 09:33 05/18/18 09:33 PT 12.2 SECONDS (9.7-12.2) 05/12/18 07:28 INR 1.1 05/12/18 07:28 APTT 27 SECONDS (21-34) 05/12/18 07:28 - Constitutional Appears: Well, Non-toxic, No Acute Distress - Head Exam Head Exam: ATRAUMATIC, NORMOCEPHALIC - Eye Exam Eye Exam: Normal appearance. absent: Conjunctival injection, Scleral icterus - ENT Exam ENT Exam: Mucous Membranes Moist, Normal Oropharynx - Respiratory Exam Respiratory Exam: NORMAL BREATHING PATTERN. absent: Accessory Muscle Use, Respiratory Distress - Cardiovascular Exam Cardiovascular Exam: RRR - GI/Abdominal Exam GI & Abdominal Exam: Distended (mild), Soft. absent: Tenderness Additional comments: dressings c/d/i, no saturation - Extremities Exam Extremities Exam: absent: Calf Tenderness, Pedal Edema, Tenderness - Neurological Exam Neurological Exam: Alert, Awake, Oriented x3 - Psychiatric Exam Psychiatric exam: Normal Affect, Normal Mood - Skin Skin Exam: Dry, Normal Color, Warm Assessment and Plan - Assessment and Plan (Free Text) Assessment: 83F POD#6 s/p ventral hernia repair with mesh Plan: AXR: distended stomach and some mild distention of small bowel, possible mild ileus PRN pain and nausea medication Continue current diet unless clinical picture worsens Monitor electrolytes and adjust as needed Encourage daily ambulation and sitting in the chair at bedside Medical management per primary and various consultants Discussed with Dr. Lori Thapa, PGY2
--- NOTE | 2018-05-18 21:48 | CP.PCM.PN ---
Subjective - Date & Time of Evaluation Date of Evaluation: 05/18/18 Time of Evaluation: 14:05 - Subjective Subjective: Patient seen and examined at bedside. Denies chest pain and dyspnea Physical Examination HEEN: NC/AT CVA: S1 and S2 regular RS: CTA b/l Abd: BS + EXT: No edema Assessment and Plan - Assessment and Plan (Free Text) Assessment: 83yo F with PMHx of CKD, HTN, DM who had robotic ventral hernia repair POD#5 Cardiac point of view patient is stable Objective - Vital Signs/Intake and Output Vital Signs (last 24 hours): Temp Pulse Resp BP Pulse Ox 97.4 F L 63 20 133/70 100 05/18/18 15:00 05/18/18 15:00 05/18/18 15:00 05/18/18 18:09 05/18/18 15:00 - Medications Medications: Current Medications Ergocalciferol (Drisdol 50,000 Intl Units Cap) 1 cap PO Q7D [facility] Last Admin: 05/17/18 13:59 Dose: 1 cap Furosemide (Lasix) 40 mg IVP DAILY [facility] Last Admin: 05/18/18 12:18 Dose: 40 mg Gabapentin (Neurontin) 100 mg PO TID [facility] Last Admin: 05/18/18 18:09 Dose: 100 mg Guaifenesin (Robitussin) 200 mg PO Q4H PRN PRN Reason: Cough and congestion Last Admin: 05/18/18 18:09 Dose: 200 mg Hydralazine HCl (Apresoline) 100 mg PO TID [facility] Last Admin: 05/18/18 18:08 Dose: 100 mg Ferric Sodium Gluconate Complex 125 mg/ Sodium Chloride 110 mls @ 110 mls/hr IVPB DAILY [facility] Stop: 05/23/18 12:01 Last Admin: 05/18/18 10:07 Dose: 110 mls/hr Insulin Aspart (Novolog) 0 unit SC ACHS [facility]; Protocol Last Admin: 05/18/18 17:14 Dose: Not Given Lactulose (Enulose) 20 gm PO BID PRN PRN Reason: Constipation Metoprolol Tartrate (Lopressor) 25 mg PO BID [facility] Last Admin: 05/18/18 18:09 Dose: 25 mg Ondansetron HCl (Zofran Inj) 4 mg IVP Q6H PRN PRN Reason: nausea and vomiting Last Admin: 05/18/18 14:25 Dose: 4 mg Ondansetron HCl (Zofran Inj) 4 mg IVP DAILY@ONCE PRN PRN Reason: nausea Last Admin: 05/18/18 09:24 Dose: 4 mg Pantoprazole Sodium (Protonix Ec Tab) 20 mg PO DAILY [facility] Last Admin: 05/18/18 09:23 Dose: 20 mg Rosuvastatin Calcium (Crestor) 10 mg PO HS [facility] Last Admin: 05/18/18 21:32 Dose: 10 mg Senna/Docusate Sodium (Senokot S 50 Mg-8.6 Mg) 1 tab PO DAILY [facility] Last Admin: 05/18/18 09:23 Dose: 1 tab Sitagliptin Phosphate (Januvia) 25 mg PO DAILY [facility] Last Admin: 05/18/18 09:22 Dose: 25 mg Sodium Bicarbonate (Sodium Bicarbonate Tab) 1,300 mg PO TID [facility] Last Admin: 05/18/18 18:08 Dose: 1,300 mg Vitamin B Complex/Vit C/Folic Acid (Nephro-Naman) 1 tab PO 0800 [facility] Last Admin: 05/18/18 09:23 Dose: 1 tab - Labs Labs: 05/18/18 09:33 05/18/18 09:33 PT 12.2 SECONDS (9.7-12.2) 05/12/18 07:28 INR 1.1 05/12/18 07:28 APTT 27 SECONDS (21-34) 05/12/18 07:28
--- NOTE | 2018-05-18 22:12 | CP.PCM.PN ---
Subjective - Date & Time of Evaluation Date of Evaluation: 05/17/18 Time of Evaluation: 17:20 - Subjective Subjective: Patient seen and examined at bedside. Denies chest pain and dyspnea Physical Examination HEEN: NC/AT CVA: S1 and S2 regular RS: CTA b/l Abd: BS + EXT: No edema Assessment and Plan - Assessment and Plan (Free Text) Assessment: 83yo F with PMHx of CKD, HTN, DM who had robotic ventral hernia repair POD#3 Cardiac point of view patient is stable Objective - Vital Signs/Intake and Output Vital Signs (last 24 hours): Temp Pulse Resp BP Pulse Ox 97.4 F L 63 20 133/70 100 05/18/18 15:00 05/18/18 15:00 05/18/18 15:00 05/18/18 18:09 05/18/18 15:00 - Medications Medications: Current Medications Ergocalciferol (Drisdol 50,000 Intl Units Cap) 1 cap PO Q7D [facility] Last Admin: 05/17/18 13:59 Dose: 1 cap Furosemide (Lasix) 40 mg IVP DAILY [facility] Last Admin: 05/18/18 12:18 Dose: 40 mg Gabapentin (Neurontin) 100 mg PO TID [facility] Last Admin: 05/18/18 18:09 Dose: 100 mg Guaifenesin (Robitussin) 200 mg PO Q4H PRN PRN Reason: Cough and congestion Last Admin: 05/18/18 18:09 Dose: 200 mg Hydralazine HCl (Apresoline) 100 mg PO TID [facility] Last Admin: 05/18/18 18:08 Dose: 100 mg Ferric Sodium Gluconate Complex 125 mg/ Sodium Chloride 110 mls @ 110 mls/hr IVPB DAILY [facility] Stop: 05/23/18 12:01 Last Admin: 05/18/18 10:07 Dose: 110 mls/hr Insulin Aspart (Novolog) 0 unit SC ACHS [facility]; Protocol Last Admin: 05/18/18 17:14 Dose: Not Given Lactulose (Enulose) 20 gm PO BID PRN PRN Reason: Constipation Metoprolol Tartrate (Lopressor) 25 mg PO BID [facility] Last Admin: 05/18/18 18:09 Dose: 25 mg Ondansetron HCl (Zofran Inj) 4 mg IVP Q6H PRN PRN Reason: nausea and vomiting Last Admin: 05/18/18 14:25 Dose: 4 mg Ondansetron HCl (Zofran Inj) 4 mg IVP DAILY@ONCE PRN PRN Reason: nausea Last Admin: 05/18/18 09:24 Dose: 4 mg Pantoprazole Sodium (Protonix Ec Tab) 20 mg PO DAILY [facility] Last Admin: 05/18/18 09:23 Dose: 20 mg Rosuvastatin Calcium (Crestor) 10 mg PO HS [facility] Last Admin: 05/18/18 21:32 Dose: 10 mg Senna/Docusate Sodium (Senokot S 50 Mg-8.6 Mg) 1 tab PO DAILY [facility] Last Admin: 05/18/18 09:23 Dose: 1 tab Sitagliptin Phosphate (Januvia) 25 mg PO DAILY [facility] Last Admin: 05/18/18 09:22 Dose: 25 mg Sodium Bicarbonate (Sodium Bicarbonate Tab) 1,300 mg PO TID [facility] Last Admin: 05/18/18 18:08 Dose: 1,300 mg Vitamin B Complex/Vit C/Folic Acid (Nephro-Naman) 1 tab PO 0800 [facility] Last Admin: 05/18/18 09:23 Dose: 1 tab - Labs Labs: 05/18/18 09:33 05/18/18 09:33 PT 12.2 SECONDS (9.7-12.2) 05/12/18 07:28 INR 1.1 05/12/18 07:28 APTT 27 SECONDS (21-34) 05/12/18 07:28
--- NOTE | 2018-05-18 22:44 | CP.PCM.PN ---
Subjective - Subjective Subjective: dictated Objective - Vital Signs/Intake and Output Vital Signs (last 24 hours): Temp Pulse Resp BP Pulse Ox 97.4 F L 63 20 133/70 100 05/18/18 15:00 05/18/18 15:00 05/18/18 15:00 05/18/18 18:09 05/18/18 15:00 - Medications Medications: Current Medications Ergocalciferol (Drisdol 50,000 Intl Units Cap) 1 cap PO Q7D [facility] Last Admin: 05/17/18 13:59 Dose: 1 cap Furosemide (Lasix) 40 mg IVP DAILY [facility] Last Admin: 05/18/18 12:18 Dose: 40 mg Gabapentin (Neurontin) 100 mg PO TID [facility] Last Admin: 05/18/18 18:09 Dose: 100 mg Guaifenesin (Robitussin) 200 mg PO Q4H PRN PRN Reason: Cough and congestion Last Admin: 05/18/18 18:09 Dose: 200 mg Hydralazine HCl (Apresoline) 100 mg PO TID [facility] Last Admin: 05/18/18 18:08 Dose: 100 mg Ferric Sodium Gluconate Complex 125 mg/ Sodium Chloride 110 mls @ 110 mls/hr IVPB DAILY [facility] Stop: 05/23/18 12:01 Last Admin: 05/18/18 10:07 Dose: 110 mls/hr Insulin Aspart (Novolog) 0 unit SC [facility]; Protocol Last Admin: 05/18/18 17:14 Dose: Not Given Lactulose (Enulose) 20 gm PO BID PRN PRN Reason: Constipation Metoprolol Tartrate (Lopressor) 25 mg PO BID [facility] Last Admin: 05/18/18 18:09 Dose: 25 mg Ondansetron HCl (Zofran Inj) 4 mg IVP Q6H PRN PRN Reason: nausea and vomiting Last Admin: 05/18/18 14:25 Dose: 4 mg Ondansetron HCl (Zofran Inj) 4 mg IVP DAILY@ONCE PRN PRN Reason: nausea Last Admin: 05/18/18 09:24 Dose: 4 mg Pantoprazole Sodium (Protonix Ec Tab) 20 mg PO DAILY [facility] Last Admin: 05/18/18 09:23 Dose: 20 mg Rosuvastatin Calcium (Crestor) 10 mg PO [facility] Last Admin: 05/18/18 21:32 Dose: 10 mg Senna/Docusate Sodium (Senokot S 50 Mg-8.6 Mg) 1 tab PO DAILY [facility] Last Admin: 05/18/18 09:23 Dose: 1 tab Sitagliptin Phosphate (Januvia) 25 mg PO DAILY [facility] Last Admin: 05/18/18 09:22 Dose: 25 mg Sodium Bicarbonate (Sodium Bicarbonate Tab) 1,300 mg PO TID [facility] Last Admin: 05/18/18 18:08 Dose: 1,300 mg Vitamin B Complex/Vit C/Folic Acid (Nephro-Naman) 1 tab PO 0800 [facility] Last Admin: 05/18/18 09:23 Dose: 1 tab - Labs Labs: 05/18/18 09:33 05/18/18 09:33 PT 12.2 SECONDS (9.7-12.2) 05/12/18 07:28 INR 1.1 05/12/18 07:28 APTT 27 SECONDS (21-34) 05/12/18 07:28 Assessment and Plan (1) Abdominal pain of multiple sites Status: Acute (2) Renal insufficiency Status: Chronic (3) CHF (congestive heart failure) Status: Chronic (4) Hypertensive urgency Status: Acute
--- NOTE | 2018-05-19 02:22 | PN ---
DATE: 05/18/2018 SUBJECTIVE: Sonia Chase is stable. She is afebrile. No shortness of breath. PHYSICAL EXAMINATION: VITAL SIGNS: BP 136/64, pulse 60, respiratory rate 20, temperature 97.4. LUNGS: Clear. No rales. No rhonchi. CARDIOVASCULAR SYSTEM: S1 and S2 are regular. ABDOMEN: Soft. ASSESSMENT: 1. Hypertension. 2. Urinary tract infection. 3. Large ventral hernia, status post repair. 4. Low urine output. Medically, the patient is stable. PLAN: Continue current medication. Monitor the patient. Toby Rich MD
[2018-05-19] MEDS: (Novolog) Insulin Aspart, Recombinant 100 u/ml 10 ml vial SC SCH ×2 (08:14→12:57)
[2018-05-19 09:06] VITALS: O2SAT 97
[2018-05-19] MEDS: Pantoprazole 20 mg EC Tab PO SCH (09:56)
[2018-05-19] MEDS: Docusate-Senna 50 mg-8.6 mg Tab PO SCH (09:56)
[2018-05-19] MEDS: Multivitamin Vitamin B Complex (Nephro-Vite) Tab PO SCH (09:56)
[2018-05-19 10:16] LABS: CALCIUM 8.4 mg/dl (8.6-10.4)
[2018-05-19] MEDS ORDERED: Sodium Bicarbonate (8.4%) 50 Meq Syringe IVP ONE (11:48)
--- NOTE | 2018-05-19 13:06 | CP.PCM.PN ---
Subjective - Date & Time of Evaluation Date of Evaluation: 05/19/18 Time of Evaluation: 13:05 - Subjective Subjective: Nephrology Consultation Note: Assessment: Stable decreased UOP ? due to HEYDI/pre-renal versus card catheter related issues Diabetic chronic Kidney Disease (E11.22) Hypertensive Chronic Kidney Disease (I12.9) Chronic Kidney Disease (N18.4) Stage 4 with ? mg proteinuria (R80.9) with b/l atrophic kidneys likely due to DM/HTN/age related nephrosclerosis Anemia (D64.9) morbid obesity, mild hyperkalemia and metabolic acidosis hyponatremia with RLL mass ventral hernia s/p repair Plan gave a dose of IV bicarb, D50 and started lasix 40 mg once a day. No acute need for renal replacement therapy at this time. Hypertension control with meds as ordered. Maintain hemodynamics stable. Avoid hypotension. Patient not on ACEI/ARB due to advanced CKD and K on higher side. continue with hydralazine. added lopressor. Monitor Input/Output, daily weights and renal function with basic metabolic panel will give IV iron and start nephrovite daily. defer use of LOUISE considering RLL lung mass. PRBC as needed started sodium bicarb 1300 mg tid consider to avoid magnesium based laxatives as can lead to hypermagnesemia in CKD. also to avoid Fleet enema pulmonary following for RLL mass Low K and Na diet Check urine analysis, spot protein/creatinine, albumin/creatinine ratio, uric acid, urine Na/Cr/Osmol Check for 25-OH vitamin D, iPTH, phosphorus level. Dose meds/antibiotics for reduced GFR. Avoid fleets enema/magnesium based laxati ves. Avoid nephrotoxins/NSAIDs/ iodinated contrast (unless needed emergently) Glycemic control Further work up/management as per primary team pt stable for d/c from renal perspective with 1 week outpt follow up Thanks for allowing me to participate in care of your patient. Will follow patient with you. Please call if any Qs. had d/w team Dr Saturnino Askew Office: [phone] Chief Complaint; abdomen surgery Reason for consult: CKD and decreased UOP HPI: Pt is a 83 F with hx of diabetes Mellitus ( years), hypertension (years) CKD 4 with baseline cr 2.4 morbid obesity anemia and RLL mass presented with complaints of abdomen pain and underwent ventral hernia repair Denies OTC/herbal meds or NSAIDs No recent iodinated contrast exposure. No obvious episodes of low BP. renal consult for CKD management. also noted to have decreased UOP> has card. pt aware about ckd x 1 year ROS: c/o cough Cardiovascular: No chest pain. Pulmonary: improved shortness of breath Gastrointestinal: c/o abdominal pain No nausea. No vomiting. had BM Genitourinary: No pain while urinating. Denies blood in urine. reports decreased UOP All other negative except as mentioned in HPI Physical Examination: General Appearance: Comfortable, in no acute respiratory distress, co-operative . obese Vitals reviewed and noted as below Head; Atraumatic, normocephalic ENT: no ulcers no thrush. Tongue is midline. Oropharynx: no rash or ulcers. EYES: Pupils are equal, round and reactive to light accommodation. Eye muscles and extraocular movement intact. Sclera is anicteric. Neck; supple no lymphadenopathy, no thyromegaly or bruit Lungs: Increased respiratory rate/effort. Breath sounds bilateral equal and clear Heart: Normal rate. s1s2 normal. No rub or gallop. Extremities: 2+ edema. No varicose veins Neurological: Patient is alert, awake and oriented to person, place and time. No focal deficit. Strength bilateral appropriate and equal Skin: Warm and dry. Normal turgor. No rash. Palpitation: Normal elasticity for age Abdomen: Abdomen is soft. Bowel sounds +. There is no abdominal tenderness, no guarding/rigidity no organomegaly. has binder + exam limited Psych: normal insight and normal affect/mood MSK: no joint tenderness or swelling. Digits and nails normal, no deformity : kidney or bladder not palpable Labs/imaging reviewed. Past medical history, past surgical history, family history, social history, allergy reviewed and noted as below Family hx: no hx of CKD. Rest non-contributory Objective - Vital Signs/Intake and Output Vital Signs (last 24 hours): Temp Pulse Resp BP Pulse Ox 98.1 F 68 20 160/72 H 97 05/19/18 09:05 05/19/18 09:05 05/19/18 09:05 05/19/18 09:58 05/19/18 09:05 Intake and Output: 05/19/18 05/19/18 06:59 18:59 Output Total 200 Balance -200 - Medications Medications: Current Medications Ergocalciferol (Drisdol 50,000 Intl Units Cap) 1 cap PO Q7D [facility] Last Admin: 05/17/18 13:59 Dose: 1 cap Furosemide (Lasix) 40 mg IVP DAILY [facility] Last Admin: 05/19/18 09:58 Dose: 40 mg Gabapentin (Neurontin) 100 mg PO TID [facility] Last Admin: 05/19/18 12:59 Dose: 100 mg Guaifenesin (Robitussin) 200 mg PO Q4H PRN PRN Reason: Cough and congestion Last Admin: 05/18/18 18:09 Dose: 200 mg Hydralazine HCl (Apresoline) 100 mg PO TID [facility] Last Admin: 05/19/18 12:59 Dose: 100 mg Ferric Sodium Gluconate Complex 125 mg/ Sodium Chloride 110 mls @ 110 mls/hr IVPB DAILY [facility] Stop: 05/23/18 12:01 Last Admin: 05/18/18 10:07 Dose: 110 mls/hr Insulin Aspart (Novolog) 0 unit SC [facility]; Protocol Last Admin: 05/19/18 12:57 Dose: 2 units Lactulose (Enulose) 20 gm PO BID PRN PRN Reason: Constipation Metoprolol Tartrate (Lopressor) 25 mg PO BID [facility] Last Admin: 05/19/18 09:56 Dose: 25 mg Ondansetron HCl (Zofran Inj) 4 mg IVP Q6H PRN PRN Reason: nausea and vomiting Last Admin: 05/18/18 14:25 Dose: 4 mg Ondansetron HCl (Zofran Inj) 4 mg IVP DAILY@ONCE PRN PRN Reason: nausea Last Admin: 05/18/18 09:24 Dose: 4 mg Pantoprazole Sodium (Protonix Ec Tab) 20 mg PO DAILY [facility] Last Admin: 05/19/18 09:56 Dose: 20 mg Rosuvastatin Calcium (Crestor) 10 mg PO [facility] Last Admin: 05/18/18 21:32 Dose: 10 mg Senna/Docusate Sodium (Senokot S 50 Mg-8.6 Mg) 1 tab PO DAILY [facility] Last Admin: 05/19/18 09:56 Dose: 1 tab Sitagliptin Phosphate (Januvia) 25 mg PO DAILY [facility] Last Admin: 05/19/18 09:55 Dose: 25 mg Sodium Bicarbonate (Sodium Bicarbonate Tab) 1,300 mg PO TID [facility] Last Admin: 05/19/18 12:59 Dose: 1,300 mg Vitamin B Complex/Vit C/Folic Acid (Nephro-Naman) 1 tab PO 0800 [facility] Last Admin: 05/19/18 09:56 Dose: 1 tab - Labs Labs: 05/18/18 09:33 05/19/18 08:37 PT 12.2 SECONDS (9.7-12.2) 05/12/18 07:28 INR 1.1 05/12/18 07:28 APTT 27 SECONDS (21-34) 05/12/18 07:28
[2018-05-19] MEDS: Ferric Sodium Gluconat Complex 125 MG in Sodium Chloride 0.9% 100 ML IVPB SCH (13:52)
--- NOTE | 2018-05-19 23:18 | CP.PCM.DIS ---
Provider - Provider Date of Admission: 05/06/18 03:38 Attending physician: Toby Rich MD Diagnosis - Discharge Diagnosis (1) Abdominal pain of multiple sites Status: Acute (2) Renal insufficiency Status: Chronic (3) CHF (congestive heart failure) Status: Chronic Priority: High (4) Hypertensive urgency Status: Acute Priority: High Hospital Course - Lab Results Lab Results: Most Recent Lab Values WBC 12.2 K/uL (4.8-10.8) H 05/18/18 09:33 RBC 3.16 Mil/uL (3.80-5.20) L 05/18/18 09:33 Hgb 8.2 g/dL (11.0-16.0) L 05/18/18 09:33 Hct 26.0 % (34.0-47.0) L 05/18/18 09:33 MCV 82.4 fL (81.0-99.0) 05/18/18 09:33 MCH 26.0 pg (27.0-31.0) L 05/18/18 09:33 MCHC 31.6 g/dL (33.0-37.0) L 05/18/18 09:33 RDW 14.7 % (11.5-14.5) H 05/18/18 09:33 Plt Count 233 K/uL (130-400) 05/18/18 09:33 MPV 10.5 fL (7.2-11.7) 05/18/18 09:33 Neut % (Auto) 85.0 % (50.0-75.0) H 05/16/18 12:14 Lymph % (Auto) 4.7 % (20.0-40.0) L 05/16/18 12:14 [place] % (Auto) 7.3 % (0.0-10.0) 05/16/18 12:14 Eos % (Auto) 2.4 % (0.0-4.0) 05/16/18 12:14 Baso % (Auto) 0.6 % (0.0-2.0) 05/16/18 12:14 Neut # (Auto) 11.6 K/uL (1.8-7.0) H 05/16/18 12:14 Lymph # (Auto) 0.6 K/uL (1.0-4.3) L 05/16/18 12:14 [place] # (Auto) 1.0 K/uL (0.0-0.8) H 05/16/18 12:14 Eos # (Auto) 0.3 K/uL (0.0-0.7) 05/16/18 12:14 Baso # (Auto) 0.1 K/uL (0.0-0.2) 05/16/18 12:14 Neutrophils % (Manual) 85 % (50-75) H 05/16/18 12:14 Band Neutrophils % 1 % (0-2) 05/08/18 07:28 Lymphocytes % (Manual) 6 % (20-40) L 05/16/18 12:14 Monocytes % (Manual) 5 % (0-10) 05/16/18 12:14 Eosinophils % (Manual) 4 % (0-4) 05/16/18 12:14 Basophils % (Manual) 4 % (0-2) H 05/07/18 07:10 Platelet Estimate Normal (NORMAL) 05/16/18 12:14 Large Platelets Present 05/16/18 12:14 Giant Platelets Present 05/16/18 12:14 Polychromasia Slight 05/15/18 08:06 Hypochromasia (manual) Slight 05/16/18 12:14 Poikilocytosis (manual Slight 05/16/18 12:14 Anisocytosis (manual) Slight 05/16/18 12:14 Microcytosis (manual) Slight 05/14/18 16:50 Macrocytosis (manual) Slight 05/07/18 07:10 PT 12.2 SECONDS (9.7-12.2) 05/12/18 07:28 INR 1.1 05/12/18 07:28 APTT 27 SECONDS (21-34) 05/12/18 07:28 Sodium 132 mmol/L (132-148) 05/19/18 08:37 Potassium 5.5 mmol/L (3.6-5.2) H 05/19/18 08:37 Chloride 106 mmol/L (98-107) 05/19/18 08:37 Carbon Dioxide 16 mmol/L (22-30) L 05/19/18 08:37 Anion Gap 15 (10-20) 05/19/18 08:37 BUN 29 mg/dL (7-17) H 05/19/18 08:37 Creatinine 2.6 mg/dL (0.7-1.2) H 05/19/18 08:37 Est GFR ( Amer) 21 05/19/18 08:37 Est GFR (Non-Af Amer) 18 05/19/18 08:37 POC Glucose (mg/dL) 146 mg/dL (65-110) H 05/19/18 16:34 Random Glucose 118 mg/dL (65-105) H 05/19/18 08:37 Serum Osmolality 285 mosm/kg (272-300) 05/17/18 08:17 Uric Acid 7.8 mg/dL (2.2-7.5) H 05/16/18 12:14 Calcium 8.4 mg/dl (8.6-10.4) L 05/19/18 08:37 Phosphorus 3.4 mg/dL (2.5-4.5) 05/16/18 12:14 Magnesium 2.2 mg/dL (1.6-2.3) 05/16/18 12:14 Iron 31 ug/dL (37-170) L 05/07/18 11:32 TIBC 200 ug/dL (250-450) L 05/07/18 11:32 % Saturation 16 (20-55) L 05/07/18 11:32 Ferritin 229.0 ng/mL 05/07/18 11:32 Total Bilirubin 0.3 mg/dL (0.2-1.3) 05/16/18 12:14 AST 12 U/L (14-36) L 05/16/18 12:14 ALT 6 U/L (9-52) L D 05/16/18 12:14 Alkaline Phosphatase 121 U/L (38-126) 05/16/18 12:14 Total Protein 6.6 g/dL (6.3-8.3) 05/16/18 12:14 Total Protein (PEP) 5.4 g/dL (6.1-8.1) L 05/17/18 08:17 Albumin 2.9 g/dL (3.5-5.0) L 05/16/18 12:14 Globulin 3.7 gm/dL (2.2-3.9) 05/16/18 12:14 Albumin/Globulin Ratio 0.8 (1.0-2.1) L 05/16/18 12:14 Triglycerides 96 mg/dL (0-149) 05/16/18 12:14 Cholesterol 92 mg/dL (0-199) 05/16/18 12:14 LDL Cholesterol Direct 40 mg/dL (0-129) 05/16/18 12:14 HDL Cholesterol 37 mg/dL (30-70) 05/16/18 12:14 Lipase 249 U/L (23-300) 05/06/18 00:24 Vitamin B12 664 pg/mL (239-931) 05/07/18 11:32 25-OH Vitamin D Total < 12.8 NG/ML (30.0-100.0) L 05/17/18 08:17 Folate 4.7 ng/mL 05/07/18 11:32 PTH Intact Whole Molec TNP 05/17/18 08:17 Urine Color Yellow (YELLOW) 05/06/18 09:39 Urine Clarity Hazy (Clear) 05/06/18 09:39 Urine pH 5.0 (5.0-8.0) 05/06/18 09:39 Ur Specific [place] 1.009 (1.003-1.030) 05/06/18 09:39 Urine Protein 2+ mg/dL (NEGATIVE) H 05/06/18 09:39 Urine Glucose (UA) Normal mg/dL (Normal) 05/06/18 09:39 Urine Ketones Negative mg/dL (NEGATIVE) 05/06/18 09:39 Urine Blood 1+ (NEGATIVE) H 05/06/18 09:39 Urine Nitrate Negative (NEGATIVE) 05/06/18 09:39 Urine Bilirubin Negative (NEGATIVE) 05/06/18 09:39 Urine Urobilinogen Normal mg/dL (0.2-1.0) 05/06/18 09:39 Ur Leukocyte Esterase 3+ Tomy/uL (Negative) H 05/06/18 09:39 Urine WBC (Auto) 323 /hpf (0-5) H 05/06/18 09:39 Urine RBC (Auto) 6 /hpf (0-3) H 05/06/18 09:39 Urine WBC Clumps (Auto) Few /hpf (NONE) H 05/06/18 09:39 Ur Squamous Epith Cells 10 /hpf (0-5) H 05/06/18 09:39 Urine Bacteria Many (<OCC) H 05/06/18 09:39 Urine Osmolality 274 mosm/kg (300-1000) L 05/15/18 20:38 Ur Random Creatinine 126 mg/dL (20-275) 05/15/18 20:38 U Random Total Protein 683 mg/g creat (21-161) H 05/15/18 20:38 Ur Random Sodium 11 mmol/L 05/15/18 20:38 Urine Total Volume 25.3 mg/dL 05/15/18 20:38 Microalb/Creat Ratio 201 (<30) H 05/15/18 20:38 Stool Occult Blood (NEGATIVE) 05/06/18 13:50 Blood Type B POSITIVE 05/12/18 11:14 Antibody Screen Negative 05/12/18 11:14 Discharge Exam - Head Exam Head Exam: ATRAUMATIC, NORMOCEPHALIC Discharge Plan - Discharge Medications Prescriptions: Ferrous Sulfate 325 mg PO DAILY #60 tablet - Follow Up Plan Condition: GOOD Disposition: REHAB FACILITY/REHAB UNIT Instructions: Heart Healthy Diet, Heart Failure, Adult (DC), Abdominal Hernia Repair, Laparoscopic Surgery Additional Instructions: Please admit patient under Dr. Rich service - Call Dr. Rich upon patient arrival to the facility Please f/u with Dr. Gomez office in 1 week- call and make appointment and arrange transportation Please f/u with Dr. Huynh office after discharge from [facility] Please f/u with Jamilah office after discharge from [facility] ( f/u visit for renal insufficeincy ) PLEASE DO BMP Q 3DAYS AND CBC Q WEEKLY Post op instructions: - Avoid heavy lifting for 4 weeks - Leave dressings on for 5 days post op. After that, may remove top dressings. Leave white steri strips in place, they will fall off on their own over time. - May shower after dressings removed but do not take a bath - Follow up with Dr. Sandoval in his office in 1-2 weeks. Call to make appointment Referrals: Toby Rich MD [Staff Provider] - Rick Sandoval MD [Staff Provider] -
[2018-05-20 02:55] VITALS: BP 125/72; PULSE 57; TEMP 98.4
--- NOTE | 2018-05-20 06:33 | DS ---
DISCHARGE DIAGNOSES: Urinary tract infection, ventral hernia with incarceration, chronic kidney disease, diabetes, and morbid obesity. HISTORY OF PRESENT ILLNESS: This is an 83-year-old female with history of hypertension, CKD, hyperlipidemia, bronchial asthma, who came in because of abdominal pain, nausea, vomiting, found to have urinary tract infection and also ventral hernia with obstructive symptoms. The patient underwent resection of ventral hernia. The patient did well postoperatively. She had decreased urine output which was tackled by Nephrology with IV fluids and diuretics. The patient's condition is stable. She is being discharged with outpatient followup. She is going to subacute rehab. PHYSICAL EXAMINATION: VITAL SIGNS: BP 160/72, pulse 68, respiratory rate 20, and temperature 98.1. LUNGS: Clear. CARDIOVASCULAR SYSTEM: S1, S2 regular. ABDOMEN: Soft. Bowel sounds are present. ASSESSMENT: Ventral hernia, urinary tract infection, chronic kidney disease, and morbid obesity. PLAN: Discharge. Toby Rich MD
[2018-05-20 07:01] LABS: ALPHA-1-GLOBULIN (PEP) 0.5 g/dL (0.2-0.3)
== END 2018-05-19 18:04 | DRG 336 ==
LOC: SUPCPDRO 22:47 → C.ER 22:47 → C.3T 05-06 03:38 → C.6T 05-12 18:42
PROVIDERS: ADMIT Internal Medicine; ATTEND Internal Medicine
PROC: 0DJD8ZZ Inspection of Lower Intestinal Tract, Via Natural or Artificial Opening Endoscopic (ICD-10-PCS; 2018-05-07)
PROC: 0DNW4ZZ Release Peritoneum, Percutaneous Endoscopic Approach (ICD-10-PCS; 2018-05-12)
PROC: 8E0W4CZ Robotic Assisted Procedure of Trunk Region, Percutaneous Endoscopic Approach (ICD-10-PCS; 2018-05-12)
PROC: 3E0T3BZ Introduction of Anesthetic Agent into Peripheral Nerves and Plexi, Percutaneous Approach (ICD-10-PCS; 2018-05-12)
PROC: 0WUF4JZ Supplement Abdominal Wall with Synthetic Substitute, Percutaneous Endoscopic Approach (ICD-10-PCS; principal; 2018-05-12 13:45)
DX: K43.0 Incisional hernia with obstruction, without gangrene (principal); K66.0 Peritoneal adhesions (postprocedural) (postinfection); N39.0 Urinary tract infection, site not specified; I13.11 Hypertensive heart and chronic kidney disease without heart failure, with stage 5 chronic kidney disease, or end stage renal disease; N18.5 Chronic kidney disease, stage 5; K56.7 Ileus, unspecified; I13.0 Hypertensive heart and chronic kidney disease with heart failure and stage 1 through stage 4 chronic kidney disease, or unspecified chronic kidney disease; E87.1 Hypo-osmolality and hyponatremia; E87.2 Acidosis; K91.89 Other postprocedural complications and disorders of digestive system; E11.22 Type 2 diabetes mellitus with diabetic chronic kidney disease; K57.30 Diverticulosis of large intestine without perforation or abscess without bleeding; I16.0 Hypertensive urgency; I50.9 Heart failure, unspecified; E87.5 Hyperkalemia; J45.909 Unspecified asthma, uncomplicated; D50.9 Iron deficiency anemia, unspecified; K64.1 Second degree hemorrhoids; E78.5 Hyperlipidemia, unspecified; E78.00 Pure hypercholesterolemia, unspecified; E66.01 Morbid (severe) obesity due to excess calories; Z87.891 Personal history of nicotine dependence; Z90.49 Acquired absence of other specified parts of digestive tract; Z90.710 Acquired absence of both cervix and uterus

== ENCOUNTER 2018-05-25 17:59 | Inpatient (IN) | payer MEDICARE ==
--- NOTE | 2018-05-25 19:35 | C.PDOC ---
History Of Present Illness 83 year old female is brought to the ED by family for evaluation of cough which began two days ago. Patient also reports leg swelling for one week. Patient also reports she was wheezing today. Patient has been attending [facility]'s rehab since she underwent hernia repair surgery a couple weeks ago. Patient also reports some nausea and shortness of breath. She denies fever, chills, chest pain and vomiting. Time Seen by Provider: 05/25/18 19:09 Chief Complaint (Nursing): Shortness Of Breath History Per: Patient, Family History/Exam Limitations: no limitations Onset/Duration Of Symptoms: Days Current Symptoms Are (Timing): Still Present Additional History Per: Patient Past Medical History Reviewed: Historical Data, Nursing Documentation, Vital Signs Vital Signs: Last Vital Signs Temp 98.1 F 05/25/18 18:14 Pulse 71 05/25/18 18:04 Resp 18 05/25/18 18:15 BP 144/64 05/25/18 18:04 Pulse Ox 96 05/25/18 18:04 - Medical History PMH: Arthritis, HTN, Hypercholesterolemia Denies: Crohn's Disease, Diverticulitis, Gastritis, Gall Bladder Disease, HIV, Pancreatitis, Chronic Kidney Disease Surgical History: Cholecystectomy (over 10 yrs. ago) - [facility] Procedures INSPECTION OF LOWER INTESTINAL TRACT, ENDO (05/06/18) INTRODUCE LOCAL ANESTH IN PERIPH NRV, PLEXI, PERC (05/06/18) RELEASE PERITONEUM, PERCUTANEOUS ENDOSCOPIC APPROACH (05/06/18) ROBOTIC ASSISTED PROCEDURE OF TRUNK, PERC ENDO APPROACH (05/06/18) SUPPLEMENT ABDOMINAL WALL WITH SYNTH SUB, PERC ENDO APPROACH (05/06/18) Family History: States: Diabetes Denies: [place], CAD - Social History Hx Alcohol Use: No Hx Substance Use: No - Immunization History Hx Tetanus Toxoid Vaccination: No Hx Influenza Vaccination: No Hx Pneumococcal Vaccination: No Review Of Systems Constitutional: Negative for: Fever, Chills Cardiovascular: Negative for: Chest Pain Respiratory: Positive for: Cough, Shortness of Breath, Wheezing Gastrointestinal: Positive for: Nausea. Negative for: Vomiting Physical Exam - Physical Exam Appears: Non-toxic, No Acute Distress Skin: Normal Color, Warm, Dry Head: Atraumatic, Normacephalic Eye(s): bilateral: Normal Inspection Ear(s): Bilateral: Normal Nose: Normal, No Discharge Oral Mucosa: Moist Throat: Normal, No Erythema, No Exudate Neck: Supple Chest: Symmetrical, No Deformity, No Tenderness Cardiovascular: Rhythm Regular, No Murmur Respiratory: No Rales, Rhonchi (diffuse ), Wheezing (diffuse, expiratory ), Other (speaking in full sentences ) Gastrointestinal/Abdominal: Soft, No Tenderness, No Guarding, No Rebound, Other (hernia repair site is clean and dry ) Extremity: Normal ROM, Capillary Refill (less than 2 seconds ) Neurological/Psych: Oriented x3, Normal Speech, Normal Cognition ED Course And Treatment - Laboratory Results Result Diagrams: 05/25/18 19:29 05/25/18 19:52 ECG: Interpreted By Me, Viewed By Me ECG Rhythm: Sinus Rhythm Interpretation Of ECG: Normal Sinus Rhythm at rate 69bpm. Normal axis. Normal intervals. Normal CT and QT intervals. Slightly prolonged QRS. Incomplete left bundle branch block. No ST elevations. Nonspecific T wave changes. Rate From EC O2 Sat by Pulse Oximetry: 96 (on RA) Pulse Ox Interpretation: Normal Medical Decision Making Medical Decision Making: Progress: Bloodwork, urinalysis, CXR, EKG ordered and reviewed. Abluterol INH given. 2030: Case discussed with Dr. Rich who accepts the patient for admission. Discussed disposition plans with patient and family members. Disposition Discussed With .: Toby Rich Doctor Will See Patient In The: Hospital Counseled Patient/Family Regarding: Studies Performed, Diagnosis - Disposition Disposition: HOSPITALIZED Disposition Time: 20:30 Condition: FAIR - Clinical Impression Clinical Impression: Chronic congestive heart failure, Pneumonia, Anemia, CKD (chronic kidney disease) - Scribe Statement The provider has reviewed the documentation as recorded by the Scribe (Bertha Cummins) Provider Attestation: All medical record entries made by the Scribe were at my direction and personal ly dictated by me. I have reviewed the chart and agree that the record accurately reflects my personal performance of the history, physical exam, medical decision making, and the department course for this patient. I have also personally directed, reviewed, and agree with the discharge instructions and disposition.
[2018-05-25 19:49] LABS: BASO # 0.1 K/uL (0.0-0.2); BASO % 1.3 % (0.0-2.0); EOS # 0.8 K/uL (0.0-0.7); EOS % 7.7 % (0.0-4.0); HEMOGLOBIN 7.7 g/dL (11.0-16.0); LYMPH # 1.4 K/uL (1.0-4.3); MEAN CELL VOLUME 83.4 fL (81.0-99.0); MEAN CORPUSCULAR HEMOGLOBIN 26.5 pg (27.0-31.0); MEAN CORPUSCULAR HGB CONC 31.8 g/dL (33.0-37.0); MEAN PLATELET VOLUME 10.5 fL (7.2-11.7); MONO # 1.4 K/uL (0.0-0.8); MONO % 12.8 % (0.0-10.0); NEUT % 65.2 % (50.0-75.0); NRBC % 0.2 % (0.0-2.0); RBC 2.92 Mil/uL (3.80-5.20); RED CELL DISTRIBUTION WIDTH 15.3 % (11.5-14.5); WHITE BLOOD COUNT 10.8 K/uL (4.8-10.8)
[2018-05-25] MEDS: Albuterol-Ipratrop 3 mg / 0.5 (3 ml) UD IH SCH (19:50)
[2018-05-25] MEDS ORDERED: Albuterol-Ipratrop 3 mg / 0.5 (3 ml) UD ONE (19:54)
[2018-05-25 20:12] LABS: ALB/GLOB RATIO 0.7 (1.0-2.1); ALBUMIN 2.9 g/dL (3.5-5.0)
[2018-05-25 20:13] LABS: TROPONIN I 0.017 ng/mL (0.00-0.120)
[2018-05-25] MEDS ORDERED: Vancomycin 1 gm/NS 200 ml 1 GM/200 ML BAG IVPB STA (20:35)
[2018-05-25] MEDS ORDERED: Piperacill/Tazo 3.375gm in Dex 3.375 GM/50 ML BAG IV STA (20:35)
[2018-05-25] MEDS ORDERED: Piperacillin/Tazobact 3.375 gm 100 ML IVPB ONE (20:52)
[2018-05-25] MEDS ORDERED: Vancomycin 1 GM 0 GM/0 ML BAG IVPB ONE ×2 (20:53)
[2018-05-25] MEDS ORDERED: Vitamins A & D Oint UD Foilpak ONE (21:45)
[2018-05-25] MEDS ORDERED: Oxycodone/Acetaminophen 5/325 mg Tab PO PRN (22:17)
[2018-05-25] MEDS ORDERED: guaiFENesin 200 mg/10 ml Syrup UD PO PRN (22:17)
[2018-05-25] MEDS ORDERED: EPOETIN ALFA 4,000 UNIT/ML ML Dialysis SC ONE (22:22)
[2018-05-26] MEDS: Albuterol-Ipratrop 3 mg / 0.5 (3 ml) UD INH SCH ×5 (01:35→19:50)
--- NOTE | 2018-05-26 08:21 | CP.PCM.CON ---
<Aleshia King - Last Filed: 05/26/18 16:58> History of Present Illness - History of Present Illness History of Present Illness: Cardiology Consult Note This is an 83 year old female with past medical history of hypertension, type 2 DM, hyperlipidemia, diastolic heart failure with LVEF 70% (01/2018), chronic kidney disease stage 4, lung mass (RLL; scheduled outpatient biopsy) who was referred to our service by Dr. Rich, for acute on chronic diastolic heart fa ilure exacerbation. Patient reports she started to have dyspnea, productive cough with white sputum, and wheezing that started 2 days prior to admission. She recently was admitted for ventral hernia repair on 05/12/18 and discharged to a rehab. A lung mass was found at that time in the RLL (outpatient biopsy to be arranged). During this admission patient reported increased dyspnea and fatigue. She does not use home o2, was able to ambulate with cane up and down stairs without any shortness of breath. Denied fever, chills, or chest pain. PMHx: As noted above PSHx: cholecystectomy, hysterectomy, ventral hernia repair All: NKDA SHx: Denied any tobacco, alcohol, or illicit drug use FHx: Unremarkable. Review of Systems - Constitutional Constitutional: Fatigue. absent: Chills, Fever - EENT Eyes: absent: Blurred Vision, Change in Vision Ears: absent: Tinnitus, Disequilibrium, Dizziness Nose/Mouth/Throat: absent: Nasal Discharge, Dysphagia, Hoarsness - Cardiovascular Cardiovascular: Chest Pain, Dyspnea, Dyspnea on Exertion, Pedal Edema. absent: Chest Pain at Rest, Leg Edema, Lightheadedness, Palpitations - Respiratory Respiratory: Cough, Dyspnea, Wheezing, Chest Congestion, Change in Mucous Color - Gastrointestinal Gastrointestinal: absent: Abdominal Pain, Nausea, Vomiting - Genitourinary Genitourinary: absent: Dysuria, Hematuria - Musculoskeletal Musculoskeletal: absent: Abnormal Gait, Back Pain, Muscle Weakness, Numbness, Tingling - Neurological Neurological: absent: Abnormal Gait, Abnormal Hearing, Dizziness, Headaches, Vertigo, Weakness - Psychiatric Psychiatric: absent: Anxiety, Depression, Suicidal Ideation - Hematologic/Lymphatic Hematologic: absent: Easy Bleeding, Easy Bruising Past Patient History - Infectious Disease Hx of Infectious Diseases: None - Past Medical History & Family History Past Medical History?: Yes - Past Social History Smoking Status: Former Smoker - CARDIAC Hx Cardiac Disorders: Yes Hx Hypercholesterolemia: Yes Hx Hypertension: Yes - PULMONARY Hx Respiratory Disorders: No - NEUROLOGICAL Hx Neurological Disorder: No - HEENT Hx HEENT Problems: No - RENAL Hx Chronic Kidney Disease: No - ENDOCRINE/METABOLIC Hx Endocrine Disorders: Yes Hx Diabetes Mellitus Type 2: Yes - HEMATOLOGICAL/ONCOLOGICAL Hx Blood Disorders: No Hx Human Immunodeficiency Virus (HIV): No - INTEGUMENTARY Hx Dermatological Problems: No - MUSCULOSKELETAL/RHEUMATOLOGICAL Hx Musculoskeletal Disorders: Yes Hx Arthritis: Yes Hx Falls: No - GASTROINTESTINAL Hx Gastrointestinal Disorders: No Hx Crohn's Disease: No Hx Diverticulitis: No Hx Gall Bladder Disease: No Hx Gastritis: No Hx Pancreatitis: No - GENITOURINARY/GYNECOLOGICAL Hx Genitourinary Disorders: No - PSYCHIATRIC Hx Psychophysiologic Disorder: No Hx Substance Use: No - SURGICAL HISTORY Hx Surgeries: Yes Hx Cholecystectomy: Yes (over 10 yrs. ago) - ANESTHESIA Hx Anesthesia: Yes Hx Anesthesia Reactions: No Meds Allergies/Adverse Reactions: Allergies Allergy/AdvReac Type Severity Reaction Status Date / Time No Known Allergies Allergy Verified 05/25/18 18:03 - Medications Medications: Current Medications Albuterol/Ipratropium (Duoneb 3 Mg/0.5 Mg (3 Ml) Ud) 3 ml INH RQ6 [facility] Last Admin: 05/26/18 01:35 Dose: 3 ml Docusate Sodium (Colace) 100 mg PO TID [facility] Ferrous Sulfate (Feosol) 325 mg PO DAILY [facility] Furosemide (Lasix) 60 mg IVP DAILY [facility] Gabapentin (Neurontin) 100 mg PO TID [facility] Guaifenesin (Robitussin) 200 mg PO Q4H PRN PRN Reason: Cough and congestion Hydralazine HCl (Apresoline) 100 mg PO TID [facility] Ceftriaxone Sodium 1 gm/ (Sodium Chloride) 100 mls @ 100 mls/hr IVPB DAILY [facility]; Protocol Influenza Virus Vaccine (Fluzone Quad [id number]) 60 mcg IM .ONCE ONE Stop: 05/27/18 14:01 Insulin Aspart (Novolog) 0 unit SC ACHS [facility]; Protocol Lactulose (Enulose) 20 gm PO DAILY [facility] Methylprednisolone (Solu-Medrol) 60 mg IV Q12 [facility] Last Admin: 05/25/18 23:37 Dose: 60 mg Metoprolol Tartrate (Lopressor) 25 mg PO BID [facility] Oxycodone/Acetaminophen (Percocet 5/325 Mg Tab) 1 tab PO Q4H PRN PRN Reason: Pain, moderate (4-7) Stop: 05/28/18 22:18 Pantoprazole Sodium (Protonix Ec Tab) 20 mg PO Q12 [facility] Pneumococcal Polyvalent Vaccine (Pneumovax 23 Vaccine) 0.5 ml IM .ONCE ONE Stop: 05/27/18 14:01 Rosuvastatin Calcium (Crestor) 10 mg PO HS [facility] Last Admin: 05/25/18 23:37 Dose: 10 mg Sitagliptin Phosphate (Januvia) 25 mg PO DAILY [facility] Sodium Bicarbonate (Sodium Bicarbonate Tab) 1,300 mg PO TID [facility] Physical Exam - Constitutional Appears: No Acute Distress - Head Exam Head Exam: NORMAL INSPECTION, NORMOCEPHALIC - Eye Exam Eye Exam: PERRL. absent: Nystagmus, Scleral icterus Pupil Exam: NORMAL ACCOMODATION - ENT Exam ENT Exam: Mucous Membranes Dry - Respiratory Exam Respiratory Exam: Decreased Breath Sounds, Rales, Wheezes - Cardiovascular Exam Cardiovascular Exam: +S1, +S2. absent: JVD - GI/Abdominal Exam GI & Abdominal Exam: Normal Bowel Sounds, Soft. absent: Distended, Tenderness Additional comments: surgical site, clean - no blood, erythema or cellulitis noted - Extremities Exam Extremities exam: Positive for: normal inspection, pedal edema, tenderness. Negative for: pedal pulses present - Back Exam Back exam: NORMAL INSPECTION - Neurological Exam Neurological exam: Alert, CN II-XII Intact, Oriented x3 - Psychiatric Exam Psychiatric exam: Normal Affect, Normal Mood - Skin Skin Exam: Dry, Intact, Normal Color, Warm Results - Vital Signs Recent Vital Signs: Last Vital Signs Temp 98.6 F 05/26/18 00:30 Pulse 76 05/26/18 00:30 Resp 20 05/26/18 00:30 BP 135/68 05/26/18 00:30 Pulse Ox 97 05/26/18 00:30 - Labs Result Diagrams: 05/25/18 19:29 05/25/18 19:52 Labs: Laboratory Results - last 24 hr 05/25/18 05/25/18 05/25/18 18:43 19:29 19:52 WBC 10.8 RBC 2.92 L Hgb 7.7 L Hct 24.3 L MCV 83.4 MCH 26.5 L MCHC 31.8 L RDW 15.3 H Plt Count 215 MPV 10.5 Neut % (Auto) 65.2 Lymph % (Auto) 13.0 L Campbell % (Auto) 12.8 H Eos % (Auto) 7.7 H Baso % (Auto) 1.3 Neut # (Auto) 7.0 Lymph # (Auto) 1.4 Campbell # (Auto) 1.4 H Eos # (Auto) 0.8 H Baso # (Auto) 0.1 Sodium 138 Potassium 4.4 Chloride 105 Carbon Dioxide 23 Anion Gap 14 BUN 40 H Creatinine 2.8 H Est GFR ( Amer) 19 Est GFR (Non-Af Amer) 16 POC Glucose (mg/dL) 140 H Random Glucose 149 H Lactic Acid Calcium 8.0 L Total Bilirubin 0.3 AST 17 ALT 15 Alkaline Phosphatase 125 Troponin I 0.0170 NT-Pro-B Natriuret Pep 6490 H Total Protein 7.0 Albumin 2.9 L Globulin 4.1 H Albumin/Globulin Ratio 0.7 L 05/25/18 05/26/18 20:14 06:42 WBC RBC Hgb Hct MCV MCH MCHC RDW Plt Count MPV Neut % (Auto) Lymph % (Auto) Campbell % (Auto) Eos % (Auto) Baso % (Auto) Neut # (Auto) Lymph # (Auto) Campbell # (Auto) Eos # (Auto) Baso # (Auto) Sodium Potassium Chloride Carbon Dioxide Anion Gap BUN Creatinine Est GFR ( Amer) Est GFR (Non-Af Amer) POC Glucose (mg/dL) 178 H Random Glucose Lactic Acid 1.4 Calcium Total Bilirubin AST ALT Alkaline Phosphatase Troponin I NT-Pro-B Natriuret Pep Total Protein Albumin Globulin Albumin/Globulin Ratio Assessment & Plan - Assessment and Plan (Free Text) Plan: Dyspnea Acute on chronic diastolic heart failure RLL Pneumonia Imaging/ Labs: - CXR: Patchy consolidative changes in right lower lung zone - BNP: 6490; Previous admission 991 - Chest CT: (previous admission) 3.3 cm RLL mass (outpatient biopsy) - Nuclear Stress Test: normal stress test, normal EF (previous admission) - Venous dopplers: ordered, pending results Management: - Measure daily weights, strict I & Os - Reinforced with patient the importance of fluid restriction, salt intake, medication compliance - Lasix 40mg IVP daily Case discussed with Aleshia Muñoz DO, PGY2 <Maxwell Vincent - Last Filed: 05/26/18 21:52> Meds - Medications Medications: Current Medications Albuterol/Ipratropium (Duoneb 3 Mg/0.5 Mg (3 Ml) Ud) 3 ml INH RQ4 [facility] Last Admin: 05/26/18 19:50 Dose: 3 ml Docusate Sodium (Colace) 100 mg PO TID [facility] Last Admin: 05/26/18 18:14 Dose: 100 mg Ferrous Sulfate (Feosol) 325 mg PO DAILY [facility] Last Admin: 05/26/18 11:36 Dose: 325 mg Furosemide (Lasix) 40 mg IVP DAILY [facility] Last Admin: 05/26/18 11:46 Dose: 40 mg Gabapentin (Neurontin) 100 mg PO TID [facility] Last Admin: 05/26/18 18:15 Dose: 100 mg Guaifenesin (Robitussin) 200 mg PO Q4H PRN PRN Reason: Cough and congestion Hydralazine HCl (Apresoline) 100 mg PO TID [facility] Last Admin: 05/26/18 18:14 Dose: 100 mg Ceftriaxone Sodium 1 gm/ (Sodium Chloride) 100 mls @ 100 mls/hr IVPB DAILY [facility]; Protocol Last Admin: 05/26/18 11:21 Dose: 100 mls/hr Influenza Virus Vaccine (Fluzone Quad [id number]) 60 mcg IM .ONCE ONE Stop: 05/27/18 14:01 Insulin Aspart (Novolog) 0 unit SC ACHS [facility]; Protocol Last Admin: 05/26/18 18:20 Dose: 2 units Lactulose (Enulose) 20 gm PO DAILY [facility] Last Admin: 05/26/18 11:36 Dose: Not Given Methylprednisolone (Solu-Medrol) 60 mg IV Q12 [facility] Last Admin: 05/26/18 11:29 Dose: 60 mg Metoprolol Tartrate (Lopressor) 25 mg PO BID [facility] Last Admin: 05/26/18 18:15 Dose: 25 mg Oxycodone/Acetaminophen (Percocet 5/325 Mg Tab) 1 tab PO Q4H PRN PRN Reason: Pain, moderate (4-7) Stop: 05/28/18 22:18 Pantoprazole Sodium (Protonix Ec Tab) 20 mg PO Q12 [facility] Last Admin: 05/26/18 11:20 Dose: 20 mg Pneumococcal Polyvalent Vaccine (Pneumovax 23 Vaccine) 0.5 ml IM .ONCE ONE Stop: 05/27/18 14:01 Rosuvastatin Calcium (Crestor) 10 mg PO HS [facility] Last Admin: 05/25/18 23:37 Dose: 10 mg Sitagliptin Phosphate (Januvia) 25 mg PO DAILY [facility] Last Admin: 05/26/18 11:20 Dose: 25 mg Sodium Bicarbonate (Sodium Bicarbonate Tab) 1,300 mg PO TID [facility] Last Admin: 05/26/18 18:21 Dose: 1,300 mg Results - Vital Signs Recent Vital Signs: Last Vital Signs Temp 98.9 F 05/26/18 15:30 Pulse 80 05/26/18 17:16 Resp 20 05/26/18 15:30 BP 150/70 05/26/18 18:15 Pulse Ox 94 L 05/26/18 15:30 - Labs Result Diagrams: 05/25/18 19:29 05/25/18 19:52 Labs: Laboratory Results - last 24 hr 05/26/18 05/26/18 05/26/18 06:42 11:46 16:20 POC Glucose (mg/dL) 178 H 213 H 224 H 05/26/18 21:09 POC Glucose (mg/dL) 247 H Assessment & Plan - Assessment and Plan (Free Text) Plan: Patient seen and evaluated personally by me Plan of care d/w the resident and as documented
[2018-05-26] MEDS: (Novolog) Insulin Aspart, Recombinant 100 u/ml 10 ml vial SC SCH ×4 (08:25→22:46)
--- NOTE | 2018-05-26 08:58 | RAD ---
Chest x-ray single frontal view History: Pneumonia. Comparison: 05/18/2018 Findings: Moderate venous congestion. Patchy consolidative changes in right lower lung zone as well as the bilateral hilar region. Linear atelectatic changes at the left lung base. Atherosclerotic calcification at the aortic knob. Enlarged ectatic aorta. Cardiomegaly. Degenerative changes in the spine. Impression: Moderate venous congestion. Patchy consolidative changes in right lower lung zone as well as the bilateral hilar region. Linear atelectatic changes at the left lung base. Atherosclerotic calcification at the aortic knob. Enlarged ectatic aorta. Cardiomegaly.
[2018-05-26] MEDS: Pantoprazole 20 mg EC Tab PO SCH ×2 (11:20→22:31)
--- NOTE | 2018-05-26 12:15 | CARD ---
APPROVED REPORT Date of service: 05/25/2018 EKG Measurement Heart [id number] [id number] <Conclusion> Normal sinus rhythm Incomplete left bundle branch block Borderline ECG
--- NOTE | 2018-05-26 17:54 | CP.PCM.CON ---
History of Present Illness - History of Present Illness History of Present Illness: Reason for consultation: shortness of breath And cough 83-year-old female recently discharged from [facility] status post ventral hernia repair. Patient also has history of right lower lung mass. The mass was evaluated by IR and the plan was to treat with antibiotics and if no resolution biopsy as outpatient. Patient complaining of productive cough, wheezing and shortness of breath for the past 2 days PSHx: cholecystectomy, hysterectomy, ventral hernia repair All: NKDA SHx: Denied any tobacco, alcohol, or illicit drug use FHx: Unremarkable. Review of Systems - Review of Systems All systems: reviewed and no additional remarkable complaints except (shortness of breath and cough) Past Patient History - Infectious Disease Hx of Infectious Diseases: None - Past Medical History & Family History Past Medical History?: Yes - Past Social History Smoking Status: Former Smoker - CARDIAC Hx Cardiac Disorders: Yes Hx Hypercholesterolemia: Yes Hx Hypertension: Yes - PULMONARY Hx Respiratory Disorders: No - NEUROLOGICAL Hx Neurological Disorder: No - HEENT Hx HEENT Problems: No - RENAL Hx Chronic Kidney Disease: No - ENDOCRINE/METABOLIC Hx Endocrine Disorders: Yes Hx Diabetes Mellitus Type 2: Yes - HEMATOLOGICAL/ONCOLOGICAL Hx Blood Disorders: No Hx Human Immunodeficiency Virus (HIV): No - INTEGUMENTARY Hx Dermatological Problems: No - MUSCULOSKELETAL/RHEUMATOLOGICAL Hx Musculoskeletal Disorders: Yes Hx Arthritis: Yes Hx Falls: No - GASTROINTESTINAL Hx Gastrointestinal Disorders: No Hx Crohn's Disease: No Hx Diverticulitis: No Hx Gall Bladder Disease: No Hx Gastritis: No Hx Pancreatitis: No - GENITOURINARY/GYNECOLOGICAL Hx Genitourinary Disorders: No - PSYCHIATRIC Hx Psychophysiologic Disorder: No Hx Substance Use: No - SURGICAL HISTORY Hx Surgeries: Yes Hx Cholecystectomy: Yes (over 10 yrs. ago) - ANESTHESIA Hx Anesthesia: Yes Hx Anesthesia Reactions: No Meds Allergies/Adverse Reactions: Allergies Allergy/AdvReac Type Severity Reaction Status Date / Time No Known Allergies Allergy Verified 05/25/18 18:03 - Medications Medications: Current Medications Albuterol/Ipratropium (Duoneb 3 Mg/0.5 Mg (3 Ml) Ud) 3 ml INH RQ4 [facility] Last Admin: 05/26/18 15:40 Dose: 3 ml Docusate Sodium (Colace) 100 mg PO TID [facility] Last Admin: 05/26/18 14:07 Dose: 100 mg Ferrous Sulfate (Feosol) 325 mg PO DAILY [facility] Last Admin: 05/26/18 11:36 Dose: 325 mg Furosemide (Lasix) 40 mg IVP DAILY [facility] Last Admin: 05/26/18 11:46 Dose: 40 mg Gabapentin (Neurontin) 100 mg PO TID [facility] Last Admin: 05/26/18 14:07 Dose: 100 mg Guaifenesin (Robitussin) 200 mg PO Q4H PRN PRN Reason: Cough and congestion Hydralazine HCl (Apresoline) 100 mg PO TID [facility] Last Admin: 05/26/18 14:07 Dose: 100 mg Ceftriaxone Sodium 1 gm/ (Sodium Chloride) 100 mls @ 100 mls/hr IVPB DAILY [facility]; Protocol Last Admin: 05/26/18 11:21 Dose: 100 mls/hr Influenza Virus Vaccine (Fluzone Quad [id number]) 60 mcg IM .ONCE ONE Stop: 05/27/18 14:01 Insulin Aspart (Novolog) 0 unit SC ACHS [facility]; Protocol Last Admin: 05/26/18 11:49 Dose: 2 units Lactulose (Enulose) 20 gm PO DAILY [facility] Last Admin: 05/26/18 11:36 Dose: Not Given Methylprednisolone (Solu-Medrol) 60 mg IV Q12 [facility] Last Admin: 05/26/18 11:29 Dose: 60 mg Metoprolol Tartrate (Lopressor) 25 mg PO BID [facility] Last Admin: 05/26/18 11:20 Dose: 25 mg Oxycodone/Acetaminophen (Percocet 5/325 Mg Tab) 1 tab PO Q4H PRN PRN Reason: Pain, moderate (4-7) Stop: 05/28/18 22:18 Pantoprazole Sodium (Protonix Ec Tab) 20 mg PO Q12 [facility] Last Admin: 05/26/18 11:20 Dose: 20 mg Pneumococcal Polyvalent Vaccine (Pneumovax 23 Vaccine) 0.5 ml IM .ONCE ONE Stop: 05/27/18 14:01 Rosuvastatin Calcium (Crestor) 10 mg PO HS [facility] Last Admin: 05/25/18 23:37 Dose: 10 mg Sitagliptin Phosphate (Januvia) 25 mg PO DAILY [facility] Last Admin: 05/26/18 11:20 Dose: 25 mg Sodium Bicarbonate (Sodium Bicarbonate Tab) 1,300 mg PO TID [facility] Last Admin: 05/26/18 14:08 Dose: 1,300 mg Physical Exam - Head Exam Head Exam: ATRAUMATIC, NORMOCEPHALIC - ENT Exam ENT Exam: Mucous Membranes Moist - Respiratory Exam Respiratory Exam: Decreased Breath Sounds, Rhonchi, Wheezes - Cardiovascular Exam Cardiovascular Exam: REGULAR RHYTHM Results - Vital Signs Recent Vital Signs: Last Vital Signs Temp 98.9 F 05/26/18 15:30 Pulse 80 05/26/18 17:16 Resp 20 05/26/18 15:30 BP 144/75 05/26/18 15:30 Pulse Ox 94 L 05/26/18 15:30 - Labs Result Diagrams: 05/25/18 19:29 05/25/18 19:52 Labs: Laboratory Results - last 24 hr 05/25/18 05/25/18 05/25/18 18:43 19:29 19:52 WBC 10.8 RBC 2.92 L Hgb 7.7 L Hct 24.3 L MCV 83.4 MCH 26.5 L MCHC 31.8 L RDW 15.3 H Plt Count 215 MPV 10.5 Neut % (Auto) 65.2 Lymph % (Auto) 13.0 L Christian % (Auto) 12.8 H Eos % (Auto) 7.7 H Baso % (Auto) 1.3 Neut # (Auto) 7.0 Lymph # (Auto) 1.4 Christian # (Auto) 1.4 H Eos # (Auto) 0.8 H Baso # (Auto) 0.1 Sodium 138 Potassium 4.4 Chloride 105 Carbon Dioxide 23 Anion Gap 14 BUN 40 H Creatinine 2.8 H Est GFR ( Amer) 19 Est GFR (Non-Af Amer) 16 POC Glucose (mg/dL) 140 H Random Glucose 149 H Lactic Acid Calcium 8.0 L Total Bilirubin 0.3 AST 17 ALT 15 Alkaline Phosphatase 125 Troponin I 0.0170 NT-Pro-B Natriuret Pep 6490 H Total Protein 7.0 Albumin 2.9 L Globulin 4.1 H Albumin/Globulin Ratio 0.7 L 05/25/18 05/26/18 05/26/18 20:14 06:42 11:46 WBC RBC Hgb Hct MCV MCH MCHC RDW Plt Count MPV Neut % (Auto) Lymph % (Auto) Christian % (Auto) Eos % (Auto) Baso % (Auto) Neut # (Auto) Lymph # (Auto) Christian # (Auto) Eos # (Auto) Baso # (Auto) Sodium Potassium Chloride Carbon Dioxide Anion Gap BUN Creatinine Est GFR ( Amer) Est GFR (Non-Af Amer) POC Glucose (mg/dL) 178 H 213 H Random Glucose Lactic Acid 1.4 Calcium Total Bilirubin AST ALT Alkaline Phosphatase Troponin I NT-Pro-B Natriuret Pep Total Protein Albumin Globulin Albumin/Globulin Ratio 05/26/18 16:20 WBC RBC Hgb Hct MCV MCH MCHC RDW Plt Count MPV Neut % (Auto) Lymph % (Auto) Christian % (Auto) Eos % (Auto) Baso % (Auto) Neut # (Auto) Lymph # (Auto) Christian # (Auto) Eos # (Auto) Baso # (Auto) Sodium Potassium Chloride Carbon Dioxide Anion Gap BUN Creatinine Est GFR ( Amer) Est GFR (Non-Af Amer) POC Glucose (mg/dL) 224 H Random Glucose Lactic Acid Calcium Total Bilirubin AST ALT Alkaline Phosphatase Troponin I NT-Pro-B Natriuret Pep Total Protein Albumin Globulin Albumin/Globulin Ratio Assessment & Plan (1) CKD (chronic kidney disease) Status: Acute (2) Chronic congestive heart failure Status: Acute (3) Pneumonia Status: Acute
--- NOTE | 2018-05-26 21:15 | CP.PCM.CON ---
History of Present Illness - History of Present Illness History of Present Illness: 83 year old female with a history of HTN, DM, HL, CHF, CKD, lung mass of unknown etiology awaiting biopsy, recent ventral hernia repair, admitted with shortness of breath and cough, found to be anemic. The patient denies abnormal bleeding and bruising. She does admit to fatigue and getting short of breath easily. She notes to wheezing at times and swellig in her legs. Review of her blood work reveals a hgb of 7.7. Past medical history: HTN, DM, HL, CHF, CKD Past surgical history: Ventral hernia repair Family history: Denies hematologic and oncologic problems Social history: Denies tobacco, alcohol, and illicit drug use Allergies: NKA Review of systems: All remaining review of systems including HEENT, cardiovas cular, respiratory, gastrointestinal, genitourinary, musculoskeletal, dermatologic, neurologic, and psychiatric are negative unless mentioned in the HPI. Past Patient History - Infectious Disease Hx of Infectious Diseases: None - Past Medical History & Family History Past Medical History?: Yes - Past Social History Smoking Status: Former Smoker - CARDIAC Hx Cardiac Disorders: Yes Hx Hypercholesterolemia: Yes Hx Hypertension: Yes - PULMONARY Hx Respiratory Disorders: No - NEUROLOGICAL Hx Neurological Disorder: No - HEENT Hx HEENT Problems: No - RENAL Hx Chronic Kidney Disease: No - ENDOCRINE/METABOLIC Hx Endocrine Disorders: Yes Hx Diabetes Mellitus Type 2: Yes - HEMATOLOGICAL/ONCOLOGICAL Hx Blood Disorders: No Hx Human Immunodeficiency Virus (HIV): No - INTEGUMENTARY Hx Dermatological Problems: No - MUSCULOSKELETAL/RHEUMATOLOGICAL Hx Musculoskeletal Disorders: Yes Hx Arthritis: Yes Hx Falls: No - GASTROINTESTINAL Hx Gastrointestinal Disorders: No Hx Crohn's Disease: No Hx Diverticulitis: No Hx Gall Bladder Disease: No Hx Gastritis: No Hx Pancreatitis: No - GENITOURINARY/GYNECOLOGICAL Hx Genitourinary Disorders: No - PSYCHIATRIC Hx Psychophysiologic Disorder: No Hx Substance Use: No - SURGICAL HISTORY Hx Surgeries: Yes Hx Cholecystectomy: Yes (over 10 yrs. ago) - ANESTHESIA Hx Anesthesia: Yes Hx Anesthesia Reactions: No Meds Allergies/Adverse Reactions: Allergies Allergy/AdvReac Type Severity Reaction Status Date / Time No Known Allergies Allergy Verified 05/25/18 18:03 - Medications Medications: Current Medications Albuterol/Ipratropium (Duoneb 3 Mg/0.5 Mg (3 Ml) Ud) 3 ml INH RQ4 [facility] Last Admin: 05/26/18 15:40 Dose: 3 ml Docusate Sodium (Colace) 100 mg PO TID [facility] Last Admin: 05/26/18 18:14 Dose: 100 mg Ferrous Sulfate (Feosol) 325 mg PO DAILY [facility] Last Admin: 05/26/18 11:36 Dose: 325 mg Furosemide (Lasix) 40 mg IVP DAILY [facility] Last Admin: 05/26/18 11:46 Dose: 40 mg Gabapentin (Neurontin) 100 mg PO TID [facility] Last Admin: 05/26/18 18:15 Dose: 100 mg Guaifenesin (Robitussin) 200 mg PO Q4H PRN PRN Reason: Cough and congestion Hydralazine HCl (Apresoline) 100 mg PO TID [facility] Last Admin: 05/26/18 18:14 Dose: 100 mg Ceftriaxone Sodium 1 gm/ (Sodium Chloride) 100 mls @ 100 mls/hr IVPB DAILY [facility]; Protocol Last Admin: 05/26/18 11:21 Dose: 100 mls/hr Influenza Virus Vaccine (Fluzone Quad [id number]) 60 mcg IM .ONCE ONE Stop: 05/27/18 14:01 Insulin Aspart (Novolog) 0 unit SC ACHS [facility]; Protocol Last Admin: 05/26/18 18:20 Dose: 2 units Lactulose (Enulose) 20 gm PO DAILY [facility] Last Admin: 05/26/18 11:36 Dose: Not Given Methylprednisolone (Solu-Medrol) 60 mg IV Q12 [facility] Last Admin: 05/26/18 11:29 Dose: 60 mg Metoprolol Tartrate (Lopressor) 25 mg PO BID [facility] Last Admin: 05/26/18 18:15 Dose: 25 mg Oxycodone/Acetaminophen (Percocet 5/325 Mg Tab) 1 tab PO Q4H PRN PRN Reason: Pain, moderate (4-7) Stop: 05/28/18 22:18 Pantoprazole Sodium (Protonix Ec Tab) 20 mg PO Q12 [facility] Last Admin: 05/26/18 11:20 Dose: 20 mg Pneumococcal Polyvalent Vaccine (Pneumovax 23 Vaccine) 0.5 ml IM .ONCE ONE Stop: 05/27/18 14:01 Rosuvastatin Calcium (Crestor) 10 mg PO HS [facility] Last Admin: 05/25/18 23:37 Dose: 10 mg Sitagliptin Phosphate (Januvia) 25 mg PO DAILY [facility] Last Admin: 05/26/18 11:20 Dose: 25 mg Sodium Bicarbonate (Sodium Bicarbonate Tab) 1,300 mg PO TID [facility] Last Admin: 05/26/18 18:21 Dose: 1,300 mg Physical Exam - Head Exam Head Exam: ATRAUMATIC - Eye Exam Eye Exam: Normal appearance - ENT Exam ENT Exam: Mucous Membranes Dry - Respiratory Exam Respiratory Exam: Decreased Breath Sounds - Cardiovascular Exam Cardiovascular Exam: +S1, +S2 - GI/Abdominal Exam GI & Abdominal Exam: Normal Bowel Sounds - Extremities Exam Extremities exam: Positive for: pedal edema - Neurological Exam Neurological exam: Oriented x3 - Psychiatric Exam Psychiatric exam: Normal Affect, Normal Mood - Skin Skin Exam: Warm Results - Vital Signs Recent Vital Signs: Last Vital Signs Temp 98.9 F 05/26/18 15:30 Pulse 80 05/26/18 17:16 Resp 20 05/26/18 15:30 BP 150/70 05/26/18 18:15 Pulse Ox 94 L 05/26/18 15:30 - Labs Result Diagrams: 05/25/18 19:29 05/25/18 19:52 Labs: Laboratory Results - last 24 hr 05/26/18 05/26/18 05/26/18 06:42 11:46 16:20 POC Glucose (mg/dL) 178 H 213 H 224 H Assessment & Plan (1) Anemia Assessment and Plan: will check retic count, b12, folate, ferritin, FOBT to further characterize suspect chronic disease and anemia of CKD s/p 1 dose of procrit yesterday; will consider redosing tomorrow based on above work up Status: Acute (2) Lung mass Assessment and Plan: for lung biopsy once more clinically stable Thank you for this interesting consult. Status: Acute
--- NOTE | 2018-05-26 22:16 | CP.PCM.HP ---
Past Patient History - Infectious Disease Hx of Infectious Diseases: None - Past Medical History & Family History Past Medical History?: Yes - Past Social History Smoking Status: Former Smoker - CARDIAC Hx Cardiac Disorders: Yes Hx Hypercholesterolemia: Yes Hx Hypertension: Yes - PULMONARY Hx Respiratory Disorders: No - NEUROLOGICAL Hx Neurological Disorder: No - HEENT Hx HEENT Problems: No - RENAL Hx Chronic Kidney Disease: No - ENDOCRINE/METABOLIC Hx Endocrine Disorders: Yes Hx Diabetes Mellitus Type 2: Yes - HEMATOLOGICAL/ONCOLOGICAL Hx Blood Disorders: No Hx Human Immunodeficiency Virus (HIV): No - INTEGUMENTARY Hx Dermatological Problems: No - MUSCULOSKELETAL/RHEUMATOLOGICAL Hx Musculoskeletal Disorders: Yes Hx Arthritis: Yes Hx Falls: No - GASTROINTESTINAL Hx Gastrointestinal Disorders: No Hx Crohn's Disease: No Hx Diverticulitis: No Hx Gall Bladder Disease: No Hx Gastritis: No Hx Pancreatitis: No - GENITOURINARY/GYNECOLOGICAL Hx Genitourinary Disorders: No - PSYCHIATRIC Hx Psychophysiologic Disorder: No Hx Substance Use: No - SURGICAL HISTORY Hx Surgeries: Yes Hx Cholecystectomy: Yes (over 10 yrs. ago) - ANESTHESIA Hx Anesthesia: Yes Hx Anesthesia Reactions: No Meds Allergies/Adverse Reactions: Allergies Allergy/AdvReac Type Severity Reaction Status Date / Time No Known Allergies Allergy Verified 05/25/18 18:03 Results - Vital Signs Recent Vital Signs: Last Vital Signs Temp 98.9 F 05/26/18 15:30 Pulse 80 05/26/18 17:16 Resp 20 05/26/18 15:30 BP 150/70 05/26/18 18:15 Pulse Ox 94 L 05/26/18 15:30 - Labs Result Diagrams: 05/25/18 19:29 05/25/18 19:52 Labs: Laboratory Results - last 24 hr 05/26/18 05/26/18 05/26/18 06:42 11:46 16:20 POC Glucose (mg/dL) 178 H 213 H 224 H 05/26/18 21:09 POC Glucose (mg/dL) 247 H
[2018-05-27] MEDS: Albuterol-Ipratrop 3 mg / 0.5 (3 ml) UD INH SCH ×6 (00:25→19:59)
--- NOTE | 2018-05-27 03:00 | HP ---
CHIEF COMPLAINT: Shortness of breath times few days. HISTORY OF PRESENT ILLNESS: This is an 83-year-old female, well known to me with history of CKD, hypertension, anemia, chronic kidney disease, osteoarthritis, who currently is in subacute rehab in [place] where she has been getting physiotherapy for almost a week since she was discharged from [facility]. The patient has right lower lung mass and biopsy of the lung mass is pending, and the patient was in the alf, and there she developed cough, congestion, shortness of breath, and wheezing. She has dyspnea at rest, dyspnea on exertion. No orthopnea. No PND. She has cough, congestion, shortness of breath, wheezing, chest pain upon coughing, chest congestion. The patient denies any history of dysuria, hematuria, or pyuria. She denies any history of polyuria, polydipsia. She denies any history of abdominal pain, nausea, vomiting, or diarrhea. She has dyspnea on exertion. She has chest pain, chest congestion with generalized aches and pain. PAST SURGICAL HISTORY: Cholecystectomy, hysterectomy, ventral hernia was repaired two weeks ago. ALLERGIES: NO KNOWN DRUG ALLERGIES. SOCIAL HISTORY: Nonsmoker. Non-ETOH user. No drug abuse. CURRENT MEDICATIONS: At the alf: She is on Percocet, Crestor, hydralazine, sodium bicarbonate, Januvia, Crestor, Protonix, Lopressor, lactulose, NovoLog, Neurontin, Colace, multivitamin, vitamin D, Colace, and DuoNebs. PHYSICAL EXAMINATION: GENERAL: An elderly female, in moderate respiratory distress with cough, congestion, and wheezing. VITAL SIGNS: Blood pressure is , pulse 76, respiratory rate 20, temperature 98.9. SKIN: Pale. No bruits. No purpura. No petechiae. No ecchymosis. HEENT: Atraumatic and normocephalic. Positive pallor. No acute jaundice. Extraocular movements are intact. NECK: Supple. No JVD. No lymph nodes. No thyromegaly. CHEST: Bilateral symmetrical expansion. LUNGS: Bilaterally clear. No rales. No rhonchi. CVS: S1 and S2 regular. ABDOMEN: Soft and nontender. Bowel sounds are positive. 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 Cranial nerves II through XII are normal. Power 5/5 x4. Plantars are downgoing. IMPRESSION: 1. Acute exacerbation of congestive heart failure, which is most likely diastolic heart failure, less likely to be systolic component. Most likely etiology could be respiratory tract infection. 2. Exacerbation of asthma/chronic obstructive pulmonary disease. 3. Chronic kidney disease. 4. Hypertension. 5. Anemia of chronic kidney disease. PLAN: Admit. Detailed orders written. Seen and examined. Toby Rich MD
[2018-05-27 08:43] LABS: HEMOGLOBIN 7.4 g/dL (11.0-16.0)
[2018-05-27 08:47] LABS: BASO % 0.3 % (0.0-2.0); LYMPH # 0.6 K/uL (1.0-4.3); LYMPH % 4.8 % (20.0-40.0); MEAN CORPUSCULAR HGB CONC 30.9 g/dL (33.0-37.0); MONO # 0.3 K/uL (0.0-0.8); MONO % 2.2 % (0.0-10.0); NEUT # 11.2 K/uL (1.8-7.0); NEUT % 92.7 % (50.0-75.0); NRBC % 0.1 % (0.0-2.0); PLATELET COUNT 201 K/uL (130-400); RBC 2.86 Mil/uL (3.80-5.20); RED CELL DISTRIBUTION WIDTH 15.2 % (11.5-14.5)
[2018-05-27] MEDS: (Novolog) Insulin Aspart, Recombinant 100 u/ml 10 ml vial SC SCH ×4 (08:53→22:01)
[2018-05-27] MEDS: Pantoprazole 20 mg EC Tab PO SCH ×2 (09:27→22:00)
[2018-05-27 09:30] LABS: ALB/GLOB RATIO 0.7 (1.0-2.1); ALBUMIN 2.8 g/dL (3.5-5.0)
[2018-05-27 10:08] LABS: FOLATE 7.1 ng/mL
[2018-05-27 10:09] LABS: ANISOCYTOSIS SLIGHT; BANDS 1 % (0-2); HYPOCHROMIC SLIGHT; LYMPHOCYTE 4 % (20-40); MONOCYTE 1 % (0-10); NEUTROPHIL 94 % (50-75); PLATELET ESTIMATE NORMAL (NORMAL); POIKILOCYTOSIS SLIGHT; TOTAL CELLS COUNTED 100
[2018-05-27 10:11] LABS: LARGE PLATELETS PRESENT; PLATELET CLUMPS PRESENT; POLYCHROMIC SLIGHT
[2018-05-27] MEDS ORDERED: Epoetin Alfa 20000 UNIT/ML Inj SC ONE (11:45)
[2018-05-27] MEDS ORDERED: Influenza Vaccine 60 MCG/0.5 ML SYR (3 yr & up) IM ONE (14:00)
[2018-05-27] MEDS ORDERED: Pneumococcal 23-Valent Vaccine IM ONE (14:00)
--- NOTE | 2018-05-27 14:19 | VASCLAB ---
Date of service: 05/27/2018 PROCEDURE: Lower Extremity Venous Duplex Exam. HISTORY: edema noted, pain on palpation; concern for dvt PRIORS: None. TECHNIQUE: Bilateral common femoral, femoral, popliteal and posterior tibial, peroneal and great saphenous veins were evaluated. Flow was assessed with color Doppler, compressibility, assessment of phasic flow and augmentation response. Report prepared by Yared Larsen, BS, RVT FINDINGS: RIGHT: 1. Common Femoral Vein: 1.1. Compressibility - Fully compressible: Thrombus - None : Flow - Phasic: Augmentation -Normal: Reflux - None. 2. Femoral Vein: 2.1. Compressibility - Fully compressible: Thrombus - None : Flow - Phasic: Augmentation -Normal: Reflux - None. 3. Popliteal Vein: 3.1. Compressibility - Fully compressible: Thrombus - None : Flow - Phasic: Augmentation -Normal: Reflux - None. 4. Posterior Tibial Vein: 4.1. Compressibility - Fully compressible: Thrombus - None: Flow - Phasic: Augmentation -Normal: Reflux - None. 5. Peroneal Vein: 5.1. Compressibility - Fully compressible: Thrombus - None: Flow - Phasic: Augmentation -Normal: Reflux - None. 6. Great Saphenous Vein: 6.1. Compressibility - Fully compressible: Thrombus - None: Flow - Phasic: Augmentation - Normal: Reflux - None. LEFT: 1. Common Femoral Vein: 1.1. Compressibility - Fully compressible: Thrombus - None: Flow - Phasic: Augmentation -Normal: Reflux - None. 2. Femoral Vein: 2.1. Compressibility - Fully compressible: Thrombus - None: Flow - Phasic: Augmentation -Normal: Reflux - None. 3. Popliteal Vein: 3.1. Compressibility - Fully compressible: Thrombus - None : Flow - Phasic: Augmentation -Normal: Reflux - None. 4. Posterior Tibial Vein: 4.1. Compressibility - Fully compressible: Thrombus - None: Flow - Phasic: Augmentation -Normal: Reflux - None. 5. Peroneal Vein: 5.1. Compressibility - Fully compressible: Thrombus - None: Flow - Phasic: Augmentation -Normal: Reflux - None. 6. Great Saphenous Vein: 6.1. Compressibility - Fully compressible: Thrombus - None: Flow - Phasic: Augmentation - Normal: Reflux - None. OTHER FINDINGS: Right: None significant. Left: None significant. IMPRESSION: Right: No evidence of deep or superficial vein thrombosis of the right lower extremity. Normal valve function noted of the right side. Left: No evidence of deep or superficial vein thrombosis of the left lower extremity. Normal valve function noted of the left side.
--- NOTE | 2018-05-27 14:47 | CP.PCM.PN ---
Subjective - Date & Time of Evaluation Date of Evaluation: 05/27/18 Time of Evaluation: 13:00 - Subjective Subjective: Has some wheezing Objective - Vital Signs/Intake and Output Vital Signs (last 24 hours): Temp Pulse Resp BP Pulse Ox 98.1 F 77 18 160/70 H 95 05/27/18 07:00 05/27/18 07:00 05/27/18 07:00 05/27/18 09:27 05/27/18 07:00 - Medications Medications: Current Medications Albuterol/Ipratropium (Duoneb 3 Mg/0.5 Mg (3 Ml) Ud) 3 ml INH RQ4 [facility] Last Admin: 05/27/18 11:33 Dose: 3 ml Docusate Sodium (Colace) 100 mg PO TID [facility] Last Admin: 05/27/18 14:19 Dose: 100 mg Ferrous Sulfate (Feosol) 325 mg PO DAILY [facility] Last Admin: 05/27/18 09:27 Dose: 325 mg Furosemide (Lasix) 40 mg IVP DAILY [facility] Last Admin: 05/27/18 09:27 Dose: 40 mg Furosemide (Lasix) 40 mg IVP ONCE PRN PRN Reason: Admn post blood transfusion. Gabapentin (Neurontin) 100 mg PO TID [facility] Last Admin: 05/27/18 14:19 Dose: 100 mg Guaifenesin (Robitussin) 200 mg PO Q4H PRN PRN Reason: Cough and congestion Hydralazine HCl (Apresoline) 100 mg PO TID [facility] Last Admin: 05/27/18 14:19 Dose: 100 mg Ceftriaxone Sodium 1 gm/ (Dextrose) 50 mls @ 100 mls/hr IVPB DAILY [facility]; Protocol Last Admin: 05/27/18 09:28 Dose: 100 mls/hr Insulin Aspart (Novolog) 0 unit SC ACHS [facility]; Protocol Last Admin: 05/27/18 14:18 Dose: 2 units Lactulose (Enulose) 20 gm PO DAILY [facility] Last Admin: 05/27/18 09:31 Dose: Not Given Methylprednisolone (Solu-Medrol) 60 mg IV Q12 [facility] Last Admin: 05/27/18 09:27 Dose: 60 mg Metoprolol Tartrate (Lopressor) 25 mg PO BID [facility] Last Admin: 05/27/18 09:27 Dose: 25 mg Oxycodone/Acetaminophen (Percocet 5/325 Mg Tab) 1 tab PO Q4H PRN PRN Reason: Pain, moderate (4-7) Stop: 05/28/18 22:18 Pantoprazole Sodium (Protonix Ec Tab) 20 mg PO Q12 [facility] Last Admin: 05/27/18 09:27 Dose: 20 mg Rosuvastatin Calcium (Crestor) 10 mg PO HS [facility] Last Admin: 05/26/18 22:31 Dose: 10 mg Sitagliptin Phosphate (Januvia) 25 mg PO DAILY [facility] Last Admin: 05/27/18 09:26 Dose: 25 mg Sodium Bicarbonate (Sodium Bicarbonate Tab) 1,300 mg PO TID [facility] Last Admin: 05/27/18 14:19 Dose: 1,300 mg - Labs Labs: 05/27/18 08:35 05/27/18 08:35 - Head Exam Head Exam: ATRAUMATIC - Eye Exam Eye Exam: Normal appearance - ENT Exam ENT Exam: Mucous Membranes Dry - Respiratory Exam Respiratory Exam: Decreased Breath Sounds - Cardiovascular Exam Cardiovascular Exam: +S1, +S2 - GI/Abdominal Exam GI & Abdominal Exam: Normal Bowel Sounds - Extremities Exam Extremities Exam: Pedal Edema - Neurological Exam Neurological Exam: Oriented x3 - Psychiatric Exam Psychiatric exam: Normal Affect, Normal Mood - Skin Skin Exam: Warm Assessment and Plan (1) Anemia Assessment & Plan: work up consistent with anemia of chronic disease and anemia of CKD will give 1U PRBC today with lasix and Procrit 20,000U subq x 1 repeat CBC in AM Status: Acute (2) Lung mass Assessment & Plan: biopsy when more clinically stable Status: Acute
--- NOTE | 2018-05-27 17:15 | CP.PCM.PN ---
Subjective - Date & Time of Evaluation Date of Evaluation: 05/27/18 Time of Evaluation: 11:30 - Subjective Subjective: patient seen and examined Still having cough with wheezing and shortness of breath Afebrile No chest pain Objective - Vital Signs/Intake and Output Vital Signs (last 24 hours): Temp Pulse Resp BP Pulse Ox 98 F 80 20 155/81 H 95 05/27/18 15:34 05/27/18 15:34 05/27/18 15:34 05/27/18 15:34 05/27/18 07:00 Intake and Output: 05/27/18 05/27/18 06:59 18:59 Intake Total 50 Balance 50 - Medications Medications: Current Medications Albuterol/Ipratropium (Duoneb 3 Mg/0.5 Mg (3 Ml) Ud) 3 ml INH RQ4 [facility] Last Admin: 05/27/18 15:39 Dose: 3 ml Docusate Sodium (Colace) 100 mg PO TID [facility] Last Admin: 05/27/18 14:19 Dose: 100 mg Ferrous Sulfate (Feosol) 325 mg PO DAILY [facility] Last Admin: 05/27/18 09:27 Dose: 325 mg Furosemide (Lasix) 40 mg IVP DAILY [facility] Last Admin: 05/27/18 09:27 Dose: 40 mg Furosemide (Lasix) 40 mg IVP ONCE PRN PRN Reason: Admn post blood transfusion. Gabapentin (Neurontin) 100 mg PO TID [facility] Last Admin: 05/27/18 14:19 Dose: 100 mg Guaifenesin (Robitussin) 200 mg PO Q4H PRN PRN Reason: Cough and congestion Hydralazine HCl (Apresoline) 100 mg PO TID [facility] Last Admin: 05/27/18 14:19 Dose: 100 mg Ceftriaxone Sodium 1 gm/ (Dextrose) 50 mls @ 100 mls/hr IVPB DAILY [facility]; Protocol Last Admin: 05/27/18 09:28 Dose: 100 mls/hr Insulin Aspart (Novolog) 0 unit SC ACHS [facility]; Protocol Last Admin: 05/27/18 14:18 Dose: 2 units Lactulose (Enulose) 20 gm PO DAILY [facility] Last Admin: 05/27/18 09:31 Dose: Not Given Methylprednisolone (Solu-Medrol) 60 mg IV Q12 [facility] Last Admin: 05/27/18 09:27 Dose: 60 mg Metoprolol Tartrate (Lopressor) 25 mg PO BID [facility] Last Admin: 05/27/18 09:27 Dose: 25 mg Oxycodone/Acetaminophen (Percocet 5/325 Mg Tab) 1 tab PO Q4H PRN PRN Reason: Pain, moderate (4-7) Stop: 05/28/18 22:18 Pantoprazole Sodium (Protonix Ec Tab) 20 mg PO Q12 [facility] Last Admin: 05/27/18 09:27 Dose: 20 mg Rosuvastatin Calcium (Crestor) 10 mg PO HS [facility] Last Admin: 05/26/18 22:31 Dose: 10 mg Sitagliptin Phosphate (Januvia) 25 mg PO DAILY [facility] Last Admin: 05/27/18 09:26 Dose: 25 mg Sodium Bicarbonate (Sodium Bicarbonate Tab) 1,300 mg PO TID [facility] Last Admin: 05/27/18 14:19 Dose: 1,300 mg - Labs Labs: 05/27/18 08:35 05/27/18 08:35 - Head Exam Head Exam: ATRAUMATIC, NORMOCEPHALIC - ENT Exam ENT Exam: Mucous Membranes Moist - Neck Exam Neck Exam: Normal Inspection - Respiratory Exam Respiratory Exam: Rhonchi, Wheezes - Cardiovascular Exam Cardiovascular Exam: REGULAR RHYTHM - GI/Abdominal Exam GI & Abdominal Exam: Soft, Normal Bowel Sounds Assessment and Plan (1) Pneumonia Assessment & Plan: continue steroids discontinue Rocephin Start Zosyn and azithromycin Nebulizer treatment Repeat CAT scan of chest Status: Acute (2) CKD (chronic kidney disease) Status: Acute (3) Chronic congestive heart failure Status: Acute
[2018-05-27] MEDS ORDERED: Piperacill/Tazo 2.25gm in Dex 2.25 GM/50 ML BAG IVPB SCH (17:30)
[2018-05-27] MEDS ORDERED: Azithromycin 500 MG in Sodium Chloride 0.9% 250 ML IVPB SCH (17:30)
[2018-05-27] MEDS: Piperacill/Tazo 2.25gm in Dex 2.25 GM/50 ML BAG IVPB SCH (20:31)
[2018-05-27] MEDS: Azithromycin 500 MG in Sodium Chloride 0.9% 250 ML IVPB SCH (20:32)
--- NOTE | 2018-05-27 20:38 | CP.PCM.PN ---
Subjective - Date & Time of Evaluation Date of Evaluation: 05/27/18 Time of Evaluation: 12:05 - Subjective Subjective: patient seen and examined Breathing issues No chest pain Objective - Vital Signs/Intake and Output Vital Signs (last 24 hours): Temp Pulse Resp BP Pulse Ox 98 F 80 20 155/81 H 95 05/27/18 15:34 05/27/18 15:34 05/27/18 15:34 05/27/18 15:34 05/27/18 07:00 Intake and Output: 05/27/18 05/27/18 06:59 18:59 Intake Total 50 Balance 50 - Medications Medications: Current Medications Albuterol/Ipratropium (Duoneb 3 Mg/0.5 Mg (3 Ml) Ud) 3 ml INH RQ4 [facility] Last Admin: 05/27/18 15:39 Dose: 3 ml Docusate Sodium (Colace) 100 mg PO TID [facility] Last Admin: 05/27/18 14:19 Dose: 100 mg Ferrous Sulfate (Feosol) 325 mg PO DAILY [facility] Last Admin: 05/27/18 09:27 Dose: 325 mg Furosemide (Lasix) 40 mg IVP DAILY [facility] Last Admin: 05/27/18 09:27 Dose: 40 mg Furosemide (Lasix) 40 mg IVP ONCE PRN PRN Reason: Admn post blood transfusion. Gabapentin (Neurontin) 100 mg PO TID [facility] Last Admin: 05/27/18 14:19 Dose: 100 mg Guaifenesin (Robitussin) 200 mg PO Q4H PRN PRN Reason: Cough and congestion Hydralazine HCl (Apresoline) 100 mg PO TID [facility] Last Admin: 05/27/18 14:19 Dose: 100 mg Ceftriaxone Sodium 1 gm/ (Dextrose) 50 mls @ 100 mls/hr IVPB DAILY [facility]; Protocol Last Admin: 05/27/18 09:28 Dose: 100 mls/hr Insulin Aspart (Novolog) 0 unit SC ACHS [facility]; Protocol Last Admin: 05/27/18 14:18 Dose: 2 units Lactulose (Enulose) 20 gm PO DAILY [facility] Last Admin: 05/27/18 09:31 Dose: Not Given Methylprednisolone (Solu-Medrol) 60 mg IV Q12 [facility] Last Admin: 05/27/18 09:27 Dose: 60 mg Metoprolol Tartrate (Lopressor) 25 mg PO BID [facility] Last Admin: 05/27/18 09:27 Dose: 25 mg Oxycodone/Acetaminophen (Percocet 5/325 Mg Tab) 1 tab PO Q4H PRN PRN Reason: Pain, moderate (4-7) Stop: 05/28/18 22:18 Pantoprazole Sodium (Protonix Ec Tab) 20 mg PO Q12 [facility] Last Admin: 05/27/18 09:27 Dose: 20 mg Rosuvastatin Calcium (Crestor) 10 mg PO HS [facility] Last Admin: 05/26/18 22:31 Dose: 10 mg Sitagliptin Phosphate (Januvia) 25 mg PO DAILY [facility] Last Admin: 05/27/18 09:26 Dose: 25 mg Sodium Bicarbonate (Sodium Bicarbonate Tab) 1,300 mg PO TID [facility] Last Admin: 05/27/18 14:19 Dose: 1,300 mg - Labs Labs: 05/27/18 08:35 05/27/18 08:35 - Head Exam Head Exam: ATRAUMATIC, NORMOCEPHALIC - ENT Exam ENT Exam: Mucous Membranes Moist - Neck Exam Neck Exam: Normal Inspection - Respiratory Exam Respiratory Exam: Rhonchi, Wheezes - Cardiovascular Exam Cardiovascular Exam: REGULAR RHYTHM - GI/Abdominal Exam GI & Abdominal Exam: Soft, Normal Bowel Sounds Assessment and Plan (1) Pneumonia Assessment & Plan: continue steroids discontinue Rocephin Start Zosyn and azithromycin Nebulizer treatment Repeat CAT scan of chest Status: Acute (2) CKD (chronic kidney disease) Status: Acute (3) Chronic congestive heart failure Status: Acute Preserved EF Objective - Vital Signs/Intake and Output Vital Signs (last 24 hours): Temp Pulse Resp BP Pulse Ox 98 F 80 20 183/76 H 95 05/27/18 15:34 05/27/18 15:34 05/27/18 15:34 05/27/18 19:03 05/27/18 07:00 Intake and Output: 05/27/18 05/28/18 18:59 06:59 Intake Total 50 Balance 50 - Medications Medications: Current Medications Albuterol/Ipratropium (Duoneb 3 Mg/0.5 Mg (3 Ml) Ud) 3 ml INH RQ4 [facility] Last Admin: 05/27/18 19:59 Dose: 3 ml Docusate Sodium (Colace) 100 mg PO TID [facility] Last Admin: 05/27/18 17:40 Dose: 100 mg Ferrous Sulfate (Feosol) 325 mg PO DAILY [facility] Last Admin: 05/27/18 09:27 Dose: 325 mg Furosemide (Lasix) 40 mg IVP DAILY [facility] Last Admin: 05/27/18 09:27 Dose: 40 mg Gabapentin (Neurontin) 100 mg PO TID [facility] Last Admin: 05/27/18 17:42 Dose: 100 mg Guaifenesin (Robitussin) 200 mg PO Q4H PRN PRN Reason: Cough and congestion Hydralazine HCl (Apresoline) 100 mg PO TID [facility] Last Admin: 05/27/18 17:40 Dose: 100 mg Piperacillin Sod/Tazobactam Sod (Zosyn 2.25 Gm Iv Premix) 2.25 gm in 50 mls @ 100 mls/hr IVPB Q8H [facility]; Protocol Last Admin: 05/27/18 20:31 Dose: 100 mls/hr Azithromycin 500 mg/ Sodium (Chloride) 250 mls @ 250 mls/hr IVPB Q24H [facility]; Protocol Last Admin: 05/27/18 20:32 Dose: 250 mls/hr Insulin Aspart (Novolog) 0 unit SC ACHS [facility]; Protocol Last Admin: 05/27/18 17:41 Dose: 2 units Lactulose (Enulose) 20 gm PO DAILY [facility] Last Admin: 05/27/18 09:31 Dose: Not Given Methylprednisolone (Solu-Medrol) 60 mg IV Q12 [facility] Last Admin: 05/27/18 09:27 Dose: 60 mg Metoprolol Tartrate (Lopressor) 25 mg PO BID [facility] Last Admin: 05/27/18 17:40 Dose: 25 mg Oxycodone/Acetaminophen (Percocet 5/325 Mg Tab) 1 tab PO Q4H PRN PRN Reason: Pain, moderate (4-7) Stop: 05/28/18 22:18 Pantoprazole Sodium (Protonix Ec Tab) 20 mg PO Q12 [facility] Last Admin: 05/27/18 09:27 Dose: 20 mg Rosuvastatin Calcium (Crestor) 10 mg PO HS [facility] Last Admin: 05/26/18 22:31 Dose: 10 mg Sitagliptin Phosphate (Januvia) 25 mg PO DAILY [facility] Last Admin: 05/27/18 09:26 Dose: 25 mg Sodium Bicarbonate (Sodium Bicarbonate Tab) 1,300 mg PO TID [facility] Last Admin: 05/27/18 17:42 Dose: 1,300 mg - Labs Labs: 05/27/18 08:35 05/27/18 08:35
[2018-05-28] MEDS: Albuterol-Ipratrop 3 mg / 0.5 (3 ml) UD INH SCH ×6 (00:34→20:03)
[2018-05-28] MEDS: Piperacill/Tazo 2.25gm in Dex 2.25 GM/50 ML BAG IVPB SCH ×3 (04:00→21:41)
[2018-05-28 08:03] LABS: BASO % 0.2 % (0.0-2.0); HEMOGLOBIN 8.5 g/dL (11.0-16.0); LYMPH # 0.5 K/uL (1.0-4.3); LYMPH % 4.2 % (20.0-40.0); MEAN CELL VOLUME 82.7 fL (81.0-99.0); MEAN CORPUSCULAR HEMOGLOBIN 26.8 pg (27.0-31.0); MEAN CORPUSCULAR HGB CONC 32.4 g/dL (33.0-37.0); MEAN PLATELET VOLUME 10.8 fL (7.2-11.7); MONO # 0.3 K/uL (0.0-0.8); MONO % 3.1 % (0.0-10.0); NEUT % 92.5 % (50.0-75.0); NRBC % 0.1 % (0.0-2.0); PLATELET COUNT 228 K/uL (130-400); RBC 3.18 Mil/uL (3.80-5.20); RED CELL DISTRIBUTION WIDTH 14.9 % (11.5-14.5); WHITE BLOOD COUNT 10.9 K/uL (4.8-10.8)
[2018-05-28 08:20] LABS: ALB/GLOB RATIO 0.8 (1.0-2.1)
[2018-05-28] MEDS: (Novolog) Insulin Aspart, Recombinant 100 u/ml 10 ml vial SC SCH ×4 (08:30→22:00)
--- NOTE | 2018-05-28 08:37 | CP.PCM.PN ---
<Aleshia King - Last Filed: 05/28/18 10:08> Subjective - Date & Time of Evaluation Date of Evaluation: 05/28/18 Time of Evaluation: 08:00 - Subjective Subjective: Cardiology Follow Up Note Patient was seen and examined at bedside. Patient reports her breathing is slightly improving and now her cough is nonproductive. Denied chest pain or palpitations. Objective - Vital Signs/Intake and Output Vital Signs (last 24 hours): Temp Pulse Resp BP Pulse Ox 98.5 F 71 20 147/68 97 05/27/18 23:40 05/28/18 04:11 05/27/18 23:40 05/27/18 23:40 05/27/18 23:40 Intake and Output: 05/28/18 05/28/18 06:59 18:59 Intake Total 925 Output Total 600 400 Balance 325 -400 - Medications Medications: Current Medications Albuterol/Ipratropium (Duoneb 3 Mg/0.5 Mg (3 Ml) Ud) 3 ml INH RQ4 [facility] Last Admin: 05/28/18 04:25 Dose: Not Given Docusate Sodium (Colace) 100 mg PO TID [facility] Last Admin: 05/27/18 17:40 Dose: 100 mg Ferrous Sulfate (Feosol) 325 mg PO DAILY [facility] Last Admin: 05/27/18 09:27 Dose: 325 mg Furosemide (Lasix) 40 mg IVP DAILY [facility] Last Admin: 05/27/18 09:27 Dose: 40 mg Gabapentin (Neurontin) 100 mg PO TID [facility] Last Admin: 05/27/18 17:42 Dose: 100 mg Guaifenesin (Robitussin) 200 mg PO Q4H PRN PRN Reason: Cough and congestion Hydralazine HCl (Apresoline) 100 mg PO TID [facility] Last Admin: 05/27/18 17:40 Dose: 100 mg Piperacillin Sod/Tazobactam Sod (Zosyn 2.25 Gm Iv Premix) 2.25 gm in 50 mls @ 100 mls/hr IVPB Q8H [facility]; Protocol Last Admin: 05/28/18 04:00 Dose: 100 mls/hr Azithromycin 500 mg/ Sodium (Chloride) 250 mls @ 250 mls/hr IVPB Q24H [facility]; Protocol Last Admin: 05/27/18 20:32 Dose: 250 mls/hr Insulin Aspart (Novolog) 0 unit SC ACHS [facility]; Protocol Last Admin: 05/27/18 22:01 Dose: Not Given Lactulose (Enulose) 20 gm PO DAILY [facility] Last Admin: 05/27/18 09:31 Dose: Not Given Methylprednisolone (Solu-Medrol) 60 mg IV Q12 [facility] Last Admin: 05/27/18 22:00 Dose: 60 mg Metoprolol Tartrate (Lopressor) 25 mg PO BID [facility] Last Admin: 05/27/18 17:40 Dose: 25 mg Oxycodone/Acetaminophen (Percocet 5/325 Mg Tab) 1 tab PO Q4H PRN PRN Reason: Pain, moderate (4-7) Stop: 05/28/18 22:18 Pantoprazole Sodium (Protonix Ec Tab) 20 mg PO Q12 [facility] Last Admin: 05/27/18 22:00 Dose: 20 mg Rosuvastatin Calcium (Crestor) 10 mg PO HS [facility] Last Admin: 05/27/18 22:00 Dose: 10 mg Sitagliptin Phosphate (Januvia) 25 mg PO DAILY [facility] Last Admin: 05/27/18 09:26 Dose: 25 mg Sodium Bicarbonate (Sodium Bicarbonate Tab) 1,300 mg PO TID [facility] Last Admin: 05/27/18 17:42 Dose: 1,300 mg - Labs Labs: 05/28/18 07:56 05/27/18 08:35 Assessment and Plan - Assessment and Plan (Free Text) Plan: Dyspnea Acute on chronic diastolic heart failure RLL Pneumonia Imaging/ Labs: - CXR: Patchy consolidative changes in right lower lung zone - BNP: 6490; Previous admission 991 - Chest CT: (previous admission) 3.3 cm RLL mass (outpatient biopsy) - Nuclear Stress Test: normal stress test, normal EF (previous admission) - Venous dopplers: no evidence of DVT - Repeat CT Chest: ordered, pending results Management: - Measure daily weights, strict I & Os - Reinforced with patient the importance of fluid restriction, salt intake, medication compliance - Continue with antibiotics, solumedrol, duonebs - Decreased Lasix to 20mg IVP daily, will continue to monitor renal function Case discussed with Aleshia Muñoz DO, PGY2 <Maxwell Vincent - Last Filed: 05/28/18 19:11> Objective - Vital Signs/Intake and Output Vital Signs (last 24 hours): Temp Pulse Resp BP Pulse Ox 97.8 F 69 20 179/75 H 97 05/28/18 15:15 05/28/18 15:15 05/28/18 15:15 05/28/18 15:15 05/28/18 15:15 Intake and Output: 05/28/18 05/29/18 18:59 06:59 Output Total 400 Balance -400 - Medications Medications: Current Medications Albuterol/Ipratropium (Duoneb 3 Mg/0.5 Mg (3 Ml) Ud) 3 ml INH RQ4 [facility] Last Admin: 05/28/18 15:57 Dose: 3 ml Docusate Sodium (Colace) 100 mg PO TID [facility] Last Admin: 05/28/18 18:14 Dose: 100 mg Ferrous Sulfate (Feosol) 325 mg PO DAILY [facility] Last Admin: 05/28/18 10:46 Dose: 325 mg Furosemide (Lasix) 20 mg IVP DAILY [facility] Last Admin: 05/28/18 10:38 Dose: 20 mg Gabapentin (Neurontin) 100 mg PO TID [facility] Last Admin: 05/28/18 18:12 Dose: 100 mg Guaifenesin (Robitussin) 200 mg PO Q4H PRN PRN Reason: Cough and congestion Hydralazine HCl (Apresoline) 100 mg PO TID [facility] Last Admin: 05/28/18 18:13 Dose: 100 mg Piperacillin Sod/Tazobactam Sod (Zosyn 2.25 Gm Iv Premix) 2.25 gm in 50 mls @ 100 mls/hr IVPB Q8H [facility]; Protocol Last Admin: 05/28/18 13:00 Dose: 100 mls/hr Azithromycin 500 mg/ Sodium (Chloride) 250 mls @ 250 mls/hr IVPB Q24H [facility]; Prot ocol Last Admin: 05/27/18 20:32 Dose: 250 mls/hr Insulin Aspart (Novolog) 0 unit SC ACHS [facility]; Protocol Last Admin: 05/28/18 18:10 Dose: 3 units Lactulose (Enulose) 20 gm PO DAILY [facility] Last Admin: 05/28/18 10:41 Dose: Not Given Methylprednisolone (Solu-Medrol) 60 mg IV Q12 [facility] Last Admin: 05/28/18 10:40 Dose: 60 mg Oxycodone/Acetaminophen (Percocet 5/325 Mg Tab) 1 tab PO Q4H PRN PRN Reason: Pain, moderate (4-7) Stop: 05/28/18 22:18 Pantoprazole Sodium (Protonix Ec Tab) 20 mg PO Q12 [facility] Last Admin: 05/28/18 10:40 Dose: 20 mg Rosuvastatin Calcium (Crestor) 10 mg PO HS [facility] Last Admin: 05/27/18 22:00 Dose: 10 mg Sitagliptin Phosphate (Januvia) 25 mg PO DAILY [facility] Last Admin: 05/28/18 10:46 Dose: 25 mg Sodium Bicarbonate (Sodium Bicarbonate Tab) 1,300 mg PO TID [facility] Last Admin: 05/28/18 18:12 Dose: 1,300 mg - Labs Labs: 05/28/18 07:56 05/28/18 07:56 Assessment and Plan - Assessment and Plan (Free Text) Plan: Patient seen and evaluated personally by me Plan of care d/w the medical lab director and as documented
[2018-05-28 10:14] LABS: LYMPHOCYTE 8 % (20-40); MONOCYTE 2 % (0-10); NEUTROPHIL 90 % (50-75); TOTAL CELLS COUNTED 100
[2018-05-28 10:15] LABS: PLATELET ESTIMATE NORMAL (NORMAL)
[2018-05-28 10:17] LABS: ANISOCYTOSIS SLIGHT; HYPOCHROMIC SLIGHT; LARGE PLATELETS PRESENT; POIKILOCYTOSIS SLIGHT
[2018-05-28] MEDS: Pantoprazole 20 mg EC Tab PO SCH ×2 (10:40→21:44)
--- NOTE | 2018-05-28 12:26 | CT ---
Date of service: 05/28/2018 PROCEDURE: CT Chest without contrast HISTORY: RLL pneumona, known lung mass COMPARISON: 05/07/2018. CT thorax. Summary of findings on the comparison examination: 3.3 cm part solid right lower lobe mass TECHNIQUE: Contiguous axial images were obtained through the chest without intravenous contrast enhancement. Sagittal and coronal reconstructions were performed. Radiation dose: Total exam DLP = 857.50 mGy-cm. This CT exam was performed using one or more of the following dose reduction techniques: Automated exposure control, adjustment of the mA and/or kV according to patient size, and/or use of iterative reconstruction technique. FINDINGS: LUNGS: New bilateral lower lobe infiltrates associated with small bilateral pleural effusions. Stable appearance of peripheral mass lateral segment right lower lobe. MEDIASTINUM: Unremarkable thoracic aorta. No aneurysm. Normal sized heart. Main pulmonary artery unremarkable. No vascular congestion. Right hilar mass is difficult to separate from right pulmonary artery. No aortic atherosclerotic calcification. PLEURA: Bilateral pleural effusions tracking along the fissures represent new findings. BONES: No fracture. No destructive lesion. Severe degenerative changes. UPPER ABDOMEN: Incompletely visualized atrophic kidneys bilaterally. Progressive edema and anasarca noted. OTHER FINDINGS: None. IMPRESSION: New bilateral pleural effusions and lower lobe consolidative change. Stable right lower lobe lung mass. Enlargement of the right hilum inseparable from adjacent pulmonary artery and vein. Contrast-enhanced CT scan may better elucidate these findings.
--- NOTE | 2018-05-28 16:08 | CP.PCM.PN ---
Subjective - Date & Time of Evaluation Date of Evaluation: 05/28/18 Time of Evaluation: 14:00 - Subjective Subjective: patient seen and examined Still coughing and wheezing Afebrile CAT scan of the chest consistent with bilateral pleural effusion and lung mass Consider lung biopsy once stable Continue antibiotics Continue nebulizer treatment and antitussives Objective - Vital Signs/Intake and Output Vital Signs (last 24 hours): Temp Pulse Resp BP Pulse Ox 98.0 F 74 18 164/72 H 98 05/28/18 07:00 05/28/18 10:12 05/28/18 07:00 05/28/18 10:39 05/28/18 07:00 Intake and Output: 05/28/18 05/28/18 06:59 18:59 Intake Total 925 Output Total 600 400 Balance 325 -400 - Medications Medications: Current Medications Albuterol/Ipratropium (Duoneb 3 Mg/0.5 Mg (3 Ml) Ud) 3 ml INH RQ4 [facility] Last Admin: 05/28/18 15:57 Dose: 3 ml Docusate Sodium (Colace) 100 mg PO TID [facility] Last Admin: 05/28/18 14:16 Dose: 100 mg Ferrous Sulfate (Feosol) 325 mg PO DAILY [facility] Last Admin: 05/28/18 10:46 Dose: 325 mg Furosemide (Lasix) 20 mg IVP DAILY [facility] Last Admin: 05/28/18 10:38 Dose: 20 mg Gabapentin (Neurontin) 100 mg PO TID [facility] Last Admin: 05/28/18 14:16 Dose: 100 mg Guaifenesin (Robitussin) 200 mg PO Q4H PRN PRN Reason: Cough and congestion Hydralazine HCl (Apresoline) 100 mg PO TID [facility] Last Admin: 05/28/18 14:16 Dose: 100 mg Piperacillin Sod/Tazobactam Sod (Zosyn 2.25 Gm Iv Premix) 2.25 gm in 50 mls @ 100 mls/hr IVPB Q8H [facility]; Protocol Last Admin: 05/28/18 13:00 Dose: 100 mls/hr Azithromycin 500 mg/ Sodium (Chloride) 250 mls @ 250 mls/hr IVPB Q24H [facility]; Protocol Last Admin: 05/27/18 20:32 Dose: 250 mls/hr Insulin Aspart (Novolog) 0 unit SC ACHS [facility]; Protocol Last Admin: 05/28/18 12:20 Dose: 3 units Lactulose (Enulose) 20 gm PO DAILY [facility] Last Admin: 05/28/18 10:41 Dose: Not Given Methylprednisolone (Solu-Medrol) 60 mg IV Q12 [facility] Last Admin: 05/28/18 10:40 Dose: 60 mg Oxycodone/Acetaminophen (Percocet 5/325 Mg Tab) 1 tab PO Q4H PRN PRN Reason: Pain, moderate (4-7) Stop: 05/28/18 22:18 Pantoprazole Sodium (Protonix Ec Tab) 20 mg PO Q12 [facility] Last Admin: 05/28/18 10:40 Dose: 20 mg Rosuvastatin Calcium (Crestor) 10 mg PO HS [facility] Last Admin: 05/27/18 22:00 Dose: 10 mg Sitagliptin Phosphate (Januvia) 25 mg PO DAILY [facility] Last Admin: 05/28/18 10:46 Dose: 25 mg Sodium Bicarbonate (Sodium Bicarbonate Tab) 1,300 mg PO TID [facility] Last Admin: 05/28/18 14:20 Dose: 1,300 mg - Labs Labs: 05/28/18 07:56 05/28/18 07:56 Assessment and Plan (1) Pneumonia Status: Acute (2) CKD (chronic kidney disease) Status: Acute (3) Chronic congestive heart failure Status: Acute
--- NOTE | 2018-05-28 19:50 | PN ---
DATE: 05/28/2018 SUBJECTIVE: The patient is short of breath and actively wheezing at this time. She denies any substernal chest pain. PHYSICAL EXAMINATION VITAL SIGNS: Blood pressure 160/72, heart rate 74, temperature 98, respirations 18. HEENT: Pale conjunctivae. CHEST: Bilateral diffuse expiratory wheezing. HEART: S1 and S2 regular. EXTREMITIES: 1+ pitting edema. LABORATORY DATA: Today's SMA-7: Sodium 140, potassium 4.4, chloride 104, CO2 of 22, glucose 254, BUN 50, creatinine 3. Today's hemoglobin and hematocrit are 8.5 and 26.3, white count 10.9, platelet count 228,000. Venous Doppler of the lower extremities, no evidence of DVT. Chest CT scan without contrast, new bilateral pleural effusion and lower lobe consolidation changes, stable right lower lobe lung mass. Chest x-ray was consistent with right lower lobe infiltrate and moderate CHF. An echocardiographic study in 01/2018 revealed normal ejection fraction, no pulmonary hypertension, diastolic dysfunction. ASSESSMENT: 1. Right lower lobe pneumonia with bilateral pleural effusion. 2. Right lower lobe lung mass. 3. Chronic renal insufficiency. 4. Anemia. 5. Systemic hypertension. RECOMMENDATIONS: Continue hydralazine 100 mg t.i.d. Continue IV Zithromax and IV Zosyn. I will discontinue Lopressor because the patient is actively wheezing. Continue Lasix 20 mg intravenously daily, Robitussin 200 mg p.o. every 4 hours. p.r.n. and Solu-Medrol 60 mg intravenously every 12 hours. Eric Muhammad MD
[2018-05-28] MEDS: Azithromycin 500 MG in Sodium Chloride 0.9% 250 ML IVPB SCH (21:42)
[2018-05-29] MEDS: Albuterol-Ipratrop 3 mg / 0.5 (3 ml) UD INH SCH ×6 (00:35→20:38)
[2018-05-29] MEDS: Piperacill/Tazo 2.25gm in Dex 2.25 GM/50 ML BAG IVPB SCH ×3 (04:00→19:31)
[2018-05-29 08:14] LABS: BASO % 0.1 % (0.0-2.0); HEMOGLOBIN 8.4 g/dL (11.0-16.0); LYMPH # 0.7 K/uL (1.0-4.3); MEAN CELL VOLUME 82.6 fL (81.0-99.0); MEAN CORPUSCULAR HEMOGLOBIN 26.7 pg (27.0-31.0); MEAN CORPUSCULAR HGB CONC 32.3 g/dL (33.0-37.0); MEAN PLATELET VOLUME 10.4 fL (7.2-11.7); MONO # 0.5 K/uL (0.0-0.8); MONO % 4.2 % (0.0-10.0); NEUT # 10.4 K/uL (1.8-7.0); NEUT % 89.7 % (50.0-75.0); NRBC % 0.4 % (0.0-2.0); PLATELET COUNT 229 K/uL (130-400); RBC 3.15 Mil/uL (3.80-5.20); RED CELL DISTRIBUTION WIDTH 14.8 % (11.5-14.5); WHITE BLOOD COUNT 11.6 K/uL (4.8-10.8)
[2018-05-29] MEDS: (Novolog) Insulin Aspart, Recombinant 100 u/ml 10 ml vial SC SCH ×4 (08:34→21:40)
[2018-05-29 08:39] LABS: ALB/GLOB RATIO 0.8 (1.0-2.1)
--- NOTE | 2018-05-29 09:47 | CP.PCM.PN ---
Subjective - Date & Time of Evaluation Date of Evaluation: 05/29/18 Time of Evaluation: 08:00 - Subjective Subjective: patient seen and examined Less cough, wheezing and shortness of breath Afebrile Alert and oriented Continue antibiotics Continue nebulizer treatment IR for biopsy of lung mass Objective - Vital Signs/Intake and Output Vital Signs (last 24 hours): Temp Pulse Resp BP Pulse Ox 98.2 F 74 20 142/67 99 05/28/18 23:45 05/29/18 05:20 05/28/18 23:45 05/28/18 23:45 05/28/18 23:45 Intake and Output: 05/29/18 05/29/18 06:59 18:59 Output Total 450 Balance -450 - Medications Medications: Current Medications Albuterol/Ipratropium (Duoneb 3 Mg/0.5 Mg (3 Ml) Ud) 3 ml INH RQ4 [facility] Last Admin: 05/29/18 07:36 Dose: Not Given Docusate Sodium (Colace) 100 mg PO TID [facility] Last Admin: 05/28/18 18:14 Dose: 100 mg Ferrous Sulfate (Feosol) 325 mg PO DAILY [facility] Last Admin: 05/28/18 10:46 Dose: 325 mg Furosemide (Lasix) 20 mg IVP DAILY [facility] Last Admin: 05/28/18 10:38 Dose: 20 mg Gabapentin (Neurontin) 100 mg PO TID [facility] Last Admin: 05/28/18 18:12 Dose: 100 mg Guaifenesin (Robitussin) 200 mg PO Q4H PRN PRN Reason: Cough and congestion Hydralazine HCl (Apresoline) 100 mg PO TID [facility] Last Admin: 05/28/18 18:13 Dose: 100 mg Piperacillin Sod/Tazobactam Sod (Zosyn 2.25 Gm Iv Premix) 2.25 gm in 50 mls @ 100 mls/hr IVPB Q8H [facility]; Protocol Last Admin: 05/29/18 04:00 Dose: 100 mls/hr Azithromycin 500 mg/ Sodium (Chloride) 250 mls @ 250 mls/hr IVPB Q24H [facility]; Protocol Last Admin: 05/28/18 21:42 Dose: 250 mls/hr Insulin Aspart (Novolog) 0 unit SC ACHS [facility]; Protocol Last Admin: 05/29/18 08:34 Dose: 3 units Lactulose (Enulose) 20 gm PO DAILY [facility] Last Admin: 05/28/18 10:41 Dose: Not Given Methylprednisolone (Solu-Medrol) 60 mg IV Q12 [facility] Last Admin: 05/28/18 21:40 Dose: 60 mg Pantoprazole Sodium (Protonix Ec Tab) 20 mg PO Q12 [facility] Last Admin: 05/28/18 21:44 Dose: 20 mg Rosuvastatin Calcium (Crestor) 10 mg PO HS [facility] Last Admin: 05/28/18 21:40 Dose: 10 mg Sitagliptin Phosphate (Januvia) 25 mg PO DAILY [facility] Last Admin: 05/28/18 10:46 Dose: 25 mg Sodium Bicarbonate (Sodium Bicarbonate Tab) 1,300 mg PO TID [facility] Last Admin: 05/28/18 18:12 Dose: 1,300 mg - Labs Labs: 05/29/18 07:54 05/29/18 07:54 Assessment and Plan (1) Pneumonia Status: Acute (2) CKD (chronic kidney disease) Status: Acute (3) Chronic congestive heart failure Status: Acute
[2018-05-29] MEDS: Pantoprazole 20 mg EC Tab PO SCH ×2 (11:13→21:39)
[2018-05-29 11:15] LABS: ANISOCYTOSIS SLIGHT; BANDS 2 % (0-2); LYMPHOCYTE 5 % (20-40); MONOCYTE 3 % (0-10); NEUTROPHIL 90 % (50-75); PLATELET ESTIMATE NORMAL (NORMAL); TOTAL CELLS COUNTED 100
[2018-05-29 11:16] LABS: HYPOCHROMIC SLIGHT; POLYCHROMIC SLIGHT; TOXIC GRANULATION PRESENT
[2018-05-29 11:17] LABS: LARGE PLATELETS PRESENT
--- NOTE | 2018-05-29 15:53 | CP.PCM.CON ---
History of Present Illness - History of Present Illness History of Present Illness: renal consult note Assessment: Stable HEYDI vs ckd stage 4 disease progression Diabetic chronic Kidney Disease (E11.22) Hypertensive Chronic Kidney Disease (I12.9) Chronic Kidney Disease (N18.4) Stage 4 with b/l atrophic kidneys likely due to DM/HTN/age related nephrosclerosis Anemia (D64.9) morbid obesity RLL mass Plan No acute need for renal replacement therapy at this time. check urine lytes, urien pr/cr ratio check renal USG to rule out obstruction bp continue current meds anemia hem on board, with lung mass, defer nas use until cleared by hem check iron profile i have ordered it HPI: Pt is a 83 F with hx of diabetes Mellitus ( years), hypertension (years) CKD 4 with baseline cr 2.4 morbid obesity anemia and RLL mass presented with complaints of weakness and anemia of 7.7 Denies OTC/herbal meds or NSAIDs, she is aware of ckd for last 1-2 years ROS: negative Physical Examination: General Appearance: Comfortable, in no acute respiratory distress, co-operative Vitals reviewed Head; Atraumatic, normocephalic ENT: no ulcers no thrush. Tongue is midline. EYES:Eye muscles and extraocular movement intact. Sclera is anicteric. Neck; supple Lungs: Normal respiratory rate/effort. Breath sounds bilateral equal and clear Heart: Normal rate. s1s2 normal. No rub or gallop. Extremities: 1+ edema. No varicose veins Neurological: Patient is alert, awake and oriented to person, place and time. No focal deficit Skin: Warm and dry. Normal turgor. No rash. Abdomen: Abdomen is soft. Bowel sounds +. There is no abdominal tenderness Psych: normal insight Past Patient History - Infectious Disease Hx of Infectious Diseases: None - Past Medical History & Family History Past Medical History?: Yes - Past Social History Smoking Status: Former Smoker - CARDIAC Hx Cardiac Disorders: Yes Hx Hypercholesterolemia: Yes Hx Hypertension: Yes - PULMONARY Hx Respiratory Disorders: No - NEUROLOGICAL Hx Neurological Disorder: No - HEENT Hx HEENT Problems: No - RENAL Hx Chronic Kidney Disease: No - ENDOCRINE/METABOLIC Hx Endocrine Disorders: Yes Hx Diabetes Mellitus Type 2: Yes - HEMATOLOGICAL/ONCOLOGICAL Hx Blood Disorders: No Hx Human Immunodeficiency Virus (HIV): No - INTEGUMENTARY Hx Dermatological Problems: No - MUSCULOSKELETAL/RHEUMATOLOGICAL Hx Musculoskeletal Disorders: Yes Hx Arthritis: Yes Hx Falls: No - GASTROINTESTINAL Hx Gastrointestinal Disorders: No Hx Crohn's Disease: No Hx Diverticulitis: No Hx Gall Bladder Disease: No Hx Gastritis: No Hx Pancreatitis: No - GENITOURINARY/GYNECOLOGICAL Hx Genitourinary Disorders: No - PSYCHIATRIC Hx Psychophysiologic Disorder: No Hx Substance Use: No - SURGICAL HISTORY Hx Surgeries: Yes Hx Cholecystectomy: Yes (over 10 yrs. ago) - ANESTHESIA Hx Anesthesia: Yes Hx Anesthesia Reactions: No Meds Allergies/Adverse Reactions: Allergies Allergy/AdvReac Type Severity Reaction Status Date / Time No Known Allergies Allergy Verified 05/25/18 18:03 - Medications Medications: Current Medications Albuterol/Ipratropium (Duoneb 3 Mg/0.5 Mg (3 Ml) Ud) 3 ml INH RQ4 [facility] Last Admin: 05/29/18 11:04 Dose: 3 ml Docusate Sodium (Colace) 100 mg PO TID [facility] Last Admin: 05/29/18 13:43 Dose: 100 mg Ferrous Sulfate (Feosol) 325 mg PO DAILY [facility] Last Admin: 05/29/18 11:13 Dose: 325 mg Furosemide (Lasix) 20 mg IVP DAILY [facility] Last Admin: 05/29/18 11:13 Dose: 20 mg Gabapentin (Neurontin) 100 mg PO TID [facility] Last Admin: 05/29/18 13:43 Dose: 100 mg Guaifenesin (Robitussin) 200 mg PO Q4H PRN PRN Reason: Cough and congestion Hydralazine HCl (Apresoline) 100 mg PO TID [facility] Last Admin: 05/29/18 13:43 Dose: 100 mg Piperacillin Sod/Tazobactam Sod (Zosyn 2.25 Gm Iv Premix) 2.25 gm in 50 mls @ 100 mls/hr IVPB Q8H [facility]; Protocol Last Admin: 05/29/18 11:30 Dose: 100 mls/hr Azithromycin 500 mg/ Sodium (Chloride) 250 mls @ 250 mls/hr IVPB Q24H [facility]; Protocol Last Admin: 05/28/18 21:42 Dose: 250 mls/hr Insulin Aspart (Novolog) 0 unit SC ACHS [facility]; Protocol Last Admin: 05/29/18 13:42 Dose: 2 units Lactulose (Enulose) 20 gm PO DAILY [facility] Last Admin: 05/29/18 11:12 Dose: 20 gm Methylprednisolone (Solu-Medrol) 60 mg IV Q12 [facility] Last Admin: 05/29/18 11:12 Dose: 60 mg Pantoprazole Sodium (Protonix Ec Tab) 20 mg PO Q12 [facility] Last Admin: 05/29/18 11:13 Dose: 20 mg Rosuvastatin Calcium (Crestor) 10 mg PO HS [facility] Last Admin: 05/28/18 21:40 Dose: 10 mg Sitagliptin Phosphate (Januvia) 25 mg PO DAILY [facility] Last Admin: 05/29/18 11:12 Dose: 25 mg Sodium Bicarbonate (Sodium Bicarbonate Tab) 1,300 mg PO TID [facility] Last Admin: 05/29/18 13:42 Dose: 1,300 mg Results - Vital Signs Recent Vital Signs: Last Vital Signs Temp 98.2 F 05/28/18 23:45 Pulse 74 05/29/18 05:20 Resp 20 05/28/18 23:45 BP 122/76 05/29/18 11:13 Pulse Ox 99 05/28/18 23:45 - Labs Result Diagrams: 05/29/18 07:54 05/29/18 07:54 Labs: Laboratory Results - last 24 hr 05/28/18 05/28/18 05/29/18 17:14 21:10 06:38 WBC RBC Hgb Hct MCV MCH MCHC RDW Plt Count MPV Neut % (Auto) Lymph % (Auto) Cameron % (Auto) Eos % (Auto) Baso % (Auto) Neut # (Auto) Lymph # (Auto) Cameron # (Auto) Eos # (Auto) Baso # (Auto) Neutrophils % (Manual) Band Neutrophils % Lymphocytes % (Manual) Monocytes % (Manual) Toxic Granulation Platelet Estimate Large Platelets Polychromasia Hypochromasia (manual) Anisocytosis (manual) Macrocytosis (manual) Sodium Potassium Chloride Carbon Dioxide Anion Gap BUN Creatinine Est GFR ( Amer) Est GFR (Non-Af Amer) POC Glucose (mg/dL) 284 H 246 H 252 H Random Glucose Calcium Total Bilirubin AST ALT Alkaline Phosphatase Total Protein Albumin Globulin Albumin/Globulin Ratio 05/29/18 05/29/18 05/29/18 07:54 07:54 12:08 WBC 11.6 H RBC 3.15 L Hgb 8.4 L Hct 26.0 L MCV 82.6 MCH 26.7 L MCHC 32.3 L RDW 14.8 H Plt Count 229 MPV 10.4 Neut % (Auto) 89.7 H Lymph % (Auto) 6.0 L Cameron % (Auto) 4.2 Eos % (Auto) 0.0 Baso % (Auto) 0.1 Neut # (Auto) 10.4 H Lymph # (Auto) 0.7 L Cameron # (Auto) 0.5 Eos # (Auto) 0.0 Baso # (Auto) 0.0 Neutrophils % (Manual) 90 H Band Neutrophils % 2 Lymphocytes % (Manual) 5 L Monocytes % (Manual) 3 Toxic Granulation Present Platelet Estimate Normal Large Platelets Present Polychromasia Slight Hypochromasia (manual) Slight Anisocytosis (manual) Slight Macrocytosis (manual) Slight Sodium 139 Potassium 4.4 Chloride 105 Carbon Dioxide 23 Anion Gap 15 BUN 54 H Creatinine 3.0 H Est GFR ( Amer) 18 Est GFR (Non-Af Amer) 15 POC Glucose (mg/dL) 229 H Random Glucose 263 H Calcium 8.0 L Total Bilirubin 0.3 AST 17 ALT 17 Alkaline Phosphatase 106 Total Protein 6.6 Albumin 3.0 L Globulin 3.6 Albumin/Globulin Ratio 0.8 L
--- NOTE | 2018-05-29 16:30 | PN ---
DATE: 05/29/2018 SUBJECTIVE: The patient is less wheezing compared to yesterday. She denies any chest pain. PHYSICAL EXAMINATION: VITAL SIGNS: Blood pressure 122/76, heart rate 74, temperature 98.2, respirations 20. HEENT: Pale conjunctivae. CHEST: Diffuse bilateral rhonchi. HEART: S1 and S2 regular. EXTREMITIES: 1+ pitting edema. LABORATORY DATA: Today's hemoglobin and hematocrit 8.4 and 26.0. White count 11.6, platelet count 129,000. Today's BUN and creatinine 54 and 3.0 respectively. Blood glucose level is 163. Calcium is below normal at 8.0. Chest scan revealed new bilateral pleural effusion and lower lobe consolidative changes, stable right lower lobe lung mass. ASSESSMENT: 1. Pneumonia and bilateral pleural effusion. 2. Right lower lobe lung mass. 3. Chronic renal insufficiency. 4. Systemic hypertension. 5. Anemia. PLAN: Continue hydralazine 100 mg t.i.d., Zithromax 500 mg intravenously daily, Crestor 10 mg once a day, albuterol inhaler every 4 hours, Feosol 1 tablet once a day, Januvia 25 mg once a day, Lasix 20 mg intravenously, Solu-Medrol 60 mg intravenously every 12 hours, Zosyn at 2.25 g intravenously every 8 hours. Eric Muhammad MD
[2018-05-29 17:33] LABS: IRON 69 ug/dL (37-170)
[2018-05-29 17:43] LABS: % IRON SATURATION 38 (20-55); TOTAL IRON BINDING CAPACITY 182 ug/dL (250-450)
[2018-05-29] MEDS: Azithromycin 500 MG in Sodium Chloride 0.9% 250 ML IVPB SCH (19:30)
[2018-05-29 23:14] LABS: SQUAMOUS EPITHIAL 3 /hpf (0-5); URINE BACTERIA FEW (<OCC); URINE BILIRUBIN NEGATIVE (NEGATIVE); URINE BLOOD NEGATIVE (NEGATIVE); URINE CLARITY Hazy (Clear); URINE COLOR Yellow (YELLOW); URINE GLUCOSE (UA) NORMAL (Normal); URINE LEUKOCYTE ESTERASE 3+ Leu/uL (Negative); URINE PROTEIN 2+ mg/dL (NEGATIVE); URINE UROBILINOGEN NORMAL mg/dL (0.2-1.0)
[2018-05-29 23:18] LABS: CREATININE, RANDOM URINE 84.4 mg/dL
[2018-05-30] MEDS: Albuterol-Ipratrop 3 mg / 0.5 (3 ml) UD INH SCH ×6 (00:20→20:15)
[2018-05-30] MEDS: Piperacill/Tazo 2.25gm in Dex 2.25 GM/50 ML BAG IVPB SCH ×3 (04:00→20:52)
[2018-05-30] MEDS: (Novolog) Insulin Aspart, Recombinant 100 u/ml 10 ml vial SC SCH ×4 (08:27→22:11)
--- NOTE | 2018-05-30 09:53 | CP.PCM.PN ---
<Aleshia King - Last Filed: 05/30/18 09:51> Subjective - Date & Time of Evaluation Date of Evaluation: 05/30/18 Time of Evaluation: 09:00 - Subjective Subjective: Cardiology Follow Up Note Patient seen and examined at bedside. Patient reports she feels fine today. Denied chest pain, palpitations, or shortness of breath. Objective - Vital Signs/Intake and Output Vital Signs (last 24 hours): Temp Pulse Resp BP Pulse Ox 98.5 F 52 L 20 151/79 H 95 05/30/18 08:44 05/30/18 08:44 05/30/18 08:44 05/30/18 08:44 05/30/18 08:44 Intake and Output: 05/30/18 05/30/18 06:59 18:59 Output Total 300 Balance -300 - Medications Medications: Current Medications Albuterol/Ipratropium (Duoneb 3 Mg/0.5 Mg (3 Ml) Ud) 3 ml INH RQ4 [facility] Last Admin: 05/30/18 08:34 Dose: Not Given Docusate Sodium (Colace) 100 mg PO TID [facility] Last Admin: 05/29/18 17:58 Dose: 100 mg Ferrous Sulfate (Feosol) 325 mg PO DAILY [facility] Last Admin: 05/29/18 11:13 Dose: 325 mg Furosemide (Lasix) 20 mg IVP DAILY [facility] Last Admin: 05/29/18 11:13 Dose: 20 mg Gabapentin (Neurontin) 100 mg PO TID [facility] Last Admin: 05/29/18 17:58 Dose: 100 mg Guaifenesin (Robitussin) 200 mg PO Q4H PRN PRN Reason: Cough and congestion Hydralazine HCl (Apresoline) 100 mg PO TID [facility] Last Admin: 05/29/18 17:58 Dose: 100 mg Piperacillin Sod/Tazobactam Sod (Zosyn 2.25 Gm Iv Premix) 2.25 gm in 50 mls @ 100 mls/hr IVPB Q8H [facility]; Protocol Last Admin: 05/30/18 04:00 Dose: 100 mls/hr Azithromycin 500 mg/ Sodium (Chloride) 250 mls @ 250 mls/hr IVPB Q24H [facility]; Protocol Last Admin: 05/29/18 19:30 Dose: 250 mls/hr Insulin Aspart (Novolog) 0 unit SC ACHS [facility]; Protocol Last Admin: 05/30/18 08:27 Dose: 3 units Lactulose (Enulose) 20 gm PO DAILY [facility] Last Admin: 05/29/18 11:12 Dose: 20 gm Methylprednisolone (Solu-Medrol) 60 mg IV Q12 [facility] Last Admin: 05/29/18 21:40 Dose: 60 mg Pantoprazole Sodium (Protonix Ec Tab) 20 mg PO Q12 [facility] Last Admin: 05/29/18 21:39 Dose: 20 mg Rosuvastatin Calcium (Crestor) 10 mg PO HS [facility] Last Admin: 05/29/18 21:39 Dose: 10 mg Sitagliptin Phosphate (Januvia) 25 mg PO DAILY [facility] Last Admin: 05/29/18 11:12 Dose: 25 mg Sodium Bicarbonate (Sodium Bicarbonate Tab) 1,300 mg PO TID [facility] Last Admin: 05/29/18 17:58 Dose: 1,300 mg - Labs Labs: 05/29/18 07:54 05/29/18 07:54 - Additional Findings Additional findings: - Constitutional Appears: No Acute Distress - Head Exam Head Exam: NORMAL INSPECTION, NORMOCEPHALIC - Eye Exam Eye Exam: Normal appearance Pupil Exam: NORMAL ACCOMODATION - ENT Exam ENT Exam: Mucous Membranes Moist - Respiratory Exam Respiratory Exam: Decreased Breath Sounds - Cardiovascular Exam Cardiovascular Exam: +S1, +S2. absent: Tachycardia - GI/Abdominal Exam GI & Abdominal Exam: Soft, Normal Bowel Sounds - Extremities Exam Extremities Exam: Normal Inspection. absent: Pedal Edema, Tenderness - Neurological Exam Neurological Exam: Alert, Awake, Oriented x3 - Psychiatric Exam Psychiatric exam: Normal Affect, Normal Mood - Skin Skin Exam: Dry, Intact, Normal Color, Warm Assessment and Plan - Assessment and Plan (Free Text) Plan: SVTs Management: - EP consulted, pending Dr. Ward recommendations - Patient has known history of cocaine use - Beta derrick was changed to Cardizem, due to cocaine history Imaging: - EKG 05/18/18: noted SVTs at rate of 206 bpm - Repeat EKG 05/20/18: NSR at 84 BPM Case discussed with Aleshia Muñoz DO, PGY2 <Maxwell Vincent - Last Filed: 05/30/18 20:35> Objective - Vital Signs/Intake and Output Vital Signs (last 24 hours): Temp Pulse Resp BP Pulse Ox 97.8 F 80 18 186/76 H 99 05/30/18 15:11 05/30/18 15:55 05/30/18 15:11 05/30/18 15:11 05/30/18 15:11 Intake and Output: 05/30/18 05/31/18 18:59 06:59 Intake Total 150 Output Total 400 Balance -250 - Medications Medications: Current Medications Albuterol/Ipratropium (Duoneb 3 Mg/0.5 Mg (3 Ml) Ud) 3 ml INH RQ4 [facility] Last Admin: 05/30/18 15:50 Dose: 3 ml Docusate Sodium (Colace) 100 mg PO TID [facility] Last Admin: 05/30/18 18:42 Dose: 100 mg Ergocalciferol (Drisdol 50,000 Intl Units Cap) 1 cap PO Q7D [facility] Last Admin: 05/30/18 12:49 Dose: 1 cap Ferrous Sulfate (Feosol) 325 mg PO DAILY [facility] Last Admin: 05/30/18 10:57 Dose: 325 mg Furosemide (Lasix) 40 mg IVP DAILY [facility] Last Admin: 05/30/18 13:51 Dose: Not Given Gabapentin (Neurontin) 100 mg PO TID [facility] Last Admin: 05/30/18 18:43 Dose: 100 mg Guaifenesin (Robitussin) 200 mg PO Q4H PRN PRN Reason: Cough and congestion Heparin Sodium (Porcine) (Heparin) 5,000 units SC Q12 [facility] Hydralazine HCl (Apresoline) 100 mg PO TID [facility] Last Admin: 05/30/18 18:42 Dose: 100 mg Piperacillin Sod/Tazobactam Sod (Zosyn 2.25 Gm Iv Premix) 2.25 gm in 50 mls @ 100 mls/hr IVPB Q8H [facility]; Protocol Last Admin: 05/30/18 12:00 Dose: 100 mls/hr Azithromycin 500 mg/ Sodium (Chloride) 250 mls @ 250 mls/hr IVPB Q24H [facility]; Protocol Last Admin: 05/29/18 19:30 Dose: 250 mls/hr Insulin Aspart (Novolog) 0 unit SC ACHS [facility]; Protocol Last Admin: 05/30/18 18:43 Dose: 5 units Lactulose (Enulose) 20 gm PO DAILY [facility] Last Admin: 05/30/18 11:03 Dose: Not Given Methylprednisolone (Solu-Medrol) 60 mg IV Q12 [facility] Last Admin: 05/30/18 10:56 Dose: 60 mg Pantoprazole Sodium (Protonix Ec Tab) 20 mg PO Q12 [facility] Last Admin: 05/30/18 10:57 Dose: 20 mg Rosuvastatin Calcium (Crestor) 10 mg PO HS [facility] Last Admin: 05/29/18 21:39 Dose: 10 mg Sitagliptin Phosphate (Januvia) 25 mg PO DAILY [facility] Last Admin: 05/30/18 10:58 Dose: 25 mg Sodium Bicarbonate (Sodium Bicarbonate Tab) 1,300 mg PO TID [facility] Last Admin: 05/30/18 18:44 Dose: 1,300 mg - Labs Labs: 05/29/18 07:54 05/29/18 07:54 Assessment and Plan - Assessment and Plan (Free Text) Plan: Patient seen and evaluated personally by me Plan of care d/w the medical administrative and as documented
[2018-05-30] MEDS: Pantoprazole 20 mg EC Tab PO SCH ×2 (10:57→22:16)
[2018-05-30] MEDS ORDERED: Ergocalciferol 50,000 Intl Units Cap PO SCH (11:00)
--- NOTE | 2018-05-30 11:27 | US ---
Date of service: 05/30/2018 PROCEDURE: Ultrasound of the Kidneys HISTORY: rosalba COMPARISON: None available. TECHNIQUE: Sonogram of the kidneys. FINDINGS: RIGHT KIDNEY: Measures: 10.4 x 4.6 x 4.1 cm. The right kidney is echogenic demonstrates thin cortex No stone, solid mass lesion or hydronephrosis visualized. LEFT KIDNEY: Measures: 9.4 x 5.1 x 4.5 cm. The left kidney is a so echogenic with thin cortex No stone, solid mass lesion or hydronephrosis visualized. OTHER FINDINGS: None. IMPRESSION: Echogenic kidneys with thin cortex. No evidence of hydronephrosis.
--- NOTE | 2018-05-30 13:43 | CP.PCM.PN ---
Subjective - Date & Time of Evaluation Date of Evaluation: 05/30/18 Time of Evaluation: 13:40 - Subjective Subjective: Nephrology Consultation Note: Assessment: Stable HEYDI likely hemodynamic : improved COPD exacerbation Diabetic chronic Kidney Disease (E11.22) Hypertensive Chronic Kidney Disease (I12.9) Chronic Kidney Disease (N18.4) Stage 4 with ? mg proteinuria (R80.9) with b/l atrophic kidneys likely due to DM/HTN/age related nephrosclerosis Anemia (D64.9) morbid obesity, mild hyperkalemia and metabolic acidosis hyponatremia with RLL mass ventral hernia s/p repair Plan No acute need for renal replacement therapy at this time. Hypertension control with meds as ordered. Maintain hemodynamics stable. Avoid hypotension. Patient not on ACEI/ARB due to HEYDI Monitor Input/Output, daily weights and renal function with basic metabolic panel Anemia: heme following, defer use of LOUISE to heme/onc considering RLL lung mass. PRBC as needed continue with sodium bicarb 1300 mg tid pulmonary, cardio following started weekly Vit D agree with lasix Dose meds/antibiotics for reduced GFR. Avoid fleets enema/magnesium based laxatives. Avoid nephrotoxins/NSAIDs/ iodinated contrast (unless needed emergently) Glycemic control Further work up/management as per primary team Thanks for allowing me to participate in care of your patient. Will follow patient with you. Please call if any Qs. had d/w team Dr Saturnino Askew Office: [phone] ROS: c/o cough with wheezing Cardiovascular: No chest pain. Pulmonary: improved shortness of breath Gastrointestinal: c/o abdominal pain No nausea. No vomiting. had BM Genitourinary: No pain while urinating. Denies blood in urine. All other negative except as mentioned in HPI Physical Examination: General Appearance: Comfortable, in no acute respiratory distress, co-operative . obese Vitals reviewed and noted as below Head; Atraumatic, normocephalic ENT: no ulcers no thrush. Tongue is midline. Oropharynx: no rash or ulcers. EYES: Pupils are equal, round and reactive to light accommodation. Eye muscles and extraocular movement intact. Sclera is anicteric. Neck; supple no lymphadenopathy, no thyromegaly or bruit Lungs: normal respiratory rate/effort. Breath sounds bilateral reduced at base with wheeze Heart: Normal rate. s1s2 normal. No rub or gallop. Extremities: 2+ edema. No varicose veins Neurological: Patient is alert, awake and oriented to person, place and time. No focal deficit. Strength bilateral appropriate and equal Skin: Warm and dry. Normal turgor. No rash. Palpitation: Normal elasticity for age Abdomen: Abdomen is soft. Bowel sounds +. There is no abdominal tenderness, no guarding/rigidity no organomegaly. has binder + exam limited Psych: normal insight and normal affect/mood MSK: no joint tenderness or swelling. Digits and nails normal, no deformity : kidney or bladder not palpable Labs/imaging reviewed. Past medical history, past surgical history, family history, social history, allergy reviewed and noted as below Family hx: no hx of CKD. Rest non-contributory SPEP/BAILEE neg Vit D <12.8 TSAT 38% Ferritin 700 Objective - Vital Signs/Intake and Output Vital Signs (last 24 hours): Temp Pulse Resp BP Pulse Ox 98.5 F 52 L 20 176/73 H 95 05/30/18 08:44 05/30/18 08:44 05/30/18 08:44 05/30/18 10:55 05/30/18 08:44 Intake and Output: 05/30/18 05/30/18 06:59 18:59 Output Total 300 Balance -300 - Medications Medications: Current Medications Albuterol/Ipratropium (Duoneb 3 Mg/0.5 Mg (3 Ml) Ud) 3 ml INH RQ4 [facility] Last Admin: 05/30/18 08:34 Dose: Not Given Docusate Sodium (Colace) 100 mg PO TID [facility] Last Admin: 05/30/18 11:03 Dose: Not Given Ergocalciferol (Drisdol 50,000 Intl Units Cap) 1 cap PO Q7D [facility] Last Admin: 05/30/18 12:49 Dose: 1 cap Ferrous Sulfate (Feosol) 325 mg PO DAILY [facility] Last Admin: 05/30/18 10:57 Dose: 325 mg Furosemide (Lasix) 40 mg IVP DAILY [facility] Gabapentin (Neurontin) 100 mg PO TID [facility] Last Admin: 05/30/18 10:57 Dose: 100 mg Guaifenesin (Robitussin) 200 mg PO Q4H PRN PRN Reason: Cough and congestion Heparin Sodium (Porcine) (Heparin) 5,000 units SC Q12 [facility] Hydralazine HCl (Apresoline) 100 mg PO TID [facility] Last Admin: 05/30/18 10:57 Dose: 100 mg Piperacillin Sod/Tazobactam Sod (Zosyn 2.25 Gm Iv Premix) 2.25 gm in 50 mls @ 100 mls/hr IVPB Q8H [facility]; Protocol Last Admin: 05/30/18 04:00 Dose: 100 mls/hr Azithromycin 500 mg/ Sodium (Chloride) 250 mls @ 250 mls/hr IVPB Q24H [facility]; Protocol Last Admin: 05/29/18 19:30 Dose: 250 mls/hr Insulin Aspart (Novolog) 0 unit SC ACHS [facility]; Protocol Last Admin: 05/30/18 12:49 Dose: 3 units Lactulose (Enulose) 20 gm PO DAILY [facility] Last Admin: 05/30/18 11:03 Dose: Not Given Methylprednisolone (Solu-Medrol) 60 mg IV Q12 [facility] Last Admin: 05/30/18 10:56 Dose: 60 mg Pantoprazole Sodium (Protonix Ec Tab) 20 mg PO Q12 [facility] Last Admin: 05/30/18 10:57 Dose: 20 mg Rosuvastatin Calcium (Crestor) 10 mg PO HS [facility] Last Admin: 05/29/18 21:39 Dose: 10 mg Sitagliptin Phosphate (Januvia) 25 mg PO DAILY [facility] Last Admin: 05/30/18 10:58 Dose: 25 mg Sodium Bicarbonate (Sodium Bicarbonate Tab) 1,300 mg PO TID [facility] Last Admin: 05/30/18 10:57 Dose: 1,300 mg - Labs Labs: 05/29/18 07:54 05/29/18 07:54
--- NOTE | 2018-05-30 18:37 | PN ---
DATE: 05/30/2018 SUBJECTIVE: The patient denies any chest pain. Shortness of breath and wheezing have improved. She sat on the chair this morning. PHYSICAL EXAMINATION VITAL SIGNS: Blood pressure 151/79, heart rate 52, temperature 98.5, respirations 20. HEENT: Pale conjunctivae. CHEST: Bilateral rhonchi. No wheezing. HEART: S1 and S2 regular. EXTREMITIES: 1+ pitting edema. LABORATORY DATA: Hemoglobin and hematocrit are 8.4 and 26, white count 11.6, platelet count 229,000. Today's blood sugars are 254 and 265. ASSESSMENT: 1. Pneumonia and bilateral pleural effusion. 2. Right lower lobe lung mass. 3. Chronic renal insufficiency. 4. Systemic hypertension. 5. Anemia. 6. Uncontrolled diabetes mellitus. PLAN: Continue hydralazine 100 mg t.i.d., Zithromax 500 mg intravenously daily, Colace 100 mg t.i.d., Crestor 10 mg once a day, heparin 5000 units subcutaneously every 12 hours. Increase Lasix to 40 mg intravenously daily. Continue Solu-Medrol 60 mg intravenously every 12 hours and Zosyn 2.25 g intravenously every 8 hours. Endocrine consult will be requested for uncontrolled diabetes mellitus. Eric Muhammad MD
--- NOTE | 2018-05-30 19:36 | CP.PCM.PN ---
Subjective - Date & Time of Evaluation Date of Evaluation: 05/30/18 Time of Evaluation: 19:00 - Subjective Subjective: Patient seen and examined feeling and breathing much better Afebrile No chest pain Continue present treatment Seen by nephrology Lung biopsy IR Objective - Vital Signs/Intake and Output Vital Signs (last 24 hours): Temp Pulse Resp BP Pulse Ox 97.8 F 80 18 186/76 H 99 05/30/18 15:11 05/30/18 15:55 05/30/18 15:11 05/30/18 15:11 05/30/18 15:11 Intake and Output: 05/30/18 05/31/18 18:59 06:59 Intake Total 150 Output Total 400 Balance -250 - Medications Medications: Current Medications Albuterol/Ipratropium (Duoneb 3 Mg/0.5 Mg (3 Ml) Ud) 3 ml INH RQ4 [facility] Last Admin: 05/30/18 15:50 Dose: 3 ml Docusate Sodium (Colace) 100 mg PO TID [facility] Last Admin: 05/30/18 18:42 Dose: 100 mg Ergocalciferol (Drisdol 50,000 Intl Units Cap) 1 cap PO Q7D [facility] Last Admin: 05/30/18 12:49 Dose: 1 cap Ferrous Sulfate (Feosol) 325 mg PO DAILY [facility] Last Admin: 05/30/18 10:57 Dose: 325 mg Furosemide (Lasix) 40 mg IVP DAILY [facility] Last Admin: 05/30/18 13:51 Dose: Not Given Gabapentin (Neurontin) 100 mg PO TID [facility] Last Admin: 05/30/18 18:43 Dose: 100 mg Guaifenesin (Robitussin) 200 mg PO Q4H PRN PRN Reason: Cough and congestion Heparin Sodium (Porcine) (Heparin) 5,000 units SC Q12 [facility] Hydralazine HCl (Apresoline) 100 mg PO TID [facility] Last Admin: 05/30/18 18:42 Dose: 100 mg Piperacillin Sod/Tazobactam Sod (Zosyn 2.25 Gm Iv Premix) 2.25 gm in 50 mls @ 100 mls/hr IVPB Q8H [facility]; Protocol Last Admin: 05/30/18 12:00 Dose: 100 mls/hr Azithromycin 500 mg/ Sodium (Chloride) 250 mls @ 250 mls/hr IVPB Q24H [facility]; Protocol Last Admin: 05/29/18 19:30 Dose: 250 mls/hr Insulin Aspart (Novolog) 0 unit SC ACHS [facility]; Protocol Last Admin: 05/30/18 18:43 Dose: 5 units Lactulose (Enulose) 20 gm PO DAILY [facility] Last Admin: 05/30/18 11:03 Dose: Not Given Methylprednisolone (Solu-Medrol) 60 mg IV Q12 [facility] Last Admin: 05/30/18 10:56 Dose: 60 mg Pantoprazole Sodium (Protonix Ec Tab) 20 mg PO Q12 [facility] Last Admin: 05/30/18 10:57 Dose: 20 mg Rosuvastatin Calcium (Crestor) 10 mg PO HS [facility] Last Admin: 05/29/18 21:39 Dose: 10 mg Sitagliptin Phosphate (Januvia) 25 mg PO DAILY [facility] Last Admin: 05/30/18 10:58 Dose: 25 mg Sodium Bicarbonate (Sodium Bicarbonate Tab) 1,300 mg PO TID [facility] Last Admin: 05/30/18 18:44 Dose: 1,300 mg - Labs Labs: 05/29/18 07:54 05/29/18 07:54 Assessment and Plan (1) CKD (chronic kidney disease) Status: Acute (2) Chronic congestive heart failure Status: Acute (3) Pneumonia Status: Acute
[2018-05-30] MEDS: Azithromycin 500 MG in Sodium Chloride 0.9% 250 ML IVPB SCH (20:56)
[2018-05-30 21:36] LABS: BASO % 0.1 % (0.0-2.0); HEMOGLOBIN 8.6 g/dL (11.0-16.0); LYMPH # 0.9 K/uL (1.0-4.3); LYMPH % 7.4 % (20.0-40.0); MEAN CELL VOLUME 83.1 fL (81.0-99.0); MEAN CORPUSCULAR HEMOGLOBIN 26.1 pg (27.0-31.0); MEAN CORPUSCULAR HGB CONC 31.4 g/dL (33.0-37.0); MEAN PLATELET VOLUME 10.5 fL (7.2-11.7); NEUT # 10.1 K/uL (1.8-7.0); NEUT % 84.5 % (50.0-75.0); NRBC % 0.8 % (0.0-2.0); PLATELET COUNT 232 K/uL (130-400); RBC 3.31 Mil/uL (3.80-5.20)
[2018-05-30 21:54] LABS: ALB/GLOB RATIO 0.9 (1.0-2.1); CALCIUM 8.3 mg/dl (8.6-10.4)
[2018-05-30 22:16] LABS: LYMPHOCYTE 7 % (20-40); MONOCYTE 4 % (0-10); NEUTROPHIL 89 % (50-75); NUCLEATED RED BLOOD CELL 1 % (0-0); TOTAL CELLS COUNTED 100
[2018-05-30 22:17] LABS: ANISOCYTOSIS SLIGHT; PLATELET ESTIMATE NORMAL (NORMAL); POIKILOCYTOSIS SLIGHT
[2018-05-30 22:18] LABS: HYPOCHROMIC SLIGHT; LARGE PLATELETS PRESENT; POLYCHROMIC SLIGHT; TARGET CELLS SLIGHT
[2018-05-31] MEDS: Albuterol-Ipratrop 3 mg / 0.5 (3 ml) UD INH SCH ×6 (00:45→20:06)
[2018-05-31] MEDS: Piperacill/Tazo 2.25gm in Dex 2.25 GM/50 ML BAG IVPB SCH ×3 (04:26→20:15)
[2018-05-31] MEDS: Pantoprazole 20 mg EC Tab PO SCH ×2 (10:06→22:12)
[2018-05-31] MEDS: (Novolog) Insulin Aspart, Recombinant 100 u/ml 10 ml vial SC SCH ×3 (10:07→17:30)
[2018-05-31] MEDS: MethylPREDNISolone 40 mg Vial IV SCH ×2 (10:09→21:30)
[2018-05-31 11:25] LABS: BASO % 0.1 % (0.0-2.0); HEMOGLOBIN 8.7 g/dL (11.0-16.0); LYMPH # 0.9 K/uL (1.0-4.3); LYMPH % 7.9 % (20.0-40.0); MEAN CORPUSCULAR HEMOGLOBIN 26.7 pg (27.0-31.0); MEAN CORPUSCULAR HGB CONC 31.7 g/dL (33.0-37.0); MEAN PLATELET VOLUME 10.6 fL (7.2-11.7); MONO # 0.7 K/uL (0.0-0.8); MONO % 5.7 % (0.0-10.0); NEUT % 86.3 % (50.0-75.0); NRBC % 0.4 % (0.0-2.0); PLATELET COUNT 226 K/uL (130-400); RBC 3.28 Mil/uL (3.80-5.20); RED CELL DISTRIBUTION WIDTH 14.8 % (11.5-14.5); WHITE BLOOD COUNT 11.6 K/uL (4.8-10.8)
[2018-05-31 11:46] LABS: CALCIUM 8.2 mg/dl (8.6-10.4)
[2018-05-31 12:32] LABS: LYMPHOCYTE 8 % (20-40); MONOCYTE 6 % (0-10); NEUTROPHIL 86 % (50-75); NUCLEATED RED BLOOD CELL 1 % (0-0); PLATELET ESTIMATE NORMAL (NORMAL); TOTAL CELLS COUNTED 100
[2018-05-31 12:33] LABS: ANISOCYTOSIS SLIGHT; HYPOCHROMIC SLIGHT; MICROCYTOSIS SLIGHT; OVALOCYTES SLIGHT; POIKILOCYTOSIS SLIGHT
[2018-05-31 12:34] LABS: LARGE PLATELETS PRESENT; TEARDROP CELLS SLIGHT
--- NOTE | 2018-05-31 16:42 | CP.PCM.PN ---
Subjective - Date & Time of Evaluation Date of Evaluation: 05/31/18 Time of Evaluation: 16:40 - Subjective Subjective: Nephrology Consultation Note: Assessment: Stable HEYDI likely hemodynamic : improved COPD exacerbation Diabetic chronic Kidney Disease (E11.22) Hypertensive Chronic Kidney Disease (I12.9) Chronic Kidney Disease (N18.4) Stage 4 with ? mg proteinuria (R80.9) with b/l atrophic kidneys likely due to DM/HTN/age related nephrosclerosis Anemia (D64.9) morbid obesity, mild hyperkalemia and metabolic acidosis hyponatremia with RLL mass ventral hernia s/p repair Plan No acute need for renal replacement therapy at this time. Hypertension control with meds as ordered. Monitor Input/Output Anemia: heme following, defer use of LOUISE to heme/onc considering RLL lung mass. PRBC as needed continue with sodium bicarb pulmonary, cardio following ok to use lasix as needed Physical Examination: General Appearance: Comfortable, in no acute respiratory distress, co-operative . obese Vitals reviewed and noted as below Head; Atraumatic, normocephalic ENT: no ulcers no thrush. Tongue is midline. Oropharynx: no rash or ulcers. EYES: Eye muscles and extraocular movement intact. Sclera is anicteric. Neck; supple no jvd Lungs: normal respiratory rate/effort. Breath sounds bilateral reduced at base with wheeze Heart: Normal rate. s1s2 normal. No rub or gallop. Extremities: 2+ edema. No varicose veins Neurological: Patient is alert, awake and oriented to person, place and time. No focal deficit. Strength bilateral appropriate and equal Skin: Warm and dry. Normal turgor. No rash. Abdomen: Abdomen is soft. Bowel sounds +. Psych: normal insight and normal affect/mood MSK: no joint tenderness or swelling. Objective - Vital Signs/Intake and Output Vital Signs (last 24 hours): Temp Pulse Resp BP Pulse Ox 97.6 F 73 20 154/70 H 100 05/31/18 15:24 05/31/18 15:24 05/31/18 15:24 05/31/18 15:24 05/31/18 15:24 Intake and Output: 05/31/18 05/31/18 06:59 18:59 Output Total 150 Balance -150 - Medications Medications: Current Medications Albuterol/Ipratropium (Duoneb 3 Mg/0.5 Mg (3 Ml) Ud) 3 ml INH RQ4 [facility] Last Admin: 05/31/18 15:53 Dose: Not Given Docusate Sodium (Colace) 100 mg PO TID [facility] Last Admin: 05/31/18 14:30 Dose: Not Given Ergocalciferol (Drisdol 50,000 Intl Units Cap) 1 cap PO Q7D [facility] Last Admin: 05/30/18 12:49 Dose: 1 cap Ferrous Sulfate (Feosol) 325 mg PO DAILY [facility] Last Admin: 05/31/18 10:06 Dose: 325 mg Furosemide (Lasix) 40 mg IVP DAILY [facility] Last Admin: 05/31/18 10:08 Dose: 40 mg Gabapentin (Neurontin) 100 mg PO TID [facility] Last Admin: 05/31/18 14:25 Dose: 100 mg Guaifenesin (Robitussin) 200 mg PO Q4H PRN PRN Reason: Cough and congestion Heparin Sodium (Porcine) (Heparin) 5,000 units SC Q12 [facility] Last Admin: 05/31/18 10:09 Dose: 5,000 units Hydralazine HCl (Apresoline) 100 mg PO TID [facility] Last Admin: 05/31/18 14:30 Dose: Not Given Piperacillin Sod/Tazobactam Sod (Zosyn 2.25 Gm Iv Premix) 2.25 gm in 50 mls @ 100 mls/hr IVPB Q8H [facility]; Protocol Last Admin: 05/31/18 14:27 Dose: 100 mls/hr Azithromycin 500 mg/ Sodium (Chloride) 250 mls @ 250 mls/hr IVPB Q24H [facility]; Protocol Last Admin: 05/30/18 20:56 Dose: 250 mls/hr Insulin Aspart (Novolog) 0 unit SC ACHS [facility]; Protocol Last Admin: 05/31/18 14:26 Dose: 5 units Lactulose (Enulose) 20 gm PO DAILY [facility] Last Admin: 05/31/18 10:06 Dose: Not Given Methylprednisolone (Solu-Medrol) 40 mg IV Q12H [facility] Last Admin: 05/31/18 10:09 Dose: 40 mg Pantoprazole Sodium (Protonix Ec Tab) 20 mg PO Q12 [facility] Last Admin: 05/31/18 10:06 Dose: 20 mg Rosuvastatin Calcium (Crestor) 10 mg PO HS [facility] Last Admin: 05/30/18 22:15 Dose: 10 mg Sitagliptin Phosphate (Januvia) 25 mg PO DAILY [facility] Last Admin: 05/31/18 10:07 Dose: 25 mg Sodium Bicarbonate (Sodium Bicarbonate Tab) 1,300 mg PO TID [facility] Last Admin: 05/31/18 14:25 Dose: 1,300 mg - Labs Labs: 05/31/18 11:13 05/31/18 11:13
--- NOTE | 2018-05-31 19:37 | CP.PCM.PN ---
Subjective - Date & Time of Evaluation Date of Evaluation: 05/31/18 Time of Evaluation: 19:00 - Subjective Subjective: Patient seen and examined Condition much improved Afebrile Slight cough No wheezing Bilateral swelling of legs On diuretics Continue antibioti IR for biopsy Objective - Vital Signs/Intake and Output Vital Signs (last 24 hours): Temp Pulse Resp BP Pulse Ox 97.6 F 73 20 154/70 H 100 05/31/18 15:24 05/31/18 15:24 05/31/18 15:24 05/31/18 15:24 05/31/18 15:24 - Medications Medications: Current Medications Albuterol/Ipratropium (Duoneb 3 Mg/0.5 Mg (3 Ml) Ud) 3 ml INH RQ4 [facility] Last Admin: 05/31/18 15:53 Dose: Not Given Docusate Sodium (Colace) 100 mg PO TID [facility] Last Admin: 05/31/18 18:59 Dose: Not Given Ergocalciferol (Drisdol 50,000 Intl Units Cap) 1 cap PO Q7D [facility] Last Admin: 05/30/18 12:49 Dose: 1 cap Ferrous Sulfate (Feosol) 325 mg PO DAILY [facility] Last Admin: 05/31/18 10:06 Dose: 325 mg Furosemide (Lasix) 40 mg IVP DAILY [facility] Last Admin: 05/31/18 10:08 Dose: 40 mg Gabapentin (Neurontin) 100 mg PO TID [facility] Last Admin: 05/31/18 18:58 Dose: 100 mg Guaifenesin (Robitussin) 200 mg PO Q4H PRN PRN Reason: Cough and congestion Heparin Sodium (Porcine) (Heparin) 5,000 units SC Q12 [facility] Last Admin: 05/31/18 10:09 Dose: 5,000 units Hydralazine HCl (Apresoline) 100 mg PO TID [facility] Last Admin: 05/31/18 18:58 Dose: 100 mg Piperacillin Sod/Tazobactam Sod (Zosyn 2.25 Gm Iv Premix) 2.25 gm in 50 mls @ 100 mls/hr IVPB Q8H [facility]; Protocol Last Admin: 05/31/18 14:27 Dose: 100 mls/hr Azithromycin 500 mg/ Sodium (Chloride) 250 mls @ 250 mls/hr IVPB Q24H [facility]; Protocol Last Admin: 05/30/18 20:56 Dose: 250 mls/hr Insulin Aspart (Novolog) 0 unit SC ACHS [facility]; Protocol Last Admin: 05/31/18 17:30 Dose: 4 units Lactulose (Enulose) 20 gm PO DAILY [facility] Last Admin: 05/31/18 10:06 Dose: Not Given Methylprednisolone (Solu-Medrol) 40 mg IV Q12H [facility] Last Admin: 05/31/18 10:09 Dose: 40 mg Pantoprazole Sodium (Protonix Ec Tab) 20 mg PO Q12 [facility] Last Admin: 05/31/18 10:06 Dose: 20 mg Rosuvastatin Calcium (Crestor) 10 mg PO HS [facility] Last Admin: 05/30/18 22:15 Dose: 10 mg Sitagliptin Phosphate (Januvia) 25 mg PO DAILY [facility] Last Admin: 05/31/18 10:07 Dose: 25 mg Sodium Bicarbonate (Sodium Bicarbonate Tab) 1,300 mg PO TID [facility] Last Admin: 05/31/18 18:58 Dose: 1,300 mg - Labs Labs: 05/31/18 11:13 05/31/18 11:13 Assessment and Plan (1) CKD (chronic kidney disease) Status: Acute (2) Chronic congestive heart failure Status: Acute (3) Pneumonia Status: Acute
[2018-05-31] MEDS: Azithromycin 500 MG in Sodium Chloride 0.9% 250 ML IVPB SCH (20:41)
--- NOTE | 2018-05-31 21:13 | CP.PCM.CON ---
Past Patient History - Infectious Disease Hx of Infectious Diseases: None - Past Medical History & Family History Past Medical History?: Yes - Past Social History Smoking Status: Former Smoker - CARDIAC Hx Cardiac Disorders: Yes Hx Hypercholesterolemia: Yes Hx Hypertension: Yes - PULMONARY Hx Respiratory Disorders: No - NEUROLOGICAL Hx Neurological Disorder: No - HEENT Hx HEENT Problems: No - RENAL Hx Chronic Kidney Disease: No - ENDOCRINE/METABOLIC Hx Endocrine Disorders: Yes Hx Diabetes Mellitus Type 2: Yes - HEMATOLOGICAL/ONCOLOGICAL Hx Blood Disorders: No Hx Human Immunodeficiency Virus (HIV): No - INTEGUMENTARY Hx Dermatological Problems: No - MUSCULOSKELETAL/RHEUMATOLOGICAL Hx Musculoskeletal Disorders: Yes Hx Arthritis: Yes Hx Falls: No - GASTROINTESTINAL Hx Gastrointestinal Disorders: No Hx Crohn's Disease: No Hx Diverticulitis: No Hx Gall Bladder Disease: No Hx Gastritis: No Hx Pancreatitis: No - GENITOURINARY/GYNECOLOGICAL Hx Genitourinary Disorders: No - PSYCHIATRIC Hx Psychophysiologic Disorder: No Hx Substance Use: No - SURGICAL HISTORY Hx Surgeries: Yes Hx Cholecystectomy: Yes (over 10 yrs. ago) - ANESTHESIA Hx Anesthesia: Yes Hx Anesthesia Reactions: No Meds Allergies/Adverse Reactions: Allergies Allergy/AdvReac Type Severity Reaction Status Date / Time No Known Allergies Allergy Verified 05/25/18 18:03 - Medications Medications: Current Medications Albuterol/Ipratropium (Duoneb 3 Mg/0.5 Mg (3 Ml) Ud) 3 ml INH RQ4 [facility] Last Admin: 05/31/18 20:06 Dose: 3 ml Docusate Sodium (Colace) 100 mg PO TID [facility] Last Admin: 05/31/18 18:59 Dose: Not Given Ergocalciferol (Drisdol 50,000 Intl Units Cap) 1 cap PO Q7D [facility] Last Admin: 05/30/18 12:49 Dose: 1 cap Ferrous Sulfate (Feosol) 325 mg PO DAILY [facility] Last Admin: 05/31/18 10:06 Dose: 325 mg Furosemide (Lasix) 40 mg IVP DAILY [facility] Last Admin: 05/31/18 10:08 Dose: 40 mg Gabapentin (Neurontin) 100 mg PO TID [facility] Last Admin: 05/31/18 18:58 Dose: 100 mg Guaifenesin (Robitussin) 200 mg PO Q4H PRN PRN Reason: Cough and congestion Heparin Sodium (Porcine) (Heparin) 5,000 units SC Q12 [facility] Last Admin: 05/31/18 10:09 Dose: 5,000 units Hydralazine HCl (Apresoline) 100 mg PO TID [facility] Last Admin: 05/31/18 18:58 Dose: 100 mg Piperacillin Sod/Tazobactam Sod (Zosyn 2.25 Gm Iv Premix) 2.25 gm in 50 mls @ 100 mls/hr IVPB Q8H [facility]; Protocol Last Admin: 05/31/18 20:15 Dose: 100 mls/hr Azithromycin 500 mg/ Sodium (Chloride) 250 mls @ 250 mls/hr IVPB Q24H [facility]; Protocol Last Admin: 05/31/18 20:41 Dose: 250 mls/hr Insulin Glargine (Lantus) 15 unit SC [facility] Insulin Human Regular (Novolin R) 0 unit SC ACHS [facility]; Protocol Lactulose (Enulose) 20 gm PO DAILY [facility] Last Admin: 05/31/18 10:06 Dose: Not Given Methylprednisolone (Solu-Medrol) 40 mg IV Q12H [facility] Last Admin: 05/31/18 10:09 Dose: 40 mg Pantoprazole Sodium (Protonix Ec Tab) 20 mg PO Q12 [facility] Last Admin: 05/31/18 10:06 Dose: 20 mg Rosuvastatin Calcium (Crestor) 10 mg PO HS [facility] Last Admin: 05/30/18 22:15 Dose: 10 mg Sodium Bicarbonate (Sodium Bicarbonate Tab) 1,300 mg PO TID [facility] Last Admin: 05/31/18 18:58 Dose: 1,300 mg Results - Vital Signs Recent Vital Signs: Last Vital Signs Temp 97.6 F 05/31/18 15:24 Pulse 73 05/31/18 15:24 Resp 20 05/31/18 15:24 BP 154/70 H 05/31/18 15:24 Pulse Ox 100 05/31/18 15:24 - Labs Result Diagrams: 05/31/18 11:13 05/31/18 11:13 Labs: Laboratory Results - last 24 hr 05/30/18 05/30/18 05/30/18 21:20 21:33 21:33 WBC 12.0 H RBC 3.31 L Hgb 8.6 L Hct 27.5 L MCV 83.1 MCH 26.1 L MCHC 31.4 L RDW 15.0 H Plt Count 232 MPV 10.5 Neut % (Auto) 84.5 H Lymph % (Auto) 7.4 L [place] % (Auto) 8.0 Eos % (Auto) 0.0 Baso % (Auto) 0.1 Neut # (Auto) 10.1 H Lymph # (Auto) 0.9 L [place] # (Auto) 1.0 H Eos # (Auto) 0.0 Baso # (Auto) 0.0 Neutrophils % (Manual) 89 H Lymphocytes % (Manual) 7 L Monocytes % (Manual) 4 Nucleated RBC % 1 H Platelet Estimate Normal Large Platelets Present Polychromasia Slight Hypochromasia (manual) Slight Poikilocytosis (manual Slight Anisocytosis (manual) Slight Microcytosis (manual) Macrocytosis (manual) Slight Target Cells Slight Tear Drop Cells Ovalocytes Sodium 138 Potassium 4.1 Chloride 103 Carbon Dioxide 25 Anion Gap 15 BUN 61 H Creatinine 2.9 H Est GFR ( Amer) 19 Est GFR (Non-Af Amer) 15 POC Glucose (mg/dL) 278 H Random Glucose 306 H Calcium 8.3 L Magnesium Total Bilirubin 0.2 AST 22 ALT 18 Alkaline Phosphatase 113 Total Protein 6.5 Albumin 3.0 L Globulin 3.5 Albumin/Globulin Ratio 0.9 L 05/31/18 05/31/18 05/31/18 06:47 11:13 11:13 WBC 11.6 H RBC 3.28 L Hgb 8.7 L Hct 27.5 L MCV 84.0 MCH 26.7 L MCHC 31.7 L RDW 14.8 H Plt Count 226 MPV 10.6 Neut % (Auto) 86.3 H Lymph % (Auto) 7.9 L [place] % (Auto) 5.7 Eos % (Auto) 0.0 Baso % (Auto) 0.1 Neut # (Auto) 10.0 H Lymph # (Auto) 0.9 L [place] # (Auto) 0.7 Eos # (Auto) 0.0 Baso # (Auto) 0.0 Neutrophils % (Manual) 86 H Lymphocytes % (Manual) 8 L Monocytes % (Manual) 6 Nucleated RBC % 1 H Platelet Estimate Normal Large Platelets Present Polychromasia Hypochromasia (manual) Slight Poikilocytosis (manual Slight Anisocytosis (manual) Slight Microcytosis (manual) Slight Macrocytosis (manual) Slight Target Cells Tear Drop Cells Slight Ovalocytes Slight Sodium 139 Potassium 4.2 Chloride 101 Carbon Dioxide 24 Anion Gap 18 BUN 61 H Creatinine 3.0 H Est GFR ( Amer) 18 Est GFR (Non-Af Amer) 15 POC Glucose (mg/dL) 300 H Random Glucose 417 H* D Calcium 8.2 L Magnesium 2.0 Total Bilirubin AST ALT Alkaline Phosphatase Total Protein Albumin Globulin Albumin/Globulin Ratio 05/31/18 05/31/18 11:30 16:44 WBC RBC Hgb Hct MCV MCH MCHC RDW Plt Count MPV Neut % (Auto) Lymph % (Auto) [place] % (Auto) Eos % (Auto) Baso % (Auto) Neut # (Auto) Lymph # (Auto) [place] # (Auto) Eos # (Auto) Baso # (Auto) Neutrophils % (Manual) Lymphocytes % (Manual) Monocytes % (Manual) Nucleated RBC % Platelet Estimate Large Platelets Polychromasia Hypochromasia (manual) Poikilocytosis (manual Anisocytosis (manual) Microcytosis (manual) Macrocytosis (manual) Target Cells Tear Drop Cells Ovalocytes Sodium Potassium Chloride Carbon Dioxide Anion Gap BUN Creatinine Est GFR ( Amer) Est GFR (Non-Af Amer) POC Glucose (mg/dL) 347 H 336 H Random Glucose Calcium Magnesium Total Bilirubin AST ALT Alkaline Phosphatase Total Protein Albumin Globulin Albumin/Globulin Ratio Assessment & Plan (1) 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 has DM since 2002 (-) neuropathy , (-) retinopathy , (+) nephropathy (-) CAD (-) PVD outpatient diabetes management regimen : januvia 25 mg po bid inpatient diabetes management regimen: januvia 25 mg po qd & novolog medium dose blood glucose log :300-400 on IV solumedrol 40 mg po q 12 hours NO hypoglycemia Allergy NKDA Past medical history:HTN , hyperlipidemia , lung mass Past surgical history: cataract , cholecystectomy, abdominal hernia x 2 , hystrectomy Psychiatry history: denies Social history: denies smoking , ETOH use , illicit drug use Family history: son with diabetes ROS: Constitutional: denies fever, tiredness/weakness. HEENT: denies earache, change in voice .Respiratory: denies cough, sob . CVS :no chest pain, no palpitations . Abdomen: no abdominal pain, no nausea /vomiting, no change bowel movement. [employer] : denies light-headedness, dizziness. Extremities: (+) edema, no tremors. Skin: no itching, no rash Physical exam Well-developed AAO x3 , ,NAD VSS HEENT: norm cephalic, atraumatic, no lid lag , no exophthalmos NECK: supple, no palpable lymphadenopathy THYROID: no palpable thyromegaly, not tender CHEST: fair air entry, bilateral, CVS: S1,S2 ABDOMEN: bowel sound present, benign, obese, no wide purple striae , no bruises EXTREMITIES: no edema, clubbing or cyanosis, no palpable hand tremors Skin: acanthosis nigricans -lab: gfr 18 , NT -[id number] 02/2018 tsh 4.9 , a1c 7.9 Assessment: uncontrolled DM with nephropathy steroids induced hyperglycemia CKD pneumonia CHF morbid obesity plan : stop Januvia stop Novolog start lantus 15 units @ 9pm dilay , first tonight start Novoloin R low dose coverage tid & hs , give half of the coverage s dose @ bed time start novoloin R 4 units tid with meals if eat > 60% obtain a1c & TSH nutrtional evaluation & diabetes education including insulin administration Thank you for allowing me to participate in the care of the patient, we will follow with you. Flor Randall # [phone] office Fridays & Saturdays address: [address] [place] [address] ,phone # [phone] ,FAX [phone] Status: Acute (2) Steroid-induced hyperglycemia Status: Acute (3) Pneumonia Status: Acute (4) CHF (congestive heart failure) Status: Chronic Priority: High (5) CKD (chronic kidney disease) Status: Acute
--- NOTE | 2018-05-31 21:32 | CP.PCM.PN ---
Subjective - Date & Time of Evaluation Date of Evaluation: 05/31/18 Time of Evaluation: 16:20 - Subjective Subjective: Patient seen and examined. Denies chest pain and dyspnea Physical Examination - Additional Findings Additional findings: - Constitutional Appears: No Acute Distress - Head Exam Head Exam: NORMAL INSPECTION, NORMOCEPHALIC - Eye Exam Eye Exam: Normal appearance Pupil Exam: NORMAL ACCOMODATION - ENT Exam ENT Exam: Mucous Membranes Moist - Respiratory Exam Respiratory Exam: Decreased Breath Sounds - Cardiovascular Exam Cardiovascular Exam: +S1, +S2. absent: Tachycardia - GI/Abdominal Exam GI & Abdominal Exam: Soft, Normal Bowel Sounds - Extremities Exam Extremities Exam: Normal Inspection. absent: Pedal Edema, Tenderness - Neurological Exam Neurological Exam: Alert, Awake, Oriented x3 - Psychiatric Exam Psychiatric exam: Normal Affect, Normal Mood - Skin Skin Exam: Dry, Intact, Normal Color, Warm Assessment and Plan - Assessment and Plan (Free Text) Plan: SVTs Management: - EP consulted, pending Dr. Ward recommendations - Patient has known history of cocaine use - Beta derrick was changed to Cardizem, due to cocaine history Objective - Vital Signs/Intake and Output Vital Signs (last 24 hours): Temp Pulse Resp BP Pulse Ox 97.6 F 73 20 154/70 H 100 05/31/18 15:24 05/31/18 15:24 05/31/18 15:24 05/31/18 15:24 05/31/18 15:24 - Medications Medications: Current Medications Albuterol/Ipratropium (Duoneb 3 Mg/0.5 Mg (3 Ml) Ud) 3 ml INH RQ4 [facility] Last Admin: 05/31/18 20:06 Dose: 3 ml Docusate Sodium (Colace) 100 mg PO TID [facility] Last Admin: 05/31/18 18:59 Dose: Not Given Ergocalciferol (Drisdol 50,000 Intl Units Cap) 1 cap PO Q7D [facility] Last Admin: 05/30/18 12:49 Dose: 1 cap Ferrous Sulfate (Feosol) 325 mg PO DAILY [facility] Last Admin: 05/31/18 10:06 Dose: 325 mg Furosemide (Lasix) 40 mg IVP DAILY [facility] Last Admin: 05/31/18 10:08 Dose: 40 mg Gabapentin (Neurontin) 100 mg PO TID [facility] Last Admin: 05/31/18 18:58 Dose: 100 mg Guaifenesin (Robitussin) 200 mg PO Q4H PRN PRN Reason: Cough and congestion Heparin Sodium (Porcine) (Heparin) 5,000 units SC Q12 [facility] Last Admin: 05/31/18 10:09 Dose: 5,000 units Hydralazine HCl (Apresoline) 100 mg PO TID [facility] Last Admin: 05/31/18 18:58 Dose: 100 mg Piperacillin Sod/Tazobactam Sod (Zosyn 2.25 Gm Iv Premix) 2.25 gm in 50 mls @ 100 mls/hr IVPB Q8H [facility]; Protocol Last Admin: 05/31/18 20:15 Dose: 100 mls/hr Azithromycin 500 mg/ Sodium (Chloride) 250 mls @ 250 mls/hr IVPB Q24H [facility]; Protocol Last Admin: 05/31/18 20:41 Dose: 250 mls/hr Insulin Glargine (Lantus) 15 unit SC HS [facility] Insulin Human Regular (Novolin R) 0 unit SC ACHS [facility]; Protocol Insulin Human Regular (Novolin R) 4 unit SC TIDPC [facility] Lactulose (Enulose) 20 gm PO DAILY [facility] Last Admin: 05/31/18 10:06 Dose: Not Given Methylprednisolone (Solu-Medrol) 40 mg IV Q12H [facility] Last Admin: 05/31/18 10:09 Dose: 40 mg Pantoprazole Sodium (Protonix Ec Tab) 20 mg PO Q12 [facility] Last Admin: 05/31/18 10:06 Dose: 20 mg Rosuvastatin Calcium (Crestor) 10 mg PO HS [facility] Last Admin: 05/30/18 22:15 Dose: 10 mg Sodium Bicarbonate (Sodium Bicarbonate Tab) 1,300 mg PO TID [facility] Last Admin: 05/31/18 18:58 Dose: 1,300 mg - Labs Labs: 05/31/18 11:13 05/31/18 11:13
--- NOTE | 2018-05-31 22:02 | PN ---
DATE: 05/31/2018 SUBJECTIVE: The patient is experiencing a cough, no hemoptysis. No retrosternal chest pain. PHYSICAL EXAMINATION: VITAL SIGNS: Blood pressure 154/70, heart rate is 73, temperature 97.6, respirations 20. HEENT: Pale conjunctivae. CHEST: Absent breath sounds over the bases. HEART: S1 and S2 regular. EXTREMITIES: 2+ pitting edema. LABORATORY DATA: Today's BUN and creatinine 61 and 3. Today's sugar 417. Yesterday's SMA-7 is within normal limit. Decreased hemoglobin and hematocrit. Today's hemoglobin and hematocrit 8.7 and 27.5, white count 11.6, platelet count 226,000. ASSESSMENT: 1. Pneumonia. 2. Chronic kidney disease. 3. Bilateral pleural effusion. 4. Right lower lobe lung mass. 5. Anemia. 6. Uncontrolled diabetes mellitus. PLAN: Continue IV Zithromax 500 mg daily. Continue Crestor 10 mg daily, albuterol inhaler every 4 hours p.r.n., Feosol one tablet daily, subcutaneous heparin 5000 units every 12 hours, Lasix 40 mg intravenously daily, Zosyn 2.25 g intravenously every 8 hours, Solu-Medrol 40 mg intravenously every 12 hours. The patient will be considered for right lower lobe lung mass biopsy next week. Eric Muhammad MD
[2018-05-31] MEDS: (Lantus) Insulin Glargine, Recombinant SC SCH (22:10)
[2018-05-31] MEDS: (Novolin R) Insulin Human Regular 100 units/ml vial SC SCH (22:11)
[2018-06-01] MEDS: Albuterol-Ipratrop 3 mg / 0.5 (3 ml) UD INH SCH ×4 (00:25→21:23)
[2018-06-01] MEDS: Piperacill/Tazo 2.25gm in Dex 2.25 GM/50 ML BAG IVPB SCH ×3 (04:17→19:44)
[2018-06-01] MEDS: MethylPREDNISolone 40 mg Vial IV SCH ×2 (09:00→22:05)
[2018-06-01] MEDS: (Novolin R) Insulin Human Regular 100 units/ml vial SC SCH ×7 (09:00→22:14)
[2018-06-01] MEDS: Pantoprazole 20 mg EC Tab PO SCH ×2 (11:31→22:10)
[2018-06-01 15:38] VITALS: RESP 20
--- NOTE | 2018-06-01 16:38 | PN ---
DATE: 06/01/2018 SUBJECTIVE: The patient denies any chest pain or wheezing. PHYSICAL EXAMINATION: VITAL SIGNS: Blood pressure 141/71, heart rate 78, temperature 97.7, respirations 18. HEENT: Pale conjunctivae. CHEST: Diffuse bilateral rhonchi. HEART: S1 and S2 regular. EXTREMITIES: 1+ pitting edema. LABORATORY DATA: Today's blood sugar is 263. ASSESSMENT: 1. Pneumonia. 2. Chronic kidney disease. 3. Bilateral pleural effusion. 4. Right lower lobe lung mass. 5. Uncontrolled diabetes mellitus. 6. Anemia. PLAN: Continue hydralazine 100 mg t.i.d., IV Zithromax 500 mg daily, Crestor 10 mg once a day, Feosol one tablet daily, Enulose 20 mg once a day, subcutaneous heparin 5000 units every 12 hours, Lasix 40 mg intravenously daily, Robitussin 200 mg p.o. every 4 hours p.r.n., sodium bicarbonate 1300 mg t.i.d., Solu-Medrol 40 mg intravenously every 12 hours, and Zosyn 2.25 g intravenously every 8 hours. Eric Muhammad MD
--- NOTE | 2018-06-01 17:09 | CP.PCM.PN ---
Subjective - Date & Time of Evaluation Date of Evaluation: 06/01/18 Time of Evaluation: 12:00 - Subjective Subjective: Pulmonary, Covering Dr Huynh The patient was Seen/interviewed and examined by me at the bedside, Events reviewed Mrs Chase is a 83 year old female with past medical history of HTN, HLD, DM type 2, hyperlipidemia, diastolic heart failure with LVEF 70% (01/2018), chronic kidney disease stage 4 and Right LL lung mass Patient presented to the ER with complaint of productive cough, wheezing, increased dyspnea and fatigue for the past 2 days Admitted with Pneumonia,COPD exacerbation and acute on chronic diastolic heart failure exacerbation. Started on IV Solu-Medrol, IV Furosemide and Antibiotics Awake, comfortable, NAD Afebrile Felling better today Denies any chest pain, SOB or Palpitations On Exam no wheezing, + B/L leg swelling Objective - Vital Signs/Intake and Output Vital Signs (last 24 hours): Temp Pulse Resp BP Pulse Ox 97.9 F 75 20 151/58 H 100 06/01/18 15:37 06/01/18 15:37 06/01/18 15:37 06/01/18 15:37 06/01/18 15:37 Intake and Output: 06/01/18 06/01/18 06:59 18:59 Intake Total 600 150 Output Total 400 700 Balance 200 -550 - Medications Medications: Current Medications Albuterol/Ipratropium (Duoneb 3 Mg/0.5 Mg (3 Ml) Ud) 3 ml INH RQ4 [facility] Last Admin: 06/01/18 04:50 Dose: 3 ml Docusate Sodium (Colace) 100 mg PO TID [facility] Last Admin: 06/01/18 13:52 Dose: 100 mg Ergocalciferol (Drisdol 50,000 Intl Units Cap) 1 cap PO Q7D [facility] Last Admin: 05/30/18 12:49 Dose: 1 cap Ferrous Sulfate (Feosol) 325 mg PO DAILY [facility] Last Admin: 06/01/18 11:30 Dose: 325 mg Furosemide (Lasix) 40 mg IVP DAILY [facility] Last Admin: 06/01/18 11:30 Dose: 40 mg Gabapentin (Neurontin) 100 mg PO TID [facility] Last Admin: 06/01/18 13:51 Dose: 100 mg Guaifenesin (Robitussin) 200 mg PO Q4H PRN PRN Reason: Cough and congestion Last Admin: 06/01/18 11:30 Dose: 200 mg Heparin Sodium (Porcine) (Heparin) 5,000 units SC Q12 [facility] Last Admin: 06/01/18 11:30 Dose: 5,000 units Hydralazine HCl (Apresoline) 100 mg PO TID [facility] Last Admin: 06/01/18 13:51 Dose: 100 mg Piperacillin Sod/Tazobactam Sod (Zosyn 2.25 Gm Iv Premix) 2.25 gm in 50 mls @ 100 mls/hr IVPB Q8H [facility]; Protocol Last Admin: 06/01/18 11:37 Dose: 100 mls/hr Azithromycin 500 mg/ Sodium (Chloride) 250 mls @ 250 mls/hr IVPB Q24H [facility]; Protocol Last Admin: 05/31/18 20:41 Dose: 250 mls/hr Insulin Glargine (Lantus) 15 unit SC [facility] Last Admin: 05/31/18 22:10 Dose: 15 units Insulin Human Regular (Novolin R) 0 unit SC ACHS [facility]; Protocol Last Admin: 06/01/18 13:52 Dose: 3 units Insulin Human Regular (Novolin R) 4 unit SC TIDPC [facility] Last Admin: 06/01/18 13:52 Dose: 4 units Lactulose (Enulose) 20 gm PO DAILY [facility] Last Admin: 06/01/18 11:31 Dose: Not Given Methylprednisolone (Solu-Medrol) 40 mg IV Q12H [facility] Last Admin: 06/01/18 09:00 Dose: 40 mg Pantoprazole Sodium (Protonix Ec Tab) 20 mg PO Q12 [facility] Last Admin: 06/01/18 11:31 Dose: 20 mg Rosuvastatin Calcium (Crestor) 10 mg PO HS [facility] Last Admin: 05/31/18 22:09 Dose: 10 mg Sodium Bicarbonate (Sodium Bicarbonate Tab) 1,300 mg PO TID [facility] Last Admin: 06/01/18 13:51 Dose: 1,300 mg - Labs Labs: 05/31/18 11:13 05/31/18 11:13 - Constitutional Appears: Well, Non-toxic - Head Exam Head Exam: ATRAUMATIC, NORMAL INSPECTION, NORMOCEPHALIC - Eye Exam Eye Exam: EOMI, Normal appearance, PERRL - ENT Exam ENT Exam: Mucous Membranes Moist, Normal Exam - Neck Exam Neck Exam: Full ROM. absent: Lymphadenopathy, Meningismus, Normal Inspection - Respiratory Exam Respiratory Exam: Decreased Breath Sounds, Rhonchi. absent: Accessory Muscle Use, Chest Wall Tenderness, Prolonged Expiratory Phase, Rales, Wheezes, Respiratory Distress - Cardiovascular Exam Cardiovascular Exam: REGULAR RHYTHM, +S1, +S2. absent: Murmur - GI/Abdominal Exam GI & Abdominal Exam: Soft, Normal Bowel Sounds. absent: Tenderness - Extremities Exam Extremities Exam: Full ROM, Normal Capillary Refill, Pedal Edema. absent: Joint Swelling, Normal Inspection - Neurological Exam Neurological Exam: Alert, Awake Assessment and Plan (1) Pneumonia Assessment & Plan: Continue antibiotics Piperacillin Sod/Tazobactam 2.25 gm IVPB Q8H Azithromycin 500 mg IVPB Q24H Status: Acute (2) Chronic congestive heart failure Assessment & Plan: Continue diuretics Monitor I&O Status: Acute (3) Mass of right lung Assessment & Plan: right lower lung mass IR for Biopsy Status: Acute (4) HEYDI (acute kidney injury) Status: Acute
--- NOTE | 2018-06-01 18:47 | CP.PCM.PN ---
Subjective - Date & Time of Evaluation Date of Evaluation: 06/01/18 Time of Evaluation: 08:35 - Subjective Subjective: Patient seen and examined. Denies chest pain and dyspnea Physical Examination - Additional Findings Additional findings: - Constitutional Appears: No Acute Distress - Head Exam Head Exam: NORMAL INSPECTION, NORMOCEPHALIC - Eye Exam Eye Exam: Normal appearance Pupil Exam: NORMAL ACCOMODATION - ENT Exam ENT Exam: Mucous Membranes Moist - Respiratory Exam Respiratory Exam: Decreased Breath Sounds - Cardiovascular Exam Cardiovascular Exam: +S1, +S2. absent: Tachycardia - GI/Abdominal Exam GI & Abdominal Exam: Soft, Normal Bowel Sounds - Extremities Exam Extremities Exam: Normal Inspection. absent: Pedal Edema, Tenderness - Neurological Exam Neurological Exam: Alert, Awake, Oriented x3 - Psychiatric Exam Psychiatric exam: Normal Affect, Normal Mood - Skin Skin Exam: Dry, Intact, Normal Color, Warm Assessment and Plan - Assessment and Plan (Free Text) Plan: SVTs Management: - EP consulted, pending Dr. Ward recommendations - Continue Cardizem Objective - Vital Signs/Intake and Output Vital Signs (last 24 hours): Temp Pulse Resp BP Pulse Ox 97.9 F 75 20 151/58 H 100 06/01/18 15:37 06/01/18 15:37 06/01/18 15:37 06/01/18 15:37 06/01/18 15:37 Intake and Output: 06/01/18 06/01/18 06:59 18:59 Intake Total 600 150 Output Total 400 700 Balance 200 -550 - Medications Medications: Current Medications Albuterol/Ipratropium (Duoneb 3 Mg/0.5 Mg (3 Ml) Ud) 3 ml INH RQ4 [facility] Last Admin: 06/01/18 04:50 Dose: 3 ml Docusate Sodium (Colace) 100 mg PO TID [facility] Last Admin: 06/01/18 13:52 Dose: 100 mg Ergocalciferol (Drisdol 50,000 Intl Units Cap) 1 cap PO Q7D [facility] Last Admin: 05/30/18 12:49 Dose: 1 cap Ferrous Sulfate (Feosol) 325 mg PO DAILY [facility] Last Admin: 06/01/18 11:30 Dose: 325 mg Furosemide (Lasix) 40 mg IVP DAILY [facility] Last Admin: 06/01/18 11:30 Dose: 40 mg Gabapentin (Neurontin) 100 mg PO TID [facility] Last Admin: 06/01/18 13:51 Dose: 100 mg Guaifenesin (Robitussin) 200 mg PO Q4H PRN PRN Reason: Cough and congestion Last Admin: 06/01/18 11:30 Dose: 200 mg Heparin Sodium (Porcine) (Heparin) 5,000 units SC Q12 [facility] Last Admin: 06/01/18 11:30 Dose: 5,000 units Hydralazine HCl (Apresoline) 100 mg PO TID [facility] Last Admin: 06/01/18 13:51 Dose: 100 mg Piperacillin Sod/Tazobactam Sod (Zosyn 2.25 Gm Iv Premix) 2.25 gm in 50 mls @ 100 mls/hr IVPB Q8H [facility]; Protocol Last Admin: 06/01/18 11:37 Dose: 100 mls/hr Azithromycin 500 mg/ Sodium (Chloride) 250 mls @ 250 mls/hr IVPB Q24H [facility]; Protocol Last Admin: 05/31/18 20:41 Dose: 250 mls/hr Insulin Glargine (Lantus) 15 unit SC [facility] Last Admin: 05/31/18 22:10 Dose: 15 units Insulin Human Regular (Novolin R) 0 unit SC ACHS [facility]; Protocol Last Admin: 06/01/18 13:52 Dose: 3 units Insulin Human Regular (Novolin R) 4 unit SC TIDPC [facility] Last Admin: 06/01/18 13:52 Dose: 4 units Lactulose (Enulose) 20 gm PO DAILY [facility] Last Admin: 06/01/18 11:31 Dose: Not Given Methylprednisolone (Solu-Medrol) 40 mg IV Q12H [facility] Last Admin: 06/01/18 09:00 Dose: 40 mg Pantoprazole Sodium (Protonix Ec Tab) 20 mg PO Q12 [facility] Last Admin: 06/01/18 11:31 Dose: 20 mg Rosuvastatin Calcium (Crestor) 10 mg PO HS [facility] Last Admin: 05/31/18 22:09 Dose: 10 mg Sodium Bicarbonate (Sodium Bicarbonate Tab) 1,300 mg PO TID [facility] Last Admin: 06/01/18 13:51 Dose: 1,300 mg - Labs Labs: 05/31/18 11:13 05/31/18 11:13
[2018-06-01] MEDS: Azithromycin 500 MG in Sodium Chloride 0.9% 250 ML IVPB SCH (20:15)
[2018-06-01] MEDS: (Lantus) Insulin Glargine, Recombinant SC SCH (22:14)
[2018-06-02] MEDS: Albuterol-Ipratrop 3 mg / 0.5 (3 ml) UD INH SCH ×5 (00:25→16:15)
--- NOTE | 2018-06-02 01:24 | CP.PCM.PN ---
Subjective - Date & Time of Evaluation Date of Evaluation: 05/28/18 Time of Evaluation: 12:00 - Subjective Subjective: No complaints. Objective - Vital Signs/Intake and Output Vital Signs (last 24 hours): Temp Pulse Resp BP Pulse Ox 97.9 F 84 20 129/65 100 06/01/18 15:37 06/01/18 22:11 06/01/18 15:37 06/01/18 22:11 06/01/18 15:37 Intake and Output: 06/01/18 06/02/18 18:59 06:59 Intake Total 150 600 Output Total 700 250 Balance -550 350 - Medications Medications: Current Medications Albuterol/Ipratropium (Duoneb 3 Mg/0.5 Mg (3 Ml) Ud) 3 ml INH RQ4 [facility] Last Admin: 06/01/18 21:23 Dose: 3 ml Docusate Sodium (Colace) 100 mg PO TID [facility] Last Admin: 06/01/18 19:00 Dose: Not Given Ergocalciferol (Drisdol 50,000 Intl Units Cap) 1 cap PO Q7D [facility] Last Admin: 05/30/18 12:49 Dose: 1 cap Ferrous Sulfate (Feosol) 325 mg PO DAILY [facility] Last Admin: 06/01/18 11:30 Dose: 325 mg Furosemide (Lasix) 40 mg IVP DAILY [facility] Last Admin: 06/01/18 11:30 Dose: 40 mg Gabapentin (Neurontin) 100 mg PO TID [facility] Last Admin: 06/01/18 19:00 Dose: 100 mg Guaifenesin (Robitussin) 200 mg PO Q4H PRN PRN Reason: Cough and congestion Last Admin: 06/01/18 11:30 Dose: 200 mg Heparin Sodium (Porcine) (Heparin) 5,000 units SC Q12 [facility] Last Admin: 06/01/18 22:13 Dose: 5,000 units Hydralazine HCl (Apresoline) 100 mg PO TID [facility] Last Admin: 06/01/18 22:13 Dose: 100 mg Insulin Glargine (Lantus) 15 unit SC HS [facility] Last Admin: 06/01/18 22:14 Dose: 15 units Insulin Human Regular (Novolin R) 0 unit SC ACHS [facility]; Protocol Last Admin: 06/01/18 22:14 Dose: Not Given Insulin Human Regular (Novolin R) 4 unit SC TIDPC [facility] Last Admin: 06/01/18 19:00 Dose: 4 units Lactulose (Enulose) 20 gm PO DAILY [facility] Last Admin: 06/01/18 11:31 Dose: Not Given Methylprednisolone (Solu-Medrol) 40 mg IV Q12H [facility] Last Admin: 06/01/18 22:05 Dose: 40 mg Pantoprazole Sodium (Protonix Ec Tab) 20 mg PO Q12 [facility] Last Admin: 06/01/18 22:10 Dose: 20 mg Rosuvastatin Calcium (Crestor) 10 mg PO HS [facility] Last Admin: 06/01/18 22:10 Dose: 10 mg Sodium Bicarbonate (Sodium Bicarbonate Tab) 1,300 mg PO TID [facility] Last Admin: 06/01/18 19:00 Dose: 1,300 mg - Labs Labs: 05/31/18 11:13 05/31/18 11:13 - Head Exam Head Exam: ATRAUMATIC - Eye Exam Eye Exam: Normal appearance - ENT Exam ENT Exam: Mucous Membranes Dry - Respiratory Exam Respiratory Exam: NORMAL BREATHING PATTERN - Cardiovascular Exam Cardiovascular Exam: +S1, +S2 - GI/Abdominal Exam GI & Abdominal Exam: Normal Bowel Sounds Assessment and Plan (1) Anemia Assessment & Plan: work up consistent with anemia of chronic disease and anemia of CKD s/p PRBC transfusion s/p Procrit Status: Acute (2) Lung mass Assessment & Plan: biopsy when more clinically stable Status: Acute
--- NOTE | 2018-06-02 01:25 | CP.PCM.PN ---
Subjective - Date & Time of Evaluation Date of Evaluation: 05/30/18 Time of Evaluation: 15:00 - Subjective Subjective: No complaints. Objective - Vital Signs/Intake and Output Vital Signs (last 24 hours): Temp Pulse Resp BP Pulse Ox 97.9 F 84 20 129/65 100 06/01/18 15:37 06/01/18 22:11 06/01/18 15:37 06/01/18 22:11 06/01/18 15:37 Intake and Output: 06/01/18 06/02/18 18:59 06:59 Intake Total 150 600 Output Total 700 250 Balance -550 350 - Medications Medications: Current Medications Albuterol/Ipratropium (Duoneb 3 Mg/0.5 Mg (3 Ml) Ud) 3 ml INH RQ4 [facility] Last Admin: 06/01/18 21:23 Dose: 3 ml Docusate Sodium (Colace) 100 mg PO TID [facility] Last Admin: 06/01/18 19:00 Dose: Not Given Ergocalciferol (Drisdol 50,000 Intl Units Cap) 1 cap PO Q7D [facility] Last Admin: 05/30/18 12:49 Dose: 1 cap Ferrous Sulfate (Feosol) 325 mg PO DAILY [facility] Last Admin: 06/01/18 11:30 Dose: 325 mg Furosemide (Lasix) 40 mg IVP DAILY [facility] Last Admin: 06/01/18 11:30 Dose: 40 mg Gabapentin (Neurontin) 100 mg PO TID [facility] Last Admin: 06/01/18 19:00 Dose: 100 mg Guaifenesin (Robitussin) 200 mg PO Q4H PRN PRN Reason: Cough and congestion Last Admin: 06/01/18 11:30 Dose: 200 mg Heparin Sodium (Porcine) (Heparin) 5,000 units SC Q12 [facility] Last Admin: 06/01/18 22:13 Dose: 5,000 units Hydralazine HCl (Apresoline) 100 mg PO TID [facility] Last Admin: 06/01/18 22:13 Dose: 100 mg Insulin Glargine (Lantus) 15 unit SC HS [facility] Last Admin: 06/01/18 22:14 Dose: 15 units Insulin Human Regular (Novolin R) 0 unit SC ACHS [facility]; Protocol Last Admin: 06/01/18 22:14 Dose: Not Given Insulin Human Regular (Novolin R) 4 unit SC TIDPC [facility] Last Admin: 06/01/18 19:00 Dose: 4 units Lactulose (Enulose) 20 gm PO DAILY [facility] Last Admin: 06/01/18 11:31 Dose: Not Given Methylprednisolone (Solu-Medrol) 40 mg IV Q12H [facility] Last Admin: 06/01/18 22:05 Dose: 40 mg Pantoprazole Sodium (Protonix Ec Tab) 20 mg PO Q12 [facility] Last Admin: 06/01/18 22:10 Dose: 20 mg Rosuvastatin Calcium (Crestor) 10 mg PO HS [facility] Last Admin: 06/01/18 22:10 Dose: 10 mg Sodium Bicarbonate (Sodium Bicarbonate Tab) 1,300 mg PO TID [facility] Last Admin: 06/01/18 19:00 Dose: 1,300 mg - Labs Labs: 05/31/18 11:13 05/31/18 11:13 - Head Exam Head Exam: ATRAUMATIC - Eye Exam Eye Exam: Normal appearance - ENT Exam ENT Exam: Mucous Membranes Dry - Respiratory Exam Respiratory Exam: NORMAL BREATHING PATTERN - Cardiovascular Exam Cardiovascular Exam: +S1, +S2 - GI/Abdominal Exam GI & Abdominal Exam: Normal Bowel Sounds Assessment and Plan (1) Anemia Assessment & Plan: work up consistent with anemia of chronic disease and anemia of CKD s/p PRBC transfusion s/p Procrit Status: Acute (2) Lung mass Assessment & Plan: biopsy when more clinically stable Status: Acute
--- NOTE | 2018-06-02 01:27 | CP.PCM.PN ---
Subjective - Date & Time of Evaluation Date of Evaluation: 05/31/18 Time of Evaluation: 14:00 - Subjective Subjective: No complaints. Objective - Vital Signs/Intake and Output Vital Signs (last 24 hours): Temp Pulse Resp BP Pulse Ox 97.9 F 84 20 129/65 100 06/01/18 15:37 06/01/18 22:11 06/01/18 15:37 06/01/18 22:11 06/01/18 15:37 Intake and Output: 06/01/18 06/02/18 18:59 06:59 Intake Total 150 600 Output Total 700 250 Balance -550 350 - Medications Medications: Current Medications Albuterol/Ipratropium (Duoneb 3 Mg/0.5 Mg (3 Ml) Ud) 3 ml INH RQ4 [facility] Last Admin: 06/01/18 21:23 Dose: 3 ml Docusate Sodium (Colace) 100 mg PO TID [facility] Last Admin: 06/01/18 19:00 Dose: Not Given Ergocalciferol (Drisdol 50,000 Intl Units Cap) 1 cap PO Q7D [facility] Last Admin: 05/30/18 12:49 Dose: 1 cap Ferrous Sulfate (Feosol) 325 mg PO DAILY [facility] Last Admin: 06/01/18 11:30 Dose: 325 mg Furosemide (Lasix) 40 mg IVP DAILY [facility] Last Admin: 06/01/18 11:30 Dose: 40 mg Gabapentin (Neurontin) 100 mg PO TID [facility] Last Admin: 06/01/18 19:00 Dose: 100 mg Guaifenesin (Robitussin) 200 mg PO Q4H PRN PRN Reason: Cough and congestion Last Admin: 06/01/18 11:30 Dose: 200 mg Heparin Sodium (Porcine) (Heparin) 5,000 units SC Q12 [facility] Last Admin: 06/01/18 22:13 Dose: 5,000 units Hydralazine HCl (Apresoline) 100 mg PO TID [facility] Last Admin: 06/01/18 22:13 Dose: 100 mg Insulin Glargine (Lantus) 15 unit SC HS [facility] Last Admin: 06/01/18 22:14 Dose: 15 units Insulin Human Regular (Novolin R) 0 unit SC ACHS [facility]; Protocol Last Admin: 06/01/18 22:14 Dose: Not Given Insulin Human Regular (Novolin R) 4 unit SC TIDPC [facility] Last Admin: 06/01/18 19:00 Dose: 4 units Lactulose (Enulose) 20 gm PO DAILY [facility] Last Admin: 06/01/18 11:31 Dose: Not Given Methylprednisolone (Solu-Medrol) 40 mg IV Q12H [facility] Last Admin: 06/01/18 22:05 Dose: 40 mg Pantoprazole Sodium (Protonix Ec Tab) 20 mg PO Q12 [facility] Last Admin: 06/01/18 22:10 Dose: 20 mg Rosuvastatin Calcium (Crestor) 10 mg PO HS [facility] Last Admin: 06/01/18 22:10 Dose: 10 mg Sodium Bicarbonate (Sodium Bicarbonate Tab) 1,300 mg PO TID [facility] Last Admin: 06/01/18 19:00 Dose: 1,300 mg - Labs Labs: 05/31/18 11:13 05/31/18 11:13 - Head Exam Head Exam: ATRAUMATIC - Eye Exam Eye Exam: Normal appearance - ENT Exam ENT Exam: Mucous Membranes Dry - Respiratory Exam Respiratory Exam: NORMAL BREATHING PATTERN - Cardiovascular Exam Cardiovascular Exam: +S1, +S2 - GI/Abdominal Exam GI & Abdominal Exam: Normal Bowel Sounds Assessment and Plan (1) Anemia Assessment & Plan: work up consistent with anemia of chronic disease and anemia of CKD s/p PRBC transfusion s/p Procrit Status: Acute (2) Lung mass Assessment & Plan: biopsy when more clinically stable Status: Acute
[2018-06-02] MEDS: (Novolin R) Insulin Human Regular 100 units/ml vial SC SCH ×6 (08:25→18:26)
--- NOTE | 2018-06-02 09:07 | RAD ---
Date of service: 06/02/2018 HISTORY: f/u pneumonia COMPARISON: 05/25/2018 FINDINGS: LUNGS: Patchy opacity at right lung base persists. No other abnormal opacity elsewhere. There is some thickening of the minor fissure. There is linear scar atelectasis in the mid left lung. These are unchanged compared to the prior examination. PLEURA: No significant pleural effusion identified, no pneumothorax apparent. CARDIOVASCULAR: There is atherosclerotic calcification of the aortic arch. Normal cardiac size. Mild congestive change. OSSEOUS STRUCTURES: No significant abnormalities. VISUALIZED UPPER ABDOMEN: Normal. OTHER FINDINGS: None. IMPRESSION: Persistent right basilar opacity, nonspecific.
[2018-06-02] MEDS: MethylPREDNISolone 40 mg Vial IV SCH (09:25)
[2018-06-02] MEDS: Pantoprazole 20 mg EC Tab PO SCH (09:26)
[2018-06-02 11:39] LABS: CALCIUM 8.1 mg/dl (8.6-10.4)
--- NOTE | 2018-06-02 11:44 | CP.PCM.PN ---
<Aleshia King - Last Filed: 06/02/18 11:37> Subjective - Date & Time of Evaluation Date of Evaluation: 06/02/18 Time of Evaluation: 10:00 - Subjective Subjective: Cardiology Follow Up Note Patient seen and examined at bedside. Patient denied chest pain, palpitations, or shortness of breath. Objective - Vital Signs/Intake and Output Vital Signs (last 24 hours): Temp Pulse Resp BP Pulse Ox 98.3 F 74 20 190/70 H 100 06/02/18 07:00 06/02/18 08:20 06/02/18 07:00 06/02/18 09:25 06/02/18 07:00 Intake and Output: 06/02/18 06/02/18 06:59 18:59 Intake Total 600 Output Total 250 Balance 350 - Medications Medications: Current Medications Albuterol/Ipratropium (Duoneb 3 Mg/0.5 Mg (3 Ml) Ud) 3 ml INH RQ4 [facility] Last Admin: 06/02/18 08:05 Dose: 3 ml Docusate Sodium (Colace) 100 mg PO TID [facility] Last Admin: 06/02/18 09:24 Dose: 100 mg Ergocalciferol (Drisdol 50,000 Intl Units Cap) 1 cap PO Q7D [facility] Last Admin: 05/30/18 12:49 Dose: 1 cap Ferrous Sulfate (Feosol) 325 mg PO DAILY [facility] Last Admin: 06/02/18 09:31 Dose: 325 mg Furosemide (Lasix) 40 mg IVP DAILY [facility] Last Admin: 06/02/18 09:25 Dose: 40 mg Gabapentin (Neurontin) 100 mg PO TID [facility] Last Admin: 06/02/18 09:24 Dose: 100 mg Guaifenesin (Robitussin) 200 mg PO Q4H PRN PRN Reason: Cough and congestion Last Admin: 06/01/18 11:30 Dose: 200 mg Heparin Sodium (Porcine) (Heparin) 5,000 units SC Q12 [facility] Last Admin: 06/02/18 09:25 Dose: 5,000 units Hydralazine HCl (Apresoline) 100 mg PO TID [facility] Last Admin: 06/02/18 09:24 Dose: 100 mg Insulin Glargine (Lantus) 15 unit SC HS [facility] Last Admin: 06/01/18 22:14 Dose: 15 units Insulin Human Regular (Novolin R) 0 unit SC ACHS [facility]; Protocol Last Admin: 06/02/18 08:25 Dose: 2 units Insulin Human Regular (Novolin R) 4 unit SC TIDPC [facility] Last Admin: 06/02/18 08:26 Dose: 4 units Lactulose (Enulose) 20 gm PO DAILY [facility] Last Admin: 06/02/18 09:24 Dose: 20 gm Methylprednisolone (Solu-Medrol) 40 mg IV Q12H [facility] Last Admin: 06/02/18 09:25 Dose: 40 mg Pantoprazole Sodium (Protonix Ec Tab) 20 mg PO Q12 [facility] Last Admin: 06/02/18 09:26 Dose: 20 mg Rosuvastatin Calcium (Crestor) 10 mg PO HS [facility] Last Admin: 06/01/18 22:10 Dose: 10 mg Sodium Bicarbonate (Sodium Bicarbonate Tab) 1,300 mg PO TID [facility] Last Admin: 06/02/18 09:24 Dose: 1,300 mg - Labs Labs: 05/31/18 11:13 05/31/18 11:13 - Additional Findings Additional findings: - Constitutional Appears: No Acute Distress - Head Exam Head Exam: NORMAL INSPECTION, NORMOCEPHALIC - Eye Exam Eye Exam: Normal appearance Pupil Exam: NORMAL ACCOMODATION - ENT Exam ENT Exam: Mucous Membranes Moist - Respiratory Exam Respiratory Exam: Decreased Breath Sounds - Cardiovascular Exam Cardiovascular Exam: +S1, +S2. absent: Tachycardia - GI/Abdominal Exam GI & Abdominal Exam: Soft, Normal Bowel Sounds - Extremities Exam Extremities Exam: Normal Inspection. absent: Pedal Edema, Tenderness - Neurological Exam Neurological Exam: Alert, Awake, Oriented x3 - Psychiatric Exam Psychiatric exam: Normal Affect, Normal Mood - Skin Skin Exam: Dry, Intact, Normal Color, Warm Assessment and Plan - Assessment and Plan (Free Text) Plan: Dyspnea Acute on chronic diastolic heart failure RLL Pneumonia RLL 3.3cm Mass Imaging/ Labs: - CXR: Patchy consolidative changes in right lower lung zone - BNP: 6490; Previous admission 991 - Chest CT: (previous admission) 3.3 cm RLL mass (outpatient biopsy) - Nuclear Stress Test: normal stress test, normal EF (previous admission) - Venous dopplers: no evidence of DVT - Repeat CT Chest: New bilateral pleural effusions and lower lobe consolidative change. Stable right lower lobe lung mass. Management: - Measure daily weights, strict I & Os - Reinforced with patient the importance of fluid restriction, salt intake, medication compliance - Continue with antibiotics, solumedrol, duonebs - Continue Lasix to 40mg IVP daily, will continue to monitor renal function - Nephrology consult for HEYDI on CKD Case discussed with Dr. Vincent, Aleshia King DO, PGY2 <Maxwell Vincent - Last Filed: 06/02/18 23:41> Objective - Vital Signs/Intake and Output Vital Signs (last 24 hours): Temp Pulse Resp BP Pulse Ox 98.1 F 79 20 136/71 97 06/02/18 16:30 06/02/18 16:30 06/02/18 16:30 06/02/18 16:30 06/02/18 16:30 Intake and Output: 06/02/18 06/03/18 18:59 06:59 Intake Total 480 Output Total 500 Balance -20 - Labs Labs: 06/02/18 11:19 06/02/18 11:19 Assessment and Plan - Assessment and Plan (Free Text) Plan: Patient seen and evaluated personally by sd Plan of care d/w the medical imaging tech and as documented
[2018-06-02 11:59] LABS: BASO % 0.1 % (0.0-2.0); EOS % 0.2 % (0.0-4.0); HEMOGLOBIN 9.3 g/dL (11.0-16.0); LYMPH # 0.9 K/uL (1.0-4.3); LYMPH % 7.2 % (20.0-40.0); MEAN CELL VOLUME 84.8 fL (81.0-99.0); MEAN CORPUSCULAR HEMOGLOBIN 26.3 pg (27.0-31.0); MEAN CORPUSCULAR HGB CONC 31.1 g/dL (33.0-37.0); MEAN PLATELET VOLUME 10.4 fL (7.2-11.7); MONO # 0.6 K/uL (0.0-0.8); MONO % 4.5 % (0.0-10.0); NEUT # 11.4 K/uL (1.8-7.0); NRBC % 0.2 % (0.0-2.0); PLATELET COUNT 207 K/uL (130-400); RBC 3.52 Mil/uL (3.80-5.20); RED CELL DISTRIBUTION WIDTH 14.9 % (11.5-14.5); WHITE BLOOD COUNT 12.9 K/uL (4.8-10.8)
--- NOTE | 2018-06-02 12:11 | CP.PCM.PN ---
Subjective - Date & Time of Evaluation Date of Evaluation: 06/02/18 Time of Evaluation: 12:10 - Subjective Subjective: Nephrology Consultation Note: Assessment: Stable HEYDI likely hemodynamic : improved Pneumonia Diabetic chronic Kidney Disease (E11.22) Hypertensive Chronic Kidney Disease (I12.9) Chronic Kidney Disease (N18.4) Stage 4 with ? mg proteinuria (R80.9) with b/l atrophic kidneys likely due to DM/HTN/age related nephrosclerosis Anemia (D64.9) morbid obesity, mild hyperkalemia and metabolic acidosis hyponatremia with RLL mass ventral hernia s/p repair Plan No acute need for renal replacement therapy at this time. Hypertension control with meds as ordered. Maintain hemodynamics stable. Avoid hypotension. Patient not on ACEI/ARB due to HEYDI Monitor Input/Output, daily weights and renal function with basic metabolic panel Anemia: heme following, defer use of LOUISE to heme/onc considering RLL lung mass. PRBC as needed continue with sodium bicarb 1300 mg tid pulmonary, cardio following started weekly Vit D agree with lasix Dose meds/antibiotics for reduced GFR. Avoid fleets enema/magnesium based laxatives. Avoid nephrotoxins/NSAIDs/ iodinated contrast (unless needed emergently) Glycemic control Further work up/management as per primary team pt stable for d/c from renal perspective with 1 week outpt follow up Thanks for allowing me to participate in care of your patient. Will follow patient with you. Please call if any Qs. had d/w team Dr Saturnino Askew Office: [phone] ROS: c/o cough with wheezing Cardiovascular: No chest pain. Pulmonary: improved shortness of breath Gastrointestinal: no abdominal pain No nausea. No vomiting. had BM Genitourinary: No pain while urinating. Denies blood in urine. All other negative except as mentioned in HPI Physical Examination: General Appearance: Comfortable, in no acute respiratory distress, co-operative . obese Vitals reviewed and noted as below Head; Atraumatic, normocephalic ENT: no ulcers no thrush. Tongue is midline. Oropharynx: no rash or ulcers. EYES: Pupils are equal, round and reactive to light accommodation. Eye muscles and extraocular movement intact. Sclera is anicteric. Neck; supple no lymphadenopathy, no thyromegaly or bruit Lungs: normal respiratory rate/effort. Breath sounds bilateral clearer Heart: Normal rate. s1s2 normal. No rub or gallop. Extremities: 2+ edema. No varicose veins Neurological: Patient is alert, awake and oriented to person, place and time. No focal deficit. Strength bilateral appropriate and equal Skin: Warm and dry. Normal turgor. No rash. Palpitation: Normal elasticity for age Abdomen: Abdomen is soft. Bowel sounds +. There is no abdominal tenderness, no guarding/rigidity no organomegaly. has binder + exam limited Psych: normal insight and normal affect/mood MSK: no joint tenderness or swelling. Digits and nails normal, no deformity : kidney or bladder not palpable Labs/imaging reviewed. Past medical history, past surgical history, family history, social history, allergy reviewed and noted as below Family hx: no hx of CKD. Rest non-contributory SPEP/BAILEE neg Vit D <12.8 TSAT 38% Ferritin 700 Objective - Vital Signs/Intake and Output Vital Signs (last 24 hours): Temp Pulse Resp BP Pulse Ox 98.3 F 74 20 190/70 H 100 06/02/18 07:00 06/02/18 08:20 06/02/18 07:00 06/02/18 09:25 06/02/18 07:00 Intake and Output: 06/02/18 06/02/18 06:59 18:59 Intake Total 600 Output Total 250 Balance 350 - Medications Medications: Current Medications Albuterol/Ipratropium (Duoneb 3 Mg/0.5 Mg (3 Ml) Ud) 3 ml INH RQ4 [facility] Last Admin: 06/02/18 08:05 Dose: 3 ml Docusate Sodium (Colace) 100 mg PO TID [facility] Last Admin: 06/02/18 09:24 Dose: 100 mg Ergocalciferol (Drisdol 50,000 Intl Units Cap) 1 cap PO Q7D [facility] Last Admin: 05/30/18 12:49 Dose: 1 cap Ferrous Sulfate (Feosol) 325 mg PO DAILY [facility] Last Admin: 06/02/18 09:31 Dose: 325 mg Furosemide (Lasix) 40 mg IVP DAILY [facility] Last Admin: 06/02/18 09:25 Dose: 40 mg Gabapentin (Neurontin) 100 mg PO TID [facility] Last Admin: 06/02/18 09:24 Dose: 100 mg Guaifenesin (Robitussin) 200 mg PO Q4H PRN PRN Reason: Cough and congestion Last Admin: 06/01/18 11:30 Dose: 200 mg Heparin Sodium (Porcine) (Heparin) 5,000 units SC Q12 [facility] Last Admin: 06/02/18 09:25 Dose: 5,000 units Hydralazine HCl (Apresoline) 100 mg PO TID [facility] Last Admin: 06/02/18 09:24 Dose: 100 mg Insulin Glargine (Lantus) 15 unit SC [facility] Last Admin: 06/01/18 22:14 Dose: 15 units Insulin Human Regular (Novolin R) 0 unit SC ACHS [facility]; Protocol Last Admin: 06/02/18 08:25 Dose: 2 units Insulin Human Regular (Novolin R) 4 unit SC TIDPC [facility] Last Admin: 06/02/18 08:26 Dose: 4 units Lactulose (Enulose) 20 gm PO DAILY [facility] Last Admin: 06/02/18 09:24 Dose: 20 gm Methylprednisolone (Solu-Medrol) 40 mg IV Q12H [facility] Last Admin: 06/02/18 09:25 Dose: 40 mg Pantoprazole Sodium (Protonix Ec Tab) 20 mg PO Q12 [facility] Last Admin: 06/02/18 09:26 Dose: 20 mg Rosuvastatin Calcium (Crestor) 10 mg PO HS [facility] Last Admin: 06/01/18 22:10 Dose: 10 mg Sodium Bicarbonate (Sodium Bicarbonate Tab) 1,300 mg PO TID [facility] Last Admin: 06/02/18 09:24 Dose: 1,300 mg - Labs Labs: 06/02/18 11:19 06/02/18 11:19
[2018-06-02 12:45] LABS: ANISOCYTOSIS SLIGHT; HYPOCHROMIC SLIGHT; LYMPHOCYTE 3 % (20-40); MONOCYTE 4 % (0-10); NEUTROPHIL 93 % (50-75); PLATELET ESTIMATE NORMAL (NORMAL); POIKILOCYTOSIS SLIGHT; TOTAL CELLS COUNTED 100
[2018-06-02 12:46] LABS: BURR CELLS SLIGHT; POLYCHROMIC SLIGHT; TARGET CELLS SLIGHT
[2018-06-02 12:47] LABS: OVALOCYTES SLIGHT; TEARDROP CELLS SLIGHT
--- NOTE | 2018-06-02 16:00 | CP.PCM.PN ---
Subjective - Date & Time of Evaluation Date of Evaluation: 06/02/18 Time of Evaluation: 11:20 - Subjective Subjective: Patient seen today states breathing improved, c/o dry cough , denies any chest pain, diziness , abdominal pain, B/l LE swelling improved a febrile labs and vss - reviewed- hgb stable and cr- stable ( base line0) Objective - Vital Signs/Intake and Output Vital Signs (last 24 hours): Temp Pulse Resp BP Pulse Ox 98.3 F 74 20 171/71 H 100 06/02/18 07:00 06/02/18 08:20 06/02/18 07:00 06/02/18 14:08 06/02/18 07:00 Intake and Output: 06/02/18 06/02/18 06:59 18:59 Intake Total 600 Output Total 250 Balance 350 - Medications Medications: Current Medications Albuterol/Ipratropium (Duoneb 3 Mg/0.5 Mg (3 Ml) Ud) 3 ml INH RQ4 [facility] Last Admin: 06/02/18 12:10 Dose: Not Given Docusate Sodium (Colace) 100 mg PO TID [facility] Last Admin: 06/02/18 13:35 Dose: Not Given Ergocalciferol (Drisdol 50,000 Intl Units Cap) 1 cap PO Q7D [facility] Last Admin: 05/30/18 12:49 Dose: 1 cap Ferrous Sulfate (Feosol) 325 mg PO DAILY [facility] Last Admin: 06/02/18 09:31 Dose: 325 mg Furosemide (Lasix) 40 mg IVP DAILY [facility] Last Admin: 06/02/18 09:25 Dose: 40 mg Gabapentin (Neurontin) 100 mg PO TID [facility] Last Admin: 06/02/18 14:05 Dose: 100 mg Guaifenesin (Robitussin) 200 mg PO Q4H PRN PRN Reason: Cough and congestion Last Admin: 06/01/18 11:30 Dose: 200 mg Heparin Sodium (Porcine) (Heparin) 5,000 units SC Q12 [facility] Last Admin: 06/02/18 09:25 Dose: 5,000 units Hydralazine HCl (Apresoline) 100 mg PO TID [facility] Last Admin: 06/02/18 14:04 Dose: 100 mg Insulin Glargine (Lantus) 15 unit SC HS [facility] Last Admin: 06/01/18 22:14 Dose: 15 units Insulin Human Regular (Novolin R) 0 unit SC ACHS [facility]; Protocol Last Admin: 06/02/18 12:32 Dose: 2 units Insulin Human Regular (Novolin R) 4 unit SC TIDPC [facility] Last Admin: 06/02/18 12:32 Dose: 4 units Lactulose (Enulose) 20 gm PO DAILY [facility] Last Admin: 06/02/18 10:00 Dose: Not Given Methylprednisolone (Solu-Medrol) 40 mg IV Q12H [facility] Last Admin: 06/02/18 09:25 Dose: 40 mg Pantoprazole Sodium (Protonix Ec Tab) 20 mg PO Q12 [facility] Last Admin: 06/02/18 09:26 Dose: 20 mg Rosuvastatin Calcium (Crestor) 10 mg PO HS [facility] Last Admin: 06/01/18 22:10 Dose: 10 mg Sodium Bicarbonate (Sodium Bicarbonate Tab) 1,300 mg PO TID [facility] Last Admin: 06/02/18 14:05 Dose: 1,300 mg - Labs Labs: 06/02/18 11:19 06/02/18 11:19 - Constitutional Appears: Well, Non-toxic, No Acute Distress - Respiratory Exam Respiratory Exam: Decreased Breath Sounds, NORMAL BREATHING PATTERN - Cardiovascular Exam Cardiovascular Exam: REGULAR RHYTHM, +S1, +S2 - Neurological Exam Neurological Exam: Alert, Awake, Oriented x3 Assessment and Plan - Assessment and Plan (Free Text) Assessment: A/P 83 yr old female admitted with Pneumonia, Anemia, CKD duplex - LE - negative for DVT started on antibiotics and steroids and clinically improved hgb and cr- stable and base line seen by Dr. Lino peterson, cleared fro discharge from pulminory standpoint and out patient f/u for lung biopsy D/w Dr. Askew, cleared for discharge from nephrology standpoint and continue levaquin 500 mg q 48hrs x 7 days D/w Dr. Rich cleared fro discharge to [employer] today and Dr. Rich will follow up patient at [facility] Patient will f/u epifanio for biopsy ( Instructions sent to [facility] for appoint and arrange transportation) discharge plan discussed with patient wh o understands and agrees with plan
--- NOTE | 2018-06-02 16:39 | CP.PCM.PN ---
Subjective - Date & Time of Evaluation Date of Evaluation: 06/02/18 Time of Evaluation: 11:20 - Subjective Subjective: Patient seen and examined at bedside, lying down comfortably. Denies chest pain, palpitations, SOB, cough, fevers/chills Legs are swollen b/l lung sounds are normal CXR 06/02: persistent right basilar opacity, nonspecific Spoke with nurse, patient is to be discharged back to assisted with levoquin Objective - Vital Signs/Intake and Output Vital Signs (last 24 hours): Temp Pulse Resp BP Pulse Ox 98.3 F 74 20 171/71 H 100 06/02/18 07:00 06/02/18 08:20 06/02/18 07:00 06/02/18 14:08 06/02/18 07:00 Intake and Output: 06/02/18 06/02/18 06:59 18:59 Intake Total 600 480 Output Total 250 500 Balance 350 -20 - Medications Medications: Current Medications Albuterol/Ipratropium (Duoneb 3 Mg/0.5 Mg (3 Ml) Ud) 3 ml INH RQ4 [facility] Last Admin: 06/02/18 16:15 Dose: 3 ml Docusate Sodium (Colace) 100 mg PO TID [facility] Last Admin: 06/02/18 13:35 Dose: Not Given Ergocalciferol (Drisdol 50,000 Intl Units Cap) 1 cap PO Q7D [facility] Last Admin: 05/30/18 12:49 Dose: 1 cap Ferrous Sulfate (Feosol) 325 mg PO DAILY [facility] Last Admin: 06/02/18 09:31 Dose: 325 mg Furosemide (Lasix) 40 mg IVP DAILY [facility] Last Admin: 06/02/18 09:25 Dose: 40 mg Gabapentin (Neurontin) 100 mg PO TID [facility] Last Admin: 06/02/18 14:05 Dose: 100 mg Guaifenesin (Robitussin) 200 mg PO Q4H PRN PRN Reason: Cough and congestion Last Admin: 06/01/18 11:30 Dose: 200 mg Heparin Sodium (Porcine) (Heparin) 5,000 units SC Q12 [facility] Last Admin: 06/02/18 09:25 Dose: 5,000 units Hydralazine HCl (Apresoline) 100 mg PO TID [facility] Last Admin: 06/02/18 14:04 Dose: 100 mg Insulin Glargine (Lantus) 15 unit SC HS [facility] Last Admin: 06/01/18 22:14 Dose: 15 units Insulin Human Regular (Novolin R) 0 unit SC ACHS [facility]; Protocol Last Admin: 06/02/18 12:32 Dose: 2 units Insulin Human Regular (Novolin R) 4 unit SC TIDPC [facility] Last Admin: 06/02/18 12:32 Dose: 4 units Lactulose (Enulose) 20 gm PO DAILY [facility] Last Admin: 06/02/18 10:00 Dose: Not Given Methylprednisolone (Solu-Medrol) 40 mg IV Q12H [facility] Last Admin: 06/02/18 09:25 Dose: 40 mg Pantoprazole Sodium (Protonix Ec Tab) 20 mg PO Q12 [facility] Last Admin: 06/02/18 09:26 Dose: 20 mg Rosuvastatin Calcium (Crestor) 10 mg PO HS [facility] Last Admin: 06/01/18 22:10 Dose: 10 mg Sodium Bicarbonate (Sodium Bicarbonate Tab) 1,300 mg PO TID [facility] Last Admin: 06/02/18 14:05 Dose: 1,300 mg - Labs Labs: 06/02/18 11:19 06/02/18 11:19 Assessment and Plan (1) CKD (chronic kidney disease) Status: Acute (2) Chronic congestive heart failure Status: Acute (3) Pneumonia Status: Acute
[2018-06-02 16:57] VITALS: BP 136/71; PULSE 79; TEMP 98.1; O2SAT 97
[2018-06-02] MEDS ORDERED: Influenza Vaccine 60 MCG/0.5 ML SYR (3 yr & up) IM ONE (17:50)
[2018-06-02] MEDS ORDERED: Pneumococcal 23-Valent Vaccine IM ONE (17:51)
--- NOTE | 2018-06-02 22:54 | CP.PCM.PN ---
Subjective - Date & Time of Evaluation Date of Evaluation: 06/02/18 Time of Evaluation: 12:00 - Subjective Subjective: No complaints. Objective - Vital Signs/Intake and Output Vital Signs (last 24 hours): Temp Pulse Resp BP Pulse Ox 98.1 F 79 20 136/71 97 06/02/18 16:30 06/02/18 16:30 06/02/18 16:30 06/02/18 16:30 06/02/18 16:30 Intake and Output: 06/02/18 06/03/18 18:59 06:59 Intake Total 480 Output Total 500 Balance -20 - Labs Labs: 06/02/18 11:19 06/02/18 11:19 - Head Exam Head Exam: ATRAUMATIC - Eye Exam Eye Exam: Normal appearance - ENT Exam ENT Exam: Mucous Membranes Dry - Respiratory Exam Respiratory Exam: NORMAL BREATHING PATTERN - Cardiovascular Exam Cardiovascular Exam: +S1, +S2 - GI/Abdominal Exam GI & Abdominal Exam: Normal Bowel Sounds Assessment and Plan (1) Anemia Assessment & Plan: work up consistent with anemia of chronic disease and anemia of CKD s/p PRBC transfusion s/p Procrit Status: Acute (2) Lung mass Assessment & Plan: biopsy when more clinically stable Status: Acute
--- NOTE | 2018-06-03 02:12 | CP.PCM.DIS ---
Provider - Provider Date of Admission: 05/25/18 20:37 Attending physician: Toby Rich MD Hospital Course - Lab Results Lab Results: Micro Results 05/25/18 20:00 Blood Blood Culture - Final NO GROWTH AFTER 5 DAYS 05/25/18 20:00 Blood Gram Stain - Final TEST NOT PERFORMED 05/25/18 20:30 Blood Blood Culture - Final NO GROWTH AFTER 5 DAYS 05/25/18 20:30 Blood Gram Stain - Final TEST NOT PERFORMED Most Recent Lab Values WBC 12.9 K/uL (4.8-10.8) H 06/02/18 11:19 RBC 3.52 Mil/uL (3.80-5.20) L 06/02/18 11:19 Hgb 9.3 g/dL (11.0-16.0) L 06/02/18 11:19 Hct 29.9 % (34.0-47.0) L 06/02/18 11:19 MCV 84.8 fL (81.0-99.0) 06/02/18 11:19 MCH 26.3 pg (27.0-31.0) L 06/02/18 11:19 MCHC 31.1 g/dL (33.0-37.0) L 06/02/18 11:19 RDW 14.9 % (11.5-14.5) H 06/02/18 11:19 Plt Count 207 K/uL (130-400) 06/02/18 11:19 MPV 10.4 fL (7.2-11.7) 06/02/18 11:19 Neut % (Auto) 88.0 % (50.0-75.0) H 06/02/18 11:19 Lymph % (Auto) 7.2 % (20.0-40.0) L 06/02/18 11:19 [place] % (Auto) 4.5 % (0.0-10.0) 06/02/18 11:19 Eos % (Auto) 0.2 % (0.0-4.0) 06/02/18 11:19 Baso % (Auto) 0.1 % (0.0-2.0) 06/02/18 11:19 Neut # (Auto) 11.4 K/uL (1.8-7.0) H 06/02/18 11:19 Lymph # (Auto) 0.9 K/uL (1.0-4.3) L 06/02/18 11:19 [place] # (Auto) 0.6 K/uL (0.0-0.8) 06/02/18 11:19 Eos # (Auto) 0.0 K/uL (0.0-0.7) 06/02/18 11:19 Baso # (Auto) 0.0 K/uL (0.0-0.2) 06/02/18 11:19 Neutrophils % (Manual) 93 % (50-75) H 06/02/18 11:19 Band Neutrophils % 2 % (0-2) 05/29/18 07:54 Lymphocytes % (Manual) 3 % (20-40) L 06/02/18 11:19 Monocytes % (Manual) 4 % (0-10) 06/02/18 11:19 Nucleated RBC % 1 % (0-0) H 05/31/18 11:13 Toxic Granulation Present 05/29/18 07:54 Platelet Estimate Normal (NORMAL) 06/02/18 11:19 Plt Clumps, EDTA Present 05/27/18 08:35 Large Platelets Present 05/31/18 11:13 Polychromasia Slight 06/02/18 11:19 Hypochromasia (manual) Slight 06/02/18 11:19 Poikilocytosis (manual Slight 06/02/18 11:19 Anisocytosis (manual) Slight 06/02/18 11:19 Microcytosis (manual) Slight 05/31/18 11:13 Macrocytosis (manual) Slight 05/31/18 11:13 Target Cells Slight 06/02/18 11:19 Tear Drop Cells Slight 06/02/18 11:19 Ovalocytes Slight 06/02/18 11:19 [place] Cells Slight 06/02/18 11:19 Retic Count 2.0 % (0.5-1.5) H 05/27/18 08:35 Sodium 139 mmol/L (132-148) 06/02/18 11:19 Potassium 4.1 mmol/L (3.6-5.2) 06/02/18 11:19 Chloride 103 mmol/L (98-107) 06/02/18 11:19 Carbon Dioxide 25 mmol/L (22-30) 06/02/18 11:19 Anion Gap 15 (10-20) 06/02/18 11:19 BUN 63 mg/dL (7-17) H 06/02/18 11:19 Creatinine 2.9 mg/dL (0.7-1.2) H 06/02/18 11:19 Est GFR ( Amer) 19 06/02/18 11:19 Est GFR (Non-Af Amer) 15 06/02/18 11:19 POC Glucose (mg/dL) 170 mg/dL (65-110) H 06/02/18 16:23 Random Glucose 219 mg/dL (65-105) H 06/02/18 11:19 Hemoglobin A1c 7.5 % (4.2-6.5) H 06/01/18 09:21 Lactic Acid 1.4 mmol/L (0.7-2.1) 05/25/18 20:14 Calcium 8.1 mg/dl (8.6-10.4) L 06/02/18 11:19 Phosphorus 5.3 mg/dL (2.5-4.5) H 05/27/18 08:35 Magnesium 2.0 mg/dL (1.6-2.3) 05/31/18 11:13 Iron 69 ug/dL (37-170) 05/29/18 17:16 TIBC 182 ug/dL (250-450) L 05/29/18 17:16 % Saturation 38 (20-55) 05/29/18 17:16 Ferritin 700.0 ng/mL 05/27/18 08:35 Total Bilirubin 0.2 mg/dL (0.2-1.3) 05/30/18 21:33 AST 22 U/L (14-36) 05/30/18 21:33 ALT 18 U/L (9-52) 05/30/18 21:33 Alkaline Phosphatase 113 U/L (38-126) 05/30/18 21:33 Troponin I 0.0170 ng/mL (0.00-0.120) 05/25/18 19:52 NT-Pro-B Natriuret Pep 6490 pg/mL (0-900) H 05/25/18 19:52 Total Protein 6.5 g/dL (6.3-8.3) 05/30/18 21:33 Albumin 3.0 g/dL (3.5-5.0) L 05/30/18 21:33 Globulin 3.5 gm/dL (2.2-3.9) 05/30/18 21:33 Albumin/Globulin Ratio 0.9 (1.0-2.1) L 05/30/18 21:33 Vitamin B12 724 pg/mL (239-931) 05/27/18 08:35 Folate 7.1 ng/mL 05/27/18 08:35 Procalcitonin 0.13 NG/ML (0.19-0.49) L 05/27/18 08:35 TSH 3rd Generation 1.19 mIU/L (0.46-4.68) 06/01/18 09:21 Urine Color Yellow (YELLOW) 05/29/18 23:02 Urine Clarity Hazy (Clear) 05/29/18 23: Urine pH 5.0 (5.0-8.0) 05/29/18 23:02 Ur Specific [place] 1.015 (1.003-1.030) 05/29/18 23:02 Urine Protein 2+ mg/dL (NEGATIVE) H 05/29/18 23:02 Urine Glucose (UA) Normal mg/dL (Normal) 05/29/18 23: Urine Ketones Negative mg/dL (NEGATIVE) 05/29/18 23: Urine Blood Negative (NEGATIVE) 05/29/18 23: Urine Nitrate Negative (NEGATIVE) 05/29/18 23: Urine Bilirubin Negative (NEGATIVE) 05/29/18 23:02 Urine Urobilinogen Normal mg/dL (0.2-1.0) 05/29/18 23:02 Ur Leukocyte Esterase 3+ Tomy/uL (Negative) H 05/29/18 23:02 Urine WBC (Auto) 21 /hpf (0-5) H 05/29/18 23:02 Urine RBC (Auto) 23 /hpf (0-3) H 05/29/18 23:02 Ur Squamous Epith Cells 3 /hpf (0-5) 05/29/18 23:02 Urine Bacteria Few (<OCC) H 05/29/18 23:02 Urine Yeast (Budding) Few /hpf (NEGATIVE) H 05/29/18 23:02 Ur Random Creatinine 84.4 mg/dL 05/29/18 23:02 U Random Total Protein 61.0 mg/dL (0.0-12.0) H 05/29/18 23:04 Ur Random Sodium 81 mmol/L 05/29/18 23:02 Stool Occult Blood Negative (NEGATIVE) 05/30/18 10:21 [place]/Lambda Light Chain (()) 05/27/18 08:35 Free [place] Light Chains 141.6 mg/L (3.3-19.4) H 05/27/18 08:35 Free [place] Light Chain 134.8 mg/L (5.7-26.3) H 05/27/18 08:35 Free [place]/Lambda Ratio 1.05 (0.26-1.65) 05/27/18 08:35 Blood Type B POSITIVE 05/27/18 11:32 Antibody Screen Negative 05/27/18 11:32 Discharge Exam - Head Exam Head Exam: ATRAUMATIC Discharge Plan - Discharge Medications Prescriptions: Furosemide [Lasix] 40 mg PO DAILY #30 tablet Levofloxacin [Levaquin] 500 mg PO QOD6 #7 tablet predniSONE [Prednisone] 30 mg PO DAILY #18 tab - Follow Up Plan Condition: FAIR Disposition: HOME/ ROUTINE Instructions: Heart Failure, Adult (DC), Pneumonia, Adult (DC) Additional Instructions: Please call Dr. Rich upon patinet arrival to [facility] Facility Continue levaquin q 48 hrs for 7 days Please call [facility] [place] [phone] for an appointmen tfor lung biopsy and please make arrangement Please do cbc, BMP , Q 3 DAYS STARTING SATURDAY Referrals: Toby Rich MD [Staff Provider] -
--- NOTE | 2018-06-03 02:12 | CP.PCM.PN ---
Subjective - Date & Time of Evaluation Date of Evaluation: 05/27/18 - Subjective Subjective: dicateted Objective - Vital Signs/Intake and Output Vital Signs (last 24 hours): Temp Pulse Resp BP Pulse Ox 98.1 F 79 20 136/71 97 06/02/18 16:30 06/02/18 16:30 06/02/18 16:30 06/02/18 16:30 06/02/18 16:30 Intake and Output: 06/02/18 06/03/18 18:59 06:59 Intake Total 480 Output Total 500 Balance -20 - Labs Labs: 06/02/18 11:19 06/02/18 11:19
--- NOTE | 2018-06-03 07:48 | PCM.HF ---
Heart Failure Core Measure - Heart Failure Ejection Fraction: 40 % or Greater [place] Inhibitor Prescribed: No Contraindication/Reason for not providing: ARF Beta-Daren Prescribed: None Contraindication/Reason for not providing: COPD Angiotensin II Receptor Daren Prescribed: No Contraindication/Reason for not providing: arf AnticoagulationTherapy for Atrial Fibrillation/Atrialflutter: No Contraindication/Reason for not providing: NO HX OF A FIB Aldosterone Antagonist Prescribed: No Contraindication/Reason for not providing: EF>45/ ARF Hydralazine Nitrate Prescribed: Yes Implantable Cardioverter Defibrillator Therapy: No Contraindication/Reason for not providing: EF>45 Cardiac Resynchronization Therapy Prescribed: No Contraindication/Reason for not providing: EF.45 - Follow up Will be discharged to: Nursing Home Facility ([facility]) Follow Up Date (must be within 7 days from discharge): 06/06/18
--- NOTE | 2018-06-03 08:18 | PN ---
DATE: 06/03/2018 SUBJECTIVE: The patient is still coughing and wheezing and she is dyspneic at rest and dyspneic on exertion. The patient denies any fever, chills. She has chest congestion up on these cough, and no fever, no chills, no rigors. PHYSICAL EXAMINATION: VITAL SIGNS: Blood pressure 140/80, pulse 78, respiratory rate 20, and temperature 99. LUNGS: Bilateral scattered rales and rhonchi. Decreased air entry CARDIOVASCULAR SYSTEM: S1 and S2 plus S4 positive. ABDOMEN: Soft and nontender. Bowel sounds are positive. ASSESSMENT AND PLAN: 1. Pneumonia. Continue Zosyn, Zithromax. Discontinue Rocephin. Continue Solu-Medrol. Repeat CT 2. Chronic kidney disease. 3. Hypertensive heart disease. PLAN: Continue antibiotics. Monitor the patient. Toby Rich MD
--- NOTE | 2018-06-04 02:06 | DS ---
ADMISSION DIAGNOSIS: Shortness of breath. DISCHARGE DIAGNOSES: 1. Pneumonia, right lower lobe. 2. Chronic obstructive pulmonary disease/bronchial asthma. 3. Hypertensive heart disease with congestive heart failure. 4. Anemia of chronic kidney disease. 5. Hyperlipidemia. HISTORY OF PRESENT ILLNESS: This is an 83-year-old -[place] female well known to me with history of a lung mass, hypertension, hyperlipidemia, and type 2 diabetes who is complaint with her diet, medications and followup. The patient was admitted from [facility] rehab where she was treated for difficulty walking, generalized debility and the patient was admitted to the hospital because of recurrent cough, congestion, and shortness of breath, wheezing, orthopnea, PND. The patient was found to have pneumonia in the right lower lobe. Along with that, she had fluid overload. The patient was started on diuretic, intake/output daily while being on steroids, Rocephin and then switched over to Zithromax and Zosyn and the patient responded well to treatment. She became afebrile. She felt better. She is being discharged back to subacute rehab. PHYSICAL EXAMINATION: VITAL SIGNS: BP 156/71, pulse 79, respiratory rate 20, temperature 98.1. LABORATORY DATA: WBC 12.9, hemoglobin 9.3, hematocrit 29.9, platelets 207. Sodium 139, potassium 4.1, chloride 103, bicarb 25, BUN 63, and creatinine 2.9. Glucose 215, 170. ASSESSMENT AND PLAN: Discharged patient home off antibiotic. The patient is doing well. The patient will be followed up closely. Toby Rich MD
--- NOTE | 2018-06-04 22:34 | PQF ---
PROVIDER RESPONSE TEXT: Provider was unable to determine a response for this query. REVIEWER QUERY TEXT: Clarification of Clinical Diagnostic Findings Please clarify documentation or clinical relevance for the clinical / diagnostic findings or whether those are insignificant or unable to be further specified. Morbid Obesity w/ BMI=51.2 -Other Explanation. -Unable to Determine. The patient's Clinical Indicators include: Clinical Findings: HT 5 ' 2 Inches, WT: 280 Lbs. BMI= 51.2 Query created by: Amie Sifuentes on 05/27/2018 4:08 PM Electronically signed by: Toby Rich MD 06/04/2018 10:30 PM
== END 2018-06-02 19:35 | DRG 194 ==
LOC: C.ER 17:59 → C.9E 20:37 → C.6T 23:43
PROVIDERS: ADMIT Internal Medicine; ATTEND Internal Medicine
PROC: 05H533Z Insertion of Infusion Device into Right Subclavian Vein, Percutaneous Approach (ICD-10-PCS; principal; 2018-05-30)
DX: J18.1 Lobar pneumonia, unspecified organism (principal); I13.0 Hypertensive heart and chronic kidney disease with heart failure and stage 1 through stage 4 chronic kidney disease, or unspecified chronic kidney disease; I50.32 Chronic diastolic (congestive) heart failure; J44.0 Chronic obstructive pulmonary disease with (acute) lower respiratory infection; E87.1 Hypo-osmolality and hyponatremia; J45.901 Unspecified asthma with (acute) exacerbation; J44.1 Chronic obstructive pulmonary disease with (acute) exacerbation; N17.9 Acute kidney failure, unspecified; N18.4 Chronic kidney disease, stage 4 (severe); E87.2 Acidosis; Z68.43 Body mass index [BMI] 50.0-59.9, adult; E87.5 Hyperkalemia; Z79.84 Long term (current) use of oral hypoglycemic drugs; Z87.891 Personal history of nicotine dependence; E66.01 Morbid (severe) obesity due to excess calories; E78.5 Hyperlipidemia, unspecified; E11.22 Type 2 diabetes mellitus with diabetic chronic kidney disease; D63.1 Anemia in chronic kidney disease; E11.65 Type 2 diabetes mellitus with hyperglycemia; E11.21 Type 2 diabetes mellitus with diabetic nephropathy